=== PATIENT | male | born 1965 | race Caucasian/White ===

== ENCOUNTER 2016-08-08 13:47 | Emergency (ER) | payer OTHER ==
[~2016-08-08 13:47] MED LIST: /ADVA50050; /HALO1T OR; /OL10DISTA; /OLAN5ZYD OR; /QUET10TA OR; ADV250INH INH; ATIV1TAB2 OR; ATOR1TAB19 PO; AUGM875T27 PO; BACITAB3 PO; BENADRYL; BENZ1TA PO; BENZ1TAB; COGE1INJ; COGE1INJ PO; COGENTIN; DEPA1TAB3 PO; DEPA500T OR; DEPA500T2; DEPAKOTE ER; FLUPHENAZINE DECANOATE; GAS-80CH OR; GEOD40CA; HALDOL DECANOATE; HALO10AM IM; HALO10TA4; HALOPERIDOL DECANOATE; LIPI10TA; NICO21DI4 TD; PROLIXIN DECANOATE; PROLIXIN DECONATE; PROV90AE; QUET30XR; RISP-4; RISP2TAB12 OR; RISP3TAB16; RISPERDAL CONSTA; SERO1TAB PO; SERO400T; TRAZ100T4 PO; TRAZ150T; TRAZ50TA; TRAZ50TA OR; ZOLO50TA OR; ZYPR15TA OR; cogentin
[2016-08-08] MEDS ORDERED: IBUPROFEN 600 MG TAB As Ordered ONE (14:38)
--- NOTE | 2016-08-08 15:26 | EDDOCDS ---
Physician Documentation [facility] Name: Terrence Jett Age: 50 yrs Sex: Male : 1965 Arrival Date: 08/08/2016 Time: 13:47 Bed PR Private MD: Unknown, Family Disposition: 08/08/16 15:15 Discharged to Home/Self Care. Impression: Fall due to ice and snow, Contusion of left shoulder. - Condition is Stable. - Discharge Instructions: Contusion. - Medication Reconciliation, Local Pharmacy Hours form. - Follow up: Emergency Department; When: As needed; Reason: Worsening of conditions. Follow up: [facility]; When: Call to arrange an appointment; Reason: Recheck today's complaints, Continuance of care, To establish care. - Problem is new. - Symptoms are unchanged. - Notes: THERE WAS NO FRACTURES ON YOUR XRAYS TODAY. PLEASE FOLLOW UP WITH YOUR PRIMARY CARE PROVIDER IN THE NEXT FEW DAYS TO RECHECK YOUR SYMPTOMS. Historical: - Allergies: None; - Home Meds: 1. Advair Diskus 250-50 mcg/dose Inhl dsdv 1 puff 2 times per day (Last dose: 08/07/2016 20:00) 2. atorvastatin 10 mg oral tab 1 tab once daily (Last dose: 08/01/2016) 3. Depakote 500 mg Oral TbEC 1 tab 2 times per day (Last dose: 08/07/2016 20:00) 4. haloperidol injection 200 mg monthly injection (Last dose: 07/12/2016) 5. trazodone 100 mg Oral tab 1 tab nightly (Last dose: 08/07/2016 20:00) 6. Seroquel 100 mg Oral tab 1 tab nightly (Last dose: 08/07/2016 20:00) - PMHx: Asthma; Bipolar disorder; COPD; Hypercholesterolemia; Schizophrenia; - PSHx: none; - Social history: Smoking status: Patient uses tobacco products, current every day smoker. No barriers to communication noted, The patient speaks fluent Nicaraguan. - Family history: Not pertinent. - : The pt / caregiver states he / she is not on anticoagulants. Home medication list is obtained from the patient. - Exposure Risk Screening:: None identified. Vital Signs: 08/08 13:49 BP 136 / 89; Pulse 87; Resp 18 S; Temp 96.3(O); Pulse Ox 97% on R/A; Weight 77.11 kg / dd6 170 lbs (R); Height 5 ft. 10 in. (177.80 cm) (R); 15:20 BP 127 / 70; Pulse 78; Resp 18; Temp 97.2(O); Pulse Ox 98% on R/A; Pain 10/10; ct3 13:49 Body Mass Index 24.39 (77.11 kg, 177.80 cm) dd6 MDM: 14:27 Ibuprofen 600 mg PO once ordered. dt4 14:28 Clavicle Ordered. EDMS 14:40 Financial registration complete. lg 14:41 [facility] Payment Agreement was scanned into [employer] and attached to record. lg Administered Medications: 14:44 Drug: Ibuprofen 600 mg [ibuprofen 600 mg tablet (1 tabs)] Route: PO; jjr Signatures: Dispatcher [employer] EDMS Quoc Patel, Brittany Khalil RN, Reg Reg lg Mich ArguelloRN RN Sonia Clements PA-C PAClarence dt4 Rahel Mcneill RN jjr The chart was reviewed and I authenticate all verbal orders and agree with the evaluation and treatment provided.Attachments: 14:41 [facility] Payment Agreement lg MTDD
--- NOTE | 2016-08-08 15:26 | EDDOCDS ---
Nurse's Notes [facility] Name: Terrence Jett Age: 50 yrs Sex: Male : 1965 Arrival Date: 08/08/2016 Time: 13:47 Bed PR Private MD: Unknown, Family Dr Diagnosis: Fall due to ice and snow;Contusion of left shoulder Presentation: 08/08 13:52 Presenting complaint: Patient states: Left shoulder pain since slipping on ice at 10am dwg today, pain extends up to left side of neck. Adult Sepsis Screening: The patient does not have new or worsening altered mentation. Patient's respiratory rate is less than 22. Systolic blood pressure is greater than 100. Patient has a qSOFA score of 0- Negative Sepsis Screen. Suicide/Homicide risk assessment- the patient denies having any suicidal and/or homicidal ideations and does not present with any other emotional, behavioral or mental health complaints. Status: Patient is not a community service patrol officer or dependent. Transition of care: patient was not received from another setting of care. 13:52 Acuity: BRAVO Level 4 dwg 13:52 Method Of Arrival: Walkin/Carried/Asstd dwg Triage Assessment: 13:56 General: Appears in no apparent distress. Pain: Pain currently is 7 out of 10 on a pain dwg scale. HIV screening NA for this visit Offered previously. Historical: - Allergies: None; - Home Meds: 1. Advair Diskus 250-50 mcg/dose Inhl dsdv 1 puff 2 times per day (Last dose: 08/07/2016 20:00) 2. atorvastatin 10 mg oral tab 1 tab once daily (Last dose: 08/01/2016) 3. Depakote 500 mg Oral TbEC 1 tab 2 times per day (Last dose: 08/07/2016 20:00) 4. haloperidol injection 200 mg monthly injection (Last dose: 07/12/2016) 5. trazodone 100 mg Oral tab 1 tab nightly (Last dose: 08/07/2016 20:00) 6. Seroquel 100 mg Oral tab 1 tab nightly (Last dose: 08/07/2016 20:00) - PMHx: Asthma; Bipolar disorder; COPD; Hypercholesterolemia; Schizophrenia; - PSHx: none; - Social history: Smoking status: Patient uses tobacco products, current every day smoker. No barriers to communication noted, The patient speaks fluent Maltese. - Family history: Not pertinent. - : The pt / caregiver states he / she is not on anticoagulants. Home medication list is obtained from the patient. - Exposure Risk Screening:: None identified. Screenin:45 Screening information is obtained from the patient. Fall risk: At risk due to prior jjr history of falls, The following interventions are performed due to a positive Fall Risk Screen: added to special handling. Assistance ADL's: requires no assistance with activities of daily living. Abuse/DV Screen: The patient / caregiver reports he/she is: not in a situation that causes fear, pain or injury. Nutritional screening: No deficits noted. Advance Directives: There is no active DNR order. home support is adequate. 14:45 Fall Risk. jjr Assessment: 14:44 General: Appears in no apparent distress, Behavior is appropriate for age. jjr Musculoskeletal: No deformity noted Swelling absent Reports pain in left supraclavicular area. 15:24 General: Patient instructed on discharge instructions. Patient asked if there were any b questions regarding discharge, patient stated no. Patient signed discharge instructions. Patient discharged in stable condition. . Vital Signs: 13:49 BP 136 / 89; Pulse 87; Resp 18 S; Temp 96.3(O); Pulse Ox 97% on R/A; Weight 77.11 kg dd6 (R); Height 5 ft. 10 in. (177.80 cm) (R); 15:20 BP 127 / 70; Pulse 78; Resp 18; Temp 97.2(O); Pulse Ox 98% on R/A; Pain 10/10; ct3 13:49 Body Mass Index 24.39 (77.11 kg, 177.80 cm) dd6 Vitals: 13:49 Log In Time: August 08, 2016 at 13:47. dd6 ED Course: 13:48 Patient visited by Ras Katz PCA. dd6 13:48 Unknown, Family is Private Physician. dd6 13:48 Patient moved to Waiting dd6 13:51 Patient moved to Pre RCE dd6 13:53 Triage Initiated dwg 14:09 Patient moved to Triage 2 jjr 14:18 Sonia Flannery PA-C is PHCP. dt4 14:18 Ginette Rivers MD is Attending Physician. dt4 14:18 Patient visited by Sonia Flannery PA-C. dt4 14:38 Patient name changed from Terrence\S\\S\Johnie\S\ to Terrence\S\Jonathan\S\Johnie. EDMS 14:40 Patient moved to TR1 ct3 14:41 [facility] Payment Agreement was scanned into [employer] and attached to record. lg 14:45 The patient / caregiver is instructed regarding the plan of care and ED course. jjr 14:46 Patient visited by Rahel Mcneill, LIZETTE. jjr 15:13 [facility] is Referral Physician. dt4 15:17 Patient moved to ct3 15:21 Patient visited by Karis Red PCA. ct3 15:24 No IV's were initiated during this patient's visit. No procedures done that require jmb assistance. Administered Medications: 14:44 Drug: Ibuprofen 600 mg [ibuprofen 600 mg tablet (1 tabs)] Route: PO; jjr Order Results: There are currently no results for this order. Outcome: 15:15 Discharge ordered by Provider. dt4 15:24 Discharge Assessment: Patient awake, alert and oriented x 3. No cognitive and/or jmb functional deficits noted. Patient verbalized understanding of disposition instructions. Patient awake and alert. obeys commands, Oriented to person, place and time. Patient verbalized understanding of disposition instructions. Patient has no functional deficits. patient administered narcotics - no. The following High Risk Discharge criteria are identified: None. Discharged to home ambulatory. Condition: stable Condition: improved. Discharge instructions given to patient, Instructed on discharge instructions, follow up and referral plans. Demonstrated understanding of instructions, Pt was receptive of discharge instructions/ teaching. No special radiology studies were completed. Property sent home with patient. 15:25 Patient left the ED. jmb Signatures: Dispatcher [employer] EDMS Quoc Patel, RN Brittany Khalil, Reg Reg lg Rahel Mcneill, RN RN Ras Portillo, BULK TANK DRIVER BULK TANK DRIVER dd6 Karis Red, BULK TANK DRIVER BULK TANK DRIVER ct3 Mich Arguello RN RN jmb Tschudi, Diane, PA-C PA-C dt4 MTDD
--- NOTE | 2016-08-10 11:04 | REP ---
Left clavicle two views : There is no fracture or dislocation. Mineralization and joint spaces are normal. There are no calcifications or foreign bodies. Impression: Negative left clavicle . Signed by Quoc Parnell MD 08/08/2016 04:28 P
--- NOTE | 2016-08-10 16:26 | EDDOCDS ---
Physician Documentation [facility] Name: Terrence Jett Age: 50 yrs Sex: Male : 1965 Arrival Date: 08/08/2016 Time: 13:47 Bed PR Private MD: Unknown, Family Disposition: 08/08/16 15:15 Discharged to Home/Self Care. Impression: Fall due to ice and snow, Contusion of left shoulder. - Condition is Stable. - Discharge Instructions: Contusion. - Medication Reconciliation, Local Pharmacy Hours form. - Follow up: Emergency Department; When: As needed; Reason: Worsening of conditions. Follow up: [facility]; When: Call to arrange an appointment; Reason: Recheck today's complaints, Continuance of care, To establish care. - Problem is new. - Symptoms are unchanged. - Notes: THERE WAS NO FRACTURES ON YOUR XRAYS TODAY. PLEASE FOLLOW UP WITH YOUR PRIMARY CARE PROVIDER IN THE NEXT FEW DAYS TO RECHECK YOUR SYMPTOMS. Historical: - Allergies: None; - Home Meds: 1. Advair Diskus 250-50 mcg/dose Inhl dsdv 1 puff 2 times per day (Last dose: 08/07/2016 20:00) 2. atorvastatin 10 mg oral tab 1 tab once daily (Last dose: 08/01/2016) 3. Depakote 500 mg Oral TbEC 1 tab 2 times per day (Last dose: 08/07/2016 20:00) 4. haloperidol injection 200 mg monthly injection (Last dose: 07/12/2016) 5. trazodone 100 mg Oral tab 1 tab nightly (Last dose: 08/07/2016 20:00) 6. Seroquel 100 mg Oral tab 1 tab nightly (Last dose: 08/07/2016 20:00) - PMHx: Asthma; Bipolar disorder; COPD; Hypercholesterolemia; Schizophrenia; - PSHx: none; - Social history: Smoking status: Patient uses tobacco products, current every day smoker. No barriers to communication noted, The patient speaks fluent Micronesian. - Family history: Not pertinent. - : The pt / caregiver states he / she is not on anticoagulants. Home medication list is obtained from the patient. - Exposure Risk Screening:: None identified. Vital Signs: 08/08 13:49 BP 136 / 89; Pulse 87; Resp 18 S; Temp 96.3(O); Pulse Ox 97% on R/A; Weight 77.11 kg / dd6 170 lbs (R); Height 5 ft. 10 in. (177.80 cm) (R); 15:20 BP 127 / 70; Pulse 78; Resp 18; Temp 97.2(O); Pulse Ox 98% on R/A; Pain 10/10; ct3 13:49 Body Mass Index 24.39 (77.11 kg, 177.80 cm) dd6 MDM: 14:27 Ibuprofen 600 mg PO once ordered. dt4 14:28 Clavicle Ordered. EDMS 14:40 Financial registration complete. lg 14:41 [facility] Payment Agreement was scanned into [employer] and attached to record. lg 17:37 T-Sheet-- Draft Copy was scanned into [employer] and attached to record. klr Administered Medications: 14:44 Drug: Ibuprofen 600 mg [ibuprofen 600 mg tablet (1 tabs)] Route: PO; jjr Signatures: Dispatcher [employer] EDSC Qouc Patel, RN RN Brittany Ackerman, Reg Reg lg Mich ArguelloRN RN Sonia Clements, PAClarnece PAClarence dt4 Sandi Perry Jessica RN jjr The chart was reviewed and I authenticate all verbal orders and agree with the evaluation and treatment provided.Attachments: 14:41 [facility] Payment Agreement lg 17:37 T-Sheet-- Draft Copy klr Chart Complete MTDD
--- NOTE | 2016-08-10 16:26 | EDDOCDS ---
Physician Documentation [facility] Name: Terrence Jett Age: 50 yrs Sex: Male : 1965 Arrival Date: 08/08/2016 Time: 13:47 Bed PR Private MD: Unknown, Family Disposition: 08/08/16 15:15 Discharged to Home/Self Care. Impression: Fall due to ice and snow, Contusion of left shoulder. - Condition is Stable. - Discharge Instructions: Contusion. - Medication Reconciliation, Local Pharmacy Hours form. - Follow up: Emergency Department; When: As needed; Reason: Worsening of conditions. Follow up: [facility]; When: Call to arrange an appointment; Reason: Recheck today's complaints, Continuance of care, To establish care. - Problem is new. - Symptoms are unchanged. - Notes: THERE WAS NO FRACTURES ON YOUR XRAYS TODAY. PLEASE FOLLOW UP WITH YOUR PRIMARY CARE PROVIDER IN THE NEXT FEW DAYS TO RECHECK YOUR SYMPTOMS. Historical: - Allergies: None; - Home Meds: 1. Advair Diskus 250-50 mcg/dose Inhl dsdv 1 puff 2 times per day (Last dose: 08/07/2016 20:00) 2. atorvastatin 10 mg oral tab 1 tab once daily (Last dose: 08/01/2016) 3. Depakote 500 mg Oral TbEC 1 tab 2 times per day (Last dose: 08/07/2016 20:00) 4. haloperidol injection 200 mg monthly injection (Last dose: 07/12/2016) 5. trazodone 100 mg Oral tab 1 tab nightly (Last dose: 08/07/2016 20:00) 6. Seroquel 100 mg Oral tab 1 tab nightly (Last dose: 08/07/2016 20:00) - PMHx: Asthma; Bipolar disorder; COPD; Hypercholesterolemia; Schizophrenia; - PSHx: none; - Social history: Smoking status: Patient uses tobacco products, current every day smoker. No barriers to communication noted, The patient speaks fluent Macanese. - Family history: Not pertinent. - : The pt / caregiver states he / she is not on anticoagulants. Home medication list is obtained from the patient. - Exposure Risk Screening:: None identified. Vital Signs: 08/08 13:49 BP 136 / 89; Pulse 87; Resp 18 S; Temp 96.3(O); Pulse Ox 97% on R/A; Weight 77.11 kg / dd6 170 lbs (R); Height 5 ft. 10 in. (177.80 cm) (R); 15:20 BP 127 / 70; Pulse 78; Resp 18; Temp 97.2(O); Pulse Ox 98% on R/A; Pain 10/10; ct3 13:49 Body Mass Index 24.39 (77.11 kg, 177.80 cm) dd6 MDM: 14:27 Ibuprofen 600 mg PO once ordered. dt4 14:28 Clavicle Ordered. EDMS 14:40 Financial registration complete. lg 14:41 [facility] Payment Agreement was scanned into [employer] and attached to record. lg 17:37 T-Sheet-- Draft Copy was scanned into [employer] and attached to record. klr Administered Medications: 14:44 Drug: Ibuprofen 600 mg [ibuprofen 600 mg tablet (1 tabs)] Route: PO; jjr Signatures: Dispatcher [employer] EDPA Quoc Patel, RN RN Brittany Ackerman, Reg Reg lg Mich ArguelloRN RN Sonia Clements, PAClarence PAClarence dt4 Sandi Perry Jessica RN jjr The chart was reviewed and I authenticate all verbal orders and agree with the evaluation and treatment provided.Attachments: 14:41 [facility] Payment Agreement lg 17:37 T-Sheet-- Draft Copy klr Chart Complete MTDD
--- NOTE | 2016-08-10 16:26 | EDDOCDS ---
Nurse's Notes [facility] Name: Terrence Jett Age: 50 yrs Sex: Male : 1965 Arrival Date: 08/08/2016 Time: 13:47 Bed PR Private MD: Unknown, Family Dr Diagnosis: Fall due to ice and snow;Contusion of left shoulder Presentation: 08/08 13:52 Presenting complaint: Patient states: Left shoulder pain since slipping on ice at 10am dwg today, pain extends up to left side of neck. Adult Sepsis Screening: The patient does not have new or worsening altered mentation. Patient's respiratory rate is less than 22. Systolic blood pressure is greater than 100. Patient has a qSOFA score of 0- Negative Sepsis Screen. Suicide/Homicide risk assessment- the patient denies having any suicidal and/or homicidal ideations and does not present with any other emotional, behavioral or mental health complaints. Status: Patient is not a community service organization director or dependent. Transition of care: patient was not received from another setting of care. 13:52 Acuity: BRAVO Level 4 dwg 13:52 Method Of Arrival: Walkin/Carried/Asstd dwg Triage Assessment: 13:56 General: Appears in no apparent distress. Pain: Pain currently is 7 out of 10 on a pain dwg scale. HIV screening NA for this visit Offered previously. Historical: - Allergies: None; - Home Meds: 1. Advair Diskus 250-50 mcg/dose Inhl dsdv 1 puff 2 times per day (Last dose: 08/07/2016 20:00) 2. atorvastatin 10 mg oral tab 1 tab once daily (Last dose: 08/01/2016) 3. Depakote 500 mg Oral TbEC 1 tab 2 times per day (Last dose: 08/07/2016 20:00) 4. haloperidol injection 200 mg monthly injection (Last dose: 07/12/2016) 5. trazodone 100 mg Oral tab 1 tab nightly (Last dose: 08/07/2016 20:00) 6. Seroquel 100 mg Oral tab 1 tab nightly (Last dose: 08/07/2016 20:00) - PMHx: Asthma; Bipolar disorder; COPD; Hypercholesterolemia; Schizophrenia; - PSHx: none; - Social history: Smoking status: Patient uses tobacco products, current every day smoker. No barriers to communication noted, The patient speaks fluent Latvian. - Family history: Not pertinent. - : The pt / caregiver states he / she is not on anticoagulants. Home medication list is obtained from the patient. - Exposure Risk Screening:: None identified. Screenin:45 Screening information is obtained from the patient. Fall risk: At risk due to prior jjr history of falls, The following interventions are performed due to a positive Fall Risk Screen: added to special handling. Assistance ADL's: requires no assistance with activities of daily living. Abuse/DV Screen: The patient / caregiver reports he/she is: not in a situation that causes fear, pain or injury. Nutritional screening: No deficits noted. Advance Directives: There is no active DNR order. home support is adequate. 14:45 Fall Risk. jjr Assessment: 14:44 General: Appears in no apparent distress, Behavior is appropriate for age. jjr Musculoskeletal: No deformity noted Swelling absent Reports pain in left supraclavicular area. 15:24 General: Patient instructed on discharge instructions. Patient asked if there were any b questions regarding discharge, patient stated no. Patient signed discharge instructions. Patient discharged in stable condition. . Vital Signs: 13:49 BP 136 / 89; Pulse 87; Resp 18 S; Temp 96.3(O); Pulse Ox 97% on R/A; Weight 77.11 kg dd6 (R); Height 5 ft. 10 in. (177.80 cm) (R); 15:20 BP 127 / 70; Pulse 78; Resp 18; Temp 97.2(O); Pulse Ox 98% on R/A; Pain 10/10; ct3 13:49 Body Mass Index 24.39 (77.11 kg, 177.80 cm) dd6 Vitals: 13:49 Log In Time: August 08, 2016 at 13:47. dd6 ED Course: 13:48 Patient visited by Ras Katz PCA. dd6 13:48 Unknown, Family is Private Physician. dd6 13:48 Patient moved to Waiting dd6 13:51 Patient moved to Pre RCE dd6 13:53 Triage Initiated dwg 14:09 Patient moved to Triage 2 jjr 14:18 Sonia Flannery PA-C is PHCP. dt4 14:18 Ginette Rivers MD is Attending Physician. dt4 14:18 Patient visited by Sonia Flannery PA-C. dt4 14:38 Patient name changed from Terrence\S\\S\Johnie\S\ to Terrence\S\Jonathan\S\Johnie. EDMS 14:40 Patient moved to TR1 ct3 14:41 [facility] Payment Agreement was scanned into [employer] and attached to record. lg 14:45 The patient / caregiver is instructed regarding the plan of care and ED course. jjr 14:46 Patient visited by Rahel Mcneill RN. jjr 15:13 [facility] is Referral Physician. dt4 15:17 Patient moved to PR ct3 15:21 Patient visited by Karis Red PCA. ct3 15:24 No IV's were initiated during this patient's visit. No procedures done that require jmb assistance. 17:37 T-Sheet-- Draft Copy was scanned into [employer] and attached to record. klr 08/10 11:19 Clavicle Returned. EDMS Administered Medications: 08/08 14:44 Drug: Ibuprofen 600 mg [ibuprofen 600 mg tablet (1 tabs)] Route: PO; jjr Order Results: Radiology Order: Clavicle Test: Clavicle REASON FOR EXAMINATION: left clavicle injury; Left clavicle two views :; ; There is no fracture or dislocation.; ; Mineralization and joint spaces are normal.; ; There are no calcifications or foreign bodies.; ; Impression:; ; Negative left clavicle .; ; ; Signed by; Quoc Parnell MD 08/08/2016 04:28 P; Outcome: 15:15 Discharge ordered by Provider. dt4 15:24 Discharge Assessment: Patient awake, alert and oriented x 3. No cognitive and/or jmb functional deficits noted. Patient verbalized understanding of disposition instructions. Patient awake and alert. obeys commands, Oriented to person, place and time. Patient verbalized understanding of disposition instructions. Patient has no functional deficits. patient administered narcotics - no. The following High Risk Discharge criteria are identified: None. Discharged to home ambulatory. Condition: stable Condition: improved. Discharge instructions given to patient, Instructed on discharge instructions, follow up and referral plans. Demonstrated understanding of instructions, Pt was receptive of discharge instructions/ teaching. No special radiology studies were completed. Property sent home with patient. 15:25 Patient left the ED. alysa Signatures: Dispatcher [employer] EDMS Quoc Patel, RN RN Brittany Ackerman, Rahel Barroso lg, RN RN jimmy Katz, Ras, DRILLING CONTRACTOR DRILLING CONTRACTOR dd6 Red, Karis, DRILLING CONTRACTOR DRILLING CONTRACTOR ct3 Mich Arguello RN RN jmb Tschudi, Diane, CORINA-C PA-C dt4 Sandi Perry Chart Complete MTDD
== END 2016-08-08 15:25 | disposition home or self-care (01) ==
LOC: M ED 13:47
DX: S40.012A Contusion of left shoulder, initial encounter (principal); W00.9XXA Unspecified fall due to ice and snow, initial encounter; Y92.410 Unspecified street and highway as the place of occurrence of the external cause; Y93.01 Activity, walking, marching and hiking; Y99.8 Other external cause status; J45.909 Unspecified asthma, uncomplicated; F31.9 Bipolar disorder, unspecified; J44.9 Chronic obstructive pulmonary disease, unspecified; E78.00 Pure hypercholesterolemia, unspecified; F20.9 Schizophrenia, unspecified; F17.200 Nicotine dependence, unspecified, uncomplicated; Z79.51 Long term (current) use of inhaled steroids; Z79.899 Other long term (current) drug therapy

== ENCOUNTER → 2016-08-11 | Outpatient (RCR) | payer OTHER | END | disposition home or self-care (01) | LOC: M OUTALCOH 07-20 11:29 | PROVIDERS: ATTEND Psychiatry & Neurology Psychiatry | DX: F10.20 Alcohol dependence, uncomplicated (principal) ==

== ENCOUNTER 2016-09-07 11:00 | Outpatient (RCR) | payer OTHER | END 2016-09-08 | LOC: M OUTALCOH 11:00 | PROVIDERS: ATTEND Psychiatry & Neurology Psychiatry | DX: F10.20 Alcohol dependence, uncomplicated (principal) ==

== ENCOUNTER 2016-09-30 11:00 | Outpatient (RCR) | payer OTHER | END 2016-10-09 | LOC: M OUTALCOH 11:00 | PROVIDERS: ATTEND Psychiatry & Neurology Psychiatry | DX: Z13.9 Encounter for screening, unspecified (principal); F10.20 Alcohol dependence, uncomplicated ==

== ENCOUNTER 2016-12-02 11:00 | Outpatient (RCR) | payer MEDICAID ==
[2016-12-06] MEDS ORDERED: DIVA500T3 PO (17:45)
[2016-12-10] MEDS ORDERED: NICO21PAT TD (09:49)
== END 2016-12-09 ==
LOC: M OUTALCOH 11:00
PROVIDERS: ATTEND Psychiatry & Neurology Psychiatry
DX: F10.20 Alcohol dependence, uncomplicated (principal)

== ENCOUNTER 2016-12-05 20:31 | Inpatient (IN) | payer MEDICAID ==
[~2016-12-05] VITALS: Ht 177.8 cm; Wt 67.4 kg
[2016-12-05 21:17] LABS: MEAN CORPUSCULAR HEMOGLOBIN 32.1 pg (27.0-33.0); MEAN CORPUSCULAR HGB CONC 35.1 g/dl (32.0-36.5); MEAN CORPUSCULAR VOLUME 91.6 fl (80.0-96.0); RED CELL DISTRIBUTION WIDTH 12.1 % (11.5-14.5); WHITE BLOOD COUNT 8.9 K/mm3 (4.0-10.0)
[2016-12-05 21:38] LABS: ALBUMIN/GLOBULIN RATIO 1.14 (1.00-1.93); ALKALINE PHOSPHATASE 47 U/L (45-117); ALT/SGPT 22 U/L (12-78); ANION GAP 7 MEQ/L (8-16); AST/SGOT 20 U/L (15-37); BILIRUBIN,DIRECT 0.1 MG/DL (0.0-0.2); BILIRUBIN,TOTAL 0.4 MG/DL (0.2-1.0); BLOOD UREA NITROGEN 8 MG/DL (7-18); CALCIUM LEVEL 8.9 MG/DL (8.5-10.1); CARBON DIOXIDE LEVEL 28 MEQ/L (21-32); CHLORIDE LEVEL 107 MEQ/L (98-107); CREATININE FOR GFR 0.82 MG/DL (0.70-1.30); GLOMERULAR FILTRATION RATE > 60.0 (>56); GLUCOSE, FASTING 90 MG/DL (70-105); POTASSIUM SERUM 3.7 MEQ/L (3.5-5.1); SODIUM LEVEL 142 MEQ/L (136-145); TOTAL PROTEIN 7.5 GM/DL (6.4-8.2)
[2016-12-05 22:06] LABS: METHADONE URINE NEGATIVE (NEGATIVE)
[2016-12-06] MEDS ORDERED: ACETAMINOPHEN TAB 650MG DOSE (2X325MG) PO ONE (09:00)
[2016-12-06] MEDS ORDERED: OXAZEPAM 15 MG CAP PO ONE (15:00)
[2016-12-06] MEDS ORDERED: chlordiazePOXIDE 25 MG CAP PO PRN (17:15)
[2016-12-06] MEDS ORDERED: MOM 30ML SUSPENSION UDC PO PRN (17:15)
[2016-12-06] MEDS ORDERED: MAALOX 30 ML SUSP *UDC PO PRN (17:15)
[2016-12-06] MEDS ORDERED: DIVA500T3 PO (17:45)
[2016-12-06] MEDS: MULTIVITAMINS/MINERALS THERAP 1 TAB PO SCH (18:48)
[2016-12-06] MEDS: THIAMINE 100 MG TAB PO SCH (18:48)
[2016-12-06] MEDS: FOLIC ACID 1 MG TAB PO SCH (18:48)
[2016-12-06 18:52] VITALS: BP 138/67
[2016-12-06] MEDS ORDERED: QUEtiapine FUMARATE 100 MG TAB PO SCH (21:00)
[2016-12-06] MEDS: ADVAIR DISKUS 250/50 INH PWD INH SCH (21:19)
[2016-12-06] MEDS: BENZTROPINE 2 MG TAB PO SCH (21:19)
[2016-12-06] MEDS: DIVALPROEX 250 MG TAB PO SCH (21:19)
[2016-12-06] MEDS: ACETAMINOPHEN TAB 650MG DOSE (2X325MG) PO PRN (21:20)
[2016-12-06] MEDS: BACITRACIN OINT 30GM TOP SCH (22:55)
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
[2016-12-07 06:00] VITALS: BP 117/71
[2016-12-07] MEDS: THIAMINE 100 MG TAB PO SCH (08:47)
[2016-12-07] MEDS: DIVALPROEX 250 MG TAB PO SCH ×2 (08:47→20:38)
[2016-12-07] MEDS: MULTIVITAMINS/MINERALS THERAP 1 TAB PO SCH (08:47)
[2016-12-07] MEDS: FOLIC ACID 1 MG TAB PO SCH (08:47)
[2016-12-07] MEDS: ATORVASTATIN 10 MG TAB PO SCH (08:48)
[2016-12-07] MEDS: BACITRACIN OINT 30GM TOP SCH ×2 (08:48→20:39)
[2016-12-07] MEDS: BENZTROPINE 2 MG TAB PO SCH ×2 (08:48→20:38)
[2016-12-07] MEDS: ADVAIR DISKUS 250/50 INH PWD INH SCH ×2 (08:48→20:38)
[2016-12-07] MEDS ORDERED: LORazepam 2 MG TAB PO PRN (10:15)
[2016-12-07 11:17] LABS: BASO % 0.4 % (0.0-1.0); EOS # 0.3 K/mm3 (0.0-0.50); EOS % 4.5 % (0.0-3.0); LARGE UNSTAINED CELL # 0.1 K/mm3 (0.0-0.4); LARGE UNSTAINED CELL % 1.3 % (0.0-4.0); LYMPH # 0.9 K/mm3 (1.5-4.5); MEAN CORPUSCULAR HEMOGLOBIN 33.1 pg (27.0-33.0); MEAN CORPUSCULAR HGB CONC 35.2 g/dl (32.0-36.5); MONO # 0.3 K/mm3 (0.0-0.8); MONO % 4.1 % (0.0-5.0); NEUTROPHILS # 5.6 K/mm3 (1.8-7.7); NEUTROPHILS % 77.8 % (36.0-66.0); PLATELET COUNT, AUTOMATED 200 k/mm3 (150-450); WHITE BLOOD COUNT 7.2 K/mm3 (4.0-10.0)
[2016-12-07] MEDS: NICOTINE 21MG/24HR 1 EA TRANSDERMAL TD SCH (11:18)
--- NOTE | 2016-12-07 11:40 | REP ---
Clinical: Trauma . Comparison: 06/26/2016 . Findings: The ventricles, sulci, and cisterns are normal in position and appearance. Goodman-white differentiation is maintained. No acute intracranial hemorrhage, mass/mass effect, pathology or trauma/injury. No evidence for acute infarction. No extra-axial fluid collection. Calvarium is intact. Paranasal sinuses and mastoid air cells are clear. Impression: No evidence for acute intracranial pathology or trauma/injury. Signed by Bradley Feliciano MD 12/07/2016 11:31 A
[2016-12-07] MEDS: ACETAMINOPHEN TAB 650MG DOSE (2X325MG) PO PRN (12:03)
--- NOTE | 2016-12-07 15:44 | MHHPEPDOC ---
[facility] History & Physical History and Physical DATE OF ADMISSION: December 06, 2016 at 17:02 LEGAL STATUS AT ADMISSION: 9.39 CHIEF COMPLAINT: "I didn't take my medicine" HISTORY OF THE PRESENT ILLNESS: The patient a 51-year-old man presented to [facility] after having a pickup order called on him by his outpatient provider as he had not shown up for his risperidone depot injection. He was brought in the hospital and found to be intoxicated on alcohol and reported that he been drinking whiskey that day. Patient has a long history of noncompliance with medications chronic paranoid schizophrenia. He is currently under a assisted outpatient treatment order for his long-acting injectable antipsychotic. When the patient was met with he described that he'd been drinking excessively and had not shown up for his appointment. He did attempt claimed that he was unable to call his provider as he could not find a cell phone. During the interview he appeared to be very simplistic and described that he'd had a long history of chronic paranoia that had gone him into legal trouble over his life. He was interested in discharge, however as we do not have his dosage for his long-acting injectable he was informed that he would need to stay. However, after the motivational interviewing the patient was interested in perhaps trying clozapine or another medication to better control his symptoms. PSYCHIATRIC ROS: Affective: The patient denies any episodes of unprovoked depressed mood associated with neurovegetative symptoms lasting longer than 2 weeks with symptoms present nearly everyday. Unclear if the patient has had episodes of anam but he denies symptoms consistent with that. Anxiety: permit limits to situational anxiety, but denies excessive worry or panic attacks. Trauma: The patient denies any traumatic events associated with nightmares or intrusive thoughts. Psychosis: the patient has a history of paranoia, delusions and auditory hallucinations and episodic nature. Personality: unable discreet for personality disorders at this time PAST PSYCHIATRIC HISTORY: Prior Psychiatric Diagnosis: chronic paranoid schizophrenia Previous admissions: at least 3 admission to [facility], records prior to this report several missions to [facility]. Current Medications: when quetiapine 100 mg nightly, risperidone long-acting injectable and Depakote 250 mg BID. Suicide attempts: unclear Psychotropic Medication History: has been tried on a number of psychotropic medications including quetiapine, Cogentin, Haldol, risperidone. However, it appears is been tried a number of other medications but is unable to remember them at this time. ALLERGIES: Please see below. FAMILY PSYCHIATRIC HISTORY: reports that his sister is "crazy" but other than this is unable to elaborate any family psychiatric history. 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 Martial: single Economic: currently supported by disability Supports: as a supportive sister Abuse/trauma: denies any abuse in the nature of sexual, physical or emotional abuse. SUBSTANCE ABUSE HISTORY: has severe addiction to alcohol, frequently binges not alcohol when it is available. It's difficult to ascertain of the patient the exact amount as he states he does not remember how much he drinks. MEDICAL HISTORY: Reports no chronic medical history MENTAL STATUS EXAMINATION: General: disheveled Speech: monthly pressured Thought processes: somewhat disorganized Thought content: perseveration discharge Abstract reasoning, and computation: impaired Description of associations: loosened Description of abnormal or psychotic thoughts:Denies any suicidal or homicidal ideation. Denies any auditory or visual hallucinations. Does not appear to be responding to internal stimuli. Judgment: limited Insight: limited Orientation: alert and oriented times 3 Recent and remote memory: somewhat impaired, unable to remember finer details of his history Attention span and concentration: intact Fund of knowledge: limited Mood: "fine" Affect: elated, constricted DIAGNOSES: 1. Chronic paranoid schizophrenia 2. Alcohol use disorder, severe, in withdrawal ASSESSMENT: 51-year-old man with a long history of schizophrenia and alcoholism presents after being picked up on a assisted outpatient treatment order after he failed to show up for his injection of long-acting antipsychotic. Has failed the number of antipsychotics and would be a candidate for clozapine at this time. Will attempt to connect with the patient outpatient provider determine if this would be feasible. PROBLEM LIST: 1. Altered thoughts 2. Substance use 3. Anxiety INITIAL TREATMENT PLAN: 1. Patient was admitted on a 9.39 legal status. 2. Complete history was obtained. 3. With patients permission, family will be contacted and database will be expanded. 4. Patients medication regimen will be reviewed and changed accordingly. -Discontinue Seroquel at this time as the evidence states that more than one antipsychotic is not beneficial this patient's population. Will attempt to call Dr. Castellanos on Wednesday in order to ascertain if he would be amenable to starting the patient on clozapine. 5. Patient will be provided with protected environment. 6. Patient will be treated with individual, group, and milieu therapies. 7. Patient will receive supportive psych-education. 8. Discharge planning will commence immediately. 9. Outpatient follow-up treatment will be strongly recommended. 10. The initial treatment plan will focus initially on: connection with outpatient providers and determination of his outpatient long-acting antipsychotic dosage in order to continue treatment. ESTIMATED LENGTH OF STAY: 3-5 DAYS. TIME SPENT COUNSELING AND COORDINATING INITIAL CARE: 50 minutes. Laboratory Data [facility] Laboratory Tests 2 12/07/16 11:07: White Blood Count 7.2, Red Blood Count 4.40, Hemoglobin 14.5#, Hematocrit 41.3L , Mean Corpuscular Volume 94.0, Mean Corpuscular Hemoglobin 33.1H, Mean Corpuscular Hemoglobin Concent 35.2, Red Cell Distribution Width 12.0, Platelet Count 200, Neutrophils (%) (Auto) 77.8H, Lymphocytes (%) (Auto) 12.0L, Monocytes (%) (Auto) 4.1, Eosinophils (%) (Auto) 4.5H, Basophils (%) (Auto) 0.4 , Neutrophils # (Auto) 5.6, Lymphocytes # (Auto) 0.9L, Monocytes # (Auto) 0.3, Eosinophils # (Auto) 0.3, Basophils # (Auto) 0.0, Large Unclassified Cells % 1.3 , Large Unclassified Cells # 0.1, Estimated Mean Plasma Glucose 88, Hemoglobin A1c 4.7, Triglycerides Level 118, LDL Cholesterol 59.4, Total Cholesterol 151, Non-HDL Cholesterol (LDL + VLDL) 83, Total HDL Cholesterol 68, Cholesterol/HDL Ratio 2.220 CBC/BMP Laboratory Tests 12/07/16 11:07 Red Blood Count 4.40, Mean Corpuscular Volume 94.0, Mean Corpuscular Hemoglobin 33.1 H, Mean Corpuscular Hemoglobin Concent 35.2, Red Cell Distribution Width 12.0, Neutrophils (%) (Auto) 77.8 H, Lymphocytes (%) (Auto) 12.0 L, Monocytes (% ) (Auto) 4.1, Eosinophils (%) (Auto) 4.5 H, Basophils (%) (Auto) 0.4, Neutrophils # (Auto) 5.6, Lymphocytes # (Auto) 0.9 L, Monocytes # (Auto) 0.3, Eosinophils # (Auto) 0.3, Basophils # (Auto) 0.0 Medications Scheduled Atorvastatin Calcium (Atorvastatin Calcium) 10 Mg Tab, 10 MG PO QHS, (Reported) Benztropine Mesylate (Benztropine Mesylate) 1 Mg Tab, 2 MG PO BID, (Reported) Divalproex Sodium (Divalproex Sodium Dr) 500 Mg Tab, 500 MG PO BID, (Reported) Haloperidol Decanoate (Haloperidol Decanoate) 100 Mg/Ml Soln, 200 MG IM QMONTH, (Reported) Quetiapine Fumerate (Seroquel) 100 Mg Tab, 100 MG PO QHS, (Reported) Salmeterol/Fluticasone (Advair Diskus 250-50 Mcg/Dose) 14 Puff/Inhaler Aerp, 1 PUFF INH BID, (Reported) Trazodone HCl (Trazodone HCl) 100 Mg Tab, 100 MG PO QHS, (Reported) Allergies Coded Allergies: No Known Allergies (Verified Allergy, Unknown, 10/17/08) E ATTESTATION My preceptor for this patient encounter was physically present in the building during the encounter and was fully available. As needed, all aspects of the patient interview, examination, medical decision making process, and medical care plan development were reviewed and approved by the preceptor. Preceptor is aware and concurs with the plan as stated in the body of this note and will attest to such by his/her cosignature. BISHNU CASTREJON DO December 07, 2016 15:44
[2016-12-07 18:00] VITALS: BP 115/57
[2016-12-08] MEDS: QUEtiapine FUMARATE 100 MG TAB PO SCH ×2 (00:26→20:21)
[2016-12-08] MEDS: ACETAMINOPHEN TAB 650MG DOSE (2X325MG) PO PRN ×2 (00:26→20:22)
[2016-12-08 06:07] VITALS: BP 126/82
[2016-12-08] MEDS: THIAMINE 100 MG TAB PO SCH (09:12)
[2016-12-08] MEDS: NICOTINE 21MG/24HR 1 EA TRANSDERMAL TD SCH (09:12)
[2016-12-08] MEDS: MULTIVITAMINS/MINERALS THERAP 1 TAB PO SCH (09:12)
[2016-12-08] MEDS: ADVAIR DISKUS 250/50 INH PWD INH SCH ×2 (09:12→20:21)
[2016-12-08] MEDS: BENZTROPINE 2 MG TAB PO SCH ×2 (09:13→20:21)
[2016-12-08] MEDS: DIVALPROEX 250 MG TAB PO SCH ×2 (09:13→20:21)
[2016-12-08] MEDS: ATORVASTATIN 10 MG TAB PO SCH (09:13)
[2016-12-08] MEDS: FOLIC ACID 1 MG TAB PO SCH (09:13)
[2016-12-08] MEDS: BACITRACIN OINT 30GM TOP SCH ×2 (09:14→20:21)
[2016-12-08 18:01] VITALS: BP_SYST 121; BP_SYST 126; BP_DIAS 57; BP_DIAS 82
--- NOTE | 2016-12-08 21:25 | MHIPNPDOC ---
[facility] Progress Note Progress Note DATE OF SERVICE: 12/08/16 INTERVAL HISTORY: Medication Side effects: reports no side effects on his medications Behavior/events: has been more engaged in performing his activities of daily living, notably social Group Attendance: attend group relatively regularly Psychiatric Symptoms:patient describes that he is feeling much better since he has detoxed off the alcohol, he describes that is interesting going home our team is not yet our team has not determined what his outpatient risperidone depot dose is to give him in order to comply with the assisted outpatient treatment order. Vital signs: see below. NEW TEST RESULTS: See below CURRENT MEDICATIONS: See below. MENTAL STATUS EXAMINATION: General: well-groomed Speech: somewhat pressured Thought processes:mildly circumstantial Thought content: perseverate on discharge Abstract reasoning, and computation: improving Description of associations: intact Description of abnormal or psychotic thoughts:Denies any suicidal or homicidal ideation. Denies any auditory or visual hallucinations. Does not appear to be responding to internal stimuli. Does not appear to be endorsing any bizarre or paranoid ideation. Judgment: limited Insight: limited Orientation: alert oriented times 3 Recent and remote memory: intact Attention span and concentration: intact Fund of knowledge: limited Mood: "okay" Affect: reactive DIAGNOSES: 1. Chronic paranoid schizophrenia. 2. Alcohol use disorder, severe, in withdrawal. ASSESSMENT: improving since separation from alcohol. Will attempt to get patient depot dose once accurate doses noted prior to discharge. MANAGEMENT PLAN: Medications: will ascertain accurate dosage in order to get patient risperidone depot as soon as possible Psychotherapy: encourage group therapy Social: possible discharge this week Misc: connection with outpatient provider Dr. Castellanos Disposition: The patient will need of further inpatient stay to address medication and disposition needs. TIME SPENT: 15 minutes. Vital Signs Vital Signs Date Time Temp Pulse Resp B/P (MAP) Pulse Ox O2 Delivery O2 Flow Rate FiO2 12/08/16 18:01 98.1 72 16 121/57 (78) 12/08/16 06:07 Room Air 12/06/16 18:52 96 Current Medications Current Medications Acetaminophen (Tylenol Tab) 650 mg Q6HP PRN PO HEADACHE or DISCOMFORT Last administered on 12/08/16t 20:22; Start 12/06/16 at 17:15; Stop 01/05/17 at 17:14 Al Hydrox/Mg Hydrox/Simethicone (Mylanta) 30 ml Q4HP PRN PO HEARTBURN/ INDIGESTION; Start 12/06/16 at 17:15; Stop 01/05/17 at 17:14 Atorvastatin Calcium (Lipitor) 10 mg DAILY PO Last administered on 12/08/16 09 :13; Start 12/07/16 at 09:00; Stop 01/06/17 at 08:59 Bacitracin (Bacitracin Oint) to laceration ... BID TOP Last administered on 20:21; Start 12/06/16 at 21:00; Stop 01/05/17 at 20:59 Benztropine Mesylate (Cogentin) 2 mg BID PO Last administered on 12/08/16 20: 21; Start 12/06/16 at 21:00; Stop 01/05/17 at 20:59 Chlordiazepoxide (Librium) 20 mg TIDP PRN PO WITHDRAWAL SYMPTOMS; Start at 17:15; Stop 12/06/16 at 17:15; Status DC Chlordiazepoxide (Librium) 25 mg TIDP PRN PO WITHDRAWAL SYMPTOMS; Start at 17:15; Stop 12/07/16 at 10:25; Status DC Divalproex Sodium (Depakote) 250 mg BID PO Last administered on 12/08/16 20:21 ; Start 12/06/16 at 21:00; Stop 01/05/17 at 20:59 Folic Acid (Folic Acid) 1 mg DAILY PO Last administered on 12/08/16 09:13; Start 12/06/16 at 09:00; Stop 01/05/17 at 08:59 Home Med (Med Rec Complete!) ASDIRECTED XX ; Start 12/06/16 at 18:00; Stop at 18:00; Status DC Lorazepam (Ativan) 2 mg ASDIRECTED PRN PO SEE PROTOCOL; Start 12/07/16 at 10:15 ; Stop 12/14/16 at 10:14 Magnesium Hydroxide (Milk Of Magnesia) 30 ml DAILYPRN PRN PO CONSTIPATION; Start 12/06/16 at 17:15; Stop 01/05/17 at 17:14 Multivitamins (Theragram-M) 1 tab DAILY PO Last administered on 12/08/16 09:12 ; Start 12/06/16 at 09:00; Stop 01/05/17 at 08:59 Nicotine (Nicoderm Cq 21mg) 1 patch DAILY TD Last administered on 12/08/16 09: 12; Start 12/07/16 at 09:00; Stop 01/06/17 at 08:59 Quetiapine Fumarate (SEROquel) 100 mg QHS PO Last administered on 12/06/16 21: 19; Start 12/06/16 at 21:00; Stop 12/07/16 at 10:52; Status DC Quetiapine Fumarate (SEROquel) 100 mg QHS PO Last administered on 12/08/16 20: 21; Start 12/07/16 at 21:00; Stop 01/06/17 at 20:59 Salmeterol Xinafoate/ Fluticasone (Advair Diskus 250/50) 1 puff BID INH Last administered on 12/08/16 20:21; Start 12/06/16 at 21:00; Stop 01/05/17 at 20:59 Thiamine HCl (Thiamine HCl) 100 mg DAILY PO Last administered on 12/08/16 09: 12; Start 12/06/16 at 09:00; Stop 01/05/17 at 08:59 Allergies Coded Allergies: No Known Allergies (Verified Allergy, Unknown, 10/17/08) GME ATTESTATION My preceptor for this patient encounter was physically present in the building during the encounter and was fully available. As needed, all aspects of the patient interview, examination, medical decision making process, and medical care plan development were reviewed and approved by the preceptor. Preceptor is aware and concurs with the plan as stated in the body of this note and will attest to such by his/her cosignature. BISHNU CASTREJON DO December 08, 2016 21:25
[2016-12-09 06:25] VITALS: BP 112/82
[2016-12-09] MEDS: BACITRACIN OINT 30GM TOP SCH ×2 (08:49→20:36)
[2016-12-09] MEDS: ADVAIR DISKUS 250/50 INH PWD INH SCH ×2 (08:49→20:36)
[2016-12-09] MEDS: NICOTINE 21MG/24HR 1 EA TRANSDERMAL TD SCH (08:50)
[2016-12-09] MEDS: FOLIC ACID 1 MG TAB PO SCH (08:50)
[2016-12-09] MEDS: DIVALPROEX 250 MG TAB PO SCH ×2 (08:50→20:36)
[2016-12-09] MEDS: MULTIVITAMINS/MINERALS THERAP 1 TAB PO SCH (08:50)
[2016-12-09] MEDS: ATORVASTATIN 10 MG TAB PO SCH (08:50)
[2016-12-09] MEDS: THIAMINE 100 MG TAB PO SCH (08:50)
[2016-12-09] MEDS: BENZTROPINE 2 MG TAB PO SCH ×2 (08:50→20:36)
[2016-12-09] MEDS ORDERED: HALOPERIDOL DECANOATE 100 MG/ML VIAL (J1631) IM ONE (11:15)
[2016-12-09 18:13] VITALS: BP 122/64
[2016-12-09] MEDS: QUEtiapine FUMARATE 100 MG TAB PO SCH (20:36)
[2016-12-09 20:39] VITALS: BP 119/62
--- NOTE | 2016-12-09 21:41 | MHIPNPDOC ---
[facility] Progress Note Progress Note DATE OF SERVICE: 12/09/16 INTERVAL HISTORY: Medication Side effects: the patient reports no effects from his Haldol depot shot Behavior/events: has been social and engaged in the milieu speaking with other patients, demonstrated concerning symptoms. Group Attendance: has attended groups at times Psychiatric Symptoms: reports no psychiatric symptoms dates that he feels that he is at his baseline and wishes to go home. VITAL SIGNS: See below. NEW TEST RESULTS: See below CURRENT MEDICATIONS: See below. MENTAL STATUS EXAMINATION: General: well-groomed Speech: mildly pressured Thought processes: coherent Thought content: no paranoid ideation Abstract reasoning, and computation: intact Description of associations: intact Description of abnormal or psychotic thoughts:Denies any suicidal or homicidal ideation. Denies any auditory or visual hallucinations. Does not appear to be responding to internal stimuli. Does not appear to be endorsing any bizarre or paranoid ideation. Judgment: improving Insight: improving Orientation: alert and oriented times 3 Recent and remote memory: intact Attention span and concentration: intact Fund of knowledge: adequate Mood: "great" Affect: euthymic DIAGNOSES: 1. Chronic paranoid schizophrenia. 2. Alcohol use disorder, severe, in early remission. ASSESSMENT: improving, paired for discharge tomorrow MANAGEMENT PLAN: Medications: patient given 200 mg depot of Haldol as confirmed by pharmacy, as he was currently not on risperidone depot. Psychotherapy: encourage group therapy Social: discharge tomorrow, disease case manager rn will come for discharge meeting Misc: none Disposition: The patient will need of further inpatient stay to address disposition needs. TIME SPENT: 15 minutes. Vital Signs Vital Signs Date Time Temp Pulse Resp B/P (MAP) Pulse Ox O2 Delivery O2 Flow Rate FiO2 12/09/16 20:39 98.4 66 18 119/62 (81) 12/08/16 06:07 Room Air 12/06/16 18:52 96 Current Medications Current Medications Acetaminophen (Tylenol Tab) 650 mg Q6HP PRN PO HEADACHE or DISCOMFORT Last administered on 12/08/16t 20:22; Start 12/06/16 at 17:15; Stop 01/05/17 at 17:14 Al Hydrox/Mg Hydrox/Simethicone (Mylanta) 30 ml Q4HP PRN PO HEARTBURN/ INDIGESTION; Start 12/06/16 at 17:15; Stop 01/05/17 at 17:14 Atorvastatin Calcium (Lipitor) 10 mg DAILY PO Last administered on 12/09/16 08 :50; Start 12/07/16 at 09:00; Stop 01/06/17 at 08:59 Bacitracin (Bacitracin Oint) to laceration ... BID TOP Last administered on 20:36; Start 12/06/16 at 21:00; Stop 01/05/17 at 20:59 Benztropine Mesylate (Cogentin) 2 mg BID PO Last administered on 12/09/16 20: 36; Start 12/06/16 at 21:00; Stop 01/05/17 at 20:59 Chlordiazepoxide (Librium) 20 mg TIDP PRN PO WITHDRAWAL SYMPTOMS; Start at 17:15; Stop 12/06/16 at 17:15; Status DC Chlordiazepoxide (Librium) 25 mg TIDP PRN PO WITHDRAWAL SYMPTOMS; Start at 17:15; Stop 12/07/16 at 10:25; Status DC Divalproex Sodium (Depakote) 250 mg BID PO Last administered on 12/09/16 20:36 ; Start 12/06/16 at 21:00; Stop 01/05/17 at 20:59 Folic Acid (Folic Acid) 1 mg DAILY PO Last administered on 12/09/16 08:50; Start 12/06/16 at 09:00; Stop 01/05/17 at 08:59 Home Med (Med Rec Complete!) ASDIRECTED XX ; Start 12/06/16 at 18:00; Stop at 18:00; Status DC Lorazepam (Ativan) 2 mg ASDIRECTED PRN PO SEE PROTOCOL; Start 12/07/16 at 10:15 ; Stop 12/14/16 at 10:14 Magnesium Hydroxide (Milk Of Magnesia) 30 ml DAILYPRN PRN PO CONSTIPATION; Start 12/06/16 at 17:15; Stop 01/05/17 at 17:14 Multivitamins (Theragram-M) 1 tab DAILY PO Last administered on 12/09/16 08:50 ; Start 12/06/16 at 09:00; Stop 01/05/17 at 08:59 Nicotine (Nicoderm Cq 21mg) 1 patch DAILY TD Last administered on 12/09/16 08: 50; Start 12/07/16 at 09:00; Stop 01/06/17 at 08:59 Quetiapine Fumarate (SEROquel) 100 mg QHS PO Last administered on 12/06/16 21: 19; Start 12/06/16 at 21:00; Stop 12/07/16 at 10:52; Status DC Quetiapine Fumarate (SEROquel) 100 mg QHS PO Last administered on 12/09/16 20: 36; Start 12/07/16 at 21:00; Stop 01/06/17 at 20:59 Salmeterol Xinafoate/ Fluticasone (Advair Diskus 250/50) 1 puff BID INH Last administered on 12/09/16 20:36; Start 12/06/16 at 21:00; Stop 01/05/17 at 20:59 Thiamine HCl (Thiamine HCl) 100 mg DAILY PO Last administered on 12/09/16 08: 50; Start 12/06/16 at 09:00; Stop 01/05/17 at 08:59 Allergies Coded Allergies: No Known Allergies (Verified Allergy, Unknown, 10/17/08) GME ATTESTATION My preceptor for this patient encounter was physically present in the building during the encounter and was fully available. As needed, all aspects of the patient interview, examination, medical decision making process, and medical care plan development were reviewed and approved by the preceptor. Preceptor is aware and concurs with the plan as stated in the body of this note and will attest to such by his/her cosignature. BISHNU CASTREJON DO December 09, 2016 21:41
[2016-12-10 06:09] VITALS: BP 119/57
[2016-12-10] MEDS: BACITRACIN OINT 30GM TOP SCH (08:18)
[2016-12-10] MEDS: ADVAIR DISKUS 250/50 INH PWD INH SCH (08:18)
[2016-12-10] MEDS: FOLIC ACID 1 MG TAB PO SCH (08:19)
[2016-12-10] MEDS: BENZTROPINE 2 MG TAB PO SCH (08:19)
[2016-12-10] MEDS: DIVALPROEX 250 MG TAB PO SCH (08:19)
[2016-12-10] MEDS: MULTIVITAMINS/MINERALS THERAP 1 TAB PO SCH (08:19)
[2016-12-10] MEDS: ATORVASTATIN 10 MG TAB PO SCH (08:19)
[2016-12-10] MEDS: THIAMINE 100 MG TAB PO SCH (08:22)
[2016-12-10] MEDS: NICOTINE 21MG/24HR 1 EA TRANSDERMAL TD SCH (09:00)
[2016-12-10] MEDS ORDERED: NICO21PAT TD (09:49)
--- NOTE | 2016-12-10 22:05 | MHDSPDOC ---
[facility] Discharge Summary Discharge Summary DATE OF ADMISSION: December 06, 2016 at 17:02 DATE OF DISCHARGE: Dec 10, 2016 at 10:20 DISCHARGE DIAGNOSES: 1. Paranoid schizophrenia, chronic REASON FOR ADMISSION: The patient became delusional and psychotic because he had missed his injection and because he had been drinking too much, became paranoid, disorganized and his psychosis became exacerbated. He thought that he had missed a dose of Risperdal Consta but then, the clinic informed it was not Risperdal Consta, it was Haldol Decanoate. He received his dose of 200 mgs. IM of Haldol Decanoate two days ago. He got an appointment to continue treatment as an outpatient and receive his next injection by the end of December 2016, CONSULTANTS INVOLVED: None TREATMENT AND PROGRESS ON THE UNIT : The patient had a good evolution when he received His Haldol Decanoate 200 mgs. IM. Didnt report medications side effects, he didnt presented with behavioral problems and his paranoia/ delusional state resolved. HOSPITAL COURSE: As above DISCHARGE ASSESSMENT: The patient was alert, happy, with good eye contact MENTAL STATUS EXAMINATION ON DISCHARGE: Patient is a 51-year old male, who is alert, pleasant, with good eye contact, cooperative. Speech is a little tangential. Language skills are Fair. Thought processes including: Improved. His irrational thoughts/disorganized thoughts are not present anymore Thought content: Goal directed, looking forward to go home Abstract reasoning, and computation: Poor. Description of associations: Not loose at this moment. Description of abnormal or psychotic thoughts: Denies suicidal ideation, denies homicidal ideation, denies psychois. Judgment: Improved. Insight: Improved. Orientation to Oriented x 3. Recent and remote memory: Fair. Attention span and concentration: Fair. Language: Normal. Fund of knowledge: Poor. Mood: "Happy". Affect: Euthymic. MEDICATIONS ON DISCHARGE: - Haldol Decanoate 200 mgs. IM for schizophrenia every 30 days - Divalproex Sodium 500 mgs.PO BID for mood stabilization - Trazodone 100 mgs PO QHS for insomnia - Seroquel 100 mgs. Po QHS for mood, insomnia and psychosis Current Medications Acetaminophen (Tylenol Tab) 650 mg Q6HP PRN PO HEADACHE or DISCOMFORT Last administered on 12/08/16t 20:22; Start 12/06/16 at 17:15; Stop 12/10/16 at 11:17 ; Status DC Al Hydrox/Mg Hydrox/Simethicone (Mylanta) 30 ml Q4HP PRN PO HEARTBURN/ INDIGESTION; Start 12/06/16 at 17:15; Stop 12/10/16 at 11:17; Status DC Atorvastatin Calcium (Lipitor) 10 mg DAILY PO Last administered on 12/10/16 08: 19; Start 12/07/16 at 09:00; Stop 12/10/16 at 11:17; Status DC Bacitracin (Bacitracin Oint) to laceration ... BID TOP Last administered on 12/10 08:18; Start 12/06/16 at 21:00; Stop 12/10/16 at 11:17; Status DC Benztropine Mesylate (Cogentin) 2 mg BID PO Last administered on 12/10/16 08:19 ; Start 12/06/16 at 21:00; Stop 12/10/16 at 11:17; Status DC Chlordiazepoxide (Librium) 20 mg TIDP PRN PO WITHDRAWAL SYMPTOMS; Start at 17:15; Stop 12/06/16 at 17:15; Status DC Chlordiazepoxide (Librium) 25 mg TIDP PRN PO WITHDRAWAL SYMPTOMS; Start at 17:15; Stop 12/07/16 at 10:25; Status DC Divalproex Sodium (Depakote) 250 mg BID PO Last administered on 12/10/16 08:19 ; Start 12/06/16 at 21:00; Stop 12/10/16 at 11:17; Status DC Folic Acid (Folic Acid) 1 mg DAILY PO Last administered on 12/10/16 08:19; Start 12/06/16 at 09:00; Stop 12/10/16 at 11:17; Status DC Home Med (Med Rec Complete!) ASDIRECTED XX ; Start 12/06/16 at 18:00; Stop at 18:00; Status DC Lorazepam (Ativan) 2 mg ASDIRECTED PRN PO SEE PROTOCOL; Start 12/07/16 at 10:15 ; Stop 12/10/16 at 11:17; Status DC Magnesium Hydroxide (Milk Of Magnesia) 30 ml DAILYPRN PRN PO CONSTIPATION; Start 12/06/16 at 17:15; Stop 12/10/16 at 11:17; Status DC Multivitamins (Theragram-M) 1 tab DAILY PO Last administered on 12/10/16 08:19 ; Start 12/06/16 at 09:00; Stop 12/10/16 at 11:17; Status DC Nicotine (Nicoderm Cq 21mg) 1 patch DAILY TD Last administered on 12/09/16 08: 50; Start 12/07/16 at 09:00; Stop 12/10/16 at 11:17; Status DC Quetiapine Fumarate (SEROquel) 100 mg QHS PO Last administered on 12/06/16 21: 19; Start 12/06/16 at 21:00; Stop 12/07/16 at 10:52; Status DC Quetiapine Fumarate (SEROquel) 100 mg QHS PO Last administered on 12/09/16 20: 36; Start 12/07/16 at 21:00; Stop 12/10/16 at 11:17; Status DC Salmeterol Xinafoate/ Fluticasone (Advair Diskus 250/50) 1 puff BID INH Last administered on 12/10/16 08:18; Start 12/06/16 at 21:00; Stop 12/10/16 at 11:17; Status DC Thiamine HCl (Thiamine HCl) 100 mg DAILY PO Last administered on 12/10/16 08:22 ; Start 12/06/16 at 09:00; Stop 12/10/16 at 11:17; Status DC for . PLAN/FOLLOWUP ARRANGEMENTS: . The amount of time spent in the coordination of care for this patient was approximately minutes. Vital Signs/I&Os Vital Signs Date Time Temp Pulse Resp B/P (MAP) Pulse Ox O2 Delivery O2 Flow Rate FiO2 12/10/16 06:09 97.1 86 16 119/57 (77) Room Air 12/06/16 18:52 96 Medications Scheduled Atorvastatin Calcium (Atorvastatin Calcium) 10 Mg Tab, 10 MG PO QHS, (Reported) Benztropine Mesylate (Benztropine Mesylate) 1 Mg Tab, 2 MG PO BID, (Reported) Divalproex Sodium (Divalproex Sodium Dr) 500 Mg Tab, 500 MG PO BID, (Reported) Haloperidol Decanoate (Haloperidol Decanoate) 100 Mg/Ml Soln, 200 MG IM QMONTH, (Reported) Nicotine (Nicotine Transdermal Syst) 21 Mg/24 Hr Dis, 1 PATCH TD DAILY for smoking cessation, #10 Quetiapine Fumerate (Seroquel) 100 Mg Tab, 100 MG PO QHS, (Reported) Salmeterol/Fluticasone (Advair Diskus 250-50 Mcg/Dose) 14 Puff/Inhaler Aerp, 1 PUFF INH BID, (Reported) Trazodone HCl (Trazodone HCl) 100 Mg Tab, 100 MG PO QHS, (Reported) Allergies Coded Allergies: No Known Allergies (Verified Allergy, Unknown, 10/17/08) SAVANNA GARCIA MD Dec 10, 2016 22:05
== END 2016-12-10 10:20 | disposition home or self-care (01) | DRG 885 ==
LOC: M ED 12-06 07:41 → M ED INP 12-06 17:02 → M PSY 12-06 18:00
PROVIDERS: ADMIT Psychiatry & Neurology Psychiatry; ATTEND Psychiatry & Neurology Psychiatry
DX: F20.0 Paranoid schizophrenia (principal); Z79.899 Other long term (current) drug therapy; E78.00 Pure hypercholesterolemia, unspecified; I10 Essential (primary) hypertension; F17.210 Nicotine dependence, cigarettes, uncomplicated; Z68.21 Body mass index [BMI] 21.0-21.9, adult

== ENCOUNTER → 2017-01-08 | Outpatient (RCR) | payer MEDICAID ==
[~2017-01-08] MED LIST changes: -AUGM875T27 PO; +AUGM875T28 PO; +BACITAB PO; -BACITAB3 PO; +BENZ-52 PO; -BENZ1TA PO; +DIVA500T3 PO; +NICO21PAT TD; +TRAZ-136 PO; -TRAZ100T4 PO
== END ==
LOC: M OUTALCOH 12-11 11:17
PROVIDERS: ATTEND Psychiatry & Neurology Psychiatry
DX: Z13.9 Encounter for screening, unspecified (principal); F10.20 Alcohol dependence, uncomplicated

== ENCOUNTER 2017-01-22 11:00 | Outpatient (RCR) | payer MEDICAID | END 2017-02-08 | LOC: M OUTALCOH 11:00 | PROVIDERS: ATTEND Psychiatry & Neurology Psychiatry | DX: F10.20 Alcohol dependence, uncomplicated (principal) ==

== ENCOUNTER 2017-03-08 11:20 | Outpatient (RCR) | payer MEDICAID | END 2017-03-11 | LOC: M OUTALCOH 11:20 | PROVIDERS: ATTEND Psychiatry & Neurology Psychiatry | DX: F10.20 Alcohol dependence, uncomplicated (principal) ==

== ENCOUNTER 2017-04-08 15:00 | Outpatient (RCR) | payer MEDICAID | END 2017-04-10 | LOC: M OUTALCOH 15:00 | PROVIDERS: ATTEND Psychiatry & Neurology Psychiatry | DX: F10.20 Alcohol dependence, uncomplicated (principal) ==

== ENCOUNTER 2017-04-16 19:25 | Emergency (ER) | payer MEDICAID, OTHER ==
[2017-04-16 19:32] VITALS: BP 143/90
== END 2017-04-16 20:08 | disposition home or self-care (01) ==
LOC: M ED 19:25
DX: F20.5 Residual schizophrenia (principal); F20.0 Paranoid schizophrenia; F17.200 Nicotine dependence, unspecified, uncomplicated; Z79.899 Other long term (current) drug therapy

== ENCOUNTER 2017-08-29 19:19 | Inpatient (IN) | payer MEDICAID, SELFPAY ==
[2017-08-29 21:39] LABS: HEMATOCRIT 34.8 % (42.0-52.0); HEMOGLOBIN 12.6 g/dl (14.0-18.0); MEAN CORPUSCULAR HEMOGLOBIN 30.5 pg (27.0-33.0); MEAN CORPUSCULAR HGB CONC 36.2 g/dl (32.0-36.5); MEAN CORPUSCULAR VOLUME 84.3 fl (80.0-96.0); PLATELET COUNT, AUTOMATED 209 10^3/uL (150-450); RED BLOOD COUNT 4.13 10^6/uL (4.30-6.10); RED CELL DISTRIBUTION WIDTH 11.9 % (11.5-14.5)
[2017-08-29 21:55] LABS: AMPHETAMINES LEVEL URINE NEGATIVE (NEGATIVE); BARBITURATES URINE NEGATIVE (NEGATIVE); BENZODIAZEPINES URINE NEGATIVE (NEGATIVE); CANNABINOIDS URINE NEGATIVE (NEGATIVE); COCAINE METABOLITE URINE NEGATIVE (NEGATIVE); METHADONE URINE NEGATIVE (NEGATIVE); OPIATES URINE NEGATIVE (NEGATIVE); PHENCYCLIDINE URINE NEGATIVE (NEGATIVE)
[2017-08-29 22:06] LABS: ACETAMINOPHEN LEVEL < 2.0 UG/ML (10.0-30.0); ALBUMIN 3.9 GM/DL (3.2-5.2); ALBUMIN/GLOBULIN RATIO 1.44 (1.00-1.93); ALKALINE PHOSPHATASE 38 U/L (45-117); ALT/SGPT 27 U/L (12-78); ANION GAP 8 MEQ/L (8-16); AST/SGOT 44 U/L (7-37); BILIRUBIN,DIRECT 0.1 MG/DL (0.0-0.2); BILIRUBIN,TOTAL 0.3 MG/DL (0.2-1.0); BLOOD UREA NITROGEN 5 MG/DL (7-18); CALCIUM LEVEL 8.6 MG/DL (8.5-10.1); CARBON DIOXIDE LEVEL 26 MEQ/L (21-32); CHLORIDE LEVEL 104 MEQ/L (98-107); CREATININE FOR GFR 0.55 MG/DL (0.70-1.30); GLOMERULAR FILTRATION RATE > 60.0 (>56); GLUCOSE, FASTING 93 MG/DL (70-100); POTASSIUM SERUM 3.9 MEQ/L (3.5-5.1); SALICYLATE LEVEL 1.7 MG/DL (5.0-30.0); SODIUM LEVEL 138 MEQ/L (136-145); TOTAL PROTEIN 6.6 GM/DL (6.4-8.2); VALPROIC ACID (DEPAKOTE) 4.6 UG/ML (50.0-100.0)
[2017-08-29 22:13] LABS: ETHYL ALCOHOL (ETHANOL) < 0.003 % (0.000-0.010)
[2017-08-29] MEDS ORDERED: traZODone 50 MG TAB PO (23:15)
[2017-08-29] MEDS ORDERED: MOM 30ML SUSPENSION UDC PO (23:15)
[2017-08-30] MEDS: ACETAMINOPHEN TAB 650MG DOSE (2X325MG) PO (08:23)
[2017-08-30] MEDS: DIVALPROEX 500 MG TAB PO ×2 (11:32→20:33)
[2017-08-30] MEDS: BENZTROPINE 2 MG TAB PO ×4 (11:32→20:33)
[2017-08-30] MEDS: risperiDONE 2 MG TAB PO ×2 (11:32→20:33)
[2017-08-30] MEDS: MAALOX 30 ML SUSP *UDC PO (13:49)
[2017-08-30] MEDS: QUEtiapine FUMARATE 100 MG TAB PO (20:33)
[2017-08-31] MEDS: BENZTROPINE 2 MG TAB PO ×4 (08:56→20:33)
[2017-08-31] MEDS: DIVALPROEX 500 MG TAB PO ×2 (08:56→20:33)
[2017-08-31] MEDS: risperiDONE 2 MG TAB PO ×2 (08:56→20:33)
[2017-08-31] MEDS: NICOTINE 21MG/24HR 1 EA TRANSDERMAL TD (09:20)
[2017-08-31] MEDS: QUEtiapine FUMARATE 100 MG TAB PO (20:32)
[2017-08-31] MEDS: traZODone 50 MG TAB PO (20:33)
[2017-09-01 07:51] LABS: CHOLESTEROL LEVEL 154 MG/DL (<200); CHOLESTEROL RISK RATIO 3.666 (<5); HDL CHOLESTEROL 42 MG/DL (>40); LDL CHOLESTEROL 87.8 MG/DL (<100); NON-HDL-C 112 MG/DL; TRIGLYCERIDES LEVEL 121 MG/DL (<150)
[2017-09-01] MEDS: BENZTROPINE 2 MG TAB PO ×4 (08:43→20:36)
[2017-09-01] MEDS: NICOTINE 21MG/24HR 1 EA TRANSDERMAL TD (08:43)
[2017-09-01] MEDS: DIVALPROEX 500 MG TAB PO ×2 (08:43→20:36)
[2017-09-01] MEDS: risperiDONE 2 MG TAB PO ×2 (08:43→20:36)
[2017-09-01] MEDS: QUEtiapine FUMARATE 100 MG TAB PO (20:36)
[2017-09-01] MEDS: traZODone 50 MG TAB PO (20:36)
[2017-09-02] MEDS: NICOTINE 21MG/24HR 1 EA TRANSDERMAL TD (08:48)
[2017-09-02] MEDS: DIVALPROEX 500 MG TAB PO ×2 (08:49→21:33)
[2017-09-02] MEDS: BENZTROPINE 2 MG TAB PO ×4 (08:49→21:33)
[2017-09-02] MEDS: risperiDONE 2 MG TAB PO ×2 (08:49→21:33)
[2017-09-02] MEDS: QUEtiapine FUMARATE 100 MG TAB PO (21:32)
[2017-09-03] MEDS: NICOTINE 21MG/24HR 1 EA TRANSDERMAL TD (08:06)
[2017-09-03] MEDS: DIVALPROEX 500 MG TAB PO (08:06)
[2017-09-03] MEDS: risperiDONE 2 MG TAB PO (08:06)
[2017-09-03] MEDS: BENZTROPINE 2 MG TAB PO (08:06)
[2017-09-10] MEDS ORDERED: HALOPERIDOL DECANOATE 100 MG/ML VIAL (J1631) IM (09:00)
== END 2017-09-03 11:28 | disposition home or self-care (01) | DRG 750 ==
LOC: M ED 19:19 → M ED INP 23:02 → M PSY 23:50
DX: F20.0 Paranoid schizophrenia (principal); F03.90 Unspecified dementia, unspecified severity, without behavioral disturbance, psychotic disturbance, mood disturbance, and anxiety; F19.10 Other psychoactive substance abuse, uncomplicated; F10.10 Alcohol abuse, uncomplicated; F17.210 Nicotine dependence, cigarettes, uncomplicated; I10 Essential (primary) hypertension; E78.00 Pure hypercholesterolemia, unspecified; Z79.899 Other long term (current) drug therapy

== ENCOUNTER → 2017-09-24 | Outpatient (CLI) | payer MEDICAID | LOC: M OUTALCOH 10:10 | DX: F10.20 Alcohol dependence, uncomplicated (principal) ==

== ENCOUNTER 2017-10-01 10:00 | Outpatient (RCR) | payer MEDICAID | END 2017-10-09 | LOC: M OUTALCOH 10:00 | DX: F10.20 Alcohol dependence, uncomplicated (principal); F12.20 Cannabis dependence, uncomplicated; F15.20 Other stimulant dependence, uncomplicated | CPT/HCPCS: 90834 ==

== ENCOUNTER 2017-10-15 11:51 | Outpatient (RCR) | payer MEDICAID | END 2017-11-08 | LOC: M OUTALCOH 11-03 14:30 | DX: F10.20 Alcohol dependence, uncomplicated (principal); F12.20 Cannabis dependence, uncomplicated; F15.20 Other stimulant dependence, uncomplicated | CPT/HCPCS: 90834 ==

== ENCOUNTER 2017-11-12 10:28 | Outpatient (RCR) | payer MEDICAID | END 2017-12-09 | LOC: M OUTALCOH 10:28 | DX: F10.20 Alcohol dependence, uncomplicated (principal); F12.20 Cannabis dependence, uncomplicated; F15.20 Other stimulant dependence, uncomplicated ==

== ENCOUNTER 2017-12-10 13:54 | Outpatient (RCR) | payer MEDICAID | END 2018-01-08 | LOC: M OUTALCOH 12-17 10:00 | DX: F10.20 Alcohol dependence, uncomplicated (principal); F12.20 Cannabis dependence, uncomplicated; F15.20 Other stimulant dependence, uncomplicated ==

== ENCOUNTER 2018-02-02 11:36 | Outpatient (RCR) | payer MEDICAID | END 2018-02-08 | LOC: M OUTALCOH 11:36 | DX: F10.20 Alcohol dependence, uncomplicated (principal); F12.20 Cannabis dependence, uncomplicated; F15.20 Other stimulant dependence, uncomplicated ==

== ENCOUNTER 2018-03-17 15:30 | Outpatient (RCR) | payer MEDICAID | END 2018-04-10 | LOC: M OUTALCOH 15:30 | DX: F10.20 Alcohol dependence, uncomplicated (principal); F12.20 Cannabis dependence, uncomplicated; F15.20 Other stimulant dependence, uncomplicated ==

== ENCOUNTER 2018-04-19 15:02 | Outpatient (RCR) | payer MEDICAID | END 2018-05-11 | LOC: M OUTALCOH 04-25 11:00 | DX: F10.20 Alcohol dependence, uncomplicated (principal); F12.20 Cannabis dependence, uncomplicated; F15.20 Other stimulant dependence, uncomplicated ==

== ENCOUNTER 2018-05-18 10:00 | Outpatient (RCR) | payer MEDICAID | END 2018-06-10 | LOC: M OUTALCOH 05-25 10:00 | DX: F10.20 Alcohol dependence, uncomplicated (principal); F12.20 Cannabis dependence, uncomplicated; F15.20 Other stimulant dependence, uncomplicated ==

== ENCOUNTER → 2018-06-29 | Outpatient (CLI) | payer MEDICAID ==
[~2018-06-29] MED LIST changes: +BENZ2TAB5 PO; -DIVA500T3 PO; +DIVA500T94 PO; +PATIENT COMMENTS; +QUET1TAB8 PO; +RISP2TAB32 PO; -TRAZ-136 PO; +TRAZ-163 PO; +TRAZO50TA PO
[2018-06-29 10:50] LABS: HEMATOCRIT 43.9 % (42.0-52.0); HEMOGLOBIN 15.5 g/dl (13.5-17.5); MEAN CORPUSCULAR HEMOGLOBIN 30.5 pg (27.0-33.0); MEAN CORPUSCULAR HGB CONC 35.3 g/dl (32.0-36.5); MEAN CORPUSCULAR VOLUME 86.4 fl (80.0-96.0); PLATELET COUNT, AUTOMATED 175 10^3/uL (150-450); RED BLOOD COUNT 5.08 10^6/uL (4.30-6.10); WHITE BLOOD COUNT 4.9 10^3/uL (4.0-10.0)
[2018-06-29 11:11] LABS: BILIRUBIN,DIRECT 0.1 MG/DL (0.0-0.2); BILIRUBIN,TOTAL 0.4 MG/DL (0.2-1.0); TOTAL PROTEIN 7.1 GM/DL (6.4-8.2); VALPROIC ACID (DEPAKOTE) 85.5 UG/ML (50.0-100.0)
[2018-07-02 00:26] LABS: RISPERIDONE1 7 ng/mL (Not Estab.); RISPERIDONE2 24 ng/mL (Not Estab.); RISPERIDONE3 31 ng/mL (20-60)
== END ==
LOC: M LAB 10:16
PROVIDERS: ATTEND Psychiatry & Neurology Psychiatry
DX: F25.0 Schizoaffective disorder, bipolar type (principal)

== ENCOUNTER 2018-07-07 09:00 | Outpatient (RCR) | payer MEDICAID | END 2018-07-11 | LOC: M OUTALCOH 09:00 | PROVIDERS: ATTEND Psychiatry & Neurology Psychiatry | DX: F10.20 Alcohol dependence, uncomplicated (principal); F12.20 Cannabis dependence, uncomplicated; F15.20 Other stimulant dependence, uncomplicated ==

== ENCOUNTER → 2018-11-24 | Outpatient (CLI) | payer MEDICAID ==
[~2018-11-24] MED LIST changes: -/ADVA50050; -/HALO1T OR; -/OL10DISTA; -/OLAN5ZYD OR; -/QUET10TA OR; +ADVA1AER2; +HALO1TAB20 OR; -QUET30XR; +SERO1TAB OR; +SERO300T20; +ZYPR1TAB3 OR; +ZYPR1TAB4
== END ==
LOC: M OUTALCOH 07:55
PROVIDERS: ATTEND Psychiatry & Neurology Psychiatry
DX: Z13.9 Encounter for screening, unspecified (principal); F10.20 Alcohol dependence, uncomplicated; F12.20 Cannabis dependence, uncomplicated

== ENCOUNTER → 2018-11-28 | Outpatient (REF) | payer MEDICAID ==
[2018-11-28 14:51] LABS: BASO % 0.8 % (0.0-1.0); EOS # 0.3 10^3/uL (0.0-0.50); EOS % 7.7 % (0.0-3.0); HEMATOCRIT 44.7 % (42.0-52.0); HEMOGLOBIN 15.3 g/dl (13.5-17.5); LYMPH # 1.3 10^3/uL (1.5-4.5); LYMPH % 35.2 % (24.0-44.0); MEAN CORPUSCULAR HEMOGLOBIN 30.4 pg (27.0-33.0); MEAN CORPUSCULAR HGB CONC 34.2 g/dl (32.0-36.5); MEAN CORPUSCULAR VOLUME 88.7 fl (80.0-96.0); MONO # 0.3 10^3/uL (0.0-0.8); MONO % 9.3 % (0.0-5.0); NEUTROPHILS # 1.7 10^3/uL (1.8-7.7); NEUTROPHILS % 46.5 % (36.0-66.0); PLATELET COUNT, AUTOMATED 205 10^3/uL (150-450); RED BLOOD COUNT 5.04 10^6/uL (4.30-6.10); WHITE BLOOD COUNT 3.6 10^3/uL (4.0-10.0)
[2018-11-28 18:40] LABS: ALBUMIN 3.6 GM/DL (3.2-5.2); ALT/SGPT 33 U/L (12-78); BILIRUBIN,TOTAL 0.4 MG/DL (0.2-1.0); BLOOD UREA NITROGEN 12 MG/DL (7-18); CALCIUM LEVEL 8.5 MG/DL (8.5-10.1); CARBON DIOXIDE LEVEL 25 MEQ/L (21-32); CHLORIDE LEVEL 109 MEQ/L (98-107); CHOLESTEROL LEVEL 171 MG/DL (<200); FREE T4 0.79 NG/DL (0.76-1.46); GLOMERULAR FILTRATION RATE > 60.0 (>56); GLUCOSE, FASTING 109 MG/DL (70-100); HDL CHOLESTEROL 36 MG/DL (>40); LDL CHOLESTEROL 97 MG/DL (<100); NON-HDL-C 135 MG/DL; POTASSIUM SERUM 4.3 MEQ/L (3.5-5.1); SODIUM LEVEL 141 MEQ/L (136-145); THYROID STIMULATING HORMONE 0.879 uIU/ML (0.358-3.740); TOTAL PROTEIN 6.9 GM/DL (6.4-8.2); TRIGLYCERIDES LEVEL 190 MG/DL (<150)
[2018-11-28 19:39] LABS: TOTAL 25(OH) VITAMIN D 32.2 NG/ML (30.0-100.0)
[2018-11-28 21:39] LABS: HEMOGLOBIN A1c 4.8 %
[2018-11-30 14:11] LABS: Lyme Disease IgG Ab 18 kDa Ban Absent (.); Lyme Disease IgG Ab 23 kDa Ban Absent (.); Lyme Disease IgG Ab 28 kDa Ban Present (.); Lyme Disease IgG Ab 30 kDa Ban Absent (.); Lyme Disease IgG Ab 39 kDa Ban Absent (.); Lyme Disease IgG Ab 41 kDa Ban Absent (.); Lyme Disease IgG Ab 45 kDa Ban Absent (.); Lyme Disease IgG Ab 58 kDa Ban Absent (.); Lyme Disease IgG Ab 66 kDa Ban Absent (.); Lyme Disease IgG Ab 93 kDa Ban Absent (.); Lyme Disease IgG West Blot Int Negative (.); Lyme Disease IgG/IgM Antibodie <0.91 ISR (0.00-0.90); Lyme Disease IgM Ab 23 kDa Ban Present (.); Lyme Disease IgM Ab 39 kDa Ban Absent (.); Lyme Disease IgM Ab 41 kDa Ban Absent (.); Lyme Disease IgM Ab Quantitati 0.93 index (0.00-0.79); Lyme Disease IgM West Blot Int Negative (.)
== END ==
LOC: M LAB REF 12:25
PROVIDERS: ATTEND Family Medicine
DX: Z12.5 Encounter for screening for malignant neoplasm of prostate (principal); Z13.228 Encounter for screening for other metabolic disorders

== ENCOUNTER → 2018-12-02 | Outpatient (CLI) | payer OTHER ==
[2018-12-02 10:28] LABS: HEMATOCRIT 43.5 % (42.0-52.0); HEMOGLOBIN 15.2 g/dl (13.5-17.5); MEAN CORPUSCULAR HEMOGLOBIN 31.1 pg (27.0-33.0); MEAN CORPUSCULAR HGB CONC 34.9 g/dl (32.0-36.5); MEAN CORPUSCULAR VOLUME 89.1 fl (80.0-96.0); PLATELET COUNT, AUTOMATED 171 10^3/uL (150-450); RED BLOOD COUNT 4.88 10^6/uL (4.30-6.10); WHITE BLOOD COUNT 5.9 10^3/uL (4.0-10.0)
[2018-12-02 10:56] LABS: ALBUMIN 3.5 GM/DL (3.2-5.2); BILIRUBIN,DIRECT 0.1 MG/DL (0.0-0.2); BILIRUBIN,TOTAL 0.6 MG/DL (0.2-1.0); TOTAL PROTEIN 6.5 GM/DL (6.4-8.2); VALPROIC ACID (DEPAKOTE) 72.2 UG/ML (50.0-100.0)
== END ==
LOC: M LAB 09:28
PROVIDERS: ATTEND Psychiatry & Neurology Psychiatry
DX: F20.5 Residual schizophrenia (principal)
CPT/HCPCS: 36415; 80076; 80164; 85027; G0480

== ENCOUNTER 2018-12-08 13:35 | Outpatient (RCR) | payer MEDICAID | END 2018-12-09 | LOC: M OUTALCOH 13:35 | PROVIDERS: ATTEND Psychiatry & Neurology Psychiatry | DX: F10.20 Alcohol dependence, uncomplicated (principal); F12.20 Cannabis dependence, uncomplicated; F15.20 Other stimulant dependence, uncomplicated ==

== ENCOUNTER 2019-01-04 09:46 | Outpatient (RCR) | payer MEDICAID ==
[~2019-01-04 09:46] MED LIST changes: +TRAZ1TAB10 PO; -TRAZO50TA PO
== END 2019-01-08 ==
LOC: M OUTALCOH 09:46
PROVIDERS: ATTEND Psychiatry & Neurology Psychiatry
DX: F10.20 Alcohol dependence, uncomplicated (principal); F12.20 Cannabis dependence, uncomplicated; F17.200 Nicotine dependence, unspecified, uncomplicated

== ENCOUNTER 2019-02-06 08:51 | Outpatient (RCR) | payer MEDICAID | END 2019-02-08 | LOC: M OUTALCOH 08:51 | PROVIDERS: ATTEND Psychiatry & Neurology Psychiatry | DX: F10.20 Alcohol dependence, uncomplicated (principal); F12.20 Cannabis dependence, uncomplicated; F17.200 Nicotine dependence, unspecified, uncomplicated ==

== ENCOUNTER 2019-03-07 10:00 | Outpatient (RCR) | payer MEDICAID | END 2019-03-11 | LOC: M OUTALCOH 10:00 | PROVIDERS: ATTEND Psychiatry & Neurology Psychiatry | DX: F10.20 Alcohol dependence, uncomplicated (principal); F12.20 Cannabis dependence, uncomplicated; F17.200 Nicotine dependence, unspecified, uncomplicated ==

== ENCOUNTER 2019-04-07 10:00 | Outpatient (RCR) | payer MEDICAID | END 2019-04-10 | LOC: M OUTALCOH 10:00 | PROVIDERS: ATTEND Psychiatry & Neurology Psychiatry | DX: F10.20 Alcohol dependence, uncomplicated (principal); F12.20 Cannabis dependence, uncomplicated; F17.200 Nicotine dependence, unspecified, uncomplicated ==

== ENCOUNTER 2019-05-05 10:00 | Outpatient (RCR) | payer MEDICAID | END 2019-05-11 | LOC: M OUTALCOH 10:00 | PROVIDERS: ATTEND Psychiatry & Neurology Psychiatry | DX: F10.20 Alcohol dependence, uncomplicated (principal); F12.20 Cannabis dependence, uncomplicated; F17.200 Nicotine dependence, unspecified, uncomplicated ==

== ENCOUNTER 2019-06-07 10:00 | Outpatient (RCR) | payer MEDICAID | END 2019-06-10 | LOC: M OUTALCOH 10:00 | PROVIDERS: ATTEND Psychiatry & Neurology Psychiatry | DX: F10.20 Alcohol dependence, uncomplicated (principal); F12.20 Cannabis dependence, uncomplicated; F17.200 Nicotine dependence, unspecified, uncomplicated ==

== ENCOUNTER 2019-07-07 12:00 | Outpatient (RCR) | payer MEDICAID | END 2019-07-11 | LOC: M OUTALCOH 12:00 | PROVIDERS: ATTEND Psychiatry & Neurology Psychiatry | DX: F10.20 Alcohol dependence, uncomplicated (principal); F12.20 Cannabis dependence, uncomplicated; F17.200 Nicotine dependence, unspecified, uncomplicated ==

== ENCOUNTER 2019-08-07 09:00 | Outpatient (RCR) | payer MEDICAID ==
[~2019-08-07 09:00] MED LIST changes: -TRAZ-163 PO; +TRAZ-257 PO
== END 2019-08-11 ==
LOC: M OUTALCOH 09:00
PROVIDERS: ATTEND Psychiatry & Neurology Addiction Medicine
DX: F10.20 Alcohol dependence, uncomplicated (principal); F12.20 Cannabis dependence, uncomplicated; F17.200 Nicotine dependence, unspecified, uncomplicated

== ENCOUNTER → 2019-08-09 | Outpatient (CLI) | payer MEDICAID ==
[2019-08-09 11:00] LABS: HEMATOCRIT 38.6 % (42.0-52.0); HEMOGLOBIN 13.1 g/dl (13.5-17.5); MEAN CORPUSCULAR HGB CONC 33.9 g/dl (32.0-36.5); MEAN CORPUSCULAR VOLUME 91.5 fl (80.0-96.0); PLATELET COUNT, AUTOMATED 166 10^3/uL (150-450); RED BLOOD COUNT 4.22 10^6/uL (4.30-6.10); WHITE BLOOD COUNT 2.7 10^3/uL (4.0-10.0)
[2019-08-09 11:28] LABS: ALBUMIN 3.6 GM/DL (3.2-5.2); ALT/SGPT 17 U/L (12-78); BILIRUBIN,TOTAL 0.4 MG/DL (0.2-1.0); BLOOD UREA NITROGEN 15 MG/DL (7-18); CALCIUM LEVEL 8.9 MG/DL (8.5-10.1); CARBON DIOXIDE LEVEL 31 MEQ/L (21-32); CHLORIDE LEVEL 102 MEQ/L (98-107); CHOLESTEROL LEVEL 143 MG/DL (<200); CHOLESTEROL RISK RATIO 3.763 (<5); CREATININE FOR GFR 0.87 MG/DL (0.70-1.30); GLOMERULAR FILTRATION RATE > 60.0 (>56); GLUCOSE, FASTING 93 MG/DL (70-100); HDL CHOLESTEROL 38 MG/DL (>40); LDL CHOLESTEROL 91 MG/DL (<100); NON-HDL-C 105 MG/DL; POTASSIUM SERUM 4.3 MEQ/L (3.5-5.1); SODIUM LEVEL 136 MEQ/L (136-145); TOTAL PROTEIN 6.2 GM/DL (6.4-8.2); TRIGLYCERIDES LEVEL 72 MG/DL (<150); VALPROIC ACID (DEPAKOTE) 22.1 UG/ML (50.0-100.0)
[2019-08-09 11:35] LABS: PROLACTIN 30.7 NG/ML (2.1-17.7)
[2019-08-09 11:52] LABS: HEMOGLOBIN A1c 4.3 %
== END ==
LOC: M LAB 10:18
PROVIDERS: ATTEND Nurse Practitioner Psychiatric/Mental Health
DX: F20.9 Schizophrenia, unspecified (principal)

== ENCOUNTER 2019-09-01 09:00 | Outpatient (RCR) | payer MEDICAID ==
[~2019-09-01 09:00] MED LIST changes: +QUET100T2 PO; -QUET1TAB8 PO
== END 2019-09-09 ==
LOC: M OUTALCOH 09:00
PROVIDERS: ATTEND Psychiatry & Neurology Addiction Medicine
DX: F10.20 Alcohol dependence, uncomplicated (principal); F12.20 Cannabis dependence, uncomplicated; F17.200 Nicotine dependence, unspecified, uncomplicated; F15.20 Other stimulant dependence, uncomplicated

== ENCOUNTER 2019-10-04 09:31 | Outpatient (RCR) | payer MEDICAID | END 2019-10-10 | LOC: M OUTALCOH 09:31 | PROVIDERS: ATTEND Psychiatry & Neurology Addiction Medicine | DX: F10.20 Alcohol dependence, uncomplicated (principal); F12.20 Cannabis dependence, uncomplicated; F17.200 Nicotine dependence, unspecified, uncomplicated; F15.20 Other stimulant dependence, uncomplicated ==

== ENCOUNTER → 2019-10-25 | Outpatient (REF) | payer MEDICAID ==
[2019-10-25 14:11] LABS: BASO # 0.1 10^3/uL (0.0-0.2); BASO % 1.3 % (0.0-1.0); EOS # 0.2 10^3/uL (0.0-0.5); EOS % 3.9 % (0.0-3.0); HEMATOCRIT 41.2 % (42.0-52.0); HEMOGLOBIN 14.5 g/dl (13.5-17.5); LYMPH # 0.8 10^3/uL (1.5-5.0); LYMPH % 17.1 % (24.0-44.0); MEAN CORPUSCULAR HEMOGLOBIN 31.8 pg (27.0-33.0); MEAN CORPUSCULAR HGB CONC 35.2 g/dl (32.0-36.5); MEAN CORPUSCULAR VOLUME 90.4 fl (80.0-96.0); MONO # 0.5 10^3/uL (0.0-0.8); MONO % 10.8 % (0.0-5.0); NEUTROPHILS # 3.1 10^3/uL (1.5-8.5); NEUTROPHILS % 66.2 % (36.0-66.0); PLATELET COUNT, AUTOMATED 188 10^3/uL (150-450); RED BLOOD COUNT 4.56 10^6/uL (4.30-6.10); WHITE BLOOD COUNT 4.6 10^3/uL (4.0-10.0)
[2019-10-25 14:21] LABS: ALT/SGPT 17 U/L (12-78); BILIRUBIN,TOTAL 0.5 MG/DL (0.2-1.0); BLOOD UREA NITROGEN 14 MG/DL (7-18); CALCIUM LEVEL 9.8 MG/DL (8.5-10.1); CARBON DIOXIDE LEVEL 29 MEQ/L (21-32); CHLORIDE LEVEL 102 MEQ/L (98-107); CHOLESTEROL LEVEL 182 MG/DL (<200); CHOLESTEROL RISK RATIO 3.033 (<5); CREATININE FOR GFR 0.78 MG/DL (0.70-1.30); GLOMERULAR FILTRATION RATE > 60.0 (>56); GLUCOSE, FASTING 79 MG/DL (70-100); HDL CHOLESTEROL 60 MG/DL (>40); LDL CHOLESTEROL 102 MG/DL (<100); NON-HDL-C 122 MG/DL; POTASSIUM SERUM 4.4 MEQ/L (3.5-5.1); SODIUM LEVEL 134 MEQ/L (136-145); TOTAL PROTEIN 7.2 GM/DL (6.4-8.2); TRIGLYCERIDES LEVEL 101 MG/DL (<150); VALPROIC ACID (DEPAKOTE) 39.1 UG/ML (50.0-100.0)
[2019-10-25 14:33] LABS: HEMOGLOBIN A1c 5.1 %
== END ==
LOC: M LAB REF 12:43
PROVIDERS: ATTEND Family Medicine
DX: Z13.9 Encounter for screening, unspecified (principal); Z13.228 Encounter for screening for other metabolic disorders

== ENCOUNTER → 2019-11-09 | Outpatient (RCR) | payer MEDICAID | LOC: M OUTALCOH 10-17 14:19 | PROVIDERS: ATTEND Psychiatry & Neurology Addiction Medicine | DX: F10.20 Alcohol dependence, uncomplicated (principal); F12.20 Cannabis dependence, uncomplicated; F17.200 Nicotine dependence, unspecified, uncomplicated ==

== ENCOUNTER 2019-12-05 13:00 | Outpatient (RCR) | payer MEDICAID | END 2019-12-10 | LOC: M OUTALCOH 13:00 | PROVIDERS: ATTEND Psychiatry & Neurology Addiction Medicine | DX: F10.20 Alcohol dependence, uncomplicated (principal); F12.20 Cannabis dependence, uncomplicated; F17.200 Nicotine dependence, unspecified, uncomplicated ==

== ENCOUNTER 2019-12-29 13:10 | Outpatient (RCR) | payer MEDICAID | END 2020-01-09 | LOC: M OUTALCOH 13:10 | PROVIDERS: ATTEND Psychiatry & Neurology Addiction Medicine | DX: F10.20 Alcohol dependence, uncomplicated (principal); F12.20 Cannabis dependence, uncomplicated; F17.200 Nicotine dependence, unspecified, uncomplicated ==

== ENCOUNTER → 2020-01-18 | Outpatient (CLI) | payer MEDICAID ==
[~2020-01-18] MED LIST changes: +AMBI5TAB PO; +CHLO100T22 PO; +CHLO100T30 PO; +COLA100C5 PO; +DEPA250T32 PO; +DIVA250T67 PO; +DIVA500T9 PO; +FOLI1TAB11 PO; +GNP200CA2 PO; +HALO10TA20 PO; +HALO5TA PO; +IBUP1TAB6 PO; +INVE156I IM; +INVE234I IM; +METH1TAB40 PO; +NALT50TA4 PO; +RISP1TAB3 PO; +THIA100T7 PO; +THIA100TA PO; +TRAZ-186 PO; +TRAZ-252 PO; +other
[2020-01-18 13:58] LABS: BASO % 0.9 % (0.0-1.0); EOS # 0.1 10^3/uL (0.0-0.5); EOS % 2.8 % (0.0-3.0); LYMPH # 0.8 10^3/uL (1.5-5.0); LYMPH % 17.4 % (24.0-44.0); MEAN CORPUSCULAR HEMOGLOBIN 31.6 pg (27.0-33.0); MEAN CORPUSCULAR HGB CONC 35.1 g/dl (32.0-36.5); MEAN CORPUSCULAR VOLUME 89.8 fl (80.0-96.0); MONO # 0.4 10^3/uL (0.0-0.8); MONO % 8.2 % (0.0-5.0); NEUTROPHILS # 3.3 10^3/uL (1.5-8.5); NEUTROPHILS % 70.3 % (36.0-66.0); PLATELET COUNT, AUTOMATED 142 10^3/uL (150-450); RED BLOOD COUNT 4.12 10^6/uL (4.30-6.10); WHITE BLOOD COUNT 4.7 10^3/uL (4.0-10.0)
[2020-01-18 14:25] LABS: ALBUMIN 3.5 GM/DL (3.2-5.2); ALT/SGPT 32 U/L (12-78); BILIRUBIN,TOTAL 0.4 MG/DL (0.2-1.0); BLOOD UREA NITROGEN 24 MG/DL (7-18); CALCIUM LEVEL 8.9 MG/DL (8.5-10.1); CARBON DIOXIDE LEVEL 26 MEQ/L (21-32); CHLORIDE LEVEL 109 MEQ/L (98-107); CHOLESTEROL LEVEL 162 MG/DL (<200); CHOLESTEROL RISK RATIO 3.115 (<5); CREATININE FOR GFR 1.02 MG/DL (0.70-1.30); GLOMERULAR FILTRATION RATE > 60.0 (>56); GLUCOSE, FASTING 97 MG/DL (70-100); HDL CHOLESTEROL 52 MG/DL (>40); LDL CHOLESTEROL 99 MG/DL (<100); NON-HDL-C 110 MG/DL; POTASSIUM SERUM 4.7 MEQ/L (3.5-5.1); SODIUM LEVEL 140 MEQ/L (136-145); TOTAL PROTEIN 6.3 GM/DL (6.4-8.2); TRIGLYCERIDES LEVEL 55 MG/DL (<150); VALPROIC ACID (DEPAKOTE) 101.5 UG/ML (50.0-100.0)
== END ==
LOC: M LAB 13:20
PROVIDERS: ATTEND Nurse Practitioner Psychiatric/Mental Health
DX: F20.9 Schizophrenia, unspecified (principal)

== ENCOUNTER 2020-02-08 11:00 | Outpatient (RCR) | payer MEDICAID ==
[~2020-02-08 11:00] MED LIST changes: -AMBI5TAB PO; -CHLO100T22 PO; -CHLO100T30 PO; -COLA100C5 PO; -DEPA250T32 PO; -DIVA250T67 PO; -DIVA500T9 PO; -FOLI1TAB11 PO; -GNP200CA2 PO; -HALO10TA20 PO; -HALO5TA PO; -IBUP1TAB6 PO; -INVE156I IM; -INVE234I IM; -METH1TAB40 PO; -NALT50TA4 PO; -RISP1TAB3 PO; -THIA100T7 PO; -THIA100TA PO; -TRAZ-186 PO; -TRAZ-252 PO; -other
== END 2020-02-09 ==
LOC: M OUTALCOH 11:00
PROVIDERS: ATTEND Psychiatry & Neurology Addiction Medicine
DX: F10.20 Alcohol dependence, uncomplicated (principal); F12.20 Cannabis dependence, uncomplicated; F15.20 Other stimulant dependence, uncomplicated; F17.200 Nicotine dependence, unspecified, uncomplicated

== ENCOUNTER 2020-02-15 11:00 | Outpatient (RCR) | payer MEDICAID ==
[2020-02-27] MEDS ORDERED: AMBI5TAB PO (18:36)
[2020-02-27] MEDS ORDERED: THIA100TA PO (18:36)
[2020-02-27] MEDS ORDERED: NALT50TA4 PO (18:36)
[2020-02-27] MEDS ORDERED: FOLI1TAB11 PO (18:36)
[2020-02-27] MEDS ORDERED: DIVA500T9 PO ×2 (18:36)
[2020-02-27] MEDS ORDERED: METH1TAB40 PO (18:36)
[2020-02-27] MEDS ORDERED: BENZ2TAB5 PO (18:36)
[2020-02-27] MEDS ORDERED: INVE156I IM (18:36)
[2020-02-27] MEDS ORDERED: GNP200CA2 PO (18:36)
== END 2020-03-11 ==
LOC: M OUTALCOH 11:00
PROVIDERS: ATTEND Psychiatry & Neurology Addiction Medicine
DX: F10.20 Alcohol dependence, uncomplicated (principal); F12.20 Cannabis dependence, uncomplicated; F17.200 Nicotine dependence, unspecified, uncomplicated

== ENCOUNTER 2020-02-19 18:42 | Inpatient (IN) | payer MEDICAID ==
[2020-02-21] MEDS ORDERED: BENZTROPINE 2 MG TAB ONE ×2 (13:00→23:44)
[2020-02-21] MEDS ORDERED: DIVALPROEX 500 MG TAB ONE ×2 (13:00→23:44)
[2020-02-21] MEDS ORDERED: amLODIPine 5 MG TAB As Ordered ONE (23:44)
[2020-02-21] MEDS ORDERED: BENZTROPINE 2 MG TAB As Ordered ONE (23:44)
[2020-02-21] MEDS ORDERED: DIVALPROEX 500 MG TAB As Ordered ONE (23:44)
[2020-02-21] MEDS ORDERED: amLODIPine 5 MG TAB ONE (23:44)
[2020-02-21] MEDS ORDERED: zolPIDEM TARTRATE 5 MG TAB As Ordered ONE (23:45)
[2020-02-21] MEDS ORDERED: DOCUSATE SODIUM 100 MG CAP As Ordered ONE (23:45)
[2020-02-21] MEDS ORDERED: DOCUSATE SODIUM 100 MG CAP ONE (23:45)
[2020-02-21] MEDS ORDERED: COMBIVENT RESPIMAT 100-20MCG INHALER 4GM As Ordered ONE (23:45)
[2020-02-21] MEDS ORDERED: zolPIDEM TARTRATE 5 MG TAB ONE (23:45)
[2020-02-22] MEDS ORDERED: DOCUSATE SODIUM 100 MG CAP ONE ×2 (07:36→20:40)
[2020-02-22] MEDS ORDERED: DIVALPROEX 500 MG TAB As Ordered ONE ×2 (07:36→20:41)
[2020-02-22] MEDS ORDERED: DIVALPROEX 500 MG TAB ONE ×2 (07:36→20:40)
[2020-02-22] MEDS ORDERED: DOCUSATE SODIUM 100 MG CAP As Ordered ONE ×2 (07:37→20:42)
[2020-02-22] MEDS ORDERED: BENZTROPINE 2 MG TAB ONE ×2 (08:31→20:40)
[2020-02-22] MEDS ORDERED: BENZTROPINE 2 MG TAB As Ordered ONE ×2 (08:31→20:40)
[2020-02-22] MEDS ORDERED: PALIPERIDONE PALMITATE 234MG/1.5ML INJ (INVEGA)(FREE PSY INPT ONLY) ONE (09:00)
[2020-02-22] MEDS ORDERED: traZODone 50 MG TAB ONE (20:40)
[2020-02-22] MEDS ORDERED: amLODIPine 5 MG TAB ONE (20:40)
[2020-02-22] MEDS ORDERED: traZODone 50 MG TAB As Ordered ONE (20:42)
[2020-02-22] MEDS ORDERED: amLODIPine 5 MG TAB As Ordered ONE (20:42)
[2020-02-22] MEDS ORDERED: cloZAPine 25 MG TAB (S0136) As Ordered ONE (20:44)
[2020-02-22] MEDS ORDERED: cloZAPine 25 MG TAB (S0136) ONE (20:44)
[2020-02-22] MEDS ORDERED: zolPIDEM TARTRATE 5 MG TAB ONE (23:02)
[2020-02-22] MEDS ORDERED: zolPIDEM TARTRATE 5 MG TAB As Ordered ONE (23:02)
[2020-02-23] MEDS ORDERED: DOCUSATE SODIUM 100 MG CAP ONE ×2 (07:49→21:39)
[2020-02-23] MEDS ORDERED: DIVALPROEX 500 MG TAB As Ordered ONE ×3 (07:49→21:44)
[2020-02-23] MEDS ORDERED: DIVALPROEX 500 MG TAB ONE ×3 (07:49→21:44)
[2020-02-23] MEDS ORDERED: DOCUSATE SODIUM 100 MG CAP As Ordered ONE ×2 (07:50→21:39)
[2020-02-23] MEDS ORDERED: BENZTROPINE 2 MG TAB ONE ×2 (08:36→21:39)
[2020-02-23] MEDS ORDERED: BENZTROPINE 2 MG TAB As Ordered ONE ×2 (08:36→21:39)
[2020-02-23] MEDS ORDERED: cloZAPine 25 MG TAB (S0136) As Ordered ONE (21:39)
[2020-02-23] MEDS ORDERED: traZODone 50 MG TAB ONE (21:39)
[2020-02-23] MEDS ORDERED: amLODIPine 5 MG TAB ONE (21:39)
[2020-02-23] MEDS ORDERED: zolPIDEM TARTRATE 5 MG TAB ONE (21:39)
[2020-02-23] MEDS ORDERED: cloZAPine 25 MG TAB (S0136) ONE (21:39)
[2020-02-23] MEDS ORDERED: traZODone 50 MG TAB As Ordered ONE (21:39)
[2020-02-23] MEDS ORDERED: amLODIPine 5 MG TAB As Ordered ONE (21:39)
[2020-02-23] MEDS ORDERED: zolPIDEM TARTRATE 5 MG TAB As Ordered ONE (21:40)
[2020-02-24] MEDS ORDERED: BENZTROPINE 2 MG TAB ONE ×2 (08:28→20:50)
[2020-02-24] MEDS ORDERED: BENZTROPINE 2 MG TAB As Ordered ONE ×2 (08:28→20:50)
[2020-02-24] MEDS ORDERED: DIVALPROEX 500 MG TAB As Ordered ONE ×2 (08:28→20:50)
[2020-02-24] MEDS ORDERED: DOCUSATE SODIUM 100 MG CAP ONE ×2 (08:28→20:50)
[2020-02-24] MEDS ORDERED: DIVALPROEX 500 MG TAB ONE ×2 (08:28→20:50)
[2020-02-24] MEDS ORDERED: DOCUSATE SODIUM 100 MG CAP As Ordered ONE ×2 (08:29→20:51)
[2020-02-24] MEDS ORDERED: COMBIVENT RESPIMAT 100-20MCG INHALER 4GM As Ordered ONE ×2 (08:29→20:51)
[2020-02-24] MEDS ORDERED: ACETAMINOPHEN TAB 650MG DOSE (2X325MG) As Ordered ONE (12:13)
[2020-02-24] MEDS ORDERED: ACETAMINOPHEN TAB 650MG DOSE (2X325MG) ONE (12:13)
[2020-02-24] MEDS ORDERED: amLODIPine 5 MG TAB ONE (20:50)
[2020-02-24] MEDS ORDERED: cloZAPine 25 MG TAB (S0136) ONE (20:50)
[2020-02-24] MEDS ORDERED: cloZAPine 25 MG TAB (S0136) As Ordered ONE (20:50)
[2020-02-24] MEDS ORDERED: zolPIDEM TARTRATE 5 MG TAB ONE (20:50)
[2020-02-24] MEDS ORDERED: zolPIDEM TARTRATE 5 MG TAB As Ordered ONE (20:51)
[2020-02-24] MEDS ORDERED: amLODIPine 5 MG TAB As Ordered ONE (20:51)
[2020-02-25] MEDS ORDERED: BENZTROPINE 2 MG TAB As Ordered ONE ×2 (08:27→20:49)
[2020-02-25] MEDS ORDERED: DIVALPROEX 500 MG TAB ONE ×2 (08:27→20:48)
[2020-02-25] MEDS ORDERED: DOCUSATE SODIUM 100 MG CAP ONE ×2 (08:27→20:48)
[2020-02-25] MEDS ORDERED: ACETAMINOPHEN TAB 650MG DOSE (2X325MG) ONE ×2 (08:27→19:34)
[2020-02-25] MEDS ORDERED: BENZTROPINE 2 MG TAB ONE ×2 (08:27→20:48)
[2020-02-25] MEDS ORDERED: ACETAMINOPHEN TAB 650MG DOSE (2X325MG) As Ordered ONE ×2 (08:28→19:34)
[2020-02-25] MEDS ORDERED: DOCUSATE SODIUM 100 MG CAP As Ordered ONE ×2 (08:28→20:48)
[2020-02-25] MEDS ORDERED: DIVALPROEX 500 MG TAB As Ordered ONE ×2 (08:28→20:48)
[2020-02-25] MEDS ORDERED: COMBIVENT RESPIMAT 100-20MCG INHALER 4GM As Ordered ONE ×3 (08:28→20:48)
[2020-02-25] MEDS ORDERED: cloZAPine 25 MG TAB (S0136) ONE (20:48)
[2020-02-25] MEDS ORDERED: cloZAPine 25 MG TAB (S0136) As Ordered ONE (20:48)
[2020-02-25] MEDS ORDERED: zolPIDEM TARTRATE 5 MG TAB ONE (20:48)
[2020-02-25] MEDS ORDERED: zolPIDEM TARTRATE 5 MG TAB As Ordered ONE (20:49)
[2020-02-26] MEDS ORDERED: ACETAMINOPHEN TAB 650MG DOSE (2X325MG) ONE (05:51)
[2020-02-26] MEDS ORDERED: ACETAMINOPHEN TAB 650MG DOSE (2X325MG) As Ordered ONE (05:51)
[2020-02-26] MEDS ORDERED: DOCUSATE SODIUM 100 MG CAP ONE ×2 (09:35→20:57)
[2020-02-26] MEDS ORDERED: COMBIVENT RESPIMAT 100-20MCG INHALER 4GM As Ordered ONE ×3 (09:35→16:10)
[2020-02-26] MEDS ORDERED: BENZTROPINE 2 MG TAB ONE ×2 (09:35→20:57)
[2020-02-26] MEDS ORDERED: DOCUSATE SODIUM 100 MG CAP As Ordered ONE ×2 (09:35→20:57)
[2020-02-26] MEDS ORDERED: DIVALPROEX 500 MG TAB ONE ×2 (09:35→20:57)
[2020-02-26] MEDS ORDERED: DIVALPROEX 500 MG TAB As Ordered ONE ×2 (09:37→20:57)
[2020-02-26] MEDS ORDERED: BENZTROPINE 2 MG TAB As Ordered ONE ×2 (09:37→20:57)
[2020-02-26] MEDS ORDERED: OLANZapine ORAL DISINTEGRATING TAB 5MG As Ordered ONE (12:14)
[2020-02-26] MEDS ORDERED: OLANZapine ORAL DISINTEGRATING TAB 5MG ONE (12:14)
[2020-02-26] MEDS ORDERED: cloZAPine 25 MG TAB (S0136) ONE (20:57)
[2020-02-26] MEDS ORDERED: zolPIDEM TARTRATE 5 MG TAB ONE (20:57)
[2020-02-26] MEDS ORDERED: cloZAPine 25 MG TAB (S0136) As Ordered ONE (20:57)
[2020-02-26] MEDS ORDERED: zolPIDEM TARTRATE 5 MG TAB As Ordered ONE (20:58)
[2020-02-27] MEDS ORDERED: ACETAMINOPHEN TAB 650MG DOSE (2X325MG) As Ordered ONE (06:23)
[2020-02-27] MEDS ORDERED: ACETAMINOPHEN TAB 650MG DOSE (2X325MG) ONE (06:23)
[2020-02-27] MEDS ORDERED: COMBIVENT RESPIMAT 100-20MCG INHALER 4GM As Ordered ONE ×2 (07:35→15:29)
[2020-02-27] MEDS ORDERED: DOCUSATE SODIUM 100 MG CAP As Ordered ONE (09:28)
[2020-02-27] MEDS ORDERED: BENZTROPINE 2 MG TAB As Ordered ONE (09:28)
[2020-02-27] MEDS ORDERED: DOCUSATE SODIUM 100 MG CAP ONE (09:28)
[2020-02-27] MEDS ORDERED: BENZTROPINE 2 MG TAB ONE (09:28)
[2020-02-27] MEDS ORDERED: DIVALPROEX 500 MG TAB As Ordered ONE (09:28)
[2020-02-27] MEDS ORDERED: DIVALPROEX 500 MG TAB ONE (09:28)
[2020-02-27] MEDS ORDERED: OLANZapine ORAL DISINTEGRATING TAB 5MG As Ordered ONE ×2 (15:42→16:43)
[2020-02-27] MEDS ORDERED: OLANZapine ORAL DISINTEGRATING TAB 5MG ONE ×2 (15:42→16:43)
[2020-02-27] MEDS ORDERED: MOM 30ML SUSPENSION UDC PO PRN (18:00)
[2020-02-27] MEDS ORDERED: GNP200CA2 PO (18:36)
[2020-02-27] MEDS ORDERED: METH1TAB40 PO (18:36)
[2020-02-27] MEDS ORDERED: THIA100TA PO (18:36)
[2020-02-27] MEDS ORDERED: BENZ2TAB5 PO (18:36)
[2020-02-27] MEDS ORDERED: INVE156I IM (18:36)
[2020-02-27] MEDS ORDERED: NALT50TA4 PO (18:36)
[2020-02-27] MEDS ORDERED: AMBI5TAB PO (18:36)
[2020-02-27] MEDS ORDERED: FOLI1TAB11 PO (18:36)
[2020-02-27] MEDS ORDERED: DIVA500T9 PO ×2 (18:36)
[2020-02-27] MEDS: COMBIVENT RESPIMAT 100-20MCG INHALER 4GM INH SCH (20:00)
[2020-02-27] MEDS: traZODone 50 MG TAB PO PRN (20:45)
[2020-02-27] MEDS: zolPIDEM TARTRATE 5 MG TAB PO SCH (20:45)
[2020-02-27] MEDS: DIVALPROEX 500 MG TAB PO SCH (20:45)
[2020-02-27] MEDS: DOCUSATE SODIUM 100 MG CAP PO SCH (20:45)
[2020-02-27] MEDS: ACETAMINOPHEN TAB 650MG DOSE (2X325MG) PO PRN (20:46)
[2020-02-27] MEDS: BENZTROPINE 2 MG TAB PO SCH (20:47)
[2020-02-27] MEDS ORDERED: cloZAPine 25 MG TAB (S0136) PO SCH (21:00)
[2020-02-27 21:19] LABS: BASO # 0.1 10^3/uL (0.0-0.2); EOS # 0.2 10^3/uL (0.0-0.5); EOS % 2.4 % (0.0-3.0); HEMATOCRIT 37.2 % (42.0-52.0); HEMOGLOBIN 13.2 g/dl (13.5-17.5); LYMPH # 0.9 10^3/uL (1.5-5.0); LYMPH % 15.1 % (24.0-44.0); MEAN CORPUSCULAR HEMOGLOBIN 32.1 pg (27.0-33.0); MEAN CORPUSCULAR HGB CONC 35.5 g/dl (32.0-36.5); MEAN CORPUSCULAR VOLUME 90.5 fl (80.0-96.0); MONO # 0.8 10^3/uL (0.0-0.8); NEUTROPHILS # 4.2 10^3/uL (1.5-8.5); NEUTROPHILS % 67.7 % (36.0-66.0); PLATELET COUNT, AUTOMATED 207 10^3/uL (150-450); RED BLOOD COUNT 4.11 10^6/uL (4.30-6.10); WHITE BLOOD COUNT 6.1 10^3/uL (4.0-10.0)
[2020-02-28 06:22] VITALS: BP 131/76
[2020-02-28] MEDS: COMBIVENT RESPIMAT 100-20MCG INHALER 4GM INH SCH ×4 (07:52→20:34)
--- NOTE | 2020-02-28 08:38 | MHIPNPDOC ---
[facility] Progress Note Progress Note DATE OF SERVICE: 02/27/20 Subjective HPI: Terrence presents today for his follow up.He has been generally isolative to room, with psychotic symptoms observed MEDICATIONS: He sarwat good in the clozaril intake and denies having any side effect from it. Patient also denies having any suicidal thought. Objective Affect: Anxious. Thought Form: tangential, psychotic Perception: No perceptual abnormalities noted. Judgement: Poor judgement. Insight: Poor insight. 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 Will order CBC for today to determine if theres any neutropenia. Denies any side effects at this time. Invega Sustenna had been given as per the previous outpatient augmentation is a common combination for this medication, thus will determine if patient will improve. Anticipated discharge early next week. Vital Signs Vital Signs Date Time Temp Pulse Resp B/P (MAP) Pulse Ox O2 Delivery O2 Flow Rate FiO2 02/28/20 06:22 97.6 84 14 131/76 (94) Room Air Laboratory Data 24H Labs Laboratory Tests 2 02/27/20 12:50: Immature Granulocyte % (Auto) 0.8, Neutrophils (%) (Auto) 67.7H, Lymphocytes (%) (Auto) 15.1L, Monocytes (%) (Auto) 13.0H, Eosinophils (%) (Auto) 2.4, Basophils (%) (Auto) 1.0, Neutrophils # (Auto) 4.2, Lymphocytes # (Auto) 0.9L, Monocytes # (Auto) 0.8, Eosinophils # (Auto) 0.2, Basophils # (Auto) 0.1, Nucleated Red Blood Cells % (auto) 0.0 CBC/BMP Laboratory Tests 02/27/20 12:50 Current Medications Current Medications Medications (Trade) Dose Ordered Sig/Daniel Route PRN Reason Start Time Stop Time Status Last Admin Dose Admin Acetaminophen (Tylenol Tab) 650 mg Q6HP PRN PO HEADACHE/DISCOMFORT 02/27/20 18:00 02/27/20 20:46 Al Hydrox/Mg Hydrox/Simethicone (Mylanta) 30 ml Q4HP PRN PO HEARTBURN/INDIGESTION 02/27/20 18:00 Albuterol/ Ipratropium (Combivent Respimat 100-20mcg) 1 puff RQID INH 02/27/20 20:00 02/28/20 07:52 Amlodipine Besylate (Norvasc) 2.5 mg QHS PO 02/27/20 21:00 02/27/20 20:47 Benztropine Mesylate (Cogentin) 2 mg BID PO 02/27/20 21:00 02/27/20 20:47 Clozapine (Clozaril) 12.5 mg QHS PO 02/27/20 21:00 02/27/20 20:47 Divalproex Sodium (Depakote) 1,000 mg QAM PO 02/28/20 09:00 Divalproex Sodium (Depakote) 1,500 mg QPM PO 02/27/20 21:00 02/27/20 20:45 Docusate Sodium (Colace) 100 mg BID PO 02/27/20 21:00 02/27/20 20:45 Home Med (Med Rec Complete!) ASDIRECTED XX 02/27/20 18:45 02/27/20 18:40 DC Magnesium Hydroxide (Milk Of Magnesia) 30 ml DAILYPRN PRN PO CONSTIPATION 02/27/20 18:00 Olanzapine (ZyPREXA ZYDIS) 5 mg Q8HP PRN PO ANXIETY/AGITATION 02/27/20 18:00 Trazodone HCl (Desyrel) 50 mg QHS PRN PO INSOMNIA 02/27/20 18:00 02/27/20 20:45 Zolpidem Tartrate (Ambien) 2.5 mg QHS PO 02/27/20 21:00 02/27/20 20:45 Allergies Coded Allergies: No Known Allergies (Verified , 10/17/08) BISHNU CASTREJON DO Feb 28, 2020 08:38
--- NOTE | 2020-02-28 08:41 | MHIPNPDOC ---
[facility] Progress Note Progress Note DATE OF SERVICE: 02/28/20 Subjective HPI: Terrence presents today for a follow up. He reports his feet cracked and sore, and his face broke out. He continuously notes he wants to go home. Objective Affect: Anxious. Thought Form: psychotic repeating statements over and over Perception: No perceptual abnormalities noted. Judgement: Poor judgement. Insight: Poor insight. 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 Vital Signs Vital Signs Date Time Temp Pulse Resp B/P (MAP) Pulse Ox O2 Delivery O2 Flow Rate FiO2 02/28/20 06:22 97.6 84 14 131/76 (94) Room Air Laboratory Data 24H Labs Laboratory Tests 2 02/27/20 12:50: Immature Granulocyte % (Auto) 0.8, Neutrophils (%) (Auto) 67.7H, Lymphocytes (%) (Auto) 15.1L, Monocytes (%) (Auto) 13.0H, Eosinophils (%) (Auto) 2.4, Basophils (%) (Auto) 1.0, Neutrophils # (Auto) 4.2, Lymphocytes # (Auto) 0.9L, Monocytes # (Auto) 0.8, Eosinophils # (Auto) 0.2, Basophils # (Auto) 0.1, Nucleated Red Blood Cells % (auto) 0.0 CBC/BMP Laboratory Tests 02/27/20 12:50 Current Medications Current Medications Medications (Trade) Dose Ordered Sig/Daniel Route PRN Reason Start Time Stop Time Status Last Admin Dose Admin Acetaminophen (Tylenol Tab) 650 mg Q6HP PRN PO HEADACHE/DISCOMFORT 02/27/20 18:00 02/27/20 20:46 Al Hydrox/Mg Hydrox/Simethicone (Mylanta) 30 ml Q4HP PRN PO HEARTBURN/INDIGESTION 02/27/20 18:00 Albuterol/ Ipratropium (Combivent Respimat 100-20mcg) 1 puff RQID INH 02/27/20 20:00 02/28/20 07:52 Amlodipine Besylate (Norvasc) 2.5 mg QHS PO 02/27/20 21:00 02/27/20 20:47 Benztropine Mesylate (Cogentin) 2 mg BID PO 02/27/20 21:00 02/27/20 20:47 Clozapine (Clozaril) 12.5 mg QHS PO 02/27/20 21:00 02/27/20 20:47 Divalproex Sodium (Depakote) 1,000 mg QAM PO 02/28/20 09:00 Divalproex Sodium (Depakote) 1,500 mg QPM PO 02/27/20 21:00 02/27/20 20:45 Docusate Sodium (Colace) 100 mg BID PO 02/27/20 21:00 02/27/20 20:45 Home Med (Med Rec Complete!) ASDIRECTED XX 02/27/20 18:45 02/27/20 18:40 DC Magnesium Hydroxide (Milk Of Magnesia) 30 ml DAILYPRN PRN PO CONSTIPATION 02/27/20 18:00 Olanzapine (ZyPREXA ZYDIS) 5 mg Q8HP PRN PO ANXIETY/AGITATION 02/27/20 18:00 Trazodone HCl (Desyrel) 50 mg QHS PRN PO INSOMNIA 02/27/20 18:00 02/27/20 20:45 Zolpidem Tartrate (Ambien) 2.5 mg QHS PO 02/27/20 21:00 02/27/20 20:45 Allergies Coded Allergies: No Known Allergies (Verified , 10/17/08) BISHNU CASTREJON DO Feb 28, 2020 08:41
[2020-02-28] MEDS ORDERED: DIVALPROEX 500 MG TAB PO SCH (09:00)
[2020-02-28] MEDS: DOCUSATE SODIUM 100 MG CAP PO SCH ×2 (09:09→20:33)
[2020-02-28] MEDS: BENZTROPINE 2 MG TAB PO SCH ×2 (09:09→20:34)
[2020-02-28] MEDS: ACETAMINOPHEN TAB 650MG DOSE (2X325MG) PO PRN ×2 (09:15→21:26)
[2020-02-28] MEDS: OLANZapine ORAL DISINTEGRATING TAB 5MG PO PRN (14:57)
[2020-02-28] MEDS ORDERED: diphenhydrAMINE 50MG CAP PO ONE (16:00)
[2020-02-28 16:28] LABS: ALBUMIN 3.7 GM/DL (3.2-5.2); ALT/SGPT 35 U/L (12-78); BILIRUBIN,DIRECT 0.2 MG/DL (0.0-0.2); BILIRUBIN,TOTAL 0.7 MG/DL (0.2-1.0); BLOOD UREA NITROGEN 13 MG/DL (7-18); CALCIUM LEVEL 9.3 MG/DL (8.5-10.1); CARBON DIOXIDE LEVEL 29 MEQ/L (21-32); CHLORIDE LEVEL 97 MEQ/L (98-107); CREATININE FOR GFR 0.82 MG/DL (0.70-1.30); GLOMERULAR FILTRATION RATE > 60.0 (>56); GLUCOSE, FASTING 85 MG/DL (70-100); POTASSIUM SERUM 4.3 MEQ/L (3.5-5.1); SODIUM LEVEL 129 MEQ/L (136-145); TOTAL PROTEIN 6.7 GM/DL (6.4-8.2); VALPROIC ACID (DEPAKOTE) 108.4 UG/ML (50.0-100.0)
[2020-02-28 16:47] VITALS: BP 108/76
[2020-02-28] MEDS: zolPIDEM TARTRATE 5 MG TAB PO SCH (20:32)
[2020-02-28] MEDS: DIVALPROEX 500 MG TAB PO SCH (20:33)
[2020-02-28 20:34] VITALS: BP 146/81
[2020-02-28] MEDS ORDERED: LORazepam 0.5 MG TAB PO ONE (22:15)
[2020-02-29 06:54] VITALS: BP 125/82
[2020-02-29] MEDS: COMBIVENT RESPIMAT 100-20MCG INHALER 4GM INH SCH ×4 (08:00→20:00)
[2020-02-29] MEDS: BENZTROPINE 2 MG TAB PO SCH ×2 (08:36→21:40)
[2020-02-29] MEDS: ACETAMINOPHEN TAB 650MG DOSE (2X325MG) PO PRN ×2 (08:38→21:47)
[2020-02-29] MEDS: DOCUSATE SODIUM 100 MG CAP PO SCH ×2 (08:38→21:40)
[2020-02-29] MEDS: DIVALPROEX 250 MG TAB PO SCH (10:03)
--- NOTE | 2020-02-29 11:47 | MHIPNPDOC ---
[facility] Progress Note Progress Note DATE OF SERVICE: 02/29/20 Subjective HPI: Terrence presents today for a follow-up. Patient notes his face is healing, but it is sore. He also notes his feet are sore. Patient was standing in his room alone with the door closed. Patient notes he feels better. Objective Speech: Repeating the same things over and over again. Thought Form: Nonlinear. Disorganized. Judgement: Poor. Insight: Poor. Assessment F25.9 Schizoaffective disorder, unspecified F30.9 Manic episode, unspecified Plan Patient was taken off Clozaril and Depakote, but is continuing Invega. Diagnosis is Schizophrenia Plan is to augment Invega with Vraylar as hes failed with Clozapine. Rash appears to be improving, start 1.5 mg daily. Will continue to observe. However, he will likely stay for nearly another week as hes made little progress. Appears to have vegetation in the evening as observed by nursing staff. Vital Signs Vital Signs Date Time Temp Pulse Resp B/P (MAP) Pulse Ox O2 Delivery O2 Flow Rate FiO2 02/29/20 09:34 Room Air 02/29/20 06:54 98.4 70 18 125/82 (96) Laboratory Data 24H Labs Laboratory Tests 2 02/28/20 14:39: Anion Gap 3L, Glomerular Filtration Rate > 60.0, Calcium Level 9.3, Total Bilirubin 0.7, Direct Bilirubin 0.2, Aspartate Amino Transf (AST/SGOT) 27, Alanine Aminotransferase (ALT/SGPT) 35, Alkaline Phosphatase 41L, Total Protein 6.7, Albumin 3.7, Albumin/Globulin Ratio 1.2, Valproic Acid (Depakene) Level 108.4H CBC/BMP Laboratory Tests 02/28/20 14:39 Current Medications Current Medications Medications (Trade) Dose Ordered Sig/Daniel Route PRN Reason Start Time Stop Time Status Last Admin Dose Admin Acetaminophen (Tylenol Tab) 650 mg Q6HP PRN PO HEADACHE/DISCOMFORT 02/27/20 18:00 02/29/20 08:38 Al Hydrox/Mg Hydrox/Simethicone (Mylanta) 30 ml Q4HP PRN PO HEARTBURN/INDIGESTION 02/27/20 18:00 Albuterol/ Ipratropium (Combivent Respimat 100-20mcg) 1 puff RQID INH 02/27/20 20:00 02/28/20 20:34 Amlodipine Besylate (Norvasc) 2.5 mg QHS PO 02/27/20 21:00 02/28/20 20:34 Benztropine Mesylate (Cogentin) 2 mg BID PO 02/27/20 21:00 02/29/20 08:36 Clozapine (Clozaril) 12.5 mg QHS PO 02/27/20 21:00 02/28/20 11:08 DC 02/27/20 20:47 Divalproex Sodium (Depakote) 750 mg QAM PO 02/29/20 09:00 02/29/20 10:03 Divalproex Sodium (Depakote) 1,000 mg QAM PO 02/28/20 09:00 02/29/20 08:48 DC 02/28/20 09:09 Divalproex Sodium (Depakote) 1,500 mg QPM PO 02/27/20 21:00 02/28/20 20:33 Docusate Sodium (Colace) 100 mg BID PO 02/27/20 21:00 02/29/20 08:38 Home Med (Med Rec Complete!) ASDIRECTED XX 02/27/20 18:45 02/27/20 18:40 DC Magnesium Hydroxide (Milk Of Magnesia) 30 ml DAILYPRN PRN PO CONSTIPATION 02/27/20 18:00 Olanzapine (ZyPREXA ZYDIS) 5 mg Q8HP PRN PO ANXIETY/AGITATION 02/27/20 18:00 02/28/20 14:57 Trazodone HCl (Desyrel) 50 mg QHS PRN PO INSOMNIA 02/27/20 18:00 02/27/20 20:45 Zolpidem Tartrate (Ambien) 2.5 mg QHS PO 02/27/20 21:00 02/28/20 20:32 Allergies Coded Allergies: No Known Allergies (Verified , 10/17/08) BISHNU CASTREJON DO Feb 29, 2020 11:47
[2020-02-29] MEDS ORDERED: CARIPRAZINE 1.5MG CAPSULE (VRAYLAR) PO ONE (13:15)
--- NOTE | 2020-02-29 17:38 | CR.PDOC ---
General Date of Consultation: Feb 29, 2020 Consultation Patient is a 54-year-old male presenting for behavioral health services at our facility. Medicine was consulted for concerns of facial erythema. Patient reported noticing facial redness approximately two days ago. He attributes recently being started on a new psychiatrist medication. Do you review also notes recent initiation of amlodipine. Patient denies any such previous recurrence. He does note some tenderness to touch. Hes been applying Vaseline and other notions without relief. Express some distress. No other skin findings related. Of note, patient dry feet are also reviewed-patient [place] this is chronic and happened before the skin facial changes. Reports wearing shoes regularly. No fevers chills. Denied applying any appointments to the feet. Past medical history colon seizures, hypertension, asthma Past surgical history: no recent surgeries Social history: previous alcohol dependence Family history: noncontributory Review of systems: 10 pound review of systems negative except As Stated about in HPI. Physical exam: General appearance-no acute distress HENT- Normocephalic, erythema present on forehead and right cheek Respiratory: normal and auscultation Cardiovascular: normal rate and rhythm Abdomen: soft Neurological: no focal deficits Extremities: grossly normal Psych: alert Laboratory data: reviewed Assessment/plan: 1) facial flushing: Suspecting vasodilatory response from medication. Will recommend discontinuing amlodipine 2.5 mg as it was recently started medication during the hospital stay. Calcium channel blockers are associated with vasodilatory response causing flushing. -Recommend psychiatrist services to review any new medication , As it is likely increase serotonin levels could also have a similar vasodilatory affect causing flashing. 2) Tinea pedis Topical Clomitazole Vital Signs/I&O Vital Signs Date Time Temp Pulse Resp B/P (MAP) Pulse Ox O2 Delivery O2 Flow Rate FiO2 02/29/20 09:34 Room Air 02/29/20 06:54 98.4 70 18 125/82 (96) Allergies Coded Allergies: No Known Allergies (Verified , 10/17/08) Home Medications Scheduled Benztropine Mesylate (Benztropine Mesylate) 2 Mg Tablet, 2 MG PO BID for . , (Reported) Divalproex Sodium (Divalproex Sodium ER) 500 Mg Tab.er.24h, 1,000 MG PO QAM for . , (Reported) Divalproex Sodium (Divalproex Sodium ER) 500 Mg Tab.er.24h, 1,500 MG PO QHS for . , (Reported) Folic Acid (Folic Acid) 1 Mg Tablet, 1 MG PO DAILY for . , (Reported) Naltrexone HCl (Naltrexone HCl) 50 Mg Tablet, 50 MG PO DAILY for ., (Reported) Paliperidone Palmitate (Invega Sustenna) 156 Mg/1 Ml Syringe, 156 MG IM QMONTH for . , (Reported) Thiamine Hcl (Vitamin B-1) 100 Mg Tablet, 100 MG PO DAILY for . , (Reported) Zolpidem Tartrate (Ambien) 5 Mg Tablet, 2.5 MG PO QHS for ., (Reported) Scheduled PRN Ibuprofen (Ibuprofen) 200 Mg Capsule, 600 MG PO TID PRN for PAIN, (Reported) Methocarbamol (Methocarbamol) 500 Mg Tablet, 500 MG PO TID PRN for MUSCLE SPASMS, (Reported) PHILLIP RUSSELL DO Feb 29, 2020 17:38
[2020-02-29] MEDS ORDERED: diphenhydrAMINE 50MG CAP PO ONE (18:00)
[2020-02-29] MEDS: CLOTRIMAZOLE 1% TOPICAL CREAM 30GM TOP SCH (21:00)
[2020-02-29] MEDS: DIVALPROEX 500 MG TAB PO SCH (21:36)
[2020-02-29] MEDS: traZODone 50 MG TAB PO PRN (21:40)
[2020-02-29] MEDS: zolPIDEM TARTRATE 5 MG TAB PO SCH (21:42)
[2020-03-01 06:51] VITALS: BP 135/77
[2020-03-01] MEDS: COMBIVENT RESPIMAT 100-20MCG INHALER 4GM INH SCH ×4 (08:00→19:51)
--- NOTE | 2020-03-01 08:02 | MHIPNPDOC ---
[facility] Progress Note Progress Note DATE OF SERVICE: 03/01/20 Subjective HPI: Patient has remained quite unusual and distorted throughout the day. Coming up asking about various face creams. Appears to understand very little. Objective Cognition: Distorted. Thought Form: Nonlinear. Perception: Psychotic. Judgement: Poor judgment. Insight: Poor insight. Assessment F20.89 Other schizophrenia Plan Augment with Zyprexa 5mg BID instead, discontinue Cariprazine as some concern for allergic reaction. Hospitalist is treating facial problems as patient could be rubbing his face. Will convert to 2 PC today. Vital Signs Vital Signs Date Time Temp Pulse Resp B/P (MAP) Pulse Ox O2 Delivery O2 Flow Rate FiO2 03/01/20 06:51 97.4 88 14 135/77 (96) 95 Room Air Current Medications Current Medications Medications (Trade) Dose Ordered Sig/Daniel Route PRN Reason Start Time Stop Time Status Last Admin Dose Admin Acetaminophen (Tylenol Tab) 650 mg Q6HP PRN PO HEADACHE/DISCOMFORT 02/27/20 18:00 02/29/20 21:47 Al Hydrox/Mg Hydrox/Simethicone (Mylanta) 30 ml Q4HP PRN PO HEARTBURN/INDIGESTION 02/27/20 18:00 Albuterol/ Ipratropium (Combivent Respimat 100-20mcg) 1 puff RQID INH 02/27/20 20:00 02/28/20 20:34 Amlodipine Besylate (Norvasc) 2.5 mg QHS PO 02/27/20 21:00 02/29/20 16:48 DC 02/28/20 20:34 Benztropine Mesylate (Cogentin) 2 mg BID PO 02/27/20 21:00 02/29/20 21:40 Cariprazine (Vraylar) 1.5 mg DAILY PO 03/01/20 09:00 Clotrimazole (Lotrimin) apply thin layer to bilate... BID TOP 02/29/20 21:00 Clozapine (Clozaril) 12.5 mg QHS PO 02/27/20 21:00 02/28/20 11:08 DC 02/27/20 20:47 Divalproex Sodium (Depakote) 750 mg QAM PO 02/29/20 09:00 02/29/20 10:03 Divalproex Sodium (Depakote) 1,000 mg QAM PO 02/28/20 09:00 02/29/20 08:48 DC 02/28/20 09:09 Divalproex Sodium (Depakote) 1,500 mg QPM PO 02/27/20 21:00 02/29/20 21:36 Docusate Sodium (Colace) 100 mg BID PO 02/27/20 21:00 02/29/20 21:40 Home Med (Med Rec Complete!) ASDIRECTED XX 02/27/20 18:45 02/27/20 18:40 DC Magnesium Hydroxide (Milk Of Magnesia) 30 ml DAILYPRN PRN PO CONSTIPATION 02/27/20 18:00 Olanzapine (ZyPREXA ZYDIS) 5 mg Q8HP PRN PO ANXIETY/AGITATION 02/27/20 18:00 02/28/20 14:57 Trazodone HCl (Desyrel) 50 mg QHS PRN PO INSOMNIA 02/27/20 18:00 02/29/20 21:40 Zolpidem Tartrate (Ambien) 2.5 mg QHS PO 02/27/20 21:00 02/29/20 21:42 Allergies Coded Allergies: No Known Allergies (Verified , 10/17/08) BISHNU CASTREJON DO Mar 01, 2020 08:02
[2020-03-01] MEDS: DIVALPROEX 250 MG TAB PO SCH (08:38)
[2020-03-01] MEDS: BENZTROPINE 2 MG TAB PO SCH ×2 (08:38→20:00)
[2020-03-01] MEDS: DOCUSATE SODIUM 100 MG CAP PO SCH ×2 (08:38→20:00)
[2020-03-01] MEDS: ACETAMINOPHEN TAB 650MG DOSE (2X325MG) PO PRN ×2 (08:39→14:32)
[2020-03-01] MEDS: CLOTRIMAZOLE 1% TOPICAL CREAM 30GM TOP SCH ×2 (08:39→20:01)
[2020-03-01] MEDS ORDERED: CARIPRAZINE 1.5MG CAPSULE (VRAYLAR) PO SCH (09:00)
[2020-03-01] MEDS: TRIAMCINOLONE ACET 0.1% CREAM 80 GM TOP SCH ×2 (09:05→20:02)
[2020-03-01] MEDS: OLANZapine 5 MG TAB PO SCH ×2 (12:25→20:00)
[2020-03-01 16:00] VITALS: BP 121/90
[2020-03-01] MEDS: diphenhydrAMINE 50MG CAP PO PRN (19:56)
[2020-03-01] MEDS: DIVALPROEX 500 MG TAB PO SCH (20:00)
[2020-03-01] MEDS: zolPIDEM TARTRATE 5 MG TAB PO SCH (20:01)
[2020-03-01] MEDS: PILL CUTTER 1 EACH XX PRN (20:01)
[2020-03-02 06:21] VITALS: BP 142/74
[2020-03-02] MEDS: DOCUSATE SODIUM 100 MG CAP PO SCH ×2 (08:13→21:12)
[2020-03-02] MEDS: BENZTROPINE 2 MG TAB PO SCH ×2 (08:13→21:10)
[2020-03-02] MEDS: COMBIVENT RESPIMAT 100-20MCG INHALER 4GM INH SCH ×4 (08:13→20:00)
[2020-03-02] MEDS: OLANZapine 5 MG TAB PO SCH ×2 (08:13→21:11)
[2020-03-02] MEDS: TRIAMCINOLONE ACET 0.1% CREAM 80 GM TOP SCH (08:14)
[2020-03-02] MEDS: CLOTRIMAZOLE 1% TOPICAL CREAM 30GM TOP SCH ×2 (08:14→21:00)
[2020-03-02] MEDS: DIVALPROEX 250 MG TAB PO SCH (08:14)
[2020-03-02] MEDS: ACETAMINOPHEN TAB 650MG DOSE (2X325MG) PO PRN ×2 (09:38→17:08)
[2020-03-02] MEDS: LORazepam 1 MG TAB PO PRN (15:34)
[2020-03-02] MEDS: predniSONE 20 MG TAB PO SCH (18:14)
[2020-03-02] MEDS: CETIRIZINE (ZyrTEC) 10 MG TAB PO SCH (18:14)
[2020-03-02] MEDS: LIDOCAINE 5% OINT 30 GM TOP PRN (19:07)
[2020-03-02] MEDS: PILL CUTTER 1 EACH XX PRN (21:10)
[2020-03-02] MEDS: DIVALPROEX 500 MG TAB PO SCH (21:12)
[2020-03-02] MEDS: zolPIDEM TARTRATE 5 MG TAB PO SCH (21:12)
[2020-03-03 06:43] VITALS: BP 138/84
[2020-03-03] MEDS: COMBIVENT RESPIMAT 100-20MCG INHALER 4GM INH SCH ×4 (07:03→20:00)
[2020-03-03] MEDS: CETIRIZINE (ZyrTEC) 10 MG TAB PO SCH (08:06)
[2020-03-03] MEDS: predniSONE 20 MG TAB PO SCH (08:06)
[2020-03-03] MEDS: BENZTROPINE 2 MG TAB PO SCH ×2 (08:06→20:25)
[2020-03-03] MEDS: DOCUSATE SODIUM 100 MG CAP PO SCH ×2 (08:08→20:25)
[2020-03-03] MEDS: OLANZapine 5 MG TAB PO SCH ×2 (08:08→20:25)
[2020-03-03] MEDS: CLOTRIMAZOLE 1% TOPICAL CREAM 30GM TOP SCH ×2 (08:08→20:26)
[2020-03-03] MEDS: LIDOCAINE 5% OINT 30 GM TOP PRN ×3 (08:09→20:21)
[2020-03-03] MEDS: DIVALPROEX 250 MG TAB PO SCH (08:12)
[2020-03-03] MEDS: LORazepam 1 MG TAB PO PRN (10:59)
[2020-03-03] MEDS: ACETAMINOPHEN TAB 650MG DOSE (2X325MG) PO PRN ×2 (10:59→17:46)
[2020-03-03 16:20] VITALS: BP 135/84
[2020-03-03 16:26] VITALS: BP 135/68
[2020-03-03] MEDS: PILL CUTTER 1 EACH XX PRN (20:22)
[2020-03-03] MEDS: DIVALPROEX 500 MG TAB PO SCH (20:24)
[2020-03-03] MEDS: zolPIDEM TARTRATE 5 MG TAB PO SCH (20:25)
[2020-03-03] MEDS: traZODone 50 MG TAB PO PRN (20:25)
[2020-03-04] MEDS: COMBIVENT RESPIMAT 100-20MCG INHALER 4GM INH SCH ×4 (08:00→20:16)
[2020-03-04] MEDS: predniSONE 10 MG TAB PO SCH (08:24)
[2020-03-04] MEDS: DOCUSATE SODIUM 100 MG CAP PO SCH ×2 (08:24→20:17)
[2020-03-04] MEDS: DIVALPROEX 250 MG TAB PO SCH (08:24)
[2020-03-04] MEDS: CETIRIZINE (ZyrTEC) 10 MG TAB PO SCH (08:24)
[2020-03-04] MEDS: BENZTROPINE 2 MG TAB PO SCH ×2 (08:24→20:17)
[2020-03-04] MEDS: OLANZapine 5 MG TAB PO SCH (08:24)
[2020-03-04] MEDS: LIDOCAINE 5% OINT 30 GM TOP PRN ×2 (08:24→11:49)
[2020-03-04] MEDS: CLOTRIMAZOLE 1% TOPICAL CREAM 30GM TOP SCH ×2 (08:25→20:17)
--- NOTE | 2020-03-04 11:40 | MHIPNPDOC ---
[facility] Progress Note Progress Note DATE OF SERVICE: 03/04/20 Subjective HPI: Patient highly agitated today and unable to make progress or meet with patient as he is spending the day highly agitated, thrashing and putting things onto his face. Patient appears to be highly internally preoccupied, yelling and screaming at unseen individuals. Objective Appearance: Face red from multiple washings. Thought Form: Nonlinear. Psychotic. Tangential. Nearly incoherent at times. Judgement: Poor. Insight: Poor. Assessment F20.9 Schizophrenia, unspecified Plan Increase Zyprexa to 10 mg BID PRN. Agitation medications to be ordered. Vital Signs Vital Signs Date Time Temp Pulse Resp B/P (MAP) Pulse Ox O2 Delivery O2 Flow Rate FiO2 03/03/20 16:26 97.7 66 18 135/68 (90) 03/02/20 06:21 Room Air 03/01/20 06:51 95 Current Medications Current Medications Medications (Trade) Dose Ordered Sig/Daniel Route PRN Reason Start Time Stop Time Status Last Admin Dose Admin Acetaminophen (Tylenol Tab) 650 mg Q6HP PRN PO HEADACHE/DISCOMFORT 02/27/20 18:00 03/03/20 17:46 Al Hydrox/Mg Hydrox/Simethicone (Mylanta) 30 ml Q4HP PRN PO HEARTBURN/INDIGESTION 02/27/20 18:00 Albuterol/ Ipratropium (Combivent Respimat 100-20mcg) 1 puff RQID INH 02/27/20 20:00 03/02/20 08:13 Amlodipine Besylate (Norvasc) 2.5 mg QHS PO 02/27/20 21:00 02/29/20 16:48 DC 02/28/20 20:34 Benztropine Mesylate (Cogentin) 2 mg BID PO 02/27/20 21:00 03/04/20 08:24 Cariprazine (Vraylar) 1.5 mg DAILY PO 03/01/20 09:00 03/01/20 08:25 DC Cetirizine HCl (ZyrTEC) 10 mg DAILY PO 03/02/20 09:00 03/07/20 23:00 03/04/20 08:24 Clotrimazole (Lotrimin) apply thin layer to bilate... BID TOP 02/29/20 21:00 03/03/20 08:08 Clozapine (Clozaril) 12.5 mg QHS PO 02/27/20 21:00 02/28/20 11:08 DC 02/27/20 20:47 Diphenhydramine HCl (Benadryl) 50 mg QHSP PRN PO ITCHING/SWELLING 03/01/20 08:15 03/01/20 19:56 Divalproex Sodium (Depakote) 750 mg QAM PO 02/29/20 09:00 03/04/20 08:24 Divalproex Sodium (Depakote) 1,000 mg QAM PO 02/28/20 09:00 02/29/20 08:48 DC 02/28/20 09:09 Divalproex Sodium (Depakote) 1,500 mg QPM PO 02/27/20 21:00 03/03/20 20:24 Docusate Sodium (Colace) 100 mg BID PO 02/27/20 21:00 03/04/20 08:24 Home Med (Med Rec Complete!) ASDIRECTED XX 02/27/20 18:45 02/27/20 18:40 DC Lidocaine HCl (Lidocaine 5% Oint) 1 dose TIDP PRN TOP skin irritation 03/02/20 18:15 03/04/20 08:24 Lorazepam (Ativan) 1 mg BIDP PRN PO ANXIETY/AGITATION 03/02/20 15:00 03/04/20 14:59 03/03/20 10:59 Magnesium Hydroxide (Milk Of Magnesia) 30 ml DAILYPRN PRN PO CONSTIPATION 02/27/20 18:00 Olanzapine (ZyPREXA ZYDIS) 5 mg Q8HP PRN PO ANXIETY/AGITATION 02/27/20 18:00 02/28/20 14:57 Olanzapine (ZyPREXA) 5 mg BID PO 03/01/20 09:00 03/04/20 08:24 Prednisone (Deltasone) 5 mg DAILY PO 03/06/20 09:00 03/07/20 09:01 Prednisone (Deltasone) 10 mg DAILY PO 03/04/20 09:00 03/05/20 09:01 03/04/20 08:24 Prednisone (Deltasone) 20 mg DAILY PO 03/02/20 09:00 03/04/20 07:36 DC 03/03/20 08:06 Trazodone HCl (Desyrel) 50 mg QHS PRN PO INSOMNIA 02/27/20 18:00 03/03/20 20:25 Triamcinolone Acetonide (Kenalog 0.1% Cream) APPLY THIN LAYER TO FACE BID TOP 03/01/20 09:00 03/02/20 17:50 DC 03/02/20 08:14 Zolpidem Tartrate (Ambien) 2.5 mg QHS PO 02/27/20 21:00 03/03/20 20:25 Allergies Coded Allergies: No Known Allergies (Verified , 10/17/08) BISHNU CASTREJON DO Mar 04, 2020 11:40
[2020-03-04] MEDS: OLANZapine ORAL DISINTEGRATING TAB 5MG PO PRN (16:25)
[2020-03-04] MEDS: diphenhydrAMINE 50MG CAP PO PRN (16:33)
[2020-03-04] MEDS ORDERED: chlorproMAZINE INJ 50MG/2ML AMP (J3230) IM STA (17:50)
[2020-03-04] MEDS: DIVALPROEX 500 MG TAB PO SCH (20:16)
[2020-03-04] MEDS ORDERED: OLANZapine 10 MG TAB PO SCH (21:00)
[2020-03-05 06:15] VITALS: BP 129/80
[2020-03-05] MEDS: LIDOCAINE 5% OINT 30 GM TOP PRN (07:08)
[2020-03-05] MEDS: COMBIVENT RESPIMAT 100-20MCG INHALER 4GM INH SCH ×4 (08:00→20:00)
--- NOTE | 2020-03-05 08:01 | MHIPNPDOC ---
[facility] Progress Note Progress Note DATE OF SERVICE: 03/05/20 Subjective HPI: The patient met with today, however, he is highly distorted and unable to engage in any reasonable conversation. He had Thorazine yesterday that was quite helpful. He has reportedly been responding to internal stimuli, walking back and forth and scraping his face. Objective Appearance: Patients face is reddened. Speech: Repeats multiple things with stereotypical behavior. Cognition: Grossly psychotic and incoherent at times. Judgement: Poor. Insight: Poor. Assessment F20.9 Schizophrenia, unspecified Plan Discontinue Zyprexa. Add Thorazine 150 mg BID as it might help with itching behavior as well as it appears to be good for reducing agitation. Quentin likely need a referral to long-term if he doesnt improve shortly. Vital Signs Vital Signs Date Time Temp Pulse Resp B/P (MAP) Pulse Ox O2 Delivery O2 Flow Rate FiO2 03/05/20 06:15 98.6 91 18 129/80 (96) 94 Room Air Laboratory Data 24H Labs Laboratory Tests 2 03/05/20 06:35: Current Medications Current Medications Medications (Trade) Dose Ordered Sig/Daniel Route PRN Reason Start Time Stop Time Status Last Admin Dose Admin Acetaminophen (Tylenol Tab) 650 mg Q6HP PRN PO HEADACHE/DISCOMFORT 02/27/20 18:00 03/03/20 17:46 Al Hydrox/Mg Hydrox/Simethicone (Mylanta) 30 ml Q4HP PRN PO HEARTBURN/INDIGESTION 02/27/20 18:00 Albuterol/ Ipratropium (Combivent Respimat 100-20mcg) 1 puff RQID INH 02/27/20 20:00 03/04/20 20:16 Amlodipine Besylate (Norvasc) 2.5 mg QHS PO 02/27/20 21:00 02/29/20 16:48 DC 02/28/20 20:34 Benztropine Mesylate (Cogentin) 2 mg BID PO 02/27/20 21:00 03/04/20 20:17 Cariprazine (Vraylar) 1.5 mg DAILY PO 03/01/20 09:00 03/01/20 08:25 DC Cetirizine HCl (ZyrTEC) 10 mg DAILY PO 03/02/20 09:00 03/07/20 23:00 03/04/20 08:24 Chlorpromazine HCl (Thorazine) 150 mg STAT STAT IM 03/04/20 17:50 03/04/20 17:53 DC 03/04/20 18:09 Clotrimazole (Lotrimin) apply thin layer to bilate... BID TOP 02/29/20 21:00 03/04/20 20:17 Clozapine (Clozaril) 12.5 mg QHS PO 02/27/20 21:00 02/28/20 11:08 DC 02/27/20 20:47 Diphenhydramine HCl (Benadryl) 50 mg QHSP PRN PO ITCHING/SWELLING 03/01/20 08:15 03/04/20 16:33 Divalproex Sodium (Depakote) 750 mg QAM PO 02/29/20 09:00 03/04/20 08:24 Divalproex Sodium (Depakote) 1,000 mg QAM PO 02/28/20 09:00 02/29/20 08:48 DC 02/28/20 09:09 Divalproex Sodium (Depakote) 1,500 mg QPM PO 02/27/20 21:00 03/04/20 20:16 Docusate Sodium (Colace) 100 mg BID PO 02/27/20 21:00 03/04/20 20:17 Haloperidol (Haldol) 10 mg STAT STAT PO 03/04/20 17:24 03/04/20 17:26 DC 03/04/20 17:28 Home Med (Med Rec Complete!) ASDIRECTED XX 02/27/20 18:45 02/27/20 18:40 DC Lidocaine HCl (Lidocaine 5% Oint) 1 dose TIDP PRN TOP skin irritation 03/02/20 18:15 03/05/20 07:08 Lorazepam (Ativan) 1 mg BIDP PRN PO ANXIETY/AGITATION 03/02/20 15:00 03/04/20 14:59 DC 03/03/20 10:59 Magnesium Hydroxide (Milk Of Magnesia) 30 ml DAILYPRN PRN PO CONSTIPATION 02/27/20 18:00 Olanzapine (ZyPREXA ZYDIS) 5 mg Q8HP PRN PO ANXIETY/AGITATION 02/27/20 18:00 03/04/20 16:25 Olanzapine (ZyPREXA) 5 mg BID PO 03/01/20 09:00 03/04/20 16:47 DC 03/04/20 08:24 Olanzapine (ZyPREXA) 10 mg BID PO 03/04/20 21:00 03/04/20 20:17 Prednisone (Deltasone) 5 mg DAILY PO 03/06/20 09:00 03/07/20 09:01 Prednisone (Deltasone) 10 mg DAILY PO 03/04/20 09:00 03/05/20 09:01 03/04/20 08:24 Prednisone (Deltasone) 20 mg DAILY PO 03/02/20 09:00 03/04/20 07:36 DC 03/03/20 08:06 Trazodone HCl (Desyrel) 50 mg QHS PRN PO INSOMNIA 02/27/20 18:00 03/03/20 20:25 Triamcinolone Acetonide (Kenalog 0.1% Cream) APPLY THIN LAYER TO FACE BID TOP 03/01/20 09:00 03/02/20 17:50 DC 03/02/20 08:14 Zolpidem Tartrate (Ambien) 2.5 mg QHS PO 02/27/20 21:00 03/04/20 17:53 DC 03/03/20 20:25 Allergies Coded Allergies: No Known Allergies (Verified , 10/17/08) BISHNU CASTREJON DO Mar 05, 2020 08:01
[2020-03-05] MEDS: CETIRIZINE (ZyrTEC) 10 MG TAB PO SCH (08:57)
[2020-03-05] MEDS: BENZTROPINE 2 MG TAB PO SCH ×2 (08:57→20:10)
[2020-03-05] MEDS: predniSONE 10 MG TAB PO SCH (08:57)
[2020-03-05] MEDS: DOCUSATE SODIUM 100 MG CAP PO SCH ×2 (08:58→20:09)
[2020-03-05] MEDS: DIVALPROEX 250 MG TAB PO SCH (08:58)
[2020-03-05] MEDS: CLOTRIMAZOLE 1% TOPICAL CREAM 30GM TOP SCH ×2 (09:00→20:09)
[2020-03-05] MEDS: ACETAMINOPHEN TAB 650MG DOSE (2X325MG) PO PRN (11:12)
[2020-03-05] MEDS: chlorproMAZINE 25 MG TABLET PO SCH ×2 (11:19→20:10)
[2020-03-05] MEDS: valACYclovir HCL 500 MG TAB PO SCH ×2 (14:44→20:11)
--- NOTE | 2020-03-05 15:11 | CR.PDOC ---
General Date of Consultation: Mar 05, 2020 Consultation REASON FOR CONSULTATION/CHIEF COMPLAINT: burning, red face HISTORY OF PRESENT ILLNESS: Patient with the assistance of his nurse describes an approximately 1 week history of erythema and burning dysesthesia of the forehead, cheeks, and chin. Reports he has been treated with topical lidocaine, oral prednisone, and diphenhydramine 25mg Q8H. His nurse relays that he is repeatedly washing his face and scrubbing with a paper towel to the point of experiencing erosions on the face. His nursing team provided him with vaseline a s a means of keeping his face hydrated. Patient attributes erythema to amlodipine (Ca channel gary) initiation. ALLERGIES: NKDA HOME MEDICATIONS: See previous notes PAST MEDICAL HISTORY: 1. See previous notes PAST SURGICAL HISTORY: 1. See previous notes FAMILY HISTORY: No family history of skin cancer or rashes. REVIEW OF SYSTEMS: CONSTITUTIONAL: Denies fevers, chills or night sweats. HEENT: Denies sores or swollen lymph notes in the head and neck. RESPIRATORY: No trouble breathing. GENITOURINARY: Denies sores on the penis or anus. PHYSICAL EXAMINATION: VITAL SIGNS: Please see today's notes. GENERAL APPEARANCE: Very anxious with repetitive and perseveration on facial rash HEENT: No LAD appreciated RESPIRATORY: Breathing without difficulty. CARDIOVASCULAR: SKIN: FACIAL ERYTHEMA WITH VISUAL TELANGIECTASIAS AND EXTENSIVE LINEAR EROSIONS ON THE FACE C/W MANIPULATION LABORATORY DATA: Please see below. ASSESSMENT/PLAN: 1. FACIAL ERYTHEMA/DYSESTHESIA - AGREE WITH PLAN TO D/C AMLODIPINE, SUSPECT THIS INITIATED HIS FACIAL FLUSHING AND "BURNING" SENSATION - TAC 0.1% OINTMENT TID TO FACE TO SOOTH BURNING - REPLACE CURRENT COMPULSIVE BEHAVIOR (WIPING OF FACE) WITH APPLICATION OF VASELINE - EXTENSIVE EROSIONS PLACE PATIENT AT INCREASED RISK OF KAPOSI'S VARICELLIFORM ERUPTION, START VALTREX 500MG BID 2. COMPULSIVE/NEUROTIC EXCORIATIONS - RECOMMEND OPTIMIZATION OF PSYCHIATRIC MEDICATIONS FOR COMPULSIVE BEHAVIORS - WE OFTEN UTILIZE GABAPENTIN 300MG TID OR DOXEPIN 25MG FOR THESE CASES. DEFER TO EXPERTISE OF PRIMARY TEAM IN SETTING OF PSYCH POLYPHARMACY. DR BABB Vital Signs/I&O Vital Signs Date Time Temp Pulse Resp B/P (MAP) Pulse Ox O2 Delivery O2 Flow Rate FiO2 03/05/20 06:15 98.6 91 18 129/80 (96) 94 Room Air Laboratory Data Labs 24H Laboratory Tests 2 03/05/20 06:35: Valproic Acid (Depakene) Level 115.2H Allergies Coded Allergies: No Known Allergies (Verified , 10/17/08) Home Medications Scheduled Benztropine Mesylate (Benztropine Mesylate) 2 Mg Tablet, 2 MG PO BID for . , (Reported) Divalproex Sodium (Divalproex Sodium ER) 500 Mg Tab.er.24h, 1,000 MG PO QAM for . , (Reported) Divalproex Sodium (Divalproex Sodium ER) 500 Mg Tab.er.24h, 1,500 MG PO QHS for . , (Reported) Folic Acid (Folic Acid) 1 Mg Tablet, 1 MG PO DAILY for . , (Reported) Naltrexone HCl (Naltrexone HCl) 50 Mg Tablet, 50 MG PO DAILY for ., (Reported) Paliperidone Palmitate (Invega Sustenna) 156 Mg/1 Ml Syringe, 156 MG IM QMONTH for . , (Reported) Thiamine Hcl (Vitamin B-1) 100 Mg Tablet, 100 MG PO DAILY for . , (Reported) Zolpidem Tartrate (Ambien) 5 Mg Tablet, 2.5 MG PO QHS for ., (Reported) Scheduled PRN Ibuprofen (Ibuprofen) 200 Mg Capsule, 600 MG PO TID PRN for PAIN, (Reported) Methocarbamol (Methocarbamol) 500 Mg Tablet, 500 MG PO TID PRN for MUSCLE SPASMS, (Reported) SHARON BABB MD Mar 05, 2020 15:01
[2020-03-05] MEDS: TRIAMCINOLONE ACET 0.1% OINTMENT 15 GM TOP SCH ×2 (16:11→20:09)
--- NOTE | 2020-03-05 17:11 | IPNPDOC ---
Date Seen The patient was seen on 03/05/20. Progress Note SUBJECTIVE: Patient was seen for follow up for worsening facial redness, rash. Excoriations seen, "burning" sensation suspected. has been using prednisone and lidocaine cream per last hospitalist that saw him. Recommended dermatology evaluation and called in consult. patient denies vision changes, n/v/d, fever, chills, other rash on body outside of face, or prior rash that was similar to this. OBJECTIVE PHYSICAL EXAMINATION: VITAL SIGNS: Please see below. GENERAL: pressured speech, in NAD, sitting in chair HEENT: Erythema, excoriation perez vs. ulceration in linear form. Rash on cheeks forehead and chin appears raised, not warm to touch. Not involving the eyes. CARDIOVASCULAR: S1S2 +, no m/r/g RESPIRATORY: CTAB, no w/r/r ABDOMINAL: soft, nt/nd, BS + in 4 quadrants EXTREMITIES: no edema, pulses + in all extremities NEUROLOGICAL: no focal deficits PSYCHOLOGICAL: pressured speech, but communicative, slightly agitated No new LABORATORY DATA, IMAGING STUDIES, MICROBIOLOGY ASSESSMENT: 54 y/o M with new onset of facial redness, rash over past 1 week possibly infectious vs. medication related. PLAN: 1) Facial rash, r/o infectious vs. medication induced. Prior hospitalist was suspecting vasodilatory response from medication (amlodipine); however, this is likely not the case. D/ayan lidocaine topical. Would suggest with a rash this extensive with ulcerations, to have dermatology consulted to further evaluate and make recommendations for treatment as risk for secondary infection is high. Would suggest nursing and psych MD to follow up recommendations to institute, as there also appears to be a compulsatory component of behavior that is not well controlled with constant picking at face. DISPOSITION: At this time, will sign off on patient's case. If we are needed again to further assess, please do not hesitate to call at any time. VS, I&O, 24H, Fishbone Vital Signs/I&O Vital Signs Date Time Temp Pulse Resp B/P (MAP) Pulse Ox O2 Delivery O2 Flow Rate FiO2 03/05/20 06:15 98.6 91 18 129/80 (96) 94 Room Air Laboratory Data 24H LABS Laboratory Tests 2 03/05/20 06:35: Valproic Acid (Depakene) Level 115.2H Robyn Caldwell MD Mar 05, 2020 17:11
[2020-03-05 17:14] VITALS: BP 144/88
[2020-03-05] MEDS: OLANZapine ORAL DISINTEGRATING TAB 5MG PO PRN (17:32)
[2020-03-05] MEDS: diphenhydrAMINE 25MG CAP PO PRN (17:32)
[2020-03-05] MEDS: traZODone 50 MG TAB PO PRN (20:10)
[2020-03-06] MEDS: ACETAMINOPHEN TAB 650MG DOSE (2X325MG) PO PRN ×2 (05:38→13:06)
[2020-03-06 06:35] VITALS: BP 133/79
[2020-03-06] MEDS: TRIAMCINOLONE ACET 0.1% OINTMENT 15 GM TOP SCH ×3 (08:50→20:23)
[2020-03-06] MEDS: COMBIVENT RESPIMAT 100-20MCG INHALER 4GM INH SCH ×4 (08:50→19:36)
[2020-03-06] MEDS: BENZTROPINE 2 MG TAB PO SCH ×2 (08:51→20:17)
[2020-03-06] MEDS: valACYclovir HCL 500 MG TAB PO SCH ×2 (08:51→20:18)
[2020-03-06] MEDS: chlorproMAZINE 25 MG TABLET PO SCH ×3 (08:51→21:17)
[2020-03-06] MEDS: CETIRIZINE (ZyrTEC) 10 MG TAB PO SCH (08:51)
[2020-03-06] MEDS: DOCUSATE SODIUM 100 MG CAP PO SCH ×2 (08:51→20:19)
[2020-03-06] MEDS: CLOTRIMAZOLE 1% TOPICAL CREAM 30GM TOP SCH ×2 (08:52→20:20)
[2020-03-06] MEDS: predniSONE 5 MG TAB PO SCH (08:52)
[2020-03-06] MEDS: DIVALPROEX 250 MG TAB PO SCH (08:52)
--- NOTE | 2020-03-06 11:47 | MHIPNPDOC ---
[facility] Progress Note Progress Note DATE OF SERVICE: 03/06/20 Subjective HPI: Terrence is met with today multiple times, however, he is highly distorted, pacing back and forth yelling that he is not a child molester. He is highly distorted, psychotic, and nearly unreasonable. Objective Appearance: Less scratched. Behavior: Cooperative with good eye contact. Pacing. Bizzare. Tangential. Incoherent. Paranoid. Judgement: Poor. Insight: Poor. Assessment F20.89 Other schizophrenia Plan Possibly will need long-term treatment. Converted to 9.27 legal status today. We will increase Thorazine to 300 mg twice daily as he does appear to be getting benefit. Recommend holding over Olanzapine as he had poor responses to this in the past. We will continue Invega. Vital Signs Vital Signs Date Time Temp Pulse Resp B/P (MAP) Pulse Ox O2 Delivery O2 Flow Rate FiO2 03/06/20 06:35 97.6 77 14 133/79 (97) 97 Room Air Current Medications Current Medications Medications (Trade) Dose Ordered Sig/Daniel Route PRN Reason Start Time Stop Time Status Last Admin Dose Admin Acetaminophen (Tylenol Tab) 650 mg Q6HP PRN PO HEADACHE/DISCOMFORT 02/27/20 18:00 03/06/20 05:38 Al Hydrox/Mg Hydrox/Simethicone (Mylanta) 30 ml Q4HP PRN PO HEARTBURN/INDIGESTION 02/27/20 18:00 Albuterol/ Ipratropium (Combivent Respimat 100-20mcg) 1 puff RQID INH 02/27/20 20:00 03/06/20 08:50 Amlodipine Besylate (Norvasc) 2.5 mg QHS PO 02/27/20 21:00 02/29/20 16:48 DC 02/28/20 20:34 Benztropine Mesylate (Cogentin) 2 mg BID PO 02/27/20 21:00 03/06/20 08:51 Cariprazine (Vraylar) 1.5 mg DAILY PO 03/01/20 09:00 03/01/20 08:25 DC Cetirizine HCl (ZyrTEC) 10 mg DAILY PO 03/02/20 09:00 03/07/20 23:00 03/06/20 08:51 Chlorpromazine HCl (Thorazine) 150 mg BID PO 03/05/20 09:00 03/06/20 08:51 Chlorpromazine HCl (Thorazine) 150 mg STAT STAT IM 03/04/20 17:50 03/04/20 17:53 DC 03/04/20 18:09 Clotrimazole (Lotrimin) apply thin layer to bilate... BID TOP 02/29/20 21:00 03/06/20 08:52 Clozapine (Clozaril) 12.5 mg QHS PO 02/27/20 21:00 02/28/20 11:08 DC 02/27/20 20:47 Diphenhydramine HCl (Benadryl) 25 mg Q8HP PRN PO ITCHING 03/05/20 12:30 03/05/20 17:32 Diphenhydramine HCl (Benadryl) 50 mg QHSP PRN PO ITCHING/SWELLING 03/01/20 08:15 03/05/20 12:37 DC 03/04/20 16:33 Divalproex Sodium (Depakote) 750 mg QAM PO 02/29/20 09:00 03/06/20 08:52 Divalproex Sodium (Depakote) 1,000 mg QAM PO 02/28/20 09:00 02/29/20 08:48 DC 02/28/20 09:09 Divalproex Sodium (Depakote) 1,000 mg QHS PO 03/06/20 21:00 Divalproex Sodium (Depakote) 1,500 mg QPM PO 02/27/20 21:00 03/05/20 21:06 DC 03/04/20 20:16 Docusate Sodium (Colace) 100 mg BID PO 02/27/20 21:00 03/06/20 08:51 Haloperidol (Haldol) 10 mg STAT STAT PO 03/04/20 17:24 03/04/20 17:26 DC 03/04/20 17:28 Home Med (Med Rec Complete!) ASDIRECTED XX 02/27/20 18:45 02/27/20 18:40 DC Lidocaine HCl (Lidocaine 5% Oint) 1 dose TIDP PRN TOP skin irritation 03/02/20 18:15 03/05/20 12:37 DC 03/05/20 07:08 Lorazepam (Ativan) 1 mg BIDP PRN PO ANXIETY/AGITATION 03/02/20 15:00 03/04/20 14:59 DC 03/03/20 10:59 Magnesium Hydroxide (Milk Of Magnesia) 30 ml DAILYPRN PRN PO CONSTIPATION 02/27/20 18:00 Olanzapine (ZyPREXA ZYDIS) 5 mg Q8HP PRN PO ANXIETY/AGITATION 02/27/20 18:00 03/05/20 17:32 Olanzapine (ZyPREXA) 5 mg BID PO 03/01/20 09:00 03/04/20 16:47 DC 03/04/20 08:24 Olanzapine (ZyPREXA) 10 mg BID PO 03/04/20 21:00 03/05/20 08:52 DC 03/04/20 20:17 Prednisone (Deltasone) 5 mg DAILY PO 03/06/20 09:00 03/07/20 09:01 03/06/20 08:52 Prednisone (Deltasone) 10 mg DAILY PO 03/04/20 09:00 03/05/20 09:01 DC 03/05/20 08:57 Prednisone (Deltasone) 20 mg DAILY PO 03/02/20 09:00 03/04/20 07:36 DC 03/03/20 08:06 Trazodone HCl (Desyrel) 50 mg QHS PRN PO INSOMNIA 02/27/20 18:00 03/05/20 20:10 Triamcinolone Acetonide (Kenalog 0.1% Cream) APPLY THIN LAYER TO FACE BID TOP 03/01/20 09:00 03/02/20 17:50 DC 03/02/20 08:14 Triamcinolone Acetonide (Kenalog 0.1% Ointment) 1 dose TID TOP 03/05/20 16:00 03/06/20 08:50 Valacyclovir HCl (Valtrex) 500 mg BID PO 03/05/20 09:00 03/06/20 08:51 Zolpidem Tartrate (Ambien) 2.5 mg QHS PO 02/27/20 21:00 03/04/20 17:53 DC 03/03/20 20:25 Allergies Coded Allergies: No Known Allergies (Verified , 10/17/08) BISHNU CASTREJON DO Mar 06, 2020 11:47
[2020-03-06] MEDS: OLANZapine ORAL DISINTEGRATING TAB 5MG PO PRN (13:05)
[2020-03-06] MEDS ORDERED: OLANZapine ORAL DISINTEGRATING TAB 5MG PO PRN (18:30)
[2020-03-06] MEDS: DIVALPROEX 500 MG TAB PO SCH (20:19)
[2020-03-06] MEDS: traZODone 50 MG TAB PO PRN (20:20)
[2020-03-06] MEDS: diphenhydrAMINE 25MG CAP PO PRN (20:20)
[2020-03-07] MEDS: COMBIVENT RESPIMAT 100-20MCG INHALER 4GM INH SCH ×4 (07:21→20:31)
--- NOTE | 2020-03-07 07:37 | MHIPNPDOC ---
[facility] Progress Note Progress Note DATE OF SERVICE: 03/07/20 Subjective HPI: Terrence presents today for concerns regarding his psychiatric evaluation. The patient was met with today, however he is still quite distorted and bizarre. The patient still feels paranoid that people are out to get him. His face is noticeably less red, and he has been less preoccupied with washing his face. MEDICATIONS: The patient is on max dose Thorazine and denies any side effects at this time. Objective Appearance: Fair. Behavior: Paces back and forth and constantly repeats that he wants to go home. Thought Form: Tangential. Psychotic. Judgement: Poor. Insight: Poor. Assessment F20.89 Other schizophrenia Plan We will continue Thorazine 300 mg TID maximum dose. Well likely get an EKG tomorrow to assure that there is no significant cardiac side effects due to anticholinergic side effects of the medication. He does appear to be making some improvements. Hopefully, this might divert him from needing long-term treatment. Vital Signs Vital Signs Date Time Temp Pulse Resp B/P (MAP) Pulse Ox O2 Delivery O2 Flow Rate FiO2 03/06/20 06:35 97.6 77 14 133/79 (97) 97 Room Air Current Medications Current Medications Medications (Trade) Dose Ordered Sig/Daniel Route PRN Reason Start Time Stop Time Status Last Admin Dose Admin Acetaminophen (Tylenol Tab) 650 mg Q6HP PRN PO HEADACHE/DISCOMFORT 02/27/20 18:00 03/06/20 13:06 Al Hydrox/Mg Hydrox/Simethicone (Mylanta) 30 ml Q4HP PRN PO HEARTBURN/INDIGESTION 02/27/20 18:00 Albuterol/ Ipratropium (Combivent Respimat 100-20mcg) 1 puff RQID INH 02/27/20 20:00 03/06/20 15:10 Amlodipine Besylate (Norvasc) 2.5 mg QHS PO 02/27/20 21:00 02/29/20 16:48 DC 02/28/20 20:34 Benztropine Mesylate (Cogentin) 2 mg BID PO 02/27/20 21:00 03/06/20 20:17 Cariprazine (Vraylar) 1.5 mg DAILY PO 03/01/20 09:00 8/21/20 08:25 DC Cetirizine HCl (ZyrTEC) 10 mg DAILY PO 03/02/20 09:00 03/07/20 23:00 03/06/20 08:51 Chlorpromazine HCl (Thorazine) 150 mg BID PO 03/05/20 09:00 03/06/20 18:32 DC 03/06/20 08:51 Chlorpromazine HCl (Thorazine) 150 mg STAT STAT IM 03/04/20 17:50 03/04/20 17:53 DC 03/04/20 18:09 Chlorpromazine HCl (Thorazine) 300 mg TID PO 03/06/20 16:00 03/06/20 21:17 Clotrimazole (Lotrimin) apply thin layer to bilate... BID TOP 02/29/20 21:00 03/06/20 08:52 Clozapine (Clozaril) 12.5 mg QHS PO 02/27/20 21:00 02/28/20 11:08 DC 02/27/20 20:47 Diphenhydramine HCl (Benadryl) 25 mg Q8HP PRN PO ITCHING 03/05/20 12:30 03/06/20 20:20 Diphenhydramine HCl (Benadryl) 50 mg QHSP PRN PO ITCHING/SWELLING 03/01/20 08:15 03/05/20 12:37 DC 03/04/20 16:33 Divalproex Sodium (Depakote) 750 mg QAM PO 02/29/20 09:00 03/06/20 08:52 Divalproex Sodium (Depakote) 1,000 mg QAM PO 02/28/20 09:00 02/29/20 08:48 DC 02/28/20 09:09 Divalproex Sodium (Depakote) 1,000 mg QHS PO 03/06/20 21:00 03/06/20 20:19 Divalproex Sodium (Depakote) 1,500 mg QPM PO 02/27/20 21:00 03/05/20 21:06 DC 03/04/20 20:16 Docusate Sodium (Colace) 100 mg BID PO 02/27/20 21:00 03/06/20 20:19 Haloperidol (Haldol) 10 mg STAT STAT PO 03/04/20 17:24 03/04/20 17:26 DC 03/04/20 17:28 Home Med (Med Rec Complete!) ASDIRECTED XX 02/27/20 18:45 02/27/20 18:40 DC Lidocaine HCl (Lidocaine 5% Oint) 1 dose TIDP PRN TOP skin irritation 03/02/20 18:15 03/05/20 12:37 DC 03/05/20 07:08 Lorazepam (Ativan) 1 mg BIDP PRN PO ANXIETY/AGITATION 03/02/20 15:00 03/04/20 14:59 DC 03/03/20 10:59 Magnesium Hydroxide (Milk Of Magnesia) 30 ml DAILYPRN PRN PO CONSTIPATION 02/27/20 18:00 Olanzapine (ZyPREXA ZYDIS) 5 mg Q8HP PRN PO ANXIETY/AGITATION 02/27/20 18:00 03/06/20 18:20 DC 03/06/20 13:05 Olanzapine (ZyPREXA ZYDIS) 10 mg Q4HP PRN PO ANXIETY/AGITATION 03/06/20 18:30 03/06/20 18:33 DC Olanzapine (ZyPREXA) 5 mg BID PO 03/01/20 09:00 03/04/20 16:47 DC 03/04/20 08:24 Olanzapine (ZyPREXA) 10 mg BID PO 03/04/20 21:00 03/05/20 08:52 DC 03/04/20 20:17 Prednisone (Deltasone) 5 mg DAILY PO 03/06/20 09:00 03/07/20 09:01 03/06/20 08:52 Prednisone (Deltasone) 10 mg DAILY PO 03/04/20 09:00 03/05/20 09:01 DC 03/05/20 08:57 Prednisone (Deltasone) 20 mg DAILY PO 03/02/20 09:00 03/04/20 07:36 DC 03/03/20 08:06 Trazodone HCl (Desyrel) 50 mg QHS PRN PO INSOMNIA 02/27/20 18:00 03/06/20 20:20 Triamcinolone Acetonide (Kenalog 0.1% Cream) APPLY THIN LAYER TO FACE BID TOP 03/01/20 09:00 03/02/20 17:50 DC 03/02/20 08:14 Triamcinolone Acetonide (Kenalog 0.1% Ointment) 1 dose TID TOP 03/05/20 16:00 03/06/20 20:23 Valacyclovir HCl (Valtrex) 500 mg BID PO 03/05/20 09:00 03/06/20 20:18 Zolpidem Tartrate (Ambien) 2.5 mg QHS PO 02/27/20 21:00 03/04/20 17:53 DC 03/03/20 20:25 Allergies Coded Allergies: No Known Allergies (Verified , 10/17/08) BISHNU CASTREJON DO Mar 07, 2020 07:37
[2020-03-07] MEDS: valACYclovir HCL 500 MG TAB PO SCH ×2 (08:56→20:21)
[2020-03-07] MEDS: BENZTROPINE 2 MG TAB PO SCH ×2 (08:56→20:20)
[2020-03-07] MEDS: TRIAMCINOLONE ACET 0.1% OINTMENT 15 GM TOP SCH ×3 (08:57→20:26)
[2020-03-07] MEDS: CLOTRIMAZOLE 1% TOPICAL CREAM 30GM TOP SCH ×2 (08:58→20:22)
[2020-03-07] MEDS: chlorproMAZINE 25 MG TABLET PO SCH ×3 (08:59→20:21)
[2020-03-07] MEDS: DOCUSATE SODIUM 100 MG CAP PO SCH ×2 (08:59→20:21)
[2020-03-07] MEDS: CETIRIZINE (ZyrTEC) 10 MG TAB PO SCH (09:02)
[2020-03-07] MEDS: DIVALPROEX 250 MG TAB PO SCH (09:04)
[2020-03-07] MEDS: predniSONE 5 MG TAB PO SCH (09:47)
[2020-03-07] MEDS: diphenhydrAMINE 25MG CAP PO PRN (14:52)
[2020-03-07] MEDS: ACETAMINOPHEN TAB 650MG DOSE (2X325MG) PO PRN ×2 (14:53→20:20)
[2020-03-07 17:19] VITALS: BP 109/56
[2020-03-07] MEDS: traZODone 50 MG TAB PO PRN (20:21)
[2020-03-07] MEDS: DIVALPROEX 500 MG TAB PO SCH (20:22)
[2020-03-08] MEDS: diphenhydrAMINE 25MG CAP PO PRN ×2 (02:37→14:32)
[2020-03-08] MEDS: ACETAMINOPHEN TAB 650MG DOSE (2X325MG) PO PRN ×2 (02:38→14:33)
[2020-03-08 06:35] VITALS: BP 132/90
[2020-03-08] MEDS: COMBIVENT RESPIMAT 100-20MCG INHALER 4GM INH SCH ×4 (08:00→20:00)
--- NOTE | 2020-03-08 08:18 | MHIPNPDOC ---
[facility] Progress Note Progress Note DATE OF SERVICE: 03/08/20 Subjective HPI: Terrence presents today for a follow up and is doing much better. He is notably less pre-occupied with scratching his face and less paranoid. He reports to be doing fine and continually asks about going home, however he appears to be in much better behavior control today. MEDICATIONS: He has recently received his 2nd injection of Invega Sustenna. Objective Behavior: He was less paranoid today. Mood: Patient is more linear, more logical, more amenable, and more euthymic. Judgement: His judgement is improving. Insight: His insight is also improving. Assessment F20.9 Schizophrenia, unspecified Plan Continue Thorazine 300 mg TID. Also continue on Depakote, last level was high so redraw again for potential discharge. Closely observe possible discharge Wednesday. Vital Signs Vital Signs Date Time Temp Pulse Resp B/P (MAP) Pulse Ox O2 Delivery O2 Flow Rate FiO2 03/08/20 06:35 98.1 72 18 132/90 (104) 100 Room Air Current Medications Current Medications Medications (Trade) Dose Ordered Sig/Daniel Route PRN Reason Start Time Stop Time Status Last Admin Dose Admin Acetaminophen (Tylenol Tab) 650 mg Q6HP PRN PO HEADACHE/DISCOMFORT 02/27/20 18:00 03/08/20 02:38 Al Hydrox/Mg Hydrox/Simethicone (Mylanta) 30 ml Q4HP PRN PO HEARTBURN/INDIGESTION 02/27/20 18:00 Albuterol/ Ipratropium (Combivent Respimat 100-20mcg) 1 puff RQID INH 02/27/20 20:00 03/07/20 20:31 Amlodipine Besylate (Norvasc) 2.5 mg QHS PO 02/27/20 21:00 02/29/20 16:48 DC 02/28/20 20:34 Benztropine Mesylate (Cogentin) 2 mg BID PO 02/27/20 21:00 03/07/20 20:20 Cariprazine (Vraylar) 1.5 mg DAILY PO 03/01/20 09:00 03/01/20 08:25 DC Cetirizine HCl (ZyrTEC) 10 mg DAILY PO 03/02/20 09:00 03/07/20 23:00 DC 03/07/20 09:02 Chlorpromazine HCl (Thorazine) 150 mg BID PO 03/05/20 09:00 03/06/20 18:32 DC 03/06/20 08:51 Chlorpromazine HCl (Thorazine) 150 mg STAT STAT IM 03/04/20 17:50 03/04/20 17:53 DC 03/04/20 18:09 Chlorpromazine HCl (Thorazine) 300 mg TID PO 03/06/20 16:00 03/07/20 20:21 Clotrimazole (Lotrimin) apply thin layer to bilate... BID TOP 02/29/20 21:00 03/07/20 08:58 Clozapine (Clozaril) 12.5 mg QHS PO 02/27/20 21:00 02/28/20 11:08 DC 02/27/20 20:47 Diphenhydramine HCl (Benadryl) 25 mg Q8HP PRN PO ITCHING 03/05/20 12:30 03/08/20 02:37 Diphenhydramine HCl (Benadryl) 50 mg QHSP PRN PO ITCHING/SWELLING 03/01/20 08:15 03/05/20 12:37 DC 03/04/20 16:33 Divalproex Sodium (Depakote) 750 mg QAM PO 02/29/20 09:00 03/07/20 09:04 Divalproex Sodium (Depakote) 1,000 mg QAM PO 02/28/20 09:00 02/29/20 08:48 DC 02/28/20 09:09 Divalproex Sodium (Depakote) 1,000 mg QHS PO 03/06/20 21:00 03/07/20 20:22 Divalproex Sodium (Depakote) 1,500 mg QPM PO 02/27/20 21:00 03/05/20 21:06 DC 03/04/20 20:16 Docusate Sodium (Colace) 100 mg BID PO 02/27/20 21:00 03/07/20 20:21 Haloperidol (Haldol) 10 mg STAT STAT PO 03/04/20 17:24 03/04/20 17:26 DC 03/04/20 17:28 Home Med (Med Rec Complete!) ASDIRECTED XX 02/27/20 18:45 02/27/20 18:40 DC Lidocaine HCl (Lidocaine 5% Oint) 1 dose TIDP PRN TOP skin irritation 03/02/20 18:15 03/05/20 12:37 DC 03/05/20 07:08 Lorazepam (Ativan) 1 mg BIDP PRN PO ANXIETY/AGITATION 03/02/20 15:00 03/04/20 14:59 DC 03/03/20 10:59 Magnesium Hydroxide (Milk Of Magnesia) 30 ml DAILYPRN PRN PO CONSTIPATION 02/27/20 18:00 Olanzapine (ZyPREXA ZYDIS) 5 mg Q8HP PRN PO ANXIETY/AGITATION 02/27/20 18:00 03/06/20 18:20 DC 03/06/20 13:05 Olanzapine (ZyPREXA ZYDIS) 10 mg Q4HP PRN PO ANXIETY/AGITATION 03/06/20 18:30 03/06/20 18:33 DC Olanzapine (ZyPREXA) 5 mg BID PO 03/01/20 09:00 03/04/20 16:47 DC 03/04/20 08:24 Olanzapine (ZyPREXA) 10 mg BID PO 03/04/20 21:00 03/05/20 08:52 DC 03/04/20 20:17 Prednisone (Deltasone) 5 mg DAILY PO 03/06/20 09:00 03/07/20 09:01 DC 03/07/20 09:47 Prednisone (Deltasone) 10 mg DAILY PO 03/04/20 09:00 03/05/20 09:01 DC 03/05/20 08:57 Prednisone (Deltasone) 20 mg DAILY PO 03/02/20 09:00 03/04/20 07:36 DC 03/03/20 08:06 Trazodone HCl (Desyrel) 50 mg QHS PRN PO INSOMNIA 02/27/20 18:00 03/07/20 20:21 Triamcinolone Acetonide (Kenalog 0.1% Cream) APPLY THIN LAYER TO FACE BID TOP 03/01/20 09:00 03/02/20 17:50 DC 03/02/20 08:14 Triamcinolone Acetonide (Kenalog 0.1% Ointment) 1 dose TID TOP 03/05/20 16:00 03/07/20 15:20 Valacyclovir HCl (Valtrex) 500 mg BID PO 03/05/20 09:00 03/07/20 20:21 Zolpidem Tartrate (Ambien) 2.5 mg QHS PO 02/27/20 21:00 03/04/20 17:53 DC 03/03/20 20:25 Allergies Coded Allergies: No Known Allergies (Verified , 10/17/08) BISHNU CASTREJON DO Mar 08, 2020 08:18
[2020-03-08] MEDS: DOCUSATE SODIUM 100 MG CAP PO SCH ×2 (08:39→21:35)
[2020-03-08] MEDS: BENZTROPINE 2 MG TAB PO SCH ×2 (08:39→21:36)
[2020-03-08] MEDS: chlorproMAZINE 25 MG TABLET PO SCH ×3 (08:39→21:34)
[2020-03-08] MEDS: DIVALPROEX 250 MG TAB PO SCH (08:39)
[2020-03-08] MEDS: valACYclovir HCL 500 MG TAB PO SCH ×2 (08:39→21:36)
[2020-03-08] MEDS: CLOTRIMAZOLE 1% TOPICAL CREAM 30GM TOP SCH ×2 (08:48→21:41)
[2020-03-08] MEDS: TRIAMCINOLONE ACET 0.1% OINTMENT 15 GM TOP SCH ×3 (08:48→21:41)
[2020-03-08 16:58] VITALS: BP 138/73
[2020-03-08] MEDS: DIVALPROEX 500 MG TAB PO SCH (21:34)
[2020-03-09 06:37] VITALS: BP 133/70
[2020-03-09] MEDS: COMBIVENT RESPIMAT 100-20MCG INHALER 4GM INH SCH ×4 (08:00→19:50)
[2020-03-09] MEDS: DOCUSATE SODIUM 100 MG CAP PO SCH ×2 (08:49→19:50)
[2020-03-09] MEDS: BENZTROPINE 2 MG TAB PO SCH ×2 (08:50→19:50)
[2020-03-09] MEDS: chlorproMAZINE 25 MG TABLET PO SCH ×3 (08:50→19:48)
[2020-03-09] MEDS: DIVALPROEX 250 MG TAB PO SCH (08:50)
[2020-03-09] MEDS: valACYclovir HCL 500 MG TAB PO SCH ×2 (08:50→19:50)
[2020-03-09] MEDS: TRIAMCINOLONE ACET 0.1% OINTMENT 15 GM TOP SCH ×3 (08:51→22:48)
[2020-03-09] MEDS: CLOTRIMAZOLE 1% TOPICAL CREAM 30GM TOP SCH ×2 (08:51→22:49)
[2020-03-09] MEDS: ACETAMINOPHEN TAB 650MG DOSE (2X325MG) PO PRN (09:41)
[2020-03-09 14:00] VITALS: BP 113/56
[2020-03-09] MEDS: diphenhydrAMINE 25MG CAP PO PRN (16:51)
[2020-03-09] MEDS: DIVALPROEX 500 MG TAB PO SCH (20:07)
[2020-03-10 06:37] VITALS: BP 136/66
[2020-03-10] MEDS: TRIAMCINOLONE ACET 0.1% OINTMENT 15 GM TOP SCH ×3 (08:37→21:00)
[2020-03-10] MEDS: DIVALPROEX 250 MG TAB PO SCH (08:38)
[2020-03-10] MEDS: valACYclovir HCL 500 MG TAB PO SCH ×2 (08:38→22:02)
[2020-03-10] MEDS: CLOTRIMAZOLE 1% TOPICAL CREAM 30GM TOP SCH ×2 (08:38→21:00)
[2020-03-10] MEDS: DOCUSATE SODIUM 100 MG CAP PO SCH ×2 (08:39→22:02)
[2020-03-10] MEDS: BENZTROPINE 2 MG TAB PO SCH ×2 (08:39→22:02)
[2020-03-10] MEDS: chlorproMAZINE 25 MG TABLET PO SCH ×3 (08:39→22:02)
[2020-03-10] MEDS: COMBIVENT RESPIMAT 100-20MCG INHALER 4GM INH SCH ×4 (08:39→20:00)
[2020-03-10] MEDS: ACETAMINOPHEN TAB 650MG DOSE (2X325MG) PO PRN (13:06)
[2020-03-10] MEDS: diphenhydrAMINE 25MG CAP PO PRN (13:06)
[2020-03-10] MEDS: DIVALPROEX 500 MG TAB PO SCH (22:02)
[2020-03-11 06:28] VITALS: BP 123/61
--- NOTE | 2020-03-11 07:46 | MHIPNPDOC ---
[facility] Progress Note Progress Note DATE OF SERVICE: 03/11/20 Subjective HPI: Terrence presents today for follow up. Patient has had a difficult weekend with yelling internal preoccupation and difficult. He is obsessed with shaving and unable to engage in reasonable interview. Objective Appearance: Face appears to be healing. Behavior: Psychotic. Distractable. Speech: Normal rate. Spontaneous and Fluid. Normal volume. Thought Form: Nonlinear. Judgement: Poor. Insight: Poor. Assessment F20.9 Schizophrenia, unspecified Plan Continue Thorazine 300 mg TID. Depakote levels wnl, will likely need group home with further augmentation as is decompensating with increased agitation and yelling, responding to internal stimuli. Vital Signs Vital Signs Date Time Temp Pulse Resp B/P (MAP) Pulse Ox O2 Delivery O2 Flow Rate FiO2 03/11/20 06:28 97.3 71 16 123/61 (81) 03/10/20 06:37 97 Room Air Current Medications Current Medications Medications (Trade) Dose Ordered Sig/Daniel Route PRN Reason Start Time Stop Time Status Last Admin Dose Admin Acetaminophen (Tylenol Tab) 650 mg Q6HP PRN PO HEADACHE/DISCOMFORT 02/27/20 18:00 03/10/20 13:06 Al Hydrox/Mg Hydrox/Simethicone (Mylanta) 30 ml Q4HP PRN PO HEARTBURN/INDIGESTION 02/27/20 18:00 Albuterol/ Ipratropium (Combivent Respimat 100-20mcg) 1 puff RQID INH 02/27/20 20:00 03/10/20 15:24 Amlodipine Besylate (Norvasc) 2.5 mg QHS PO 02/27/20 21:00 02/29/20 16:48 DC 02/28/20 20:34 Benztropine Mesylate (Cogentin) 2 mg BID PO 02/27/20 21:00 03/10/20 22:02 Cariprazine (Vraylar) 1.5 mg DAILY PO 03/01/20 09:00 03/01/20 08:25 DC Cetirizine HCl (ZyrTEC) 10 mg DAILY PO 03/02/20 09:00 03/07/20 23:00 DC 03/07/20 09:02 Chlorpromazine HCl (Thorazine) 150 mg BID PO 03/05/20 09:00 03/06/20 18:32 DC 03/06/20 08:51 Chlorpromazine HCl (Thorazine) 150 mg STAT STAT IM 03/04/20 17:50 03/04/20 17:53 DC 03/04/20 18:09 Chlorpromazine HCl (Thorazine) 300 mg TID PO 03/06/20 16:00 03/10/20 22:02 Clotrimazole (Lotrimin) apply thin layer to bilate... BID TOP 02/29/20 21:00 03/10/20 08:38 Clozapine (Clozaril) 12.5 mg QHS PO 02/27/20 21:00 02/28/20 11:08 DC 02/27/20 20:47 Diphenhydramine HCl (Benadryl) 25 mg Q8HP PRN PO ITCHING 03/05/20 12:30 03/10/20 13:06 Diphenhydramine HCl (Benadryl) 50 mg QHSP PRN PO ITCHING/SWELLING 03/01/20 08:15 03/05/20 12:37 DC 03/04/20 16:33 Divalproex Sodium (Depakote) 750 mg QAM PO 02/29/20 09:00 03/10/20 08:38 Divalproex Sodium (Depakote) 1,000 mg QAM PO 02/28/20 09:00 02/29/20 08:48 DC 02/28/20 09:09 Divalproex Sodium (Depakote) 1,000 mg QHS PO 03/06/20 21:00 03/10/20 22:02 Divalproex Sodium (Depakote) 1,500 mg QPM PO 02/27/20 21:00 03/05/20 21:06 DC 03/04/20 20:16 Docusate Sodium (Colace) 100 mg BID PO 02/27/20 21:00 03/10/20 22:02 Haloperidol (Haldol) 10 mg STAT STAT PO 03/04/20 17:24 03/04/20 17:26 DC 03/04/20 17:28 Home Med (Med Rec Complete!) ASDIRECTED XX 02/27/20 18:45 02/27/20 18:40 DC Lidocaine HCl (Lidocaine 5% Oint) 1 dose TIDP PRN TOP skin irritation 03/02/20 18:15 03/05/20 12:37 DC 03/05/20 07:08 Lorazepam (Ativan) 1 mg BIDP PRN PO ANXIETY/AGITATION 03/02/20 15:00 03/04/20 14:59 DC 03/03/20 10:59 Magnesium Hydroxide (Milk Of Magnesia) 30 ml DAILYPRN PRN PO CONSTIPATION 02/27/20 18:00 Miscellaneous (Unresolved Clarification Entry) SEE LABEL COMMENTS DAILY XX 03/09/20 09:00 03/09/20 18:57 DC Olanzapine (ZyPREXA ZYDIS) 5 mg Q8HP PRN PO ANXIETY/AGITATION 02/27/20 18:00 03/06/20 18:20 DC 03/06/20 13:05 Olanzapine (ZyPREXA ZYDIS) 10 mg Q4HP PRN PO ANXIETY/AGITATION 03/06/20 18:30 03/06/20 18:33 DC Olanzapine (ZyPREXA) 5 mg BID PO 03/01/20 09:00 03/04/20 16:47 DC 03/04/20 08:24 Olanzapine (ZyPREXA) 10 mg BID PO 03/04/20 21:00 03/05/20 08:52 DC 03/04/20 20:17 Prednisone (Deltasone) 5 mg DAILY PO 03/06/20 09:00 03/07/20 09:01 DC 03/07/20 09:47 Prednisone (Deltasone) 10 mg DAILY PO 03/04/20 09:00 03/05/20 09:01 DC 03/05/20 08:57 Prednisone (Deltasone) 20 mg DAILY PO 03/02/20 09:00 03/04/20 07:36 DC 03/03/20 08:06 Trazodone HCl (Desyrel) 50 mg QHS PRN PO INSOMNIA 02/27/20 18:00 03/07/20 20:21 Triamcinolone Acetonide (Kenalog 0.1% Cream) APPLY THIN LAYER TO FACE BID TOP 03/01/20 09:00 03/02/20 17:50 DC 03/02/20 08:14 Triamcinolone Acetonide (Kenalog 0.1% Ointment) 1 dose TID TOP 03/05/20 16:00 03/10/20 15:22 Valacyclovir HCl (Valtrex) 500 mg BID PO 03/05/20 09:00 03/10/20 22:02 Zolpidem Tartrate (Ambien) 2.5 mg QHS PO 02/27/20 21:00 03/04/20 17:53 DC 03/03/20 20:25 Allergies Coded Allergies: No Known Allergies (Verified , 10/17/08) BISHNU CASTREJON DO Mar 11, 2020 07:46
[2020-03-11] MEDS: DOCUSATE SODIUM 100 MG CAP PO SCH ×2 (07:59→21:07)
[2020-03-11] MEDS: DIVALPROEX 250 MG TAB PO SCH (08:00)
[2020-03-11] MEDS: valACYclovir HCL 500 MG TAB PO SCH ×2 (08:00→21:06)
[2020-03-11] MEDS: chlorproMAZINE 25 MG TABLET PO SCH (08:00)
[2020-03-11] MEDS: COMBIVENT RESPIMAT 100-20MCG INHALER 4GM INH SCH ×4 (08:00→20:00)
[2020-03-11] MEDS: BENZTROPINE 2 MG TAB PO SCH ×2 (08:00→21:06)
[2020-03-11] MEDS: TRIAMCINOLONE ACET 0.1% OINTMENT 15 GM TOP SCH ×3 (08:03→21:05)
[2020-03-11] MEDS: CLOTRIMAZOLE 1% TOPICAL CREAM 30GM TOP SCH ×2 (08:03→21:00)
[2020-03-11] MEDS: ACETAMINOPHEN TAB 650MG DOSE (2X325MG) PO PRN (14:33)
[2020-03-11] MEDS: ChlorproMAZINE 100 MG TABLET PO SCH ×2 (16:27→21:08)
[2020-03-11 17:57] VITALS: BP 138/85
[2020-03-11] MEDS: traZODone 50 MG TAB PO PRN (21:08)
[2020-03-11] MEDS: DIVALPROEX 500 MG TAB PO SCH (21:08)
[2020-03-11] MEDS: MAALOX 30 ML SUSP *UDC PO PRN (21:22)
[2020-03-12] MEDS: ACETAMINOPHEN TAB 650MG DOSE (2X325MG) PO PRN ×2 (01:44→08:17)
[2020-03-12] MEDS: COMBIVENT RESPIMAT 100-20MCG INHALER 4GM INH SCH ×4 (08:00→20:00)
[2020-03-12] MEDS: BENZTROPINE 2 MG TAB PO SCH ×2 (08:17→20:15)
[2020-03-12] MEDS: DOCUSATE SODIUM 100 MG CAP PO SCH ×2 (08:17→20:16)
[2020-03-12] MEDS: valACYclovir HCL 500 MG TAB PO SCH ×2 (08:17→20:15)
[2020-03-12] MEDS: ChlorproMAZINE 100 MG TABLET PO SCH ×3 (08:17→20:17)
[2020-03-12] MEDS: TRIAMCINOLONE ACET 0.1% OINTMENT 15 GM TOP SCH ×2 (08:18→14:49)
[2020-03-12] MEDS: DIVALPROEX 250 MG TAB PO SCH (08:18)
[2020-03-12] MEDS: CLOTRIMAZOLE 1% TOPICAL CREAM 30GM TOP SCH ×2 (08:21→20:17)
--- NOTE | 2020-03-12 11:01 | MHIPNPDOC ---
[facility] Progress Note Progress Note DATE OF SERVICE: 03/12/20 Subjective HPI: Terrence presents today for a follow-up on mood. Patient is still somewhat distorted and has been yelling at himself and acting bizarrely. Objective Affect: Flat. Judgement: Poor. Insight: Poor. Assessment F20.9 Schizophrenia, unspecified Plan Continue Thorazine at current dose, will likely need to augment with a tertiary agent. Hopefully, can produce a stronger response or will need long-term treatment. Vital Signs Vital Signs Date Time Temp Pulse Resp B/P (MAP) Pulse Ox O2 Delivery O2 Flow Rate FiO2 03/11/20 17:57 96.8 88 18 138/85 (102) 03/10/20 06:37 97 Room Air Laboratory Data 24H Labs Laboratory Tests 2 03/12/20 06:57: Valproic Acid (Depakene) Level 92.7 Current Medications Current Medications Medications (Trade) Dose Ordered Sig/Daniel Route PRN Reason Start Time Stop Time Status Last Admin Dose Admin Acetaminophen (Tylenol Tab) 650 mg Q6HP PRN PO HEADACHE/DISCOMFORT 02/27/20 18:00 03/12/20 08:17 Al Hydrox/Mg Hydrox/Simethicone (Mylanta) 30 ml Q4HP PRN PO HEARTBURN/INDIGESTION 02/27/20 18:00 03/11/20 21:22 Albuterol/ Ipratropium (Combivent Respimat 100-20mcg) 1 puff RQID INH 02/27/20 20:00 03/10/20 15:24 Amlodipine Besylate (Norvasc) 2.5 mg QHS PO 02/27/20 21:00 02/29/20 16:48 DC 02/28/20 20:34 Benztropine Mesylate (Cogentin) 2 mg BID PO 02/27/20 21:00 03/12/20 08:17 Cariprazine (Vraylar) 1.5 mg DAILY PO 03/01/20 09:00 03/01/20 08:25 DC Cetirizine HCl (ZyrTEC) 10 mg DAILY PO 03/02/20 09:00 03/07/20 23:00 DC 03/07/20 09:02 Chlorpromazine HCl (Thorazine) 150 mg BID PO 03/05/20 09:00 03/06/20 18:32 DC 03/06/20 08:51 Chlorpromazine HCl (Thorazine) 150 mg STAT STAT IM 03/04/20 17:50 03/04/20 17:53 DC 03/04/20 18:09 Chlorpromazine HCl (Thorazine) 300 mg TID PO 03/06/20 16:00 03/11/20 16:12 DC 03/11/20 08:00 Chlorpromazine HCl (Thorazine) 300 mg TID PO 03/11/20 16:00 03/12/20 08:17 Clotrimazole (Lotrimin) apply thin layer to bilate... BID TOP 02/29/20 21:00 03/11/20 08:03 Clozapine (Clozaril) 12.5 mg QHS PO 02/27/20 21:00 02/28/20 11:08 DC 02/27/20 20:47 Diphenhydramine HCl (Benadryl) 25 mg Q8HP PRN PO ITCHING 03/05/20 12:30 03/10/20 13:06 Diphenhydramine HCl (Benadryl) 50 mg QHSP PRN PO ITCHING/SWELLING 03/01/20 08:15 03/05/20 12:37 DC 03/04/20 16:33 Divalproex Sodium (Depakote) 750 mg QAM PO 02/29/20 09:00 03/12/20 08:18 Divalproex Sodium (Depakote) 1,000 mg QAM PO 02/28/20 09:00 02/29/20 08:48 DC 02/28/20 09:09 Divalproex Sodium (Depakote) 1,000 mg QHS PO 03/06/20 21:00 03/11/20 21:08 Divalproex Sodium (Depakote) 1,500 mg QPM PO 02/27/20 21:00 03/05/20 21:06 DC 03/04/20 20:16 Docusate Sodium (Colace) 100 mg BID PO 02/27/20 21:00 03/12/20 08:17 Haloperidol (Haldol) 10 mg STAT STAT PO 03/04/20 17:24 03/04/20 17:26 DC 03/04/20 17:28 Home Med (Med Rec Complete!) ASDIRECTED XX 02/27/20 18:45 02/27/20 18:40 DC Lidocaine HCl (Lidocaine 5% Oint) 1 dose TIDP PRN TOP skin irritation 03/02/20 18:15 03/05/20 12:37 DC 03/05/20 07:08 Lorazepam (Ativan) 1 mg BIDP PRN PO ANXIETY/AGITATION 03/02/20 15:00 03/04/20 14:59 DC 03/03/20 10:59 Magnesium Hydroxide (Milk Of Magnesia) 30 ml DAILYPRN PRN PO CONSTIPATION 02/27/20 18:00 Miscellaneous (Unresolved Clarification Entry) SEE LABEL COMMENTS DAILY XX 03/09/20 09:00 03/09/20 18:57 DC Olanzapine (ZyPREXA ZYDIS) 5 mg Q8HP PRN PO ANXIETY/AGITATION 02/27/20 18:00 03/06/20 18:20 DC 03/06/20 13:05 Olanzapine (ZyPREXA ZYDIS) 10 mg Q4HP PRN PO ANXIETY/AGITATION 03/06/20 18:30 03/06/20 18:33 DC Olanzapine (ZyPREXA) 5 mg BID PO 03/01/20 09:00 03/04/20 16:47 DC 03/04/20 08:24 Olanzapine (ZyPREXA) 10 mg BID PO 03/04/20 21:00 03/05/20 08:52 DC 03/04/20 20:17 Prednisone (Deltasone) 5 mg DAILY PO 03/06/20 09:00 03/07/20 09:01 DC 03/07/20 09:47 Prednisone (Deltasone) 10 mg DAILY PO 03/04/20 09:00 03/05/20 09:01 DC 03/05/20 08:57 Prednisone (Deltasone) 20 mg DAILY PO 03/02/20 09:00 03/04/20 07:36 DC 03/03/20 08:06 Trazodone HCl (Desyrel) 50 mg QHS PRN PO INSOMNIA 02/27/20 18:00 03/11/20 21:08 Triamcinolone Acetonide (Kenalog 0.1% Cream) APPLY THIN LAYER TO FACE BID TOP 03/01/20 09:00 03/02/20 17:50 DC 03/02/20 08:14 Triamcinolone Acetonide (Kenalog 0.1% Ointment) 1 dose TID TOP 03/05/20 16:00 03/12/20 08:18 Valacyclovir HCl (Valtrex) 500 mg BID PO 03/05/20 09:00 03/12/20 08:17 Zolpidem Tartrate (Ambien) 2.5 mg QHS PO 02/27/20 21:00 03/04/20 17:53 DC 03/03/20 20:25 Allergies Coded Allergies: No Known Allergies (Verified , 10/17/08) BISHNU CASTREJON DO Mar 12, 2020 11:01
[2020-03-12] MEDS: TRIAMCINOLONE ACET 0.1% OINTMENT 80 GM TOP SCH ×2 (15:24→20:17)
[2020-03-12 17:55] VITALS: BP 143/87
[2020-03-12] MEDS: DIVALPROEX 500 MG TAB PO SCH (20:17)
[2020-03-12] MEDS: traZODone 50 MG TAB PO PRN (20:18)
[2020-03-12] MEDS: diphenhydrAMINE 25MG CAP PO PRN (20:18)
[2020-03-12] MEDS: MAALOX 30 ML SUSP *UDC PO PRN (20:34)
[2020-03-13 06:45] VITALS: BP 139/75
[2020-03-13] MEDS: COMBIVENT RESPIMAT 100-20MCG INHALER 4GM INH SCH ×4 (08:00→21:44)
--- NOTE | 2020-03-13 08:53 | MHIPNPDOC ---
[facility] Progress Note Progress Note DATE OF SERVICE: 03/13/20 Subjective HPI: Terrence presents today for a follow up after hospitalization. During dinner time, he has increased trouble with yelling. He notes that he hears something. He notes that his face has been healing well. He denies suicidal thoughts or hallucinations. He also denies problems with his heart, and reports that he drank too much coffee which affects his digestion. MEDICATIONS: He was given more medication. Objective Appearance: Patient is still somewhat focused and preoccupied with discharge. . Hygiene fair. Face is healing well but does appear to have by report significant problems with agitation in the evening. . Judgement: Poor. Insight: Poor. Assessment F20.9 Schizophrenia, unspecified Plan Continue Thorazine 300 mg TID. Will augment with Haldol 5 mg BID. EKG to monitor QTC prolongation. Hopefully, we will be able to stabilize better for potential discharge back to [facility]. Vital Signs Vital Signs Date Time Temp Pulse Resp B/P (MAP) Pulse Ox O2 Delivery O2 Flow Rate FiO2 03/13/20 06:45 99.4 85 18 139/75 (96) Room Air 03/10/20 06:37 97 Current Medications Current Medications Medications (Trade) Dose Ordered Sig/Daniel Route PRN Reason Start Time Stop Time Status Last Admin Dose Admin Acetaminophen (Tylenol Tab) 650 mg Q6HP PRN PO HEADACHE/DISCOMFORT 02/27/20 18:00 03/12/20 08:17 Al Hydrox/Mg Hydrox/Simethicone (Mylanta) 30 ml Q4HP PRN PO HEARTBURN/INDIGESTION 02/27/20 18:00 03/12/20 20:34 Albuterol/ Ipratropium (Combivent Respimat 100-20mcg) 1 puff RQID INH 02/27/20 20:00 03/10/20 15:24 Amlodipine Besylate (Norvasc) 2.5 mg QHS PO 02/27/20 21:00 02/29/20 16:48 DC 02/28/20 20:34 Benztropine Mesylate (Cogentin) 2 mg BID PO 02/27/20 21:00 03/12/20 20:15 Cariprazine (Vraylar) 1.5 mg DAILY PO 03/01/20 09:00 03/01/20 08:25 DC Cetirizine HCl (ZyrTEC) 10 mg DAILY PO 03/02/20 09:00 03/07/20 23:00 DC 03/07/20 09:02 Chlorpromazine HCl (Thorazine) 150 mg BID PO 03/05/20 09:00 03/06/20 18:32 DC 03/06/20 08:51 Chlorpromazine HCl (Thorazine) 150 mg STAT STAT IM 03/04/20 17:50 03/04/20 17:53 DC 03/04/20 18:09 Chlorpromazine HCl (Thorazine) 300 mg TID PO 03/06/20 16:00 03/11/20 16:12 DC 03/11/20 08:00 Chlorpromazine HCl (Thorazine) 300 mg TID PO 03/11/20 16:00 03/12/20 20:17 Clotrimazole (Lotrimin) apply thin layer to bilate... BID TOP 02/29/20 21:00 03/11/20 08:03 Clozapine (Clozaril) 12.5 mg QHS PO 02/27/20 21:00 02/28/20 11:08 DC 02/27/20 20:47 Diphenhydramine HCl (Benadryl) 25 mg Q8HP PRN PO ITCHING 03/05/20 12:30 03/12/20 20:18 Diphenhydramine HCl (Benadryl) 50 mg QHSP PRN PO ITCHING/SWELLING 03/01/20 08:15 03/05/20 12:37 DC 03/04/20 16:33 Divalproex Sodium (Depakote) 750 mg QAM PO 02/29/20 09:00 03/12/20 08:18 Divalproex Sodium (Depakote) 1,000 mg QAM PO 02/28/20 09:00 02/29/20 08:48 DC 02/28/20 09:09 Divalproex Sodium (Depakote) 1,000 mg QHS PO 03/06/20 21:00 03/12/20 20:17 Divalproex Sodium (Depakote) 1,500 mg QPM PO 02/27/20 21:00 03/05/20 21:06 DC 03/04/20 20:16 Docusate Sodium (Colace) 100 mg BID PO 02/27/20 21:00 03/12/20 20:16 Haloperidol (Haldol) 10 mg STAT STAT PO 03/04/20 17:24 03/04/20 17:26 DC 03/04/20 17:28 Haloperidol (Haldol) 10 mg STAT STAT PO 03/12/20 11:12 03/12/20 11:13 DC 03/12/20 11:14 Home Med (Med Rec Complete!) ASDIRECTED XX 02/27/20 18:45 02/27/20 18:40 DC Lidocaine HCl (Lidocaine 5% Oint) 1 dose TIDP PRN TOP skin irritation 03/02/20 18:15 03/05/20 12:37 DC 03/05/20 07:08 Lorazepam (Ativan) 1 mg BIDP PRN PO ANXIETY/AGITATION 03/02/20 15:00 03/04/20 14:59 DC 03/03/20 10:59 Magnesium Hydroxide (Milk Of Magnesia) 30 ml DAILYPRN PRN PO CONSTIPATION 02/27/20 18:00 Miscellaneous (Unresolved Clarification Entry) SEE LABEL COMMENTS DAILY XX 03/09/20 09:00 03/09/20 18:57 DC Olanzapine (ZyPREXA ZYDIS) 5 mg Q8HP PRN PO ANXIETY/AGITATION 02/27/20 18:00 03/06/20 18:20 DC 03/06/20 13:05 Olanzapine (ZyPREXA ZYDIS) 10 mg Q4HP PRN PO ANXIETY/AGITATION 03/06/20 18:30 03/06/20 18:33 DC Olanzapine (ZyPREXA) 5 mg BID PO 03/01/20 09:00 03/04/20 16:47 DC 03/04/20 08:24 Olanzapine (ZyPREXA) 10 mg BID PO 03/04/20 21:00 03/05/20 08:52 DC 03/04/20 20:17 Prednisone (Deltasone) 5 mg DAILY PO 03/06/20 09:00 03/07/20 09:01 DC 03/07/20 09:47 Prednisone (Deltasone) 10 mg DAILY PO 03/04/20 09:00 03/05/20 09:01 DC 03/05/20 08:57 Prednisone (Deltasone) 20 mg DAILY PO 03/02/20 09:00 03/04/20 07:36 DC 03/03/20 08:06 Trazodone HCl (Desyrel) 50 mg QHS PRN PO INSOMNIA 02/27/20 18:00 03/12/20 20:18 Triamcinolone Acetonide (Kenalog 0.1% Cream) APPLY THIN LAYER TO FACE BID TOP 03/01/20 09:00 03/02/20 17:50 DC 03/02/20 08:14 Triamcinolone Acetonide (Kenalog 0.1% Ointment) 1 dose TID TOP 03/05/20 16:00 03/12/20 14:54 DC 03/12/20 14:49 Triamcinolone Acetonide (Kenalog 0.1% Ointment) 1 dose TID TOP 03/12/20 16:00 03/12/20 20:17 Valacyclovir HCl (Valtrex) 500 mg BID PO 03/05/20 09:00 03/12/20 20:15 Zolpidem Tartrate (Ambien) 2.5 mg QHS PO 02/27/20 21:00 03/04/20 17:53 DC 03/03/20 20:25 Allergies Coded Allergies: No Known Allergies (Verified , 10/17/08) BISHNU CASTREJON DO Mar 13, 2020 08:53
[2020-03-13] MEDS: CLOTRIMAZOLE 1% TOPICAL CREAM 30GM TOP SCH ×2 (09:00→21:46)
[2020-03-13] MEDS: TRIAMCINOLONE ACET 0.1% OINTMENT 80 GM TOP SCH ×3 (09:52→21:46)
[2020-03-13] MEDS: ChlorproMAZINE 100 MG TABLET PO SCH ×3 (09:52→21:45)
[2020-03-13] MEDS: BENZTROPINE 2 MG TAB PO SCH ×2 (09:52→21:45)
[2020-03-13] MEDS: DOCUSATE SODIUM 100 MG CAP PO SCH ×2 (09:52→21:45)
[2020-03-13] MEDS: valACYclovir HCL 500 MG TAB PO SCH ×2 (09:52→21:44)
[2020-03-13] MEDS: DIVALPROEX 250 MG TAB PO SCH (09:52)
[2020-03-13] MEDS: ACETAMINOPHEN TAB 650MG DOSE (2X325MG) PO PRN (09:53)
[2020-03-13 17:56] VITALS: BP 94/57
[2020-03-13] MEDS: DIVALPROEX 500 MG TAB PO SCH (21:44)
[2020-03-14] MEDS: COMBIVENT RESPIMAT 100-20MCG INHALER 4GM INH SCH ×4 (08:00→20:00)
[2020-03-14] MEDS: MAALOX 30 ML SUSP *UDC PO PRN ×2 (08:01→19:33)
--- NOTE | 2020-03-14 08:12 | MHIPNPDOC ---
[facility] Progress Note Progress Note DATE OF SERVICE: 03/14/20 Subjective HPI: Terrence presents today for concerns regarding his medications and an update on discharge. He says he is feeling well. He says he wants to go home. He says he is cold. MEDICATIONS: He has Thorazine, inaudible, and Haldol. He says he gets heart burn once in a while, but does not note shakiness. Objective Appearance: Hygiene is fair. Face appears to be healing well. Judgement: Mildly improved. Insight: Mildly improved. Fairly sparse insight. Assessment F20.89 Other schizophrenia Plan Check in with TLS to see if patient at baseline will continue to be held on observe. Augmentation regimen of 300 Thorazine tid and Haldol 5 mg a day will be continued and will recommend continuing the previous and big injection given on the beginning of his admission Observation is shine as the patient does decompensate. He may even need penitentiary as it appears the TLS has had difficulty handling his agitation episodes. Fur ther observation will likely determine more of what is going on. We will attempt to connect with outpatient provider before he leaves and AOT coordinator. Vital Signs Vital Signs Date Time Temp Pulse Resp B/P (MAP) Pulse Ox O2 Delivery O2 Flow Rate FiO2 03/13/20 17:56 97.2 99 18 94/57 (69) 03/13/20 10:07 Room Air 03/10/20 06:37 97 Current Medications Current Medications Medications (Trade) Dose Ordered Sig/Daniel Route PRN Reason Start Time Stop Time Status Last Admin Dose Admin Acetaminophen (Tylenol Tab) 650 mg Q6HP PRN PO HEADACHE/DISCOMFORT 02/27/20 18:00 03/13/20 09:53 Al Hydrox/Mg Hydrox/Simethicone (Mylanta) 30 ml Q4HP PRN PO HEARTBURN/INDIGESTION 02/27/20 18:00 03/14/20 08:01 Albuterol/ Ipratropium (Combivent Respimat 100-20mcg) 1 puff RQID INH 02/27/20 20:00 03/13/20 21:44 Amlodipine Besylate (Norvasc) 2.5 mg QHS PO 02/27/20 21:00 02/29/20 16:48 DC 02/28/20 20:34 Benztropine Mesylate (Cogentin) 2 mg BID PO 02/27/20 21:00 03/13/20 21:45 Cariprazine (Vraylar) 1.5 mg DAILY PO 03/01/20 09:00 03/01/20 08:25 DC Cetirizine HCl (ZyrTEC) 10 mg DAILY PO 03/02/20 09:00 03/07/20 23:00 DC 03/07/20 09:02 Chlorpromazine HCl (Thorazine) 150 mg BID PO 03/05/20 09:00 03/06/20 18:32 DC 03/06/20 08:51 Chlorpromazine HCl (Thorazine) 150 mg STAT STAT IM 03/04/20 17:50 03/04/20 17:53 DC 03/04/20 18:09 Chlorpromazine HCl (Thorazine) 300 mg TID PO 03/06/20 16:00 03/11/20 16:12 DC 03/11/20 08:00 Chlorpromazine HCl (Thorazine) 300 mg TID PO 03/11/20 16:00 03/13/20 21:45 Clotrimazole (Lotrimin) apply thin layer to bilate... BID TOP 02/29/20 21:00 03/13/20 21:46 Clozapine (Clozaril) 12.5 mg QHS PO 02/27/20 21:00 02/28/20 11:08 DC 02/27/20 20:47 Diphenhydramine HCl (Benadryl) 25 mg Q8HP PRN PO ITCHING 03/05/20 12:30 03/12/20 20:18 Diphenhydramine HCl (Benadryl) 50 mg QHSP PRN PO ITCHING/SWELLING 03/01/20 08:15 03/05/20 12:37 DC 03/04/20 16:33 Divalproex Sodium (Depakote) 750 mg QAM PO 02/29/20 09:00 03/13/20 09:52 Divalproex Sodium (Depakote) 1,000 mg QAM PO 02/28/20 09:00 02/29/20 08:48 DC 02/28/20 09:09 Divalproex Sodium (Depakote) 1,000 mg QHS PO 03/06/20 21:00 03/13/20 21:44 Divalproex Sodium (Depakote) 1,500 mg QPM PO 02/27/20 21:00 03/05/20 21:06 DC 03/04/20 20:16 Docusate Sodium (Colace) 100 mg BID PO 02/27/20 21:00 03/13/20 21:45 Haloperidol (Haldol) 10 mg BID PO 03/13/20 09:00 03/13/20 21:44 Haloperidol (Haldol) 10 mg STAT STAT PO 03/04/20 17:24 03/04/20 17:26 DC 03/04/20 17:28 Haloperidol (Haldol) 10 mg STAT STAT PO 03/12/20 11:12 03/12/20 11:13 DC 03/12/20 11:14 Home Med (Med Rec Complete!) ASDIRECTED XX 02/27/20 18:45 02/27/20 18:40 DC Lidocaine HCl (Lidocaine 5% Oint) 1 dose TIDP PRN TOP skin irritation 03/02/20 18:15 03/05/20 12:37 DC 03/05/20 07:08 Lorazepam (Ativan) 1 mg BIDP PRN PO ANXIETY/AGITATION 03/02/20 15:00 03/04/20 14:59 DC 03/03/20 10:59 Magnesium Hydroxide (Milk Of Magnesia) 30 ml DAILYPRN PRN PO CONSTIPATION 02/27/20 18:00 Miscellaneous (Unresolved Clarification Entry) SEE LABEL COMMENTS DAILY XX 03/09/20 09:00 03/09/20 18:57 DC Miscellaneous (Unresolved Clarification Entry) SEE LABEL COMMENTS DAILY XX 03/13/20 09:00 Olanzapine (ZyPREXA ZYDIS) 5 mg Q8HP PRN PO ANXIETY/AGITATION 02/27/20 18:00 03/06/20 18:20 DC 03/06/20 13:05 Olanzapine (ZyPREXA ZYDIS) 10 mg Q4HP PRN PO ANXIETY/AGITATION 03/06/20 18:30 03/06/20 18:33 DC Olanzapine (ZyPREXA) 5 mg BID PO 03/01/20 09:00 03/04/20 16:47 DC 03/04/20 08:24 Olanzapine (ZyPREXA) 10 mg BID PO 03/04/20 21:00 03/05/20 08:52 DC 03/04/20 20:17 Prednisone (Deltasone) 5 mg DAILY PO 03/06/20 09:00 03/07/20 09:01 DC 03/07/20 09:47 Prednisone (Deltasone) 10 mg DAILY PO 03/04/20 09:00 03/05/20 09:01 DC 03/05/20 08:57 Prednisone (Deltasone) 20 mg DAILY PO 03/02/20 09:00 03/04/20 07:36 DC 03/03/20 08:06 Trazodone HCl (Desyrel) 50 mg QHS PRN PO INSOMNIA 02/27/20 18:00 03/12/20 20:18 Triamcinolone Acetonide (Kenalog 0.1% Cream) APPLY THIN LAYER TO FACE BID TOP 03/01/20 09:00 03/02/20 17:50 DC 03/02/20 08:14 Triamcinolone Acetonide (Kenalog 0.1% Ointment) 1 dose TID TOP 03/05/20 16:00 03/12/20 14:54 DC 03/12/20 14:49 Triamcinolone Acetonide (Kenalog 0.1% Ointment) 1 dose TID TOP 03/12/20 16:00 03/13/20 21:46 Valacyclovir HCl (Valtrex) 500 mg BID PO 03/05/20 09:00 03/13/20 21:44 Zolpidem Tartrate (Ambien) 2.5 mg QHS PO 02/27/20 21:00 03/04/20 17:53 DC 03/03/20 20:25 Allergies Coded Allergies: No Known Allergies (Verified , 10/17/08) BISHNU CASTREJON DO Mar 14, 2020 08:12
[2020-03-14] MEDS: ChlorproMAZINE 100 MG TABLET PO SCH ×3 (08:51→20:55)
[2020-03-14] MEDS: DOCUSATE SODIUM 100 MG CAP PO SCH ×2 (08:51→20:54)
[2020-03-14] MEDS: BENZTROPINE 2 MG TAB PO SCH ×2 (08:52→20:54)
[2020-03-14] MEDS: valACYclovir HCL 500 MG TAB PO SCH ×2 (08:52→20:55)
[2020-03-14] MEDS: DIVALPROEX 250 MG TAB PO SCH (08:53)
[2020-03-14] MEDS: TRIAMCINOLONE ACET 0.1% OINTMENT 80 GM TOP SCH ×3 (09:41→21:00)
[2020-03-14] MEDS: CLOTRIMAZOLE 1% TOPICAL CREAM 30GM TOP SCH ×2 (09:42→21:00)
[2020-03-14] MEDS: ACETAMINOPHEN TAB 650MG DOSE (2X325MG) PO PRN (13:16)
[2020-03-14 16:49] VITALS: BP 101/59
[2020-03-14] MEDS: diphenhydrAMINE 25MG CAP PO PRN (17:32)
[2020-03-14] MEDS: traZODone 50 MG TAB PO PRN (20:55)
[2020-03-14] MEDS: DIVALPROEX 500 MG TAB PO SCH (20:56)
[2020-03-15] MEDS: CLOTRIMAZOLE 1% TOPICAL CREAM 30GM TOP SCH ×4 (05:04→21:00)
[2020-03-15] MEDS: TRIAMCINOLONE ACET 0.1% OINTMENT 80 GM TOP SCH ×5 (05:04→21:22)
[2020-03-15 06:33] VITALS: BP 98/57
[2020-03-15] MEDS: COMBIVENT RESPIMAT 100-20MCG INHALER 4GM INH SCH ×4 (08:00→20:00)
[2020-03-15] MEDS: BENZTROPINE 2 MG TAB PO SCH ×2 (08:55→21:22)
[2020-03-15] MEDS: valACYclovir HCL 500 MG TAB PO SCH ×2 (08:56→21:23)
[2020-03-15] MEDS: DIVALPROEX 250 MG TAB PO SCH (08:57)
[2020-03-15] MEDS: DOCUSATE SODIUM 100 MG CAP PO SCH ×2 (08:57→21:23)
[2020-03-15] MEDS: ChlorproMAZINE 100 MG TABLET PO SCH ×3 (08:58→21:23)
[2020-03-15] MEDS: MAALOX 30 ML SUSP *UDC PO PRN ×2 (10:12→21:27)
--- NOTE | 2020-03-15 10:26 | MHIPNPDOC ---
[facility] Progress Note Progress Note DATE OF SERVICE: 03/15/20 Subjective HPI: Terrence presents today regarding his schizophrenia. He reports that he wants to go home, however, the patient has had episodes last night where he thought people were shooting at him with some paranoia and some unusual thinking. The patient did present notably preoccupied. However, he was generally preoccupied throughout the day with discharge. The patient continues to ask to shave, however, when told that he would need some inaudible time he was much more amenable to this and flexible. He does appear to be making progress and was more goal orientated, focusing on what things needed to happen for him to go home. He appeared more cogent in terms of being able to recognize Wednesday was a holiday. Objective Appearance: Good hygeine. Face is healing very well with nearly complete healing. Patient is more linear less preoccupied. Affect: More euthymic, less flat. Appropriate to context. Full range. Speech: Spontaneous and Fluid. Normal volume. Not pressured. Normal rate. Cognition: Pairing to be improved more focused and alert. Judgement: Improved. Intact as evidenced by decision making in the recent past. Insight: Improved. Good insight into symptoms and treatment options. Assessment F20.89 Other schizophrenia Plan Increase Haldol to 15 mg nightly as this is one he has most of his difficulties. Continue 10 mg daily with the Thorazine 300 mg TID. Will check EKG once performed in order to make sure QTC prolongation is not present. If so well need either cardiology consult or to discontinue medications. Potential discharge on Wednesday as he is a [facility] resident, and well need coordination with them. Wednesday is a holiday. Vital Signs Vital Signs Date Time Temp Pulse Resp B/P (MAP) Pulse Ox O2 Delivery O2 Flow Rate FiO2 03/15/20 06:33 97.8 70 20 98/57 (71) 98 Room Air Current Medications Current Medications Medications (Trade) Dose Ordered Sig/Daniel Route PRN Reason Start Time Stop Time Status Last Admin Dose Admin Acetaminophen (Tylenol Tab) 650 mg Q6HP PRN PO HEADACHE/DISCOMFORT 02/27/20 18:00 03/14/20 13:16 Al Hydrox/Mg Hydrox/Simethicone (Mylanta) 30 ml Q4HP PRN PO HEARTBURN/INDIGESTION 02/27/20 18:00 03/15/20 10:12 Albuterol/ Ipratropium (Combivent Respimat 100-20mcg) 1 puff RQID INH 02/27/20 20:00 03/14/20 15:44 Amlodipine Besylate (Norvasc) 2.5 mg QHS PO 02/27/20 21:00 02/29/20 16:48 DC 02/28/20 20:34 Benztropine Mesylate (Cogentin) 2 mg BID PO 02/27/20 21:00 03/15/20 08:55 Cariprazine (Vraylar) 1.5 mg DAILY PO 03/01/20 09:00 03/01/20 08:25 DC Cetirizine HCl (ZyrTEC) 10 mg DAILY PO 03/02/20 09:00 03/07/20 23:00 DC 03/07/20 09:02 Chlorpromazine HCl (Thorazine) 150 mg BID PO 03/05/20 09:00 03/06/20 18:32 DC 03/06/20 08:51 Chlorpromazine HCl (Thorazine) 150 mg STAT STAT IM 03/04/20 17:50 03/04/20 17:53 DC 03/04/20 18:09 Chlorpromazine HCl (Thorazine) 300 mg TID PO 03/06/20 16:00 03/11/20 16:12 DC 03/11/20 08:00 Chlorpromazine HCl (Thorazine) 300 mg TID PO 03/11/20 16:00 03/15/20 08:58 Clotrimazole (Lotrimin) apply thin layer to bilate... BID TOP 02/29/20 21:00 03/15/20 06:27 Clozapine (Clozaril) 12.5 mg QHS PO 02/27/20 21:00 02/28/20 11:08 DC 02/27/20 20:47 Diphenhydramine HCl (Benadryl) 25 mg Q8HP PRN PO ITCHING 03/05/20 12:30 03/14/20 17:32 Diphenhydramine HCl (Benadryl) 50 mg QHSP PRN PO ITCHING/SWELLING 03/01/20 08:15 03/05/20 12:37 DC 03/04/20 16:33 Divalproex Sodium (Depakote) 750 mg QAM PO 02/29/20 09:00 03/15/20 08:57 Divalproex Sodium (Depakote) 1,000 mg QAM PO 02/28/20 09:00 02/29/20 08:48 DC 02/28/20 09:09 Divalproex Sodium (Depakote) 1,000 mg QHS PO 03/06/20 21:00 03/14/20 20:56 Divalproex Sodium (Depakote) 1,500 mg QPM PO 02/27/20 21:00 03/05/20 21:06 DC 03/04/20 20:16 Docusate Sodium (Colace) 100 mg BID PO 02/27/20 21:00 03/15/20 08:57 Haloperidol (Haldol) 10 mg BID PO 03/13/20 09:00 03/15/20 08:55 Haloperidol (Haldol) 10 mg STAT STAT PO 03/04/20 17:24 03/04/20 17:26 DC 03/04/20 17:28 Haloperidol (Haldol) 10 mg STAT STAT PO 03/12/20 11:12 03/12/20 11:13 DC 03/12/20 11:14 Home Med (Med Rec Complete!) ASDIRECTED XX 02/27/20 18:45 02/27/20 18:40 DC Lidocaine HCl (Lidocaine 5% Oint) 1 dose TIDP PRN TOP skin irritation 03/02/20 18:15 03/05/20 12:37 DC 03/05/20 07:08 Lorazepam (Ativan) 1 mg BIDP PRN PO ANXIETY/AGITATION 03/02/20 15:00 03/04/20 14:59 DC 03/03/20 10:59 Magnesium Hydroxide (Milk Of Magnesia) 30 ml DAILYPRN PRN PO CONSTIPATION 02/27/20 18:00 Miscellaneous (Unresolved Clarification Entry) SEE LABEL COMMENTS DAILY XX 03/09/20 09:00 03/09/20 18:57 DC Miscellaneous (Unresolved Clarification Entry) SEE LABEL COMMENTS DAILY XX 03/13/20 09:00 03/14/20 13:15 DC Olanzapine (ZyPREXA ZYDIS) 5 mg Q8HP PRN PO ANXIETY/AGITATION 02/27/20 18:00 03/06/20 18:20 DC 03/06/20 13:05 Olanzapine (ZyPREXA ZYDIS) 10 mg Q4HP PRN PO ANXIETY/AGITATION 03/06/20 18:30 03/06/20 18:33 DC Olanzapine (ZyPREXA) 5 mg BID PO 03/01/20 09:00 03/04/20 16:47 DC 03/04/20 08:24 Olanzapine (ZyPREXA) 10 mg BID PO 03/04/20 21:00 03/05/20 08:52 DC 03/04/20 20:17 Prednisone (Deltasone) 5 mg DAILY PO 03/06/20 09:00 03/07/20 09:01 DC 03/07/20 09:47 Prednisone (Deltasone) 10 mg DAILY PO 03/04/20 09:00 03/05/20 09:01 DC 03/05/20 08:57 Prednisone (Deltasone) 20 mg DAILY PO 03/02/20 09:00 03/04/20 07:36 DC 03/03/20 08:06 Trazodone HCl (Desyrel) 50 mg QHS PRN PO INSOMNIA 02/27/20 18:00 03/14/20 20:55 Triamcinolone Acetonide (Kenalog 0.1% Cream) APPLY THIN LAYER TO FACE BID TOP 03/01/20 09:00 03/02/20 17:50 DC 03/02/20 08:14 Triamcinolone Acetonide (Kenalog 0.1% Ointment) 1 dose TID TOP 03/05/20 16:00 03/12/20 14:54 DC 03/12/20 14:49 Triamcinolone Acetonide (Kenalog 0.1% Ointment) 1 dose TID TOP 03/12/20 16:00 03/15/20 08:55 Valacyclovir HCl (Valtrex) 500 mg BID PO 03/05/20 09:00 03/15/20 08:56 Zolpidem Tartrate (Ambien) 2.5 mg QHS PO 02/27/20 21:00 03/04/20 17:53 DC 03/03/20 20:25 Allergies Coded Allergies: No Known Allergies (Verified , 10/17/08) BISHNU CASTREJON DO Mar 15, 2020 10:26
[2020-03-15] MEDS: diphenhydrAMINE 25MG CAP PO PRN (13:33)
[2020-03-15 19:17] VITALS: BP 120/70
[2020-03-15] MEDS: DIVALPROEX 500 MG TAB PO SCH (21:23)
[2020-03-15] MEDS: haloperidoL 5 MG TAB PO SCH (21:23)
[2020-03-15] MEDS: traZODone 50 MG TAB PO PRN (21:25)
[2020-03-16 06:24] VITALS: BP 119/71
[2020-03-16] MEDS: COMBIVENT RESPIMAT 100-20MCG INHALER 4GM INH SCH ×4 (08:00→20:00)
[2020-03-16] MEDS: TRIAMCINOLONE ACET 0.1% OINTMENT 80 GM TOP SCH ×3 (08:20→21:24)
[2020-03-16] MEDS: valACYclovir HCL 500 MG TAB PO SCH ×2 (08:21→21:24)
[2020-03-16] MEDS: BENZTROPINE 2 MG TAB PO SCH ×2 (08:21→21:24)
[2020-03-16] MEDS: DOCUSATE SODIUM 100 MG CAP PO SCH ×2 (08:22→21:24)
[2020-03-16] MEDS: ChlorproMAZINE 100 MG TABLET PO SCH ×3 (08:22→21:25)
[2020-03-16] MEDS: DIVALPROEX 250 MG TAB PO SCH (08:22)
[2020-03-16] MEDS: CLOTRIMAZOLE 1% TOPICAL CREAM 30GM TOP SCH ×2 (08:23→21:00)
[2020-03-16] MEDS: MAALOX 30 ML SUSP *UDC PO PRN ×2 (12:36→22:39)
[2020-03-16] MEDS: ACETAMINOPHEN TAB 650MG DOSE (2X325MG) PO PRN (18:03)
[2020-03-16] MEDS: traZODone 50 MG TAB PO PRN (21:24)
[2020-03-16] MEDS: haloperidoL 5 MG TAB PO SCH (21:24)
[2020-03-16] MEDS: DIVALPROEX 500 MG TAB PO SCH (21:25)
[2020-03-17 06:37] VITALS: BP 116/59
[2020-03-17] MEDS: COMBIVENT RESPIMAT 100-20MCG INHALER 4GM INH SCH ×4 (08:00→19:06)
[2020-03-17] MEDS: TRIAMCINOLONE ACET 0.1% OINTMENT 80 GM TOP SCH ×3 (08:22→23:04)
[2020-03-17] MEDS: BENZTROPINE 2 MG TAB PO SCH ×2 (08:23→22:13)
[2020-03-17] MEDS: valACYclovir HCL 500 MG TAB PO SCH ×2 (08:23→22:16)
[2020-03-17] MEDS: DOCUSATE SODIUM 100 MG CAP PO SCH ×2 (08:24→22:15)
[2020-03-17] MEDS: ChlorproMAZINE 100 MG TABLET PO SCH ×3 (08:24→22:15)
[2020-03-17] MEDS: DIVALPROEX 250 MG TAB PO SCH (08:25)
[2020-03-17] MEDS: CLOTRIMAZOLE 1% TOPICAL CREAM 30GM TOP SCH ×2 (08:25→21:00)
[2020-03-17] MEDS: ACETAMINOPHEN TAB 650MG DOSE (2X325MG) PO PRN (13:38)
[2020-03-17] MEDS: MAALOX 30 ML SUSP *UDC PO PRN (13:38)
[2020-03-17 18:42] VITALS: BP 149/86
[2020-03-17] MEDS: DIVALPROEX 500 MG TAB PO SCH (22:14)
[2020-03-17] MEDS: haloperidoL 5 MG TAB PO SCH (22:15)
[2020-03-18] MEDS: COMBIVENT RESPIMAT 100-20MCG INHALER 4GM INH SCH ×4 (08:00→20:00)
[2020-03-18] MEDS: BENZTROPINE 2 MG TAB PO SCH ×2 (08:01→20:21)
[2020-03-18] MEDS: MAALOX 30 ML SUSP *UDC PO PRN (08:01)
[2020-03-18] MEDS: ChlorproMAZINE 100 MG TABLET PO SCH ×3 (08:01→20:20)
[2020-03-18] MEDS: DOCUSATE SODIUM 100 MG CAP PO SCH ×2 (08:01→20:22)
[2020-03-18] MEDS: valACYclovir HCL 500 MG TAB PO SCH ×2 (08:01→20:20)
[2020-03-18] MEDS: TRIAMCINOLONE ACET 0.1% OINTMENT 80 GM TOP SCH ×3 (08:01→20:20)
[2020-03-18] MEDS: DIVALPROEX 250 MG TAB PO SCH (08:01)
[2020-03-18] MEDS: CLOTRIMAZOLE 1% TOPICAL CREAM 30GM TOP SCH ×2 (08:02→20:24)
[2020-03-18] MEDS: ACETAMINOPHEN TAB 650MG DOSE (2X325MG) PO PRN ×2 (13:08→22:04)
[2020-03-18] MEDS ORDERED: OLANZapine ORAL DISINTEGRATING TAB 5MG PO PRN (17:00)
[2020-03-18 17:53] VITALS: BP 154/95
[2020-03-18] MEDS: haloperidoL 5 MG TAB PO SCH (20:21)
[2020-03-18] MEDS: traZODone 50 MG TAB PO PRN (20:21)
[2020-03-18] MEDS: DIVALPROEX 500 MG TAB PO SCH (20:22)
[2020-03-19 06:20] VITALS: BP 113/69
[2020-03-19] MEDS: COMBIVENT RESPIMAT 100-20MCG INHALER 4GM INH SCH ×4 (08:00→20:00)
[2020-03-19] MEDS: CLOTRIMAZOLE 1% TOPICAL CREAM 30GM TOP SCH ×2 (09:00→20:41)
[2020-03-19] MEDS: TRIAMCINOLONE ACET 0.1% OINTMENT 80 GM TOP SCH ×3 (09:50→20:41)
--- NOTE | 2020-03-19 09:50 | MHIPNPDOC ---
[facility] Progress Note Progress Note DATE OF SERVICE: 03/19/20 Subjective HPI: Terrence presents today for a regular recheck. He denies suicidal or homicidal thoughts and hallucinations. SOCIAL HISTORY - LIVING SITUATION: When hes at home, he normally watches TV and smokes. Objective Appearance: Appears to be stated age. Hygiene fair. Face is healing well. Well nourished. Speech: Normal rate. Does not engage to much great extent. Spontaneous and Fluid. Normal volume. Cognition: Alert, Attentive, and Oriented to person, place, time. Thought Form: Linear and goal directed. Judgement: Poor at baseline. Insight: Poor at baseline. Assessment F20.9 Schizophrenia, unspecified Plan Terrence was met with today. He reports that he has been feeling good to go. However, he has been notably thinking people are firing shots and has some episodes of agitation at night. Continue Thorazine 300 mg TID, Haldol 15 mg nightly, and Haldol 10 mg daily with Invega shot. Will move Haldol to earlier dosing as this may help with the agitation at night, an issue that has been raised by transitional living services, prompting his readmission. Vital Signs Vital Signs Date Time Temp Pulse Resp B/P (MAP) Pulse Ox O2 Delivery O2 Flow Rate FiO2 03/19/20 08:24 Room Air 03/19/20 06:20 97.6 67 16 113/69 (84) 99 Current Medications Current Medications Medications (Trade) Dose Ordered Sig/Daniel Route PRN Reason Start Time Stop Time Status Last Admin Dose Admin Acetaminophen (Tylenol Tab) 650 mg Q6HP PRN PO HEADACHE/DISCOMFORT 02/27/20 18:00 03/18/20 22:04 Al Hydrox/Mg Hydrox/Simethicone (Mylanta) 30 ml Q4HP PRN PO HEARTBURN/INDIGESTION 02/27/20 18:00 03/18/20 08:01 Albuterol/ Ipratropium (Combivent Respimat 100-20mcg) 1 puff RQID INH 02/27/20 20:00 03/14/20 15:44 Amlodipine Besylate (Norvasc) 2.5 mg QHS PO 02/27/20 21:00 02/29/20 16:48 DC 02/28/20 20:34 Benztropine Mesylate (Cogentin) 2 mg BID PO 02/27/20 21:00 03/18/20 20:21 Cariprazine (Vraylar) 1.5 mg DAILY PO 03/01/20 09:00 03/01/20 08:25 DC Cetirizine HCl (ZyrTEC) 10 mg DAILY PO 03/02/20 09:00 03/07/20 23:00 DC 03/07/20 09:02 Chlorpromazine HCl (Thorazine) 150 mg BID PO 03/05/20 09:00 03/06/20 18:32 DC 03/06/20 08:51 Chlorpromazine HCl (Thorazine) 150 mg STAT STAT IM 03/04/20 17:50 03/04/20 17:53 DC 03/04/20 18:09 Chlorpromazine HCl (Thorazine) 300 mg TID PO 03/06/20 16:00 03/11/20 16:12 DC 03/11/20 08:00 Chlorpromazine HCl (Thorazine) 300 mg TID PO 03/11/20 16:00 03/18/20 20:20 Clotrimazole (Lotrimin) apply thin layer to bilate... BID TOP 02/29/20 21:00 03/15/20 06:27 Clozapine (Clozaril) 12.5 mg QHS PO 02/27/20 21:00 02/28/20 11:08 DC 02/27/20 20:47 Diphenhydramine HCl (Benadryl) 25 mg Q8HP PRN PO ITCHING 03/05/20 12:30 03/15/20 13:33 Diphenhydramine HCl (Benadryl) 50 mg QHSP PRN PO ITCHING/SWELLING 03/01/20 08:15 03/05/20 12:37 DC 03/04/20 16:33 Divalproex Sodium (Depakote) 750 mg QAM PO 02/29/20 09:00 03/18/20 08:01 Divalproex Sodium (Depakote) 1,000 mg QAM PO 02/28/20 09:00 02/29/20 08:48 DC 02/28/20 09:09 Divalproex Sodium (Depakote) 1,000 mg QHS PO 03/06/20 21:00 03/18/20 20:22 Divalproex Sodium (Depakote) 1,500 mg QPM PO 02/27/20 21:00 03/05/20 21:06 DC 03/04/20 20:16 Docusate Sodium (Colace) 100 mg BID PO 02/27/20 21:00 03/18/20 20:22 Haloperidol (Haldol) 10 mg BID PO 03/13/20 09:00 03/15/20 16:05 DC 03/15/20 08:55 Haloperidol (Haldol) 10 mg QAM PO 03/16/20 09:00 03/18/20 08:01 Haloperidol (Haldol) 10 mg STAT STAT PO 03/04/20 17:24 03/04/20 17:26 DC 03/04/20 17:28 Haloperidol (Haldol) 10 mg STAT STAT PO 03/12/20 11:12 03/12/20 11:13 DC 03/12/20 11:14 Haloperidol (Haldol) 15 mg QHS PO 03/15/20 21:00 03/18/20 20:21 Home Med (Med Rec Complete!) ASDIRECTED XX 02/27/20 18:45 02/27/20 18:40 DC Lidocaine HCl (Lidocaine 5% Oint) 1 dose TIDP PRN TOP skin irritation 03/02/20 18:15 03/05/20 12:37 DC 03/05/20 07:08 Lorazepam (Ativan) 1 mg BIDP PRN PO ANXIETY/AGITATION 03/02/20 15:00 03/04/20 14:59 DC 03/03/20 10:59 Magnesium Hydroxide (Milk Of Magnesia) 30 ml DAILYPRN PRN PO CONSTIPATION 02/27/20 18:00 Miscellaneous (Unresolved Clarification Entry) SEE LABEL COMMENTS DAILY XX 03/09/20 09:00 03/09/20 18:57 DC Miscellaneous (Unresolved Clarification Entry) SEE LABEL COMMENTS DAILY XX 03/13/20 09:00 03/14/20 13:15 DC Miscellaneous (Unresolved Clarification Entry) SEE LABEL COMMENTS DAILY XX 03/18/20 09:00 03/19/20 08:39 DC Olanzapine (ZyPREXA ZYDIS) 5 mg BIDP PRN PO ANXIETY/AGITATION 03/18/20 17:00 03/20/20 17:00 03/18/20 17:09 Olanzapine (ZyPREXA ZYDIS) 5 mg Q8HP PRN PO ANXIETY/AGITATION 02/27/20 18:00 03/06/20 18:20 DC 03/06/20 13:05 Olanzapine (ZyPREXA ZYDIS) 10 mg Q4HP PRN PO ANXIETY/AGITATION 03/06/20 18:30 03/06/20 18:33 DC Olanzapine (ZyPREXA) 5 mg BID PO 03/01/20 09:00 03/04/20 16:47 DC 03/04/20 08:24 Olanzapine (ZyPREXA) 10 mg BID PO 03/04/20 21:00 03/05/20 08:52 DC 03/04/20 20:17 Prednisone (Deltasone) 5 mg DAILY PO 03/06/20 09:00 03/07/20 09:01 DC 03/07/20 09:47 Prednisone (Deltasone) 10 mg DAILY PO 03/04/20 09:00 03/05/20 09:01 DC 03/05/20 08:57 Prednisone (Deltasone) 20 mg DAILY PO 03/02/20 09:00 03/04/20 07:36 DC 03/03/20 08:06 Trazodone HCl (Desyrel) 50 mg QHS PRN PO INSOMNIA 02/27/20 18:00 03/18/20 20:21 Triamcinolone Acetonide (Kenalog 0.1% Cream) APPLY THIN LAYER TO FACE BID TOP 03/01/20 09:00 03/02/20 17:50 DC 03/02/20 08:14 Triamcinolone Acetonide (Kenalog 0.1% Ointment) 1 dose TID TOP 03/05/20 16:00 03/12/20 14:54 DC 03/12/20 14:49 Triamcinolone Acetonide (Kenalog 0.1% Ointment) 1 dose TID TOP 03/12/20 16:00 03/18/20 20:20 Valacyclovir HCl (Valtrex) 500 mg BID PO 03/05/20 09:00 04/18/20 08:59 03/18/20 20:20 Zolpidem Tartrate (Ambien) 2.5 mg QHS PO 02/27/20 21:00 03/04/20 17:53 DC 03/03/20 20:25 Allergies Coded Allergies: No Known Allergies (Verified , 10/17/08) BISHNU CASTREJON DO Mar 19, 2020 09:50
[2020-03-19] MEDS: DOCUSATE SODIUM 100 MG CAP PO SCH ×2 (09:54→20:43)
[2020-03-19] MEDS: ChlorproMAZINE 100 MG TABLET PO SCH ×3 (09:54→20:43)
[2020-03-19] MEDS: valACYclovir HCL 500 MG TAB PO SCH ×2 (09:55→20:43)
[2020-03-19] MEDS: DIVALPROEX 250 MG TAB PO SCH (09:55)
[2020-03-19] MEDS: BENZTROPINE 2 MG TAB PO SCH ×2 (09:55→20:43)
[2020-03-19] MEDS: haloperidoL 5 MG TAB PO SCH (16:20)
[2020-03-19] MEDS: ACETAMINOPHEN TAB 650MG DOSE (2X325MG) PO PRN (16:21)
[2020-03-19 18:00] VITALS: BP 116/69
[2020-03-19] MEDS: DIVALPROEX 500 MG TAB PO SCH (20:43)
[2020-03-19] MEDS: traZODone 50 MG TAB PO PRN (20:43)
[2020-03-20 05:23] VITALS: BP 124/66
[2020-03-20] MEDS: COMBIVENT RESPIMAT 100-20MCG INHALER 4GM INH SCH ×4 (08:00→20:00)
[2020-03-20] MEDS: ChlorproMAZINE 100 MG TABLET PO SCH ×3 (08:40→21:35)
[2020-03-20] MEDS: DOCUSATE SODIUM 100 MG CAP PO SCH ×2 (08:40→21:35)
[2020-03-20] MEDS: BENZTROPINE 2 MG TAB PO SCH ×2 (08:41→21:35)
[2020-03-20] MEDS: DIVALPROEX 250 MG TAB PO SCH (08:41)
[2020-03-20] MEDS: TRIAMCINOLONE ACET 0.1% OINTMENT 80 GM TOP SCH ×3 (08:41→21:36)
[2020-03-20] MEDS: valACYclovir HCL 500 MG TAB PO SCH ×2 (08:41→21:35)
[2020-03-20] MEDS: CLOTRIMAZOLE 1% TOPICAL CREAM 30GM TOP SCH ×2 (08:42→21:00)
--- NOTE | 2020-03-20 08:53 | MHIPNPDOC ---
[facility] Progress Note Progress Note DATE OF SERVICE: 03/20/20 Subjective HPI: The patient was met with briefly. He has spent the majority of the day coming up to ask when he can go home. He reportedly has not been engaging in more unusual activities. The patient reports that he still wants to go home. Notably, has still been responding to internal stimuli from time to time but has faced healing and appears to be under better behavioral control. Objective Appearance: Fair. Face is healing very well with no scars. Behavior: Linear. Affect: More euthymic, however, highly anxiuos at times. Speech: Fluid but minimal in production. Thought Content: No evidence of suicidal ideation. No thoughts of self harm. No evidence of delusions. No evidence of aggressive or homicidal ideation. Judgement: Poor. Perhaps at baseline. Insight: Perhaps at baseline. Poor. Assessment F20.9 Schizophrenia, unspecified Plan Continue complex regimen of Thorazine Haldol and Invega. May likely need to increase it. However, TLS will be contacted tomorrow. Potential discharge tomorrow, if they are comfortable. Vital Signs Vital Signs Date Time Temp Pulse Resp B/P (MAP) Pulse Ox O2 Delivery O2 Flow Rate FiO2 03/20/20 08:46 Room Air 03/20/20 05:23 96.9 94 16 124/66 (85) 03/19/20 06:20 99 Current Medications Current Medications Medications (Trade) Dose Ordered Sig/Daniel Route PRN Reason Start Time Stop Time Status Last Admin Dose Admin Acetaminophen (Tylenol Tab) 650 mg Q6HP PRN PO HEADACHE/DISCOMFORT 02/27/20 18:00 03/19/20 16:21 Al Hydrox/Mg Hydrox/Simethicone (Mylanta) 30 ml Q4HP PRN PO HEARTBURN/INDIGESTION 02/27/20 18:00 03/18/20 08:01 Albuterol/ Ipratropium (Combivent Respimat 100-20mcg) 1 puff RQID INH 02/27/20 20:00 03/14/20 15:44 Amlodipine Besylate (Norvasc) 2.5 mg QHS PO 02/27/20 21:00 02/29/20 16:48 DC 02/28/20 20:34 Benztropine Mesylate (Cogentin) 2 mg BID PO 02/27/20 21:00 03/20/20 08:41 Cariprazine (Vraylar) 1.5 mg DAILY PO 03/01/20 09:00 03/01/20 08:25 DC Cetirizine HCl (ZyrTEC) 10 mg DAILY PO 03/02/20 09:00 03/07/20 23:00 DC 03/07/20 09:02 Chlorpromazine HCl (Thorazine) 150 mg BID PO 03/05/20 09:00 03/06/20 18:32 DC 03/06/20 08:51 Chlorpromazine HCl (Thorazine) 150 mg STAT STAT IM 03/04/20 17:50 03/04/20 17:53 DC 03/04/20 18:09 Chlorpromazine HCl (Thorazine) 300 mg TID PO 03/06/20 16:00 03/11/20 16:12 DC 03/11/20 08:00 Chlorpromazine HCl (Thorazine) 300 mg TID PO 03/11/20 16:00 03/20/20 08:40 Clotrimazole (Lotrimin) apply thin layer to bilate... BID TOP 02/29/20 21:00 03/19/20 20:41 Clozapine (Clozaril) 12.5 mg QHS PO 02/27/20 21:00 02/28/20 11:08 DC 02/27/20 20:47 Diphenhydramine HCl (Benadryl) 25 mg Q8HP PRN PO ITCHING 03/05/20 12:30 03/15/20 13:33 Diphenhydramine HCl (Benadryl) 50 mg QHSP PRN PO ITCHING/SWELLING 03/01/20 08:15 03/05/20 12:37 DC 03/04/20 16:33 Divalproex Sodium (Depakote) 750 mg QAM PO 02/29/20 09:00 03/20/20 08:41 Divalproex Sodium (Depakote) 1,000 mg QAM PO 02/28/20 09:00 02/29/20 08:48 DC 02/28/20 09:09 Divalproex Sodium (Depakote) 1,000 mg QHS PO 03/06/20 21:00 03/19/20 20:43 Divalproex Sodium (Depakote) 1,500 mg QPM PO 02/27/20 21:00 03/05/20 21:06 DC 03/04/20 20:16 Docusate Sodium (Colace) 100 mg BID PO 02/27/20 21:00 03/20/20 08:40 Haloperidol (Haldol) 10 mg BID PO 03/13/20 09:00 03/15/20 16:05 DC 03/15/20 08:55 Haloperidol (Haldol) 10 mg QAM PO 03/16/20 09:00 03/20/20 08:41 Haloperidol (Haldol) 10 mg STAT STAT PO 03/04/20 17:24 03/04/20 17:26 DC 03/04/20 17:28 Haloperidol (Haldol) 10 mg STAT STAT PO 03/12/20 11:12 03/12/20 11:13 DC 03/12/20 11:14 Haloperidol (Haldol) 15 mg DAILY@1500 PO 03/19/20 15:00 03/19/20 16:20 Haloperidol (Haldol) 15 mg QHS PO 03/15/20 21:00 03/19/20 10:36 DC 03/18/20 20:21 Home Med (Med Rec Complete!) ASDIRECTED XX 02/27/20 18:45 02/27/20 18:40 DC Lidocaine HCl (Lidocaine 5% Oint) 1 dose TIDP PRN TOP skin irritation 03/02/20 18:15 03/05/20 12:37 DC 03/05/20 07:08 Lorazepam (Ativan) 1 mg BIDP PRN PO ANXIETY/AGITATION 03/02/20 15:00 03/04/20 14:59 DC 03/03/20 10:59 Magnesium Hydroxide (Milk Of Magnesia) 30 ml DAILYPRN PRN PO CONSTIPATION 02/27/20 18:00 Miscellaneous (Unresolved Clarification Entry) SEE LABEL COMMENTS DAILY XX 03/09/20 09:00 03/09/20 18:57 DC Miscellaneous (Unresolved Clarification Entry) SEE LABEL COMMENTS DAILY XX 03/13/20 09:00 03/14/20 13:15 DC Miscellaneous (Unresolved Clarification Entry) SEE LABEL COMMENTS DAILY XX 03/18/20 09:00 03/19/20 08:39 DC Olanzapine (ZyPREXA ZYDIS) 5 mg BIDP PRN PO ANXIETY/AGITATION 03/18/20 17:00 03/20/20 17:00 03/18/20 17:09 Olanzapine (ZyPREXA ZYDIS) 5 mg Q8HP PRN PO ANXIETY/AGITATION 02/27/20 18:00 03/06/20 18:20 DC 03/06/20 13:05 Olanzapine (ZyPREXA ZYDIS) 10 mg Q4HP PRN PO ANXIETY/AGITATION 03/06/20 18:30 03/06/20 18:33 DC Olanzapine (ZyPREXA) 5 mg BID PO 03/01/20 09:00 03/04/20 16:47 DC 03/04/20 08:24 Olanzapine (ZyPREXA) 10 mg BID PO 03/04/20 21:00 03/05/20 08:52 DC 03/04/20 20:17 Prednisone (Deltasone) 5 mg DAILY PO 03/06/20 09:00 03/07/20 09:01 DC 03/07/20 09:47 Prednisone (Deltasone) 10 mg DAILY PO 03/04/20 09:00 03/05/20 09:01 DC 03/05/20 08:57 Prednisone (Deltasone) 20 mg DAILY PO 03/02/20 09:00 03/04/20 07:36 DC 03/03/20 08:06 Trazodone HCl (Desyrel) 50 mg QHS PRN PO INSOMNIA 02/27/20 18:00 03/19/20 20:43 Triamcinolone Acetonide (Kenalog 0.1% Cream) APPLY THIN LAYER TO FACE BID TOP 03/01/20 09:00 03/02/20 17:50 DC 03/02/20 08:14 Triamcinolone Acetonide (Kenalog 0.1% Ointment) 1 dose TID TOP 03/05/20 16:00 03/12/20 14:54 DC 03/12/20 14:49 Triamcinolone Acetonide (Kenalog 0.1% Ointment) 1 dose TID TOP 03/12/20 16:00 03/20/20 08:41 Valacyclovir HCl (Valtrex) 500 mg BID PO 03/05/20 09:00 04/18/20 08:59 9/9/20 08:41 Zolpidem Tartrate (Ambien) 2.5 mg QHS PO 02/27/20 21:00 03/04/20 17:53 DC 03/03/20 20:25 Allergies Coded Allergies: No Known Allergies (Verified , 10/17/08) BISHNU CASTREJON DO Mar 20, 2020 08:53
[2020-03-20] MEDS: ACETAMINOPHEN TAB 650MG DOSE (2X325MG) PO PRN (11:08)
[2020-03-20] MEDS: haloperidoL 5 MG TAB PO SCH (15:31)
[2020-03-20 18:01] VITALS: BP 135/65
[2020-03-20] MEDS: DIVALPROEX 500 MG TAB PO SCH (21:35)
[2020-03-20] MEDS: traZODone 50 MG TAB PO PRN (21:35)
[2020-03-21 06:40] VITALS: BP 111/64
--- NOTE | 2020-03-21 07:48 | MHCRPDOC ---
[facility] Consultation Consultation DATE OF CONSULTATION: 03/21/20 CONSULTATION REQUESTED BY: REASON FOR CONSULTATION: . RELEVANT HISTORY: . PAST PSYCHIATRIC HISTORY: PAST MEDICAL HISTORY: FAMILY HISTORY: Mother: Father: Siblings: Children: PERSONAL AND SOCIAL HISTORY: The patient was born and raised in [place]. Resides in: [place] Marital Status: S Single Children: Employment: SUBSTANCE ABUSE HISTORY: Smoking: ETOH: Illicit Drugs: LEGAL HISTORY: . MENTAL STATUS EXAMINATION: Patient is a [AGE]-year old male, who is . Speech is . Language skills are . Thought processes including: . Thought content: . Abstract reasoning, and computation: . Description of associations: . Description of abnormal or psychotic thoughts: . Judgment: . Insight: . Orientation to . Recent and remote memory: . Attention span and concentration: . Language: . Fund of knowledge: . Mood: . Affect: . DIAGNOSIS: 1. . PLAN: 1. . 2. . Vital Signs Vital Signs Date Time Temp Pulse Resp B/P (MAP) Pulse Ox O2 Delivery O2 Flow Rate FiO2 03/21/20 06:40 96.6 71 16 111/64 (80) 96 Room Air Home Medications Current Medications Current Medications Medications (Trade) Dose Ordered Sig/Daniel Route PRN Reason Start Time Stop Time Status Last Admin Dose Admin Acetaminophen (Tylenol Tab) 650 mg Q6HP PRN PO HEADACHE/DISCOMFORT 02/27/20 18:00 03/20/20 11:08 Al Hydrox/Mg Hydrox/Simethicone (Mylanta) 30 ml Q4HP PRN PO HEARTBURN/INDIGESTION 02/27/20 18:00 03/18/20 08:01 Albuterol/ Ipratropium (Combivent Respimat 100-20mcg) 1 puff RQID INH 02/27/20 20:00 03/14/20 15:44 Amlodipine Besylate (Norvasc) 2.5 mg QHS PO 02/27/20 21:00 02/29/20 16:48 DC 02/28/20 20:34 Benztropine Mesylate (Cogentin) 2 mg BID PO 02/27/20 21:00 03/20/20 21:35 Cariprazine (Vraylar) 1.5 mg DAILY PO 03/01/20 09:00 03/01/20 08:25 DC Cetirizine HCl (ZyrTEC) 10 mg DAILY PO 03/02/20 09:00 03/07/20 23:00 DC 03/07/20 09:02 Chlorpromazine HCl (Thorazine) 150 mg BID PO 03/05/20 09:00 03/06/20 18:32 DC 03/06/20 08:51 Chlorpromazine HCl (Thorazine) 150 mg STAT STAT IM 03/04/20 17:50 03/04/20 17:53 DC 03/04/20 18:09 Chlorpromazine HCl (Thorazine) 300 mg TID PO 03/06/20 16:00 03/11/20 16:12 DC 03/11/20 08:00 Chlorpromazine HCl (Thorazine) 300 mg TID PO 03/11/20 16:00 03/20/20 21:35 Clotrimazole (Lotrimin) apply thin layer to bilate... BID TOP 02/29/20 21:00 03/19/20 20:41 Clozapine (Clozaril) 12.5 mg QHS PO 02/27/20 21:00 02/28/20 11:08 DC 02/27/20 20:47 Diphenhydramine HCl (Benadryl) 25 mg Q8HP PRN PO ITCHING 03/05/20 12:30 03/15/20 13:33 Diphenhydramine HCl (Benadryl) 50 mg QHSP PRN PO ITCHING/SWELLING 03/01/20 08:15 03/05/20 12:37 DC 03/04/20 16:33 Divalproex Sodium (Depakote) 750 mg QAM PO 02/29/20 09:00 03/20/20 08:41 Divalproex Sodium (Depakote) 1,000 mg QAM PO 02/28/20 09:00 02/29/20 08:48 DC 02/28/20 09:09 Divalproex Sodium (Depakote) 1,000 mg QHS PO 03/06/20 21:00 03/20/20 21:35 Divalproex Sodium (Depakote) 1,500 mg QPM PO 02/27/20 21:00 03/05/20 21:06 DC 03/04/20 20:16 Docusate Sodium (Colace) 100 mg BID PO 02/27/20 21:00 03/20/20 21:35 Haloperidol (Haldol) 10 mg BID PO 03/13/20 09:00 03/15/20 16:05 DC 03/15/20 08:55 Haloperidol (Haldol) 10 mg QAM PO 03/16/20 09:00 03/20/20 08:41 Haloperidol (Haldol) 10 mg STAT STAT PO 03/04/20 17:24 03/04/20 17:26 DC 03/04/20 17:28 Haloperidol (Haldol) 10 mg STAT STAT PO 03/12/20 11:12 03/12/20 11:13 DC 03/12/20 11:14 Haloperidol (Haldol) 15 mg DAILY@1500 PO 03/19/20 15:00 03/20/20 15:31 Haloperidol (Haldol) 15 mg QHS PO 03/15/20 21:00 03/19/20 10:36 DC 03/18/20 20:21 Home Med (Med Rec Complete!) ASDIRECTED XX 02/27/20 18:45 02/27/20 18:40 DC Lidocaine HCl (Lidocaine 5% Oint) 1 dose TIDP PRN TOP skin irritation 03/02/20 18:15 03/05/20 12:37 DC 03/05/20 07:08 Lorazepam (Ativan) 1 mg BIDP PRN PO ANXIETY/AGITATION 03/02/20 15:00 03/04/20 14:59 DC 03/03/20 10:59 Magnesium Hydroxide (Milk Of Magnesia) 30 ml DAILYPRN PRN PO CONSTIPATION 02/27/20 18:00 Miscellaneous (Unresolved Clarification Entry) SEE LABEL COMMENTS DAILY XX 03/09/20 09:00 03/09/20 18:57 DC Miscellaneous (Unresolved Clarification Entry) SEE LABEL COMMENTS DAILY XX 03/13/20 09:00 03/14/20 13:15 DC Miscellaneous (Unresolved Clarification Entry) SEE LABEL COMMENTS DAILY XX 03/18/20 09:00 03/19/20 08:39 DC Olanzapine (ZyPREXA ZYDIS) 5 mg BIDP PRN PO ANXIETY/AGITATION 03/18/20 17:00 03/20/20 17:00 DC 03/18/20 17:09 Olanzapine (ZyPREXA ZYDIS) 5 mg Q8HP PRN PO ANXIETY/AGITATION 02/27/20 18:00 03/06/20 18:20 DC 03/06/20 13:05 Olanzapine (ZyPREXA ZYDIS) 10 mg Q4HP PRN PO ANXIETY/AGITATION 03/06/20 18:30 03/06/20 18:33 DC Olanzapine (ZyPREXA) 5 mg BID PO 03/01/20 09:00 03/04/20 16:47 DC 03/04/20 08:24 Olanzapine (ZyPREXA) 10 mg BID PO 03/04/20 21:00 03/05/20 08:52 DC 03/04/20 20:17 Prednisone (Deltasone) 5 mg DAILY PO 03/06/20 09:00 03/07/20 09:01 DC 03/07/20 09:47 Prednisone (Deltasone) 10 mg DAILY PO 03/04/20 09:00 03/05/20 09:01 DC 03/05/20 08:57 Prednisone (Deltasone) 20 mg DAILY PO 03/02/20 09:00 03/04/20 07:36 DC 03/03/20 08:06 Trazodone HCl (Desyrel) 50 mg QHS PRN PO INSOMNIA 02/27/20 18:00 03/20/20 21:35 Triamcinolone Acetonide (Kenalog 0.1% Cream) APPLY THIN LAYER TO FACE BID TOP 03/01/20 09:00 03/02/20 17:50 DC 03/02/20 08:14 Triamcinolone Acetonide (Kenalog 0.1% Ointment) 1 dose TID TOP 03/05/20 16:00 03/12/20 14:54 DC 03/12/20 14:49 Triamcinolone Acetonide (Kenalog 0.1% Ointment) 1 dose TID TOP 03/12/20 16:00 03/20/20 21:36 Valacyclovir HCl (Valtrex) 500 mg BID PO 03/05/20 09:00 04/18/20 08:59 03/20/20 21:35 Zolpidem Tartrate (Ambien) 2.5 mg QHS PO 02/27/20 21:00 03/04/20 17:53 DC 03/03/20 20:25 Scheduled Benztropine Mesylate (Benztropine Mesylate) 2 Mg Tablet, 2 MG PO BID for . , (Reported) Chlorpromazine HCl (Chlorpromazine HCl) 100 Mg Tablet, 300 MG PO TID for thoughts Divalproex Sodium (Divalproex Sodium ER) 500 Mg Tab.er.24h, 1,000 MG PO QAM for . , (Reported) Divalproex Sodium (Depakote) 250 Mg Tablet.dr, 750 MG PO QAM for mood Haloperidol (Haloperidol) 10 Mg Tablet, 10 MG PO QAM for thoughts Haloperidol (Haloperidol) 5 Mg Tablet, 15 MG PO DAILY@1500 for thoughts Paliperidone Palmitate (Invega Sustenna) 156 Mg/1 Ml Syringe, 156 MG IM QMONTH for . , (Reported) Allergies Coded Allergies: No Known Allergies (Verified , 10/17/08) BISHNU CASTREJON DO Mar 21, 2020 07:48
[2020-03-21] MEDS: COMBIVENT RESPIMAT 100-20MCG INHALER 4GM INH SCH ×4 (08:00→20:00)
[2020-03-21] MEDS: CLOTRIMAZOLE 1% TOPICAL CREAM 30GM TOP SCH ×2 (09:00→21:00)
[2020-03-21] MEDS: TRIAMCINOLONE ACET 0.1% OINTMENT 80 GM TOP SCH ×3 (09:01→21:24)
[2020-03-21] MEDS: ChlorproMAZINE 100 MG TABLET PO SCH ×3 (09:02→21:23)
[2020-03-21] MEDS: valACYclovir HCL 500 MG TAB PO SCH ×2 (09:02→21:24)
[2020-03-21] MEDS: DOCUSATE SODIUM 100 MG CAP PO SCH ×2 (09:02→21:23)
[2020-03-21] MEDS: DIVALPROEX 250 MG TAB PO SCH (09:02)
[2020-03-21] MEDS: BENZTROPINE 2 MG TAB PO SCH ×2 (09:02→21:24)
[2020-03-21] MEDS ORDERED: CHLO100T22 PO (09:11)
[2020-03-21] MEDS ORDERED: HALO5TA PO (09:11)
[2020-03-21] MEDS ORDERED: DEPA250T32 PO (09:11)
[2020-03-21] MEDS ORDERED: HALO10TA20 PO (09:11)
[2020-03-21] MEDS: haloperidoL 5 MG TAB PO SCH (15:20)
[2020-03-21] MEDS: MAALOX 30 ML SUSP *UDC PO PRN (15:23)
[2020-03-21 16:20] VITALS: BP 133/63
[2020-03-21] MEDS: ACETAMINOPHEN TAB 650MG DOSE (2X325MG) PO PRN (17:12)
[2020-03-21] MEDS: traZODone 50 MG TAB PO PRN (21:23)
[2020-03-21] MEDS: DIVALPROEX 500 MG TAB PO SCH (21:24)
[2020-03-21] MEDS: diphenhydrAMINE 25MG CAP PO PRN (22:55)
[2020-03-22 06:55] VITALS: BP 125/65
[2020-03-22] MEDS: COMBIVENT RESPIMAT 100-20MCG INHALER 4GM INH SCH ×4 (08:00→20:00)
[2020-03-22] MEDS: CLOTRIMAZOLE 1% TOPICAL CREAM 30GM TOP SCH ×2 (09:00→20:12)
[2020-03-22] MEDS: BENZTROPINE 2 MG TAB PO SCH ×2 (09:13→20:15)
[2020-03-22] MEDS: TRIAMCINOLONE ACET 0.1% OINTMENT 80 GM TOP SCH ×3 (09:13→20:16)
[2020-03-22] MEDS: DOCUSATE SODIUM 100 MG CAP PO SCH ×2 (09:13→20:15)
[2020-03-22] MEDS: DIVALPROEX 250 MG TAB PO SCH (09:13)
[2020-03-22] MEDS: ChlorproMAZINE 100 MG TABLET PO SCH ×3 (09:13→20:15)
[2020-03-22] MEDS: valACYclovir HCL 500 MG TAB PO SCH ×2 (09:13→20:15)
--- NOTE | 2020-03-22 10:37 | MHIPNPDOC ---
[facility] Progress Note Progress Note DATE OF SERVICE: 03/22/20 Subjective HPI: Patient had been triaged for discharge. However, he reportedly had called his sister, making unusual bizarre statements to her. [facility] was quite concerned about him returning home to [facility]. Patient denies that he had said that but was understanding of needing to stay. Objective Appearance: Well groomed. Well nourished. Appears to be stated age. Face is healing well. Affect: Full range. Appropriate to context. More euthymic. Not nearly as irritable as before diagnosis of schizophrenia. Speech: Normal volume. Repeats various statements over and over. Normal rate. Spontaneous and Fluid. Thought Form: Generally linear, although tangential at times. Judgement: Intact as evidenced by decision making in the recent past. Insight: Good insight into symptoms and treatment options. Assessment F20.9 Schizophrenia, unspecified Plan Plans to continue Thorazine, Haldol, and Invega at this time. Patient making progress. Will attempt another discharge as observation continues. Vital Signs Vital Signs Date Time Temp Pulse Resp B/P (MAP) Pulse Ox O2 Delivery O2 Flow Rate FiO2 03/22/20 06:55 96.7 71 18 125/65 (85) 98 Room Air Current Medications Current Medications Medications (Trade) Dose Ordered Sig/Daniel Route PRN Reason Start Time Stop Time Status Last Admin Dose Admin Acetaminophen (Tylenol Tab) 650 mg Q6HP PRN PO HEADACHE/DISCOMFORT 02/27/20 18:00 03/21/20 17:12 Al Hydrox/Mg Hydrox/Simethicone (Mylanta) 30 ml Q4HP PRN PO HEARTBURN/INDIGESTION 02/27/20 18:00 03/21/20 15:23 Albuterol/ Ipratropium (Combivent Respimat 100-20mcg) 1 puff RQID INH 02/27/20 20:00 03/14/20 15:44 Amlodipine Besylate (Norvasc) 2.5 mg QHS PO 02/27/20 21:00 02/29/20 16:48 DC 02/28/20 20:34 Benztropine Mesylate (Cogentin) 2 mg BID PO 02/27/20 21:00 03/22/20 09:13 Cariprazine (Vraylar) 1.5 mg DAILY PO 03/01/20 09:00 03/01/20 08:25 DC Cetirizine HCl (ZyrTEC) 10 mg DAILY PO 03/02/20 09:00 03/07/20 23:00 DC 03/07/20 09:02 Chlorpromazine HCl (Thorazine) 150 mg BID PO 03/05/20 09:00 03/06/20 18:32 DC 03/06/20 08:51 Chlorpromazine HCl (Thorazine) 150 mg STAT STAT IM 03/04/20 17:50 03/04/20 17:53 DC 03/04/20 18:09 Chlorpromazine HCl (Thorazine) 300 mg TID PO 03/06/20 16:00 03/11/20 16:12 DC 03/11/20 08:00 Chlorpromazine HCl (Thorazine) 300 mg TID PO 03/11/20 16:00 03/22/20 09:13 Clotrimazole (Lotrimin) apply thin layer to bilate... BID TOP 02/29/20 21:00 03/19/20 20:41 Clozapine (Clozaril) 12.5 mg QHS PO 02/27/20 21:00 02/28/20 11:08 DC 02/27/20 20:47 Diphenhydramine HCl (Benadryl) 25 mg Q8HP PRN PO ITCHING 03/05/20 12:30 03/21/20 22:55 Diphenhydramine HCl (Benadryl) 50 mg QHSP PRN PO ITCHING/SWELLING 03/01/20 08:15 03/05/20 12:37 DC 03/04/20 16:33 Divalproex Sodium (Depakote) 750 mg QAM PO 02/29/20 09:00 03/22/20 09:13 Divalproex Sodium (Depakote) 1,000 mg QAM PO 02/28/20 09:00 02/29/20 08:48 DC 02/28/20 09:09 Divalproex Sodium (Depakote) 1,000 mg QHS PO 03/06/20 21:00 03/21/20 21:24 Divalproex Sodium (Depakote) 1,500 mg QPM PO 02/27/20 21:00 03/05/20 21:06 DC 03/04/20 20:16 Docusate Sodium (Colace) 100 mg BID PO 02/27/20 21:00 03/22/20 09:13 Haloperidol (Haldol) 10 mg BID PO 03/13/20 09:00 03/15/20 16:05 DC 03/15/20 08:55 Haloperidol (Haldol) 10 mg QAM PO 03/16/20 09:00 03/22/20 09:13 Haloperidol (Haldol) 10 mg STAT STAT PO 03/04/20 17:24 03/04/20 17:26 DC 03/04/20 17:28 Haloperidol (Haldol) 10 mg STAT STAT PO 03/12/20 11:12 03/12/20 11:13 DC 03/12/20 11:14 Haloperidol (Haldol) 15 mg DAILY@1500 PO 03/19/20 15:00 03/21/20 15:20 Haloperidol (Haldol) 15 mg QHS PO 03/15/20 21:00 03/19/20 10:36 DC 03/18/20 20:21 Home Med (Med Rec Complete!) ASDIRECTED XX 02/27/20 18:45 02/27/20 18:40 DC Lidocaine HCl (Lidocaine 5% Oint) 1 dose TIDP PRN TOP skin irritation 03/02/20 18:15 03/05/20 12:37 DC 03/05/20 07:08 Lorazepam (Ativan) 1 mg BIDP PRN PO ANXIETY/AGITATION 03/02/20 15:00 03/04/20 14:59 DC 03/03/20 10:59 Magnesium Hydroxide (Milk Of Magnesia) 30 ml DAILYPRN PRN PO CONSTIPATION 02/27/20 18:00 Miscellaneous (Unresolved Clarification Entry) SEE LABEL COMMENTS DAILY XX 03/09/20 09:00 03/09/20 18:57 DC Miscellaneous (Unresolved Clarification Entry) SEE LABEL COMMENTS DAILY XX 03/13/20 09:00 03/14/20 13:15 DC Miscellaneous (Unresolved Clarification Entry) SEE LABEL COMMENTS DAILY XX 03/18/20 09:00 03/19/20 08:39 DC Olanzapine (ZyPREXA ZYDIS) 5 mg BIDP PRN PO ANXIETY/AGITATION 03/18/20 17:00 03/20/20 17:00 DC 03/18/20 17:09 Olanzapine (ZyPREXA ZYDIS) 5 mg Q8HP PRN PO ANXIETY/AGITATION 02/27/20 18:00 03/06/20 18:20 DC 03/06/20 13:05 Olanzapine (ZyPREXA ZYDIS) 10 mg Q4HP PRN PO ANXIETY/AGITATION 03/06/20 18:30 03/06/20 18:33 DC Olanzapine (ZyPREXA) 5 mg BID PO 03/01/20 09:00 03/04/20 16:47 DC 03/04/20 08:24 Olanzapine (ZyPREXA) 10 mg BID PO 03/04/20 21:00 03/05/20 08:52 DC 03/04/20 20:17 Prednisone (Deltasone) 5 mg DAILY PO 03/06/20 09:00 03/07/20 09:01 DC 03/07/20 09:47 Prednisone (Deltasone) 10 mg DAILY PO 03/04/20 09:00 03/05/20 09:01 DC 03/05/20 08:57 Prednisone (Deltasone) 20 mg DAILY PO 03/02/20 09:00 03/04/20 07:36 DC 03/03/20 08:06 Trazodone HCl (Desyrel) 50 mg QHS PRN PO INSOMNIA 02/27/20 18:00 03/21/20 21:23 Triamcinolone Acetonide (Kenalog 0.1% Cream) APPLY THIN LAYER TO FACE BID TOP 03/01/20 09:00 03/02/20 17:50 DC 03/02/20 08:14 Triamcinolone Acetonide (Kenalog 0.1% Ointment) 1 dose TID TOP 03/05/20 16:00 03/12/20 14:54 DC 03/12/20 14:49 Triamcinolone Acetonide (Kenalog 0.1% Ointment) 1 dose TID TOP 03/12/20 16:00 03/22/20 09:13 Valacyclovir HCl (Valtrex) 500 mg BID PO 03/05/20 09:00 04/18/20 08:59 03/22/20 09:13 Zolpidem Tartrate (Ambien) 2.5 mg QHS PO 02/27/20 21:00 03/04/20 17:53 DC 03/03/20 20:25 Allergies Coded Allergies: No Known Allergies (Verified , 10/17/08) BISHNU CASTREJON DO Mar 22, 2020 10:36
--- NOTE | 2020-03-22 10:41 | MHIPNPDOC ---
[facility] Progress Note Progress Note DATE OF SERVICE: 03/22/20 Subjective HPI: Terrence presents today for concerns regarding psych issues. The patient was met with multiple times a day as he interrupts his provider asking about going home. The patient reportedly hasnt had any episodes of agitation overnight. The [facility] home has been concerned as he had reportedly been calling his sister saying that he could hear his brother through the TV. No notable incidences have been noted since then, and he does appear to be more amenable. Objective Appearance: Fair hygiene. Shaven face nearly completely healed. Appears to be stated age. Affect: Anxious. Thought Form: Linear and logical. No disturbing ideation noted. Judgement: Improving. Insight: Improving. Assessment F20.9 Schizophrenia, unspecified Plan Continue current regimen of Haldol, Thorazine and Invega. Will try again for just latter day on Wednesday as these issues have not manifested out of an abundance of caution and out of due respect. Will hold patient over the weekend to monitor for any further issues. He does appear anxious at baseline and has difficulty when being told no when he seems to yell at unseen others. However, it appears to be from some of the collateral that this seems to be his baseline. Vital Signs Vital Signs Date Time Temp Pulse Resp B/P (MAP) Pulse Ox O2 Delivery O2 Flow Rate FiO2 03/22/20 06:55 96.7 71 18 125/65 (85) 98 Room Air Current Medications Current Medications Medications (Trade) Dose Ordered Sig/Daniel Route PRN Reason Start Time Stop Time Status Last Admin Dose Admin Acetaminophen (Tylenol Tab) 650 mg Q6HP PRN PO HEADACHE/DISCOMFORT 02/27/20 18:00 03/21/20 17:12 Al Hydrox/Mg Hydrox/Simethicone (Mylanta) 30 ml Q4HP PRN PO HEARTBURN/INDIGESTION 02/27/20 18:00 03/21/20 15:23 Albuterol/ Ipratropium (Combivent Respimat 100-20mcg) 1 puff RQID INH 02/27/20 20:00 03/14/20 15:44 Amlodipine Besylate (Norvasc) 2.5 mg QHS PO 02/27/20 21:00 02/29/20 16:48 DC 02/28/20 20:34 Benztropine Mesylate (Cogentin) 2 mg BID PO 02/27/20 21:00 03/22/20 09:13 Cariprazine (Vraylar) 1.5 mg DAILY PO 03/01/20 09:00 03/01/20 08:25 DC Cetirizine HCl (ZyrTEC) 10 mg DAILY PO 03/02/20 09:00 03/07/20 23:00 DC 03/07/20 09:02 Chlorpromazine HCl (Thorazine) 150 mg BID PO 03/05/20 09:00 03/06/20 18:32 DC 03/06/20 08:51 Chlorpromazine HCl (Thorazine) 150 mg STAT STAT IM 03/04/20 17:50 03/04/20 17:53 DC 03/04/20 18:09 Chlorpromazine HCl (Thorazine) 300 mg TID PO 03/06/20 16:00 03/11/20 16:12 DC 03/11/20 08:00 Chlorpromazine HCl (Thorazine) 300 mg TID PO 03/11/20 16:00 03/22/20 09:13 Clotrimazole (Lotrimin) apply thin layer to bilate... BID TOP 02/29/20 21:00 03/19/20 20:41 Clozapine (Clozaril) 12.5 mg QHS PO 02/27/20 21:00 02/28/20 11:08 DC 02/27/20 20:47 Diphenhydramine HCl (Benadryl) 25 mg Q8HP PRN PO ITCHING 03/05/20 12:30 03/21/20 22:55 Diphenhydramine HCl (Benadryl) 50 mg QHSP PRN PO ITCHING/SWELLING 03/01/20 08:15 03/05/20 12:37 DC 03/04/20 16:33 Divalproex Sodium (Depakote) 750 mg QAM PO 02/29/20 09:00 03/22/20 09:13 Divalproex Sodium (Depakote) 1,000 mg QAM PO 02/28/20 09:00 02/29/20 08:48 DC 02/28/20 09:09 Divalproex Sodium (Depakote) 1,000 mg QHS PO 03/06/20 21:00 03/21/20 21:24 Divalproex Sodium (Depakote) 1,500 mg QPM PO 02/27/20 21:00 03/05/20 21:06 DC 03/04/20 20:16 Docusate Sodium (Colace) 100 mg BID PO 02/27/20 21:00 03/22/20 09:13 Haloperidol (Haldol) 10 mg BID PO 03/13/20 09:00 03/15/20 16:05 DC 03/15/20 08:55 Haloperidol (Haldol) 10 mg QAM PO 03/16/20 09:00 03/22/20 09:13 Haloperidol (Haldol) 10 mg STAT STAT PO 03/04/20 17:24 03/04/20 17:26 DC 03/04/20 17:28 Haloperidol (Haldol) 10 mg STAT STAT PO 03/12/20 11:12 03/12/20 11:13 DC 03/12/20 11:14 Haloperidol (Haldol) 15 mg DAILY@1500 PO 03/19/20 15:00 03/21/20 15:20 Haloperidol (Haldol) 15 mg QHS PO 03/15/20 21:00 03/19/20 10:36 DC 03/18/20 20:21 Home Med (Med Rec Complete!) ASDIRECTED XX 02/27/20 18:45 02/27/20 18:40 DC Lidocaine HCl (Lidocaine 5% Oint) 1 dose TIDP PRN TOP skin irritation 03/02/20 18:15 03/05/20 12:37 DC 03/05/20 07:08 Lorazepam (Ativan) 1 mg BIDP PRN PO ANXIETY/AGITATION 03/02/20 15:00 03/04/20 14:59 DC 03/03/20 10:59 Magnesium Hydroxide (Milk Of Magnesia) 30 ml DAILYPRN PRN PO CONSTIPATION 02/27/20 18:00 Miscellaneous (Unresolved Clarification Entry) SEE LABEL COMMENTS DAILY XX 03/09/20 09:00 03/09/20 18:57 DC Miscellaneous (Unresolved Clarification Entry) SEE LABEL COMMENTS DAILY XX 03/13/20 09:00 03/14/20 13:15 DC Miscellaneous (Unresolved Clarification Entry) SEE LABEL COMMENTS DAILY XX 03/18/20 09:00 03/19/20 08:39 DC Olanzapine (ZyPREXA ZYDIS) 5 mg BIDP PRN PO ANXIETY/AGITATION 03/18/20 17:00 03/20/20 17:00 DC 03/18/20 17:09 Olanzapine (ZyPREXA ZYDIS) 5 mg Q8HP PRN PO ANXIETY/AGITATION 02/27/20 18:00 03/06/20 18:20 DC 03/06/20 13:05 Olanzapine (ZyPREXA ZYDIS) 10 mg Q4HP PRN PO ANXIETY/AGITATION 03/06/20 18:30 03/06/20 18:33 DC Olanzapine (ZyPREXA) 5 mg BID PO 03/01/20 09:00 03/04/20 16:47 DC 03/04/20 08:24 Olanzapine (ZyPREXA) 10 mg BID PO 03/04/20 21:00 03/05/20 08:52 DC 03/04/20 20:17 Prednisone (Deltasone) 5 mg DAILY PO 03/06/20 09:00 03/07/20 09:01 DC 03/07/20 09:47 Prednisone (Deltasone) 10 mg DAILY PO 03/04/20 09:00 03/05/20 09:01 DC 03/05/20 08:57 Prednisone (Deltasone) 20 mg DAILY PO 03/02/20 09:00 03/04/20 07:36 DC 03/03/20 08:06 Trazodone HCl (Desyrel) 50 mg QHS PRN PO INSOMNIA 02/27/20 18:00 03/21/20 21:23 Triamcinolone Acetonide (Kenalog 0.1% Cream) APPLY THIN LAYER TO FACE BID TOP 03/01/20 09:00 03/02/20 17:50 DC 03/02/20 08:14 Triamcinolone Acetonide (Kenalog 0.1% Ointment) 1 dose TID TOP 03/05/20 16:00 03/12/20 14:54 DC 03/12/20 14:49 Triamcinolone Acetonide (Kenalog 0.1% Ointment) 1 dose TID TOP 03/12/20 16:00 03/22/20 09:13 Valacyclovir HCl (Valtrex) 500 mg BID PO 03/05/20 09:00 04/18/20 08:59 03/22/20 09:13 Zolpidem Tartrate (Ambien) 2.5 mg QHS PO 02/27/20 21:00 03/04/20 17:53 DC 03/03/20 20:25 Allergies Coded Allergies: No Known Allergies (Verified , 10/17/08) BISHNU CASTREJON DO Mar 22, 2020 10:41
[2020-03-22] MEDS: haloperidoL 5 MG TAB PO SCH (15:16)
[2020-03-22 18:07] VITALS: BP 116/67
[2020-03-22] MEDS: DIVALPROEX 500 MG TAB PO SCH (20:16)
[2020-03-22] MEDS: traZODone 50 MG TAB PO PRN (20:16)
[2020-03-23] MEDS: ACETAMINOPHEN TAB 650MG DOSE (2X325MG) PO PRN ×2 (05:08→18:30)
[2020-03-23 06:50] VITALS: BP 113/56
[2020-03-23] MEDS: COMBIVENT RESPIMAT 100-20MCG INHALER 4GM INH SCH ×4 (07:48→20:00)
[2020-03-23] MEDS: CLOTRIMAZOLE 1% TOPICAL CREAM 30GM TOP SCH ×2 (07:49→21:00)
[2020-03-23] MEDS: TRIAMCINOLONE ACET 0.1% OINTMENT 80 GM TOP SCH ×3 (07:55→21:35)
[2020-03-23] MEDS: DOCUSATE SODIUM 100 MG CAP PO SCH ×2 (07:56→21:34)
[2020-03-23] MEDS: valACYclovir HCL 500 MG TAB PO SCH ×2 (07:56→21:35)
[2020-03-23] MEDS: BENZTROPINE 2 MG TAB PO SCH ×2 (07:56→21:35)
[2020-03-23] MEDS: DIVALPROEX 250 MG TAB PO SCH (07:57)
[2020-03-23] MEDS: ChlorproMAZINE 100 MG TABLET PO SCH ×3 (07:57→21:35)
[2020-03-23] MEDS: haloperidoL 5 MG TAB PO SCH (15:27)
[2020-03-23 18:00] VITALS: BP 154/92
[2020-03-23] MEDS: traZODone 50 MG TAB PO PRN (21:34)
[2020-03-23] MEDS: DIVALPROEX 500 MG TAB PO SCH (21:34)
[2020-03-24] MEDS: ACETAMINOPHEN TAB 650MG DOSE (2X325MG) PO PRN (06:26)
[2020-03-24 06:29] VITALS: BP 97/54
[2020-03-24] MEDS: COMBIVENT RESPIMAT 100-20MCG INHALER 4GM INH SCH ×4 (08:00→20:00)
[2020-03-24] MEDS: TRIAMCINOLONE ACET 0.1% OINTMENT 80 GM TOP SCH ×3 (08:40→21:00)
[2020-03-24] MEDS: CLOTRIMAZOLE 1% TOPICAL CREAM 30GM TOP SCH ×2 (08:41→21:00)
[2020-03-24] MEDS: ChlorproMAZINE 100 MG TABLET PO SCH ×3 (08:43→21:52)
[2020-03-24] MEDS: BENZTROPINE 2 MG TAB PO SCH ×2 (08:43→21:52)
[2020-03-24] MEDS: DIVALPROEX 250 MG TAB PO SCH (08:43)
[2020-03-24] MEDS: DOCUSATE SODIUM 100 MG CAP PO SCH ×2 (08:43→21:52)
[2020-03-24] MEDS: valACYclovir HCL 500 MG TAB PO SCH ×2 (08:44→21:52)
[2020-03-24] MEDS: MAALOX 30 ML SUSP *UDC PO PRN (13:29)
[2020-03-24] MEDS: haloperidoL 5 MG TAB PO SCH (15:21)
[2020-03-24 18:00] VITALS: BP 96/57
[2020-03-24] MEDS: DIVALPROEX 500 MG TAB PO SCH (21:52)
[2020-03-24] MEDS: traZODone 50 MG TAB PO PRN (21:53)
[2020-03-25] MEDS: ACETAMINOPHEN TAB 650MG DOSE (2X325MG) PO PRN ×3 (04:10→22:10)
[2020-03-25 06:03] VITALS: BP 122/56
[2020-03-25] MEDS: COMBIVENT RESPIMAT 100-20MCG INHALER 4GM INH SCH ×4 (08:00→20:00)
[2020-03-25] MEDS: CLOTRIMAZOLE 1% TOPICAL CREAM 30GM TOP SCH ×2 (08:28→21:00)
[2020-03-25] MEDS: DIVALPROEX 250 MG TAB PO SCH (08:28)
[2020-03-25] MEDS: TRIAMCINOLONE ACET 0.1% OINTMENT 80 GM TOP SCH ×3 (08:28→21:00)
[2020-03-25] MEDS: DOCUSATE SODIUM 100 MG CAP PO SCH ×2 (08:29→21:47)
[2020-03-25] MEDS: ChlorproMAZINE 100 MG TABLET PO SCH ×3 (08:29→21:46)
[2020-03-25] MEDS: valACYclovir HCL 500 MG TAB PO SCH ×2 (08:29→21:47)
[2020-03-25] MEDS: BENZTROPINE 2 MG TAB PO SCH ×2 (08:29→21:43)
--- NOTE | 2020-03-25 10:13 | MHIPNPDOC ---
[facility] Progress Note Progress Note DATE OF SERVICE: 03/25/20 Subjective HPI: Terrence presents today for concerns regarding his schizophrenia. He reports hes feeling much improved, and he still wants to return to [facility]. He has had a good weekend with no coding or other agitation episodes. Objective Appearance: Face nearly fully healed. Hygiene fair. Affect: Full range. Appropriate to context. Mood: Appropriately reactive. Euthymic. Generally good. Cognition: Alert, Attentive, and Oriented to person, place, time. Thought Form: Linear and goal directed. Judgement: Poor to fair. Insight: Poor to fair. Assessment F20.89 Other schizophrenia Plan Continue Haldol, Thorazine, & Invega. EKG to be done and discharged tomorrow. His observation has not revealed any further concerning behaviors from what is reportedly his baseline. Vital Signs Vital Signs Date Time Temp Pulse Resp B/P (MAP) Pulse Ox O2 Delivery O2 Flow Rate FiO2 03/25/20 06:03 98.3 71 20 122/56 (78) 98 Room Air Current Medications Current Medications Medications (Trade) Dose Ordered Sig/Daniel Route PRN Reason Start Time Stop Time Status Last Admin Dose Admin Acetaminophen (Tylenol Tab) 650 mg Q6HP PRN PO HEADACHE/DISCOMFORT 02/27/20 18:00 03/25/20 04:10 Al Hydrox/Mg Hydrox/Simethicone (Mylanta) 30 ml Q4HP PRN PO HEARTBURN/INDIGESTION 02/27/20 18:00 03/24/20 13:29 Albuterol/ Ipratropium (Combivent Respimat 100-20mcg) 1 puff RQID INH 02/27/20 20:00 03/14/20 15:44 Amlodipine Besylate (Norvasc) 2.5 mg QHS PO 02/27/20 21:00 02/29/20 16:48 DC 02/28/20 20:34 Benztropine Mesylate (Cogentin) 2 mg BID PO 02/27/20 21:00 03/25/20 08:29 Cariprazine (Vraylar) 1.5 mg DAILY PO 03/01/20 09:00 03/01/20 08:25 DC Cetirizine HCl (ZyrTEC) 10 mg DAILY PO 03/02/20 09:00 03/07/20 23:00 DC 03/07/20 09:02 Chlorpromazine HCl (Thorazine) 150 mg BID PO 03/05/20 09:00 03/06/20 18:32 DC 03/06/20 08:51 Chlorpromazine HCl (Thorazine) 150 mg STAT STAT IM 03/04/20 17:50 03/04/20 17:53 DC 03/04/20 18:09 Chlorpromazine HCl (Thorazine) 300 mg TID PO 03/06/20 16:00 03/11/20 16:12 DC 03/11/20 08:00 Chlorpromazine HCl (Thorazine) 300 mg TID PO 03/11/20 16:00 03/25/20 08:29 Clotrimazole (Lotrimin) apply thin layer to bilate... BID TOP 02/29/20 21:00 03/25/20 08:28 Clozapine (Clozaril) 12.5 mg QHS PO 02/27/20 21:00 02/28/20 11:08 DC 02/27/20 20:47 Diphenhydramine HCl (Benadryl) 25 mg Q8HP PRN PO ITCHING 03/05/20 12:30 03/21/20 22:55 Diphenhydramine HCl (Benadryl) 50 mg QHSP PRN PO ITCHING/SWELLING 03/01/20 08:15 03/05/20 12:37 DC 03/04/20 16:33 Divalproex Sodium (Depakote) 750 mg QAM PO 02/29/20 09:00 03/25/20 08:28 Divalproex Sodium (Depakote) 1,000 mg QAM PO 02/28/20 09:00 02/29/20 08:48 DC 02/28/20 09:09 Divalproex Sodium (Depakote) 1,000 mg QHS PO 03/06/20 21:00 03/24/20 21:52 Divalproex Sodium (Depakote) 1,500 mg QPM PO 02/27/20 21:00 03/05/20 21:06 DC 03/04/20 20:16 Docusate Sodium (Colace) 100 mg BID PO 02/27/20 21:00 03/25/20 08:29 Haloperidol (Haldol) 10 mg BID PO 03/13/20 09:00 03/15/20 16:05 DC 03/15/20 08:55 Haloperidol (Haldol) 10 mg QAM PO 03/16/20 09:00 03/25/20 08:29 Haloperidol (Haldol) 10 mg STAT STAT PO 03/04/20 17:24 03/04/20 17:26 DC 03/04/20 17:28 Haloperidol (Haldol) 10 mg STAT STAT PO 03/12/20 11:12 03/12/20 11:13 DC 03/12/20 11:14 Haloperidol (Haldol) 15 mg DAILY@1500 PO 03/19/20 15:00 03/24/20 15:21 Haloperidol (Haldol) 15 mg QHS PO 03/15/20 21:00 03/19/20 10:36 DC 03/18/20 20:21 Home Med (Med Rec Complete!) ASDIRECTED XX 02/27/20 18:45 02/27/20 18:40 DC Lidocaine HCl (Lidocaine 5% Oint) 1 dose TIDP PRN TOP skin irritation 03/02/20 18:15 03/05/20 12:37 DC 03/05/20 07:08 Lorazepam (Ativan) 1 mg BIDP PRN PO ANXIETY/AGITATION 03/02/20 15:00 03/04/20 14:59 DC 03/03/20 10:59 Magnesium Hydroxide (Milk Of Magnesia) 30 ml DAILYPRN PRN PO CONSTIPATION 02/27/20 18:00 Miscellaneous (Unresolved Clarification Entry) SEE LABEL COMMENTS DAILY XX 03/09/20 09:00 03/09/20 18:57 DC Miscellaneous (Unresolved Clarification Entry) SEE LABEL COMMENTS DAILY XX 03/13/20 09:00 03/14/20 13:15 DC Miscellaneous (Unresolved Clarification Entry) SEE LABEL COMMENTS DAILY XX 03/18/20 09:00 03/19/20 08:39 DC Olanzapine (ZyPREXA ZYDIS) 5 mg BIDP PRN PO ANXIETY/AGITATION 03/18/20 17:00 03/20/20 17:00 DC 03/18/20 17:09 Olanzapine (ZyPREXA ZYDIS) 5 mg Q8HP PRN PO ANXIETY/AGITATION 02/27/20 18:00 03/06/20 18:20 DC 03/06/20 13:05 Olanzapine (ZyPREXA ZYDIS) 10 mg Q4HP PRN PO ANXIETY/AGITATION 03/06/20 18:30 03/06/20 18:33 DC Olanzapine (ZyPREXA) 5 mg BID PO 03/01/20 09:00 03/04/20 16:47 DC 03/04/20 08:24 Olanzapine (ZyPREXA) 10 mg BID PO 03/04/20 21:00 03/05/20 08:52 DC 03/04/20 20:17 Prednisone (Deltasone) 5 mg DAILY PO 03/06/20 09:00 03/07/20 09:01 DC 03/07/20 09:47 Prednisone (Deltasone) 10 mg DAILY PO 03/04/20 09:00 03/05/20 09:01 DC 03/05/20 08:57 Prednisone (Deltasone) 20 mg DAILY PO 03/02/20 09:00 03/04/20 07:36 DC 03/03/20 08:06 Trazodone HCl (Desyrel) 50 mg QHS PRN PO INSOMNIA 02/27/20 18:00 03/24/20 21:53 Triamcinolone Acetonide (Kenalog 0.1% Cream) APPLY THIN LAYER TO FACE BID TOP 03/01/20 09:00 03/02/20 17:50 DC 03/02/20 08:14 Triamcinolone Acetonide (Kenalog 0.1% Ointment) 1 dose TID TOP 03/05/20 16:00 03/12/20 14:54 DC 03/12/20 14:49 Triamcinolone Acetonide (Kenalog 0.1% Ointment) 1 dose TID TOP 03/12/20 16:00 03/25/20 08:28 Valacyclovir HCl (Valtrex) 500 mg BID PO 03/05/20 09:00 04/18/20 08:59 03/25/20 08:29 Zolpidem Tartrate (Ambien) 2.5 mg QHS PO 02/27/20 21:00 03/04/20 17:53 DC 03/03/20 20:25 Allergies Coded Allergies: No Known Allergies (Verified , 10/17/08) BISHNU CASTREJON DO Mar 25, 2020 10:13
[2020-03-25] MEDS: haloperidoL 5 MG TAB PO SCH (14:38)
[2020-03-25 16:43] VITALS: BP 142/75
[2020-03-25] MEDS: traZODone 50 MG TAB PO PRN (21:46)
[2020-03-25] MEDS: DIVALPROEX 500 MG TAB PO SCH (21:47)
[2020-03-26] MEDS: ACETAMINOPHEN TAB 650MG DOSE (2X325MG) PO PRN ×2 (06:28→14:01)
[2020-03-26 06:30] VITALS: BP 98/60
[2020-03-26] MEDS: COMBIVENT RESPIMAT 100-20MCG INHALER 4GM INH SCH ×3 (08:00→15:27)
[2020-03-26] MEDS: CLOTRIMAZOLE 1% TOPICAL CREAM 30GM TOP SCH (09:00)
[2020-03-26] MEDS: TRIAMCINOLONE ACET 0.1% OINTMENT 80 GM TOP SCH ×2 (09:00→15:27)
[2020-03-26] MEDS: valACYclovir HCL 500 MG TAB PO SCH (09:07)
[2020-03-26] MEDS: ChlorproMAZINE 100 MG TABLET PO SCH ×2 (09:07→15:26)
[2020-03-26] MEDS: DOCUSATE SODIUM 100 MG CAP PO SCH (09:07)
[2020-03-26] MEDS: BENZTROPINE 2 MG TAB PO SCH (09:08)
[2020-03-26] MEDS: DIVALPROEX 250 MG TAB PO SCH (09:08)
--- NOTE | 2020-03-26 11:44 | MHIPN ---
DATE: 02/23/2020 SUBJECTIVE: The patient is seen in the presence of staff. He says he is feeling better, and when asked to explain on that further, suggests that the voices that he was hearing no longer bother him, in fact they are diminished, at times suggested they are not there anymore. He has just been started on Clozapine and in addition to that he takes Invega Sustenna. I understand that he received his injection late last week. I have been assigned to his care for today. He says he sleeps well. MENTAL STATUS EXAM: He is neat, he is cooperative. No agitation. No psychomotor retardation as such. Answers questions logically briefly coherently. Affect is a bit restricted but reactive in essence. Denies any thoughts of harming himself or anyone else. He does not at present appear to be internally preoccupied. No overt delusions elicited, they may well be just under the surface as he has been noted to be deluded while here. Judgment, insight, although improved, remain compromised. ASSESSMENT: Schizophrenia. RECOMMENDATIONS AND PLAN: Continue current care including Clozapine, Depakote. It should also be noted he also has been prescribed Zyprexa as needed for anxiety and agitation. Continue involvement in the rest of the care, and at this point is nearing discharge, we will look at arranging for follow-up. He attends the community clinic. Further recommendations will be made depending on the clinical picture. GABI
--- NOTE | 2020-03-26 11:50 | MHIPN ---
DATE: 02/24/2020 HISTORY OF PRESENT ILLNESS: Mr. Jett is a 54-year-old male who initially was admitted to the hospital floor because he presented with hyponatremia. His psychiatric medications were held until his sodium levels became normal. The patient was actively hallucinating while he was at the medical floor. The patient lives at [facility]) and he reports feeling okay with the other residents, he has not had any problems with them. SUBJECTIVE: The patient reports feeling better, he says he sleeps well, eats well, denies suicidal or homicidal thoughts, and denies auditory or visual hallucinations at this time. He says if he continues to feel this well he would not object to going back home. OBJECTIVE: The patient is a very pleasant gentleman, dressed in hospital clothes, with good eye contact, normal and spontaneous speech that is normal in rate, tone, and volume. His thought process is linear and coherent, his thought content is negative for suicidal or homicidal thoughts, negative for thought delusions, and he denies auditory, visual, or tactile hallucinations. He was not seen responding to internal stimuli. His mood and affect are euthymic. His insight and judgment are fair. ASSESSMENT: Schizophrenia, possibly chronic (I do not have previous records to obtain or compare medical history). PLAN: Will continue on the same medications. These medications are: Depakote 1000 mg by mouth in the morning and 1500 mg by mouth in the afternoon, Clozaril 12.5 mg by mouth nightly, Invega Sustenna 234 mg intramuscular (IM) monthly, and he takes medications for other medical problems like Colace 100 mg twice a day, amlodipine 2.5 mg by mouth nightly, Combivent inhaler as well. The patient is stable at this time. If he continues to be stable, will recommend possible discharge this upcoming Wednesday. [facility]
[2020-03-26] MEDS ORDERED: other (14:45)
[2020-03-26] MEDS: haloperidoL 5 MG TAB PO SCH (14:48)
--- NOTE | 2020-03-26 14:48 | MHDSPDOC ---
[facility] Discharge Summary Discharge Summary DATE OF ADMISSION: Feb 21, 2020 at 17:30 DATE OF DISCHARGE:Mar 26, 2020 at 15:00 DISCHARGE DIAGNOSES: F20.9 Schizophrenia, unspecified CONSULTANTS INVOLVED:[ hospitalist screening)] with treatment for face rash REASON FOR ADMISSION & TREATMENT AND PROGRESS ON THE UNIT : The patient was admitted to the inpatient mental health unit after being discharged recently from the unit prior. He was subsequently noted to be rubbing his face severely to the point where his face became raw and red. He generally improved and made good progress, however, he still had some agitation episodes where he felt he was hearing gunshots and was paranoid and agitated at night. Prior to discharge the AOT coordinator wanted to ask about having the patient replaced on the court mandate. The patient unfortunately left before he was given the 234 mg shot. However, he was dispensed the refill T at the injection. The patient has had failure on multiple different antipsychotics. He did well and improved fairly nicely during his admission and eventually became much more stabilized. His face healed as the Thorazine appeared to be the most helpful agent for reducing his want to scratch himself. His face healed completely before he left. MEDICATIONS: He was started on Thorazine 300 mg t-80 with positive effects. He was started on Haldol increased to 15 mg nightly and 10 mg daily. This did not have a significant effect on his behavior. Generally returned to his baseline. Medication (inaudible) 100 mg nightly, Risperidone 1 mg nightly, Trazodone scheduled 50 mg nightly and his Invega Sustenna shot 234 mg. DISCHARGE ASSESSMENT[improved] Legal status considerations: The patient at the time of discharge did not meet criteria for involuntary admission/extension due to having a improved mental status exam, baseline insight into the situation, They are engaged in the discharge process, as well as being friendly and amenable in behavioral control and havent been engaging in any observed concerning behavior or ideation recently. They decline voluntary extension/admission at this time and must be discharged in good soni, as Im unable to make a case for holding the patient against their will. They may have historical risk factors of admissions and other interactions with psychiatry however, those are not modifiable from a clinical perspective. The patient will need to be discharged in good soni. He was discontinued on the Haldol and replaced on the Seroquel Risperidone combination as this would be more ideal for his situation. Although having several neuroleptics is not ideal. The Haldol did not appear to be effective. However, the patient would need to be on the low dose Seroquel Risperidone Trazodone and now (inaudible) as per the AOT order in order to be in compliance. Resume this at the request of AOT. Outpatient provider can try to rectify a more streamlined medication regimen. MENTAL STATUS EXAMINATION ON DISCHARGE: Appearance: Well groomed. Good hygiene. Appears to be stated age. Well nourished. Affect: Mildly anxious, but appears to be at baseline. Cognition: Grossly intact. Alert, Attentive, and Oriented to person, place, time. Thought Form: Linear, logical and generally fairly engaged. Denying suicidal and homicidal ideation. Judgement: Baseline. Insight: Baseline. PLAN/FOLLOWUP ARRANGEMENTS: Follow up appointments made (PCP and MH in 5 days of D/C date) and safety plan completed. Safety Planning aspects completed prior to discharge [Medication supplies limited to 7 days with 4 refills to prevent accumulation to OD] TLS and AOT contact made to transition care [RN reviewed crisis hotline information and other aspects to empower patient to access care in interim before next appointment.] The amount of time spent in the coordination of care for this patient was approximately 30 minutes. Vital Signs/I&Os Vital Signs Date Time Temp Pulse Resp B/P (MAP) Pulse Ox O2 Delivery O2 Flow Rate FiO2 03/26/20 06:30 96.3 73 18 98/60 (73) 03/25/20 06:03 98 Room Air Medications Scheduled Benztropine Mesylate (Benztropine Mesylate) 2 Mg Tablet, 2 MG PO BID for . , (Reported) Chlorpromazine HCl (Chlorpromazine HCl) 100 Mg Tablet, 300 MG PO TID for thoughts for 30 Days, #90 Divalproex Sodium (Divalproex Sodium ER) 500 Mg Tab.er.24h, 1,000 MG PO QAM for . , (Reported) Divalproex Sodium (Depakote) 250 Mg Tablet.dr, 750 MG PO QAM for mood for 30 Days, #90 Haloperidol (Haloperidol) 5 Mg Tablet, 15 MG PO DAILY@1500 for thoughts for 30 Days, #90 Naltrexone HCl (Naltrexone HCl) 50 Mg Tablet, 1 TAB PO DAILY for cravings for 30 Days, #30 Paliperidone Palmitate (Invega Sustenna) 234 Mg/1.5 Ml Syringe, 234 MG IM ONCE for thoughts for 30 Days, #1 Quetiapine Fumarate (Seroquel) 100 Mg Tablet, 1 TAB PO QPM for mood for 7 Days, #7 Risperidone (Risperidone) 1 Mg Tablet, 1 TAB PO QPM for thoguhts for 7 Days, #7 Trazodone HCl (Trazodone HCl) 50 Mg Tablet, 50 MG PO QHS for sleep for 7 Days, #7 Allergies Coded Allergies: No Known Allergies (Verified , 10/17/08) BISHNU CASTREJON DO Mar 26, 2020 14:48
[2020-03-26] MEDS ORDERED: RISP1TAB3 PO (15:37)
[2020-03-26] MEDS ORDERED: SERO1TAB PO (15:37)
[2020-03-26] MEDS ORDERED: NALT50TA4 PO (15:37)
[2020-03-26] MEDS ORDERED: TRAZ-252 PO (15:37)
[2020-03-26] MEDS ORDERED: INVE234I IM (15:41)
[2020-03-26] MEDS ORDERED: PALIPERIDONE PALMITATE 234MG/1.5ML INJ (INVEGA)(FREE PSY INPT ONLY) IM ONE (16:00)
--- NOTE | 2020-04-02 12:24 | ECGEPIP ---
[facility] Test Date: 2020-03-13 Pat Name: HAJA JOHNSON Department: Room: [place] [address] Gender: Male Behavioral Health Care Manager: MONICA : 1965 Requested By: BISHNU CASTREJON Order Number: [id number] Reading MD: Colt Bunn Measurements Intervals [place] Rate: 67 P: 63 [place]: 139 QRS: 67 QRSD: 93 T: 61 QT: 430 QTc: 455 Interpretive Statements SINUS RHYTHM NORMAL ECG SEE SCANNED DOWNTIME REPORT
--- NOTE | 2020-04-20 07:26 | MHIPN ---
DATE: 02/25/2020 Mr. Jett is a male with history of schizophrenia who is a resident of [facility] ([facility]). SUBJECTIVE: Mr. Jett reports today that he feels a little bit anxious but otherwise he denies psychotic symptoms and denies depressive symptoms. He denies suicidal and homicidal ideation. OBJECTIVE (MENTAL STATUS EXAMINATION): Mr. Jett was pleasant and cooperative, dressed in hospital clothes. He smiles frequently and has good eye contact. He seems to be very happy all the time. His speech is normal in rate, rhythm, tone, and volume, it is spontaneous and fluent but it can be repetitive at times. His thought process is linear and coherent at this time and his thought content is negative for suicidal or homicidal thoughts, negative for thought delusions, and he denies auditory, visual, and tactile hallucinations at this moment. His mood and affect are mildly anxious. His insight and judgment are fair. ASSESSMENT AND PLAN: Mr. Jett will continue with the same treatment plan but today will initiate Zyprexa Zydis 5 mg by mouth every 8 hours as needed for anxiety or agitation because he said today that he had been feeling anxious and did not have as needed medications for anxiety. Will continue to offer support and monitor for any changes. Will encourage him to seek help with staff if he feels unstable. GABI
== END 2020-03-26 15:00 | disposition home or self-care (01) | DRG 750 ==
LOC: M ED 18:42 → M PSY 02-21 17:30
PROVIDERS: ADMIT Psychiatry & Neurology Psychiatry; ATTEND Psychiatry & Neurology Addiction Medicine
DX: F20.9 Schizophrenia, unspecified (principal); G40.909 Epilepsy, unspecified, not intractable, without status epilepticus; I10 Essential (primary) hypertension; Z79.899 Other long term (current) drug therapy; R21 Rash and other nonspecific skin eruption; J45.909 Unspecified asthma, uncomplicated

== ENCOUNTER 2020-02-19 23:20 | Inpatient (IN) | payer MEDICAID ==
[~2020-02-19 23:20] MED LIST changes: +LORazepam 2 MG TAB As Ordered ONE; +LORazepam 2 MG TAB ONE
[2020-02-20] MEDS ORDERED: COMBIVENT RESPIMAT 100-20MCG INHALER 4GM ONE (10:00)
[2020-02-20] MEDS ORDERED: DOCUSATE SODIUM 100 MG CAP ONE ×2 (10:18→20:00)
[2020-02-20] MEDS ORDERED: DOCUSATE SODIUM 100 MG CAP As Ordered ONE ×2 (10:18→20:00)
[2020-02-20] MEDS ORDERED: BENZTROPINE 2 MG TAB ONE (11:00)
[2020-02-20] MEDS ORDERED: zolPIDEM TARTRATE 5 MG TAB As Ordered ONE (20:00)
[2020-02-20] MEDS ORDERED: DIVALPROEX 500MG *ER* TAB ONE (20:00)
[2020-02-20] MEDS ORDERED: DIVALPROEX 500MG *ER* TAB As Ordered ONE (20:00)
[2020-02-20] MEDS ORDERED: zolPIDEM TARTRATE 5 MG TAB ONE (20:00)
[2020-02-20] MEDS ORDERED: ACETAMINOPHEN TAB 650MG DOSE (2X325MG) As Ordered ONE (20:50)
[2020-02-20] MEDS ORDERED: ACETAMINOPHEN TAB 650MG DOSE (2X325MG) ONE (20:50)
[2020-02-21] MEDS ORDERED: DOCUSATE SODIUM 100 MG CAP As Ordered ONE ×2 (09:01→20:38)
[2020-02-21] MEDS ORDERED: DOCUSATE SODIUM 100 MG CAP ONE ×2 (09:01→20:38)
[2020-02-21] MEDS ORDERED: DIVALPROEX 500MG *ER* TAB As Ordered ONE (09:01)
[2020-02-21] MEDS ORDERED: DIVALPROEX 500MG *ER* TAB ONE (09:01)
[2020-02-21] MEDS ORDERED: COMBIVENT RESPIMAT 100-20MCG INHALER 4GM ONE (10:00)
[2020-02-21] MEDS ORDERED: BENZTROPINE 2 MG TAB ONE (15:59)
[2020-02-21] MEDS ORDERED: DIVALPROEX 500 MG TAB ONE (15:59)
[2020-02-21] MEDS ORDERED: zolPIDEM TARTRATE 5 MG TAB ONE (20:45)
[2020-02-21] MEDS ORDERED: zolPIDEM TARTRATE 5 MG TAB As Ordered ONE (20:45)
[2020-04-05 22:12] LABS: BASO % 0.4 % (0.0-1.0); EOS % 0.4 % (0.0-3.0); HEMATOCRIT 39.9 % (42.0-52.0); HEMOGLOBIN 14.6 g/dl (13.5-17.5); LYMPH # 0.8 10^3/uL (1.5-5.0); LYMPH % 10.3 % (24.0-44.0); MEAN CORPUSCULAR HEMOGLOBIN 31.6 pg (27.0-33.0); MEAN CORPUSCULAR HGB CONC 36.6 g/dl (32.0-36.5); MEAN CORPUSCULAR VOLUME 86.4 fl (80.0-96.0); MONO # 0.9 10^3/uL (0.0-0.8); NEUTROPHILS # 6.1 10^3/uL (1.5-8.5); PLATELET COUNT, AUTOMATED 207 10^3/uL (150-450); RED BLOOD COUNT 4.62 10^6/uL (4.30-6.10)
[2020-04-11 10:35] LABS: BASO % 0.7 % (0.0-1.0); EOS # 0.1 10^3/uL (0.0-0.5); EOS % 1.9 % (0.0-3.0); HEMATOCRIT 36.5 % (42.0-52.0); HEMOGLOBIN 13.1 g/dl (13.5-17.5); LYMPH # 0.8 10^3/uL (1.5-5.0); MEAN CORPUSCULAR HEMOGLOBIN 31.1 pg (27.0-33.0); MEAN CORPUSCULAR HGB CONC 35.9 g/dl (32.0-36.5); MEAN CORPUSCULAR VOLUME 86.7 fl (80.0-96.0); MONO # 0.7 10^3/uL (0.0-0.8); MONO % 15.2 % (0.0-5.0); NEUTROPHILS # 2.7 10^3/uL (1.5-8.5); NEUTROPHILS % 63.3 % (36.0-66.0); PLATELET COUNT, AUTOMATED 158 10^3/uL (150-450); RED BLOOD COUNT 4.21 10^6/uL (4.30-6.10); WHITE BLOOD COUNT 4.3 10^3/uL (4.0-10.0)
[2020-04-14 01:01] LABS: HEMATOCRIT 37.6 % (42.0-52.0); HEMOGLOBIN 13.3 g/dl (13.5-17.5); MEAN CORPUSCULAR HEMOGLOBIN 31.4 pg (27.0-33.0); MEAN CORPUSCULAR HGB CONC 35.4 g/dl (32.0-36.5); MEAN CORPUSCULAR VOLUME 88.9 fl (80.0-96.0); PLATELET COUNT, AUTOMATED 165 10^3/uL (150-450); RED BLOOD COUNT 4.23 10^6/uL (4.30-6.10); WHITE BLOOD COUNT 4.8 10^3/uL (4.0-10.0)
[2020-05-01 14:03] LABS: BLOOD UREA NITROGEN 8 MG/DL (7-18); CARBON DIOXIDE LEVEL 28 MEQ/L (21-32); CHLORIDE LEVEL 105 MEQ/L (98-107); CREATININE FOR GFR 0.68 MG/DL (0.70-1.30); GLOMERULAR FILTRATION RATE > 60.0 (>56); GLUCOSE, FASTING 103 MG/DL (70-100); POTASSIUM SERUM 4.4 MEQ/L (3.5-5.1); SODIUM LEVEL 137 MEQ/L (136-145)
[2020-05-04 22:36] LABS: ACETAMINOPHEN LEVEL < 2.0 UG/ML (10.0-30.0); ALBUMIN 4.2 GM/DL (3.2-5.2); ALT/SGPT 46 U/L (12-78); BILIRUBIN,DIRECT 0.3 MG/DL (0.0-0.2); BILIRUBIN,TOTAL 0.9 MG/DL (0.2-1.0); BLOOD UREA NITROGEN 8 MG/DL (7-18); CALCIUM LEVEL 9.2 MG/DL (8.5-10.1); CARBON DIOXIDE LEVEL 29 MEQ/L (21-32); CHLORIDE LEVEL 89 MEQ/L (98-107); CREATININE FOR GFR 0.75 MG/DL (0.70-1.30); ETHYL ALCOHOL (ETHANOL) 0.003 % (0.000-0.010); GLOMERULAR FILTRATION RATE > 60.0 (>56); GLUCOSE, FASTING 98 MG/DL (70-100); POTASSIUM SERUM 4.2 MEQ/L (3.5-5.1); SALICYLATE LEVEL 2.6 MG/DL (5.0-30.0); SODIUM LEVEL 123 MEQ/L (136-145); TOTAL PROTEIN 7.5 GM/DL (6.4-8.2); VALPROIC ACID (DEPAKOTE) 75.8 UG/ML (50.0-100.0)
[2020-05-04 22:37] LABS: OSMOLALITY SERUM 254 MOSM/KG (275-295)
[2020-05-04 22:38] LABS: AMPHETAMINES LEVEL URINE NEGATIVE (NEGATIVE); BARBITURATES URINE NEGATIVE (NEGATIVE); BENZODIAZEPINES URINE NEGATIVE (NEGATIVE); CANNABINOIDS URINE NEGATIVE (NEGATIVE); COCAINE METABOLITE URINE NEGATIVE (NEGATIVE); METHADONE URINE NEGATIVE (NEGATIVE); OPIATES URINE NEGATIVE (NEGATIVE); PHENCYCLIDINE URINE NEGATIVE (NEGATIVE)
[2020-05-15 04:02] LABS: BLOOD UREA NITROGEN 9 MG/DL (7-18); CARBON DIOXIDE LEVEL 27 MEQ/L (21-32); CHLORIDE LEVEL 103 MEQ/L (98-107); CREATININE FOR GFR 0.68 MG/DL (0.70-1.30); GLOMERULAR FILTRATION RATE > 60.0 (>56); GLUCOSE, FASTING 95 MG/DL (70-100); POTASSIUM SERUM 4.8 MEQ/L (3.5-5.1); SODIUM LEVEL 135 MEQ/L (136-145)
[2020-05-15 04:02] LABS: BLOOD UREA NITROGEN 8 MG/DL (7-18); CALCIUM LEVEL 8.4 MG/DL (8.5-10.1); CARBON DIOXIDE LEVEL 28 MEQ/L (21-32); CHLORIDE LEVEL 102 MEQ/L (98-107); CORTISOL AM 13.8 UG/DL (4.3-22.4); CREATININE FOR GFR 0.58 MG/DL (0.70-1.30); GLOMERULAR FILTRATION RATE > 60.0 (>56); GLUCOSE, FASTING 103 MG/DL (70-100); MAGNESIUM LEVEL 2.1 MG/DL (1.8-2.4); POTASSIUM SERUM 3.5 MEQ/L (3.5-5.1); SODIUM LEVEL 134 MEQ/L (136-145)
[2020-05-15 15:35] LABS: BLOOD UREA NITROGEN 7 MG/DL (7-18); CREATININE FOR GFR 0.64 MG/DL (0.70-1.30); GLOMERULAR FILTRATION RATE > 60.0 (>56); GLUCOSE, FASTING 75 MG/DL (70-100); SODIUM LEVEL 133 MEQ/L (136-145)
[2020-05-15 15:36] LABS: CALCIUM LEVEL 8.5 MG/DL (8.5-10.1); CARBON DIOXIDE LEVEL 28 mmol/L (20-29); CHLORIDE LEVEL 102 MEQ/L (98-107); PHOSPHORUS LEVEL 3.9 MG/DL (2.5-4.9); POTASSIUM SERUM 4.3 MEQ/L (3.5-5.1)
== END 2020-02-21 16:00 | DRG 425 ==
LOC: M ED 23:20 → M MS5PR 02-20 05:10
PROVIDERS: ADMIT Internal Medicine; ATTEND Internal Medicine
DX: E87.1 Hypo-osmolality and hyponatremia (principal); F20.9 Schizophrenia, unspecified; F17.200 Nicotine dependence, unspecified, uncomplicated; Z79.899 Other long term (current) drug therapy

== ENCOUNTER 2020-03-28 10:59 | Inpatient (IN) | payer MEDICAID, OTHER ==
[~2020-03-28] VITALS: Ht 190.5 cm; Wt 79.0 kg
[~2020-03-28 10:59] MED LIST changes: +AMBI5TAB PO; +CHLO100T22 PO; +DEPA250T32 PO; +DIVA500T9 PO; +FOLI1TAB11 PO; +GNP200CA2 PO; +HALO10TA20 PO; +HALO5TA PO; +INVE156I IM; +INVE234I IM; -LORazepam 2 MG TAB As Ordered ONE; -LORazepam 2 MG TAB ONE; +METH1TAB40 PO; +NALT50TA4 PO; +RISP1TAB3 PO; +THIA100TA PO; +TRAZ-252 PO; +other
[2020-03-28 11:42] LABS: HEMATOCRIT 38.7 % (42.0-52.0); MEAN CORPUSCULAR HGB CONC 33.6 g/dl (32.0-36.5); MEAN CORPUSCULAR VOLUME 95.3 fl (80.0-96.0); PLATELET COUNT, AUTOMATED 194 10^3/uL (150-450); RED BLOOD COUNT 4.06 10^6/uL (4.30-6.10); WHITE BLOOD COUNT 6.8 10^3/uL (4.0-10.0)
[2020-03-28 12:19] LABS: ACETAMINOPHEN LEVEL < 2.0 UG/ML (10.0-30.0); ALBUMIN 3.5 GM/DL (3.2-5.2); ALT/SGPT 18 U/L (12-78); BILIRUBIN,DIRECT 0.1 MG/DL (0.0-0.2); BILIRUBIN,TOTAL 0.2 MG/DL (0.2-1.0); BLOOD UREA NITROGEN 17 MG/DL (7-18); CALCIUM LEVEL 8.7 MG/DL (8.5-10.1); CARBON DIOXIDE LEVEL 29 MEQ/L (21-32); CHLORIDE LEVEL 105 MEQ/L (98-107); CREATININE FOR GFR 0.71 MG/DL (0.70-1.30); ETHYL ALCOHOL (ETHANOL) < 0.003 % (0.000-0.010); GLOMERULAR FILTRATION RATE > 60.0 (>56); GLUCOSE, FASTING 84 MG/DL (70-100); POTASSIUM SERUM 4.6 MEQ/L (3.5-5.1); SALICYLATE LEVEL < 1.7 MG/DL (5.0-30.0); SODIUM LEVEL 136 MEQ/L (136-145); TOTAL PROTEIN 6.6 GM/DL (6.4-8.2)
[2020-03-28 15:30] LABS: AMPHETAMINES LEVEL URINE NEGATIVE (NEGATIVE); BARBITURATES URINE NEGATIVE (NEGATIVE); BENZODIAZEPINES URINE NEGATIVE (NEGATIVE); CANNABINOIDS URINE NEGATIVE (NEGATIVE); COCAINE METABOLITE URINE NEGATIVE (NEGATIVE); METHADONE URINE NEGATIVE (NEGATIVE); OPIATES URINE NEGATIVE (NEGATIVE); PHENCYCLIDINE URINE NEGATIVE (NEGATIVE)
[2020-03-28] MEDS ORDERED: FOLI1TAB11 PO (17:44)
[2020-03-28] MEDS ORDERED: RISP1TAB3 PO (17:44)
[2020-03-28] MEDS ORDERED: CHLO100T30 PO (17:44)
[2020-03-28] MEDS ORDERED: THIA100T7 PO (17:44)
[2020-03-28] MEDS ORDERED: QUET100T2 PO (17:44)
[2020-03-28] MEDS ORDERED: METH1TAB40 PO (17:44)
[2020-03-28] MEDS ORDERED: TRAZ-186 PO (17:44)
[2020-03-28] MEDS ORDERED: NALT50TA4 PO (17:44)
[2020-03-28] MEDS ORDERED: HALO5TA PO (17:44)
[2020-03-28] MEDS ORDERED: DIVA250T67 PO (17:44)
[2020-03-28] MEDS ORDERED: HALO10TA20 PO (17:44)
[2020-03-28] MEDS ORDERED: IBUP1TAB6 PO (17:44)
[2020-03-28] MEDS ORDERED: COLA100C5 PO (17:44)
[2020-03-28] MEDS ORDERED: INVE234I IM (17:51)
[2020-03-28] MEDS ORDERED: DIVA500T94 PO (17:52)
[2020-03-28] MEDS: QUEtiapine FUMARATE 100 MG TAB PO SCH (21:00)
[2020-03-28] MEDS: DIVALPROEX 500 MG TAB PO SCH (21:00)
[2020-03-28] MEDS: risperiDONE 1 MG TAB PO SCH (21:00)
[2020-03-28] MEDS: ChlorproMAZINE 100 MG TABLET PO SCH (21:00)
[2020-03-28] MEDS: DOCUSATE SODIUM 100 MG CAP PO SCH (21:00)
[2020-03-28] MEDS: BENZTROPINE 2 MG TAB PO SCH (21:00)
[2020-03-28 23:50] VITALS: BP 124/85
[2020-03-29] MEDS: traZODone 50 MG TAB PO PRN (00:34)
[2020-03-29 07:00] VITALS: BP 113/69
[2020-03-29] MEDS ORDERED: FLUBLOK(EGG FREE)(QUAD)INFLUENZA VACC 0.5ML SYRINGE 18YRS & OLDER IM ONE (09:00)
[2020-03-29] MEDS: NICOTINE 21MG/24HR 1 EA TRANSDERMAL TD SCH (09:52)
[2020-03-29] MEDS: NALTREXONE 50 MG TAB PO SCH (09:53)
[2020-03-29] MEDS: DOCUSATE SODIUM 100 MG CAP PO SCH ×2 (09:53→21:00)
[2020-03-29] MEDS: DIVALPROEX 250 MG TAB PO SCH (09:53)
[2020-03-29] MEDS: ChlorproMAZINE 100 MG TABLET PO SCH ×3 (09:53→21:00)
[2020-03-29] MEDS: BENZTROPINE 2 MG TAB PO SCH ×2 (09:53→21:00)
--- NOTE | 2020-03-29 10:11 | MHHPEPDOC ---
[facility] History & Physical History and Physical DATE OF ADMISSION: Mar 28, 2020 at 18:38 Subjective HPI: Terrence presents today for concerns regarding wanting to go back home. The patient stated had a pick remover order on him because a lady was worried about him. Ever galvind he had an appointment and rescheduled it because he wasnt feeling feel. Terrence stated he wants to go back home. Patient denies any substance use since his last leaving of our unit. The patient reports no psychotic symptoms other than baseline symptoms. Strains negative for other new disorders since his recent discharge. ALLERGIES: Allergies reviewed. MEDICATIONS: The patient stated he took all of his medicines which are 15 in the morning and 15 at night. MEDICAL HISTORY: Past medical history consists of previous inpatient admissions diagnosed with schizophrenia. FAMILY HISTORY: No changes from previous social history. SOCIAL HISTORY - OCCUPATION: Currently, not employed and on disability due to chronic schizophrenia. SOCIAL HISTORY - LIVING SITUATION: Lives at [facility] and recently seen his outpatient provider, Siomara, at [facility]. Lives at [facility] in [facility]. SURGICAL HISTORY: Surgical history reviewed. Objective Appearance: Hygiene fair. Behavior: Linear and generally logical. Anxious at baseline. Speech: Fluid. Motor: No psychomotor agitation. Cognition: Grossly intact. Judgement: Baseline. Insight: Baseline. Assessment F20.89 Other schizophrenia Plan Talk to AOT coordinator and outpatient provider on Wednesday. Will continue previous medications from discharge to observe to determine if there is a discrete change from our side. Priorities are altered thoughts. Estimated length of stay is 1-3 days, and will continue to observe. Still concerned as to what behaviors have been observed and what is significantly different. PSA report is reviewed. Vital Signs Vital Signs Date Time Temp Pulse Resp B/P (MAP) Pulse Ox O2 Delivery O2 Flow Rate FiO2 03/29/20 07:00 96.3 87 16 113/69 (84) 97 Room Air Laboratory Data 24H Labs Laboratory Tests 2 03/28/20 11:23: Nucleated Red Blood Cells % (auto) 0.0, Anion Gap 2L, Glomerular Filtration Rate > 60.0, Calcium Level 8.7, Total Bilirubin 0.2, Direct Bilirubin 0.1, Aspartate Amino Transf (AST/SGOT) 17, Alanine Aminotransferase (ALT/SGPT) 18, Alkaline Phosphatase 47, Total Protein 6.6, Albumin 3.5, Albumin/Globulin Ratio 1.1, Thyroid Stimulating Hormone (TSH) 6.100H, Salicylates Level < 1.7L, Acetaminophen Level < 2.0L, Ethyl Alcohol Level < 0.003 03/28/20 14:53: Urine Opiates Screen NEGATIVE, Urine Methadone Screen NEGATIVE, Urine Barbiturates Screen NEGATIVE, Urine Phencyclidine Screen NEGATIVE, Urine Amphetamines Screen NEGATIVE, Urine Benzodiazepines Screen NEGATIVE, Urine Cocaine Metabolite Screen NEGATIVE, Urine Cannabinoids Screen NEGATIVE CBC/BMP Laboratory Tests 03/28/20 11:23 Medications Scheduled Benztropine Mesylate (Benztropine Mesylate) 2 Mg Tablet, 2 MG PO BID for . , (Reported) Chlorpromazine HCl (Chlorpromazine HCl) 100 Mg Tablet, 300 MG PO TID, (Reported) Divalproex Sodium (Divalproex Sodium) 250 Mg Tablet.dr, 750 MG PO QAM, (Reported) Divalproex Sodium (Divalproex Sodium) 500 Mg Tablet.dr, 1,000 MG PO QHS, (Reported) Docusate Sodium (Colace) 100 Mg Capsule, 100 MG PO BID, (Reported) Folic Acid (Folic Acid) 1 Mg Tablet, 1 MG PO DAILY, (Reported) Haloperidol (Haloperidol) 10 Mg Tablet, 10 MG PO QAM, (Reported) Haloperidol (Haloperidol) 5 Mg Tablet, 15 MG PO DAILY, (Reported) TAKES AT 1500 Ibuprofen (Ibuprofen) 600 Mg Tablet, 600 MG PO TID, (Reported) Naltrexone HCl (Naltrexone HCl) 50 Mg Tablet, 50 MG PO DAILY, (Reported) Paliperidone Palmitate (Invega Sustenna) 234 Mg/1.5 Ml Syringe, 234 MG IM QMONTH, (Reported) Quetiapine Fumarate (Quetiapine Fumarate) 100 Mg Tablet, 100 MG PO QHS, (Reported) Risperidone (Risperidone) 1 Mg Tablet, 1 MG PO QHS, (Reported) Thiamine HCl (Thiamine HCl) 100 Mg Tablet, 100 MG PO DAILY, (Reported) Trazodone HCl (Trazodone HCl) 50 Mg Tablet, 50 MG PO QHS, (Reported) Scheduled PRN Methocarbamol (Methocarbamol) 500 Mg Tablet, 500 MG PO TID PRN for BACK PAIN, (Reported) Allergies Coded Allergies: No Known Allergies (Verified , 10/17/08) BISHNU CASTREJON DO Mar 29, 2020 10:11
--- NOTE | 2020-03-29 10:48 | HPEPDOC ---
[facility] Medical History & Physical Date of Admission Mar 29, 2020 Date of Service: Mar 29, 2020 History and Physical CHIEF COMPLAINT: Medical H&P for [facility] patient HISTORY OF PRESENT ILLNESS: 54 yo male brought in by [place] police, sent by dr ruiz for altered mental status/disorganized thinking, possible overdose? PAST MEDICAL HISTORY: #lyme disease 2019? #chronic back pain #Hx of EtOH abuse #Hx of polysubstance abuse? #intubation secondary to aspiration pneumonia #schizophrenia PAST SURGICAL HISTORY: #left knee surgery ALLERGIES: Please see below. REVIEW OF SYSTEMS: Negative except for H&P. HOME MEDICATIONS: Please see below. PHYSICAL EXAMINATION: VITAL SIGNS: See below General: NAD, sitting comfortably in chair HEENT: NC/AT, EOMI, PERRL Lungs: CTA B/L Heart: +S1S2, RRR Abd: soft, NT, +BS Ext: no edema LABORATORY DATA: See below. MICROBIOLOGY: Please see below. ASSESSMENT: 54 yo male admitted to [facility], brought in by [place] police, sent by dr ruiz for altered mental status/disorganized thinking, possible overdose? #AMS/psych disturbance/schizophrenia - follow as per primary team - psychiatry Dispo: Thank you for this consult. Please re-consult if needed Vital Signs Vital Signs Date Time Temp Pulse Resp B/P (MAP) Pulse Ox O2 Delivery O2 Flow Rate FiO2 03/29/20 07:00 96.3 87 16 113/69 (84) 97 Room Air Laboratory Data Labs 24H Laboratory Tests 2 03/28/20 11:23: Nucleated Red Blood Cells % (auto) 0.0, Anion Gap 2L, Glomerular Filtration Rate > 60.0, Calcium Level 8.7, Total Bilirubin 0.2, Direct Bilirubin 0.1, Aspartate Amino Transf (AST/SGOT) 17, Alanine Aminotransferase (ALT/SGPT) 18, Alkaline Phosphatase 47, Total Protein 6.6, Albumin 3.5, Albumin/Globulin Ratio 1.1, Thyroid Stimulating Hormone (TSH) 6.100H, Salicylates Level < 1.7L, Acetaminophen Level < 2.0L, Ethyl Alcohol Level < 0.003 03/28/20 14:53: Urine Opiates Screen NEGATIVE, Urine Methadone Screen NEGATIVE, Urine Barbiturates Screen NEGATIVE, Urine Phencyclidine Screen NEGATIVE, Urine Amphetamines Screen NEGATIVE, Urine Benzodiazepines Screen NEGATIVE, Urine Cocaine Metabolite Screen NEGATIVE, Urine Cannabinoids Screen NEGATIVE CBC/BMP Laboratory Tests 03/28/20 11:23 Home Medications Scheduled Benztropine Mesylate (Benztropine Mesylate) 2 Mg Tablet, 2 MG PO BID for . Chlorpromazine HCl (Chlorpromazine HCl) 100 Mg Tablet, 300 MG PO TID Divalproex Sodium (Divalproex Sodium) 250 Mg Tablet.dr, 750 MG PO QAM Divalproex Sodium (Divalproex Sodium) 500 Mg Tablet.dr, 1,000 MG PO QHS Docusate Sodium (Colace) 100 Mg Capsule, 100 MG PO BID Folic Acid (Folic Acid) 1 Mg Tablet, 1 MG PO DAILY Haloperidol (Haloperidol) 10 Mg Tablet, 10 MG PO QAM Haloperidol (Haloperidol) 5 Mg Tablet, 15 MG PO DAILY TAKES AT 1500 Ibuprofen (Ibuprofen) 600 Mg Tablet, 600 MG PO TID Naltrexone HCl (Naltrexone HCl) 50 Mg Tablet, 50 MG PO DAILY Paliperidone Palmitate (Invega Sustenna) 234 Mg/1.5 Ml Syringe, 234 MG IM QMONTH Quetiapine Fumarate (Quetiapine Fumarate) 100 Mg Tablet, 100 MG PO QHS Risperidone (Risperidone) 1 Mg Tablet, 1 MG PO QHS Thiamine HCl (Thiamine HCl) 100 Mg Tablet, 100 MG PO DAILY Trazodone HCl (Trazodone HCl) 50 Mg Tablet, 50 MG PO QHS Scheduled PRN Methocarbamol (Methocarbamol) 500 Mg Tablet, 500 MG PO TID PRN for BACK PAIN Allergies Coded Allergies: No Known Allergies (Verified , 10/17/08) A-FIB/CHADSVASC A-FIB History Current/History of A-Fib/PAF?: No DAKOTA MCGREGOR MD Mar 29, 2020 10:48
[2020-03-29] MEDS: FOLIC ACID 1 MG TAB PO SCH (11:16)
[2020-03-29] MEDS: THIAMINE 100 MG TAB PO SCH (11:16)
[2020-03-29] MEDS ORDERED: haloperidoL 5 MG TAB PO SCH (15:00)
[2020-03-29 16:33] VITALS: BP 123/66
[2020-03-29] MEDS: QUEtiapine FUMARATE 100 MG TAB PO SCH (21:00)
[2020-03-29] MEDS: DIVALPROEX 500 MG TAB PO SCH (21:00)
[2020-03-29] MEDS: risperiDONE 1 MG TAB PO SCH (21:00)
[2020-03-30] MEDS: traZODone 50 MG TAB PO PRN ×2 (00:06→20:44)
[2020-03-30] MEDS: BENZTROPINE 2 MG TAB PO SCH ×3 (00:06→20:44)
[2020-03-30] MEDS: risperiDONE 1 MG TAB PO SCH ×2 (00:07→20:44)
[2020-03-30] MEDS: QUEtiapine FUMARATE 100 MG TAB PO SCH ×2 (00:07→20:45)
[2020-03-30] MEDS: ChlorproMAZINE 100 MG TABLET PO SCH ×4 (00:07→20:43)
[2020-03-30] MEDS: DOCUSATE SODIUM 100 MG CAP PO SCH ×3 (00:07→20:45)
[2020-03-30] MEDS: DIVALPROEX 500 MG TAB PO SCH ×2 (00:09→20:44)
[2020-03-30 06:35] VITALS: BP 139/84
[2020-03-30] MEDS: THIAMINE 100 MG TAB PO SCH (08:02)
[2020-03-30] MEDS: DIVALPROEX 250 MG TAB PO SCH (08:02)
[2020-03-30] MEDS: NALTREXONE 50 MG TAB PO SCH (08:02)
[2020-03-30] MEDS: FOLIC ACID 1 MG TAB PO SCH (08:02)
[2020-03-30] MEDS: NICOTINE 21MG/24HR 1 EA TRANSDERMAL TD SCH (08:03)
--- NOTE | 2020-03-30 10:59 | MHIPNPDOC ---
[facility] Progress Note Progress Note DATE OF SERVICE: 03/30/20 Subjective HPI: The patient met with briefly today. He continues to report that he has no problems and is eager to go home. Staff report that he generally engages at times but doesnt appear to have any overt episodes of internal monologue or responding to unseen others today. Objective Appearance: Well groomed. hygiene fair. Well nourished. Appears to be stated age. Affect: anxious as baseline. Full range. Appropriate to context. Motor: no excessive psychomotor agitation. No gross motor abnormalities. Thought Form: Linear and goal directed. Thought Content: No evidence of suicidal ideation. No evidence of delusions. No thoughts of self harm. No evidence of aggressive or homicidal ideation. Judgement: Intact as evidenced by decision making in the recent past. Assessment F20.0 Paranoid schizophrenia Plan Continue patient with medications. Discontinued Haldol, this was discontinued last submission. Further observation, will attempt to contact outpatient provider on Wednesday to determine what exactly had brought him back as it appears quite confusing. Vital Signs Vital Signs Date Time Temp Pulse Resp B/P (MAP) Pulse Ox O2 Delivery O2 Flow Rate FiO2 03/30/20 06:35 98.4 86 14 139/84 (102) Room Air 03/29/20 07:00 97 Current Medications Current Medications Medications (Trade) Dose Ordered Sig/Daniel Route PRN Reason Start Time Stop Time Status Last Admin Dose Admin Acetaminophen (Tylenol Tab) 650 mg Q6HP PRN PO HEADACHE or DISCOMFORT 03/28/20 18:45 Al Hydrox/Mg Hydrox/Simethicone (Mylanta) 30 ml Q4HP PRN PO HEARTBURN/INDIGESTION 03/28/20 18:45 Benztropine Mesylate (Cogentin) 2 mg BID PO 03/28/20 21:00 03/30/20 08:02 Chlorpromazine HCl (Thorazine) 300 mg TID PO 03/28/20 21:00 03/30/20 08:02 Divalproex Sodium (Depakote) 750 mg QAM PO 03/29/20 09:00 03/30/20 08:02 Divalproex Sodium (Depakote) 1,000 mg QHS PO 03/28/20 21:00 03/30/20 00:09 Docusate Sodium (Colace) 100 mg BID PO 03/28/20 21:00 03/30/20 08:02 Folic Acid (Folic Acid) 1 mg DAILY PO 03/29/20 09:00 03/30/20 08:02 Haloperidol (Haldol) 10 mg QAM PO 03/29/20 09:00 03/30/20 08:02 Haloperidol (Haldol) 15 mg DAILY@1500 PO 03/29/20 15:00 03/29/20 15:19 Home Med (Med Rec Complete!) ASDIRECTED XX 03/28/20 18:00 03/28/20 17:54 DC Magnesium Hydroxide (Milk Of Magnesia) 30 ml DAILYPRN PRN PO CONSTIPATION 03/28/20 18:45 Methocarbamol (Robaxin) 500 mg TID PRN PO BACK PAIN 03/29/20 10:45 Naltrexone HCl (Revia) 50 mg DAILY PO 03/29/20 09:00 03/30/20 08:02 Nicotine (Nicoderm Cq 21mg) 1 patch DAILY TD 03/29/20 09:00 03/30/20 08:03 Quetiapine Fumarate (SEROquel) 100 mg QHS PO 03/28/20 21:00 03/30/20 00:07 Risperidone (RisperDAL) 1 mg QHS PO 03/28/20 21:00 03/30/20 00:07 Thiamine HCl (Thiamine HCl) 100 mg DAILY PO 03/29/20 09:00 03/30/20 08:02 Trazodone HCl (Desyrel) 50 mg QHSP PRN PO INSOMNIA 03/28/20 18:45 03/30/20 00:06 Allergies Coded Allergies: No Known Allergies (Verified , 10/17/08) BISHNU CASTREJON DO Mar 30, 2020 10:59
[2020-03-30 14:54] LABS: FREE THYROXINE INDEX 2.4 % (1.4-3.8); THYROID STIMULATING HORMONE 2.8 uIU/ML (0.358-3.740); THYROXINE (T4) 7.4 UG/DL (4.5-12.0)
[2020-03-30 16:18] VITALS: BP 116/63
[2020-03-31 06:30] VITALS: BP 127/66
[2020-03-31] MEDS: THIAMINE 100 MG TAB PO SCH (08:25)
[2020-03-31] MEDS: ChlorproMAZINE 100 MG TABLET PO SCH ×3 (08:25→21:32)
[2020-03-31] MEDS: NICOTINE 21MG/24HR 1 EA TRANSDERMAL TD SCH (08:25)
[2020-03-31] MEDS: FOLIC ACID 1 MG TAB PO SCH (08:25)
[2020-03-31] MEDS: DOCUSATE SODIUM 100 MG CAP PO SCH ×2 (08:25→21:33)
[2020-03-31] MEDS: NALTREXONE 50 MG TAB PO SCH (08:26)
[2020-03-31] MEDS: BENZTROPINE 2 MG TAB PO SCH ×2 (08:26→21:33)
[2020-03-31] MEDS: DIVALPROEX 250 MG TAB PO SCH (08:26)
--- NOTE | 2020-03-31 12:13 | MHIPNPDOC ---
[facility] Progress Note Progress Note DATE OF SERVICE: 03/31/20 Subjective HPI: Terrence presents today for a follow-up. He denies hearing any voices. Patient notes he feels well. He denies any suicidal or homicidal thoughts, or hallucinations. MEDICATIONS: He denies any side effects from current medication. Objective Appearance: Well groomed. Appears to be stated age. Well nourished. Affect: Mildly anxious at baseline. Thought Form: Generally linear. At current baseline. Thought Content: Denies any suicidal or homicidal ideation. Judgement: Bseline for patients current mental state. Insight: Baseline for patients current mental state. Assessment F20.9 Schizophrenia, unspecified Plan Continue medications Hopefully, discharged tomorrow back to [facility]. Vital Signs Vital Signs Date Time Temp Pulse Resp B/P (MAP) Pulse Ox O2 Delivery O2 Flow Rate FiO2 03/31/20 06:30 97.3 71 14 127/66 (86) Room Air 03/29/20 07:00 97 Laboratory Data 24H Labs Laboratory Tests 2 03/30/20 14:13: Thyroid Stimulating Hormone (TSH) 2.800, Free Thyroxine Index 2.4, Thyroxine (T4) 7.4, Triiodothyronine (T3) Uptake 32L Current Medications Current Medications Medications (Trade) Dose Ordered Sig/Daniel Route PRN Reason Start Time Stop Time Status Last Admin Dose Admin Acetaminophen (Tylenol Tab) 650 mg Q6HP PRN PO HEADACHE or DISCOMFORT 03/28/20 18:45 Al Hydrox/Mg Hydrox/Simethicone (Mylanta) 30 ml Q4HP PRN PO HEARTBURN/INDIGESTION 03/28/20 18:45 Benztropine Mesylate (Cogentin) 2 mg BID PO 03/28/20 21:00 03/31/20 08:26 Chlorpromazine HCl (Thorazine) 300 mg TID PO 03/28/20 21:00 03/31/20 08:25 Divalproex Sodium (Depakote) 750 mg QAM PO 03/29/20 09:00 03/31/20 08:26 Divalproex Sodium (Depakote) 1,000 mg QHS PO 03/28/20 21:00 03/30/20 20:44 Docusate Sodium (Colace) 100 mg BID PO 03/28/20 21:00 03/31/20 08:25 Folic Acid (Folic Acid) 1 mg DAILY PO 03/29/20 09:00 03/31/20 08:25 Haloperidol (Haldol) 10 mg QAM PO 03/29/20 09:00 03/30/20 12:24 DC 03/30/20 08:02 Haloperidol (Haldol) 15 mg DAILY@1500 PO 03/29/20 15:00 03/30/20 12:24 DC 03/29/20 15:19 Home Med (Med Rec Complete!) ASDIRECTED XX 03/28/20 18:00 03/28/20 17:54 DC Magnesium Hydroxide (Milk Of Magnesia) 30 ml DAILYPRN PRN PO CONSTIPATION 03/28/20 18:45 Methocarbamol (Robaxin) 500 mg TID PRN PO BACK PAIN 03/29/20 10:45 Naltrexone HCl (Revia) 50 mg DAILY PO 03/29/20 09:00 03/31/20 08:26 Nicotine (Nicoderm Cq 21mg) 1 patch DAILY TD 03/29/20 09:00 03/31/20 08:25 Quetiapine Fumarate (SEROquel) 100 mg QHS PO 03/28/20 21:00 03/30/20 20:45 Risperidone (RisperDAL) 1 mg QHS PO 03/28/20 21:00 03/30/20 20:44 Thiamine HCl (Thiamine HCl) 100 mg DAILY PO 03/29/20 09:00 03/31/20 08:25 Trazodone HCl (Desyrel) 50 mg QHSP PRN PO INSOMNIA 03/28/20 18:45 03/30/20 20:44 Allergies Coded Allergies: No Known Allergies (Verified , 10/17/08) BISHNU CASTREJON DO Mar 31, 2020 12:13
[2020-03-31 16:24] VITALS: BP 118/62
[2020-03-31] MEDS: DIVALPROEX 500 MG TAB PO SCH (21:33)
[2020-03-31] MEDS: traZODone 50 MG TAB PO PRN (21:34)
[2020-03-31] MEDS: risperiDONE 1 MG TAB PO SCH (21:34)
[2020-03-31] MEDS: QUEtiapine FUMARATE 100 MG TAB PO SCH (21:34)
[2020-04-01] MEDS: ACETAMINOPHEN TAB 650MG DOSE (2X325MG) PO PRN (04:41)
[2020-04-01 06:21] VITALS: BP 105/56
[2020-04-01] MEDS: NALTREXONE 50 MG TAB PO SCH (08:29)
[2020-04-01] MEDS: BENZTROPINE 2 MG TAB PO SCH ×2 (08:29→20:51)
[2020-04-01] MEDS: THIAMINE 100 MG TAB PO SCH (08:30)
[2020-04-01] MEDS: DIVALPROEX 250 MG TAB PO SCH (08:30)
[2020-04-01] MEDS: FOLIC ACID 1 MG TAB PO SCH (08:30)
[2020-04-01] MEDS: DOCUSATE SODIUM 100 MG CAP PO SCH ×2 (08:31→20:49)
[2020-04-01] MEDS: NICOTINE 21MG/24HR 1 EA TRANSDERMAL TD SCH (08:31)
[2020-04-01] MEDS: ChlorproMAZINE 100 MG TABLET PO SCH ×3 (08:31→20:49)
--- NOTE | 2020-04-01 13:32 | MHIPNPDOC ---
[facility] Progress Note Progress Note DATE OF SERVICE: 04/01/20 HISTORY: Terrence presents today for concerns regarding wanting to go back home. The patient stated had a cone picker order on him because a lady was worried about h im. Mentioned he had an appointment and rescheduled it because he wasnt feeling feel. Terrence stated he wants to go back home. Patient denies any substance use since his last leaving of our unit. The patient reports no psychotic symptoms other than baseline symptoms. Strains negative for other new disorders since his recent discharge. He denies hearing any voices. Patient notes he feels well. He denies any suicidal or homicidal thoughts, or hallucinations. VITAL SIGNS: See below. NEW TEST RESULTS: . CURRENT MEDICATIONS: See below. MENTAL STATUS EXAMINATION: Patient is a 54-year old Single, Disabled, Domiciled, male, who is reporting no depression, no anxiety, no suicidal/homicidal thoughts, no paranoia, no racing thoughts, no anam, denies auditory and visual hallucinations, no delusions. Speech: Is fluid, conversant, normal rate, tone and volume. Language skills are appriopriate, good. Thought processes including: linear and goal direced. Thought content: denies abnormal psychiatric symptoms. Abstract reasoning, and computation: fair/limited. Description of associations: denies and not observed with any Description of abnormal or psychotic thoughts: none Judgment: fair to good Insight: fair to good Orientation: alert and oriented Recent and remote memory: intact Attention span and concentration: fair Language: fair Fund of knowledge: below average Mood: euthymic. Affect: congruent to his mood DIAGNOSES: F20.89 Other schizophrenia ASSESSMENT: Patient seen today, alert and oriented. Reports no depression, anxiety, suicidal ideation. Reports no auditory or visual hallucinations. He is not observed with anam, paranoia, delusional thoughts, obsessions or ideas of reference. He appears to be stable and can be discharged home tomorrow. Calm and cooperative in the milieu. MANAGEMENT PLAN: Patient feels that he is stable and ready to return home. TIME SPENT: 10 minutes. Vital Signs Vital Signs Date Time Temp Pulse Resp B/P (MAP) Pulse Ox O2 Delivery O2 Flow Rate FiO2 04/01/20 06:21 97.5 63 16 105/56 (72) 98 Room Air Current Medications Current Medications Medications (Trade) Dose Ordered Sig/Daniel Route PRN Reason Start Time Stop Time Status Last Admin Dose Admin Acetaminophen (Tylenol Tab) 650 mg Q6HP PRN PO HEADACHE or DISCOMFORT 03/28/20 18:45 04/01/20 04:41 Al Hydrox/Mg Hydrox/Simethicone (Mylanta) 30 ml Q4HP PRN PO HEARTBURN/INDIGESTION 03/28/20 18:45 Benztropine Mesylate (Cogentin) 2 mg BID PO 03/28/20 21:00 04/01/20 08:29 Chlorpromazine HCl (Thorazine) 300 mg TID PO 03/28/20 21:00 04/01/20 08:31 Divalproex Sodium (Depakote) 750 mg QAM PO 03/29/20 09:00 04/01/20 08:30 Divalproex Sodium (Depakote) 1,000 mg QHS PO 03/28/20 21:00 03/31/20 21:33 Docusate Sodium (Colace) 100 mg BID PO 03/28/20 21:00 04/01/20 08:31 Folic Acid (Folic Acid) 1 mg DAILY PO 03/29/20 09:00 04/01/20 08:30 Haloperidol (Haldol) 10 mg QAM PO 03/29/20 09:00 03/30/20 12:24 DC 03/30/20 08:02 Haloperidol (Haldol) 15 mg DAILY@1500 PO 03/29/20 15:00 03/30/20 12:24 DC 03/29/20 15:19 Home Med (Med Rec Complete!) ASDIRECTED XX 03/28/20 18:00 03/28/20 17:54 DC Magnesium Hydroxide (Milk Of Magnesia) 30 ml DAILYPRN PRN PO CONSTIPATION 03/28/20 18:45 Methocarbamol (Robaxin) 500 mg TID PRN PO BACK PAIN 03/29/20 10:45 Naltrexone HCl (Revia) 50 mg DAILY PO 03/29/20 09:00 04/01/20 08:29 Nicotine (Nicoderm Cq 21mg) 1 patch DAILY TD 03/29/20 09:00 04/01/20 08:31 Quetiapine Fumarate (SEROquel) 100 mg QHS PO 03/28/20 21:00 03/31/20 21:34 Risperidone (RisperDAL) 1 mg QHS PO 03/28/20 21:00 03/31/20 21:34 Thiamine HCl (Thiamine HCl) 100 mg DAILY PO 03/29/20 09:00 04/01/20 08:30 Trazodone HCl (Desyrel) 50 mg QHSP PRN PO INSOMNIA 03/28/20 18:45 03/31/20 21:34 Allergies Coded Allergies: No Known Allergies (Verified , 10/17/08) CATARINA YOUSSEF NP Apr 01, 2020 13:32
[2020-04-01 18:00] VITALS: BP 142/69
[2020-04-01] MEDS: QUEtiapine FUMARATE 100 MG TAB PO SCH (20:50)
[2020-04-01] MEDS: risperiDONE 1 MG TAB PO SCH (20:51)
[2020-04-01] MEDS: DIVALPROEX 500 MG TAB PO SCH (20:51)
[2020-04-01] MEDS: traZODone 50 MG TAB PO PRN (20:51)
[2020-04-02 06:47] VITALS: BP 109/56
[2020-04-02] MEDS: NALTREXONE 50 MG TAB PO SCH (08:18)
[2020-04-02] MEDS: BENZTROPINE 2 MG TAB PO SCH ×2 (08:18→21:43)
[2020-04-02] MEDS: FOLIC ACID 1 MG TAB PO SCH (08:20)
[2020-04-02] MEDS: ChlorproMAZINE 100 MG TABLET PO SCH ×3 (08:20→21:42)
[2020-04-02] MEDS: DOCUSATE SODIUM 100 MG CAP PO SCH ×2 (08:20→21:42)
[2020-04-02] MEDS: THIAMINE 100 MG TAB PO SCH (08:20)
[2020-04-02] MEDS: DIVALPROEX 250 MG TAB PO SCH (08:20)
[2020-04-02] MEDS: NICOTINE 21MG/24HR 1 EA TRANSDERMAL TD SCH (09:00)
--- NOTE | 2020-04-02 09:27 | MHIPNPDOC ---
[facility] Progress Note Progress Note DATE OF SERVICE: 04/02/20 Subjective HPI: Terrence presents today for concerns regarding paranoia per staffing at facility. Last night he reported that he felt like he was stabbed and had a small cut on his finger. Patient does not have much insight into this and continued to say that he had not said such things. Spoke to AOT coordinator today and reportedly his outpatient provider as well as TLS have seen a much different picture multiple times. It appears the patient has been concealing his symptoms and generally as much different back in the group house. Objective Appearance: Appears to be stated age. Well nourished. Well groomed. Affect: Flat. Anxious intermittently. Thought Content: No evidence of aggressive or homicidal ideation. No thoughts of self harm. No evidence of suicidal ideation. No evidence of delusions. Judgement: Tangential. Insight: Poor. Assessment F20.0 Paranoid schizophrenia Plan Patient will likely need long-term treatment as it appears his symptoms have not improved much and that he generally attempts to conceal them from his provider. Continue Thorazine, Risperidone, inVega, Seroquel, Trazadone, and Naltrexone. Vital Signs Vital Signs Date Time Temp Pulse Resp B/P (MAP) Pulse Ox O2 Delivery O2 Flow Rate FiO2 04/02/20 06:47 97.8 88 17 109/56 (73) 96 Room Air Current Medications Current Medications Medications (Trade) Dose Ordered Sig/Daniel Route PRN Reason Start Time Stop Time Status Last Admin Dose Admin Acetaminophen (Tylenol Tab) 650 mg Q6HP PRN PO HEADACHE or DISCOMFORT 03/28/20 18:45 04/01/20 04:41 Al Hydrox/Mg Hydrox/Simethicone (Mylanta) 30 ml Q4HP PRN PO HEARTBURN/INDIGESTION 03/28/20 18:45 Benztropine Mesylate (Cogentin) 2 mg BID PO 03/28/20 21:00 04/02/20 08:18 Chlorpromazine HCl (Thorazine) 300 mg TID PO 03/28/20 21:00 04/02/20 08:20 Divalproex Sodium (Depakote) 750 mg QAM PO 03/29/20 09:00 04/02/20 08:20 Divalproex Sodium (Depakote) 1,000 mg QHS PO 03/28/20 21:00 04/01/20 20:51 Docusate Sodium (Colace) 100 mg BID PO 03/28/20 21:00 04/02/20 08:20 Folic Acid (Folic Acid) 1 mg DAILY PO 03/29/20 09:00 04/02/20 08:20 Haloperidol (Haldol) 10 mg QAM PO 03/29/20 09:00 03/30/20 12:24 DC 03/30/20 08:02 Haloperidol (Haldol) 15 mg DAILY@1500 PO 03/29/20 15:00 03/30/20 12:24 DC 03/29/20 15:19 Home Med (Med Rec Complete!) ASDIRECTED XX 03/28/20 18:00 03/28/20 17:54 DC Magnesium Hydroxide (Milk Of Magnesia) 30 ml DAILYPRN PRN PO CONSTIPATION 03/28/20 18:45 Methocarbamol (Robaxin) 500 mg TID PRN PO BACK PAIN 03/29/20 10:45 Naltrexone HCl (Revia) 50 mg DAILY PO 03/29/20 09:00 04/02/20 08:18 Nicotine (Nicoderm Cq 21mg) 1 patch DAILY TD 03/29/20 09:00 04/01/20 08:31 Quetiapine Fumarate (SEROquel) 100 mg QHS PO 03/28/20 21:00 04/01/20 20:50 Risperidone (RisperDAL) 1 mg QHS PO 03/28/20 21:00 04/01/20 20:51 Thiamine HCl (Thiamine HCl) 100 mg DAILY PO 03/29/20 09:00 04/02/20 08:20 Trazodone HCl (Desyrel) 50 mg QHSP PRN PO INSOMNIA 03/28/20 18:45 04/01/20 20:51 Allergies Coded Allergies: No Known Allergies (Verified , 10/17/08) BISHNU CASTREJON DO Apr 02, 2020 09:27
[2020-04-02 18:16] VITALS: BP 125/56
[2020-04-02] MEDS: QUEtiapine FUMARATE 100 MG TAB PO SCH (21:43)
[2020-04-02] MEDS: DIVALPROEX 500 MG TAB PO SCH (21:43)
[2020-04-02] MEDS: risperiDONE 1 MG TAB PO SCH (21:43)
[2020-04-03 07:09] VITALS: BP 113/59
[2020-04-03] MEDS: ChlorproMAZINE 100 MG TABLET PO SCH ×3 (08:08→20:28)
[2020-04-03] MEDS: THIAMINE 100 MG TAB PO SCH (08:08)
[2020-04-03] MEDS: BENZTROPINE 2 MG TAB PO SCH ×2 (08:08→20:28)
[2020-04-03] MEDS: DIVALPROEX 250 MG TAB PO SCH (08:08)
[2020-04-03] MEDS: DOCUSATE SODIUM 100 MG CAP PO SCH ×2 (08:08→20:28)
[2020-04-03] MEDS: FOLIC ACID 1 MG TAB PO SCH (08:08)
[2020-04-03] MEDS: NALTREXONE 50 MG TAB PO SCH (08:08)
[2020-04-03] MEDS: NICOTINE 21MG/24HR 1 EA TRANSDERMAL TD SCH (08:09)
--- NOTE | 2020-04-03 09:59 | MHIPNPDOC ---
[facility] Progress Note Progress Note DATE OF SERVICE: 04/03/20 Subjective HPI: Patient met with multiple times during the day as he continues to harass his provider about when he will go. Discussed with patient that he will likely be staying with us for some time as he has not been able to stay stable as an outpatient, and has had multiple re-admissions. This appears to have little effect on the patients continual asking, as he appears to have very poor insight into the issue. Objective Cognition: Anxious with psychomotor agitation. Pacing asking the same question over and over again. Thought Form: Tangential. Judgement: Poor. Insight: Poor. Assessment F20.9 Schizophrenia, unspecified Plan Continue medications. Will likely refer to [place] for long-term treatment. Vital Signs Vital Signs Date Time Temp Pulse Resp B/P (MAP) Pulse Ox O2 Delivery O2 Flow Rate FiO2 04/03/20 08:03 Room Air 04/03/20 07:09 96.9 72 20 113/59 (77) 96 Current Medications Current Medications Medications (Trade) Dose Ordered Sig/Daniel Route PRN Reason Start Time Stop Time Status Last Admin Dose Admin Acetaminophen (Tylenol Tab) 650 mg Q6HP PRN PO HEADACHE or DISCOMFORT 03/28/20 18:45 04/01/20 04:41 Al Hydrox/Mg Hydrox/Simethicone (Mylanta) 30 ml Q4HP PRN PO HEARTBURN/INDIGESTION 03/28/20 18:45 Benztropine Mesylate (Cogentin) 2 mg BID PO 03/28/20 21:00 04/03/20 08:08 Chlorpromazine HCl (Thorazine) 300 mg TID PO 03/28/20 21:00 04/03/20 08:08 Divalproex Sodium (Depakote) 750 mg QAM PO 03/29/20 09:00 04/03/20 08:08 Divalproex Sodium (Depakote) 1,000 mg QHS PO 03/28/20 21:00 04/02/20 21:43 Docusate Sodium (Colace) 100 mg BID PO 03/28/20 21:00 04/03/20 08:08 Folic Acid (Folic Acid) 1 mg DAILY PO 03/29/20 09:00 04/03/20 08:08 Haloperidol (Haldol) 10 mg QAM PO 03/29/20 09:00 03/30/20 12:24 DC 03/30/20 08:02 Haloperidol (Haldol) 15 mg DAILY@1500 PO 03/29/20 15:00 03/30/20 12:24 DC 03/29/20 15:19 Home Med (Med Rec Complete!) ASDIRECTED XX 03/28/20 18:00 03/28/20 17:54 DC Magnesium Hydroxide (Milk Of Magnesia) 30 ml DAILYPRN PRN PO CONSTIPATION 03/28/20 18:45 Methocarbamol (Robaxin) 500 mg TID PRN PO BACK PAIN 03/29/20 10:45 Naltrexone HCl (Revia) 50 mg DAILY PO 03/29/20 09:00 04/03/20 08:08 Nicotine (Nicoderm Cq 21mg) 1 patch DAILY TD 03/29/20 09:00 04/03/20 08:09 Quetiapine Fumarate (SEROquel) 100 mg QHS PO 03/28/20 21:00 04/02/20 21:43 Risperidone (RisperDAL) 1 mg QHS PO 03/28/20 21:00 04/02/20 21:43 Thiamine HCl (Thiamine HCl) 100 mg DAILY PO 03/29/20 09:00 04/03/20 08:08 Trazodone HCl (Desyrel) 50 mg QHSP PRN PO INSOMNIA 03/28/20 18:45 04/01/20 20:51 Allergies Coded Allergies: No Known Allergies (Verified , 10/17/08) BISHNU CASTREJON DO Apr 03, 2020 09:59
[2020-04-03 15:41] VITALS: BP 131/71
[2020-04-03] MEDS: QUEtiapine FUMARATE 100 MG TAB PO SCH (20:28)
[2020-04-03] MEDS: risperiDONE 1 MG TAB PO SCH (20:28)
[2020-04-03] MEDS: DIVALPROEX 500 MG TAB PO SCH (20:28)
[2020-04-03] MEDS: ACETAMINOPHEN TAB 650MG DOSE (2X325MG) PO PRN (20:37)
[2020-04-04 06:41] VITALS: BP 107/55
[2020-04-04] MEDS: BENZTROPINE 2 MG TAB PO SCH ×2 (08:42→21:00)
[2020-04-04] MEDS: FOLIC ACID 1 MG TAB PO SCH (08:44)
[2020-04-04] MEDS: THIAMINE 100 MG TAB PO SCH (08:44)
[2020-04-04] MEDS: NALTREXONE 50 MG TAB PO SCH (08:44)
[2020-04-04] MEDS: DOCUSATE SODIUM 100 MG CAP PO SCH ×2 (08:44→21:00)
[2020-04-04] MEDS: ChlorproMAZINE 100 MG TABLET PO SCH ×3 (08:45→21:00)
[2020-04-04] MEDS: DIVALPROEX 250 MG TAB PO SCH (08:45)
[2020-04-04] MEDS: NICOTINE 21MG/24HR 1 EA TRANSDERMAL TD SCH (08:45)
--- NOTE | 2020-04-04 10:32 | MHIPNPDOC ---
[facility] Progress Note Progress Note DATE OF SERVICE: 04/04/20 Subjective HPI: The patient is met with today, however he continues to ask this provider multiple times if he can be led to leave, appears unable to understand the nature of his admission and the multiple readmissions he's had. He continues to be unusual and psychotic. Objective General: poor Speech: rapid Thought processes: tangential Thought content: psychotic delusions Abstract reasoning, and computation: impaired Description of associations: imparied Description of abnormal or psychotic thoughts:Unclear, appears to have psychotic processes going on. Judgment: poor Insight: poor Orientation: Alert and orientated 3 Recent and remote memory: Intact Attention span and concentration: impaired secondary to thought process Fund of knowledge: unable to determine Mood: "I want to go home" Affect: flat, little reactivity Assessment schizoaffective disorder Plan , Will continue patient's complex medication regiment of Seroquel, risperidone, Thorazine, didn't get his most recent paliperidone injection. However, his medication regiment due to his AOT is extraordinarily complex and will likely need to be reevaluated. Referral to long-term care is in process Vital Signs Vital Signs Date Time Temp Pulse Resp B/P (MAP) Pulse Ox O2 Delivery O2 Flow Rate FiO2 04/04/20 06:41 97.3 89 14 107/55 (72) Room Air 04/03/20 07:09 96 Current Medications Current Medications Medications (Trade) Dose Ordered Sig/Daniel Route PRN Reason Start Time Stop Time Status Last Admin Dose Admin Acetaminophen (Tylenol Tab) 650 mg Q6HP PRN PO HEADACHE or DISCOMFORT 03/28/20 18:45 04/03/20 20:37 Al Hydrox/Mg Hydrox/Simethicone (Mylanta) 30 ml Q4HP PRN PO HEARTBURN/INDIGESTION 03/28/20 18:45 Benztropine Mesylate (Cogentin) 2 mg BID PO 03/28/20 21:00 04/04/20 08:42 Chlorpromazine HCl (Thorazine) 300 mg TID PO 03/28/20 21:00 04/04/20 08:45 Divalproex Sodium (Depakote) 750 mg QAM PO 03/29/20 09:00 04/04/20 08:45 Divalproex Sodium (Depakote) 1,000 mg QHS PO 03/28/20 21:00 04/03/20 20:28 Docusate Sodium (Colace) 100 mg BID PO 03/28/20 21:00 04/04/20 08:44 Folic Acid (Folic Acid) 1 mg DAILY PO 03/29/20 09:00 04/04/20 08:44 Haloperidol (Haldol) 10 mg QAM PO 03/29/20 09:00 03/30/20 12:24 DC 03/30/20 08:02 Haloperidol (Haldol) 15 mg DAILY@1500 PO 03/29/20 15:00 03/30/20 12:24 DC 03/29/20 15:19 Home Med (Med Rec Complete!) ASDIRECTED XX 03/28/20 18:00 03/28/20 17:54 DC Magnesium Hydroxide (Milk Of Magnesia) 30 ml DAILYPRN PRN PO CONSTIPATION 03/28/20 18:45 Methocarbamol (Robaxin) 500 mg TID PRN PO BACK PAIN 03/29/20 10:45 Naltrexone HCl (Revia) 50 mg DAILY PO 03/29/20 09:00 04/04/20 08:44 Nicotine (Nicoderm Cq 21mg) 1 patch DAILY TD 03/29/20 09:00 04/04/20 08:45 Quetiapine Fumarate (SEROquel) 100 mg QHS PO 03/28/20 21:00 04/03/20 20:28 Risperidone (RisperDAL) 1 mg QHS PO 03/28/20 21:00 04/03/20 20:28 Thiamine HCl (Thiamine HCl) 100 mg DAILY PO 03/29/20 09:00 04/04/20 08:44 Trazodone HCl (Desyrel) 50 mg QHSP PRN PO INSOMNIA 03/28/20 18:45 04/01/20 20:51 Allergies Coded Allergies: No Known Allergies (Verified , 10/17/08) BISHNU CASTREJON DO Apr 04, 2020 10:32
[2020-04-04 18:37] VITALS: BP 120/60
[2020-04-04] MEDS: risperiDONE 1 MG TAB PO SCH (21:00)
[2020-04-04] MEDS: QUEtiapine FUMARATE 100 MG TAB PO SCH (21:00)
[2020-04-04] MEDS: DIVALPROEX 500 MG TAB PO SCH (21:00)
[2020-04-05 06:48] VITALS: BP 148/85
[2020-04-05] MEDS: BENZTROPINE 2 MG TAB PO SCH ×2 (08:29→20:04)
[2020-04-05] MEDS: NALTREXONE 50 MG TAB PO SCH (08:29)
[2020-04-05] MEDS: DIVALPROEX 250 MG TAB PO SCH (08:30)
[2020-04-05] MEDS: FOLIC ACID 1 MG TAB PO SCH (08:31)
[2020-04-05] MEDS: THIAMINE 100 MG TAB PO SCH (08:31)
[2020-04-05] MEDS: NICOTINE 21MG/24HR 1 EA TRANSDERMAL TD SCH (08:31)
[2020-04-05] MEDS: DOCUSATE SODIUM 100 MG CAP PO SCH ×2 (08:31→20:04)
[2020-04-05] MEDS: ChlorproMAZINE 100 MG TABLET PO SCH ×3 (08:31→20:03)
--- NOTE | 2020-04-05 10:24 | MHIPNPDOC ---
[facility] Progress Note Progress Note DATE OF SERVICE: 04/05/20 Subjective HPI: The patient is met with today, he reports that he still wants to go home but has very little insight into the problems, he appears quite convinced that a "gunshot" had gone off in the floor above us and when to a tangent about how he hears gunshots, staff report that he is been yelling at himself and screaming at unseen others. Objective General: poor Speech: rapid Thought processes: tangential Thought content: psychotic delusions Abstract reasoning, and computation: impaired Description of associations: imparied Description of abnormal or psychotic thoughts:Unclear, appears to have psychotic processes going on. Judgment: poor Insight: poor Orientation: Alert and orientated 3 Recent and remote memory: Intact Attention span and concentration: impaired secondary to thought process Fund of knowledge: unable to determine Mood: "I want to go home" Affect: flat, little reactivity Assessment schizophrenia Plan Will continue medications with increase of Seroquel to 200 mg nightly, continue risperidone, Thorazine, naltrexone and trazodone at current as these are part of his AOT medications. Will continue with referral for long-term is appears that he decompensate quite quickly, and will need much more long-term treatment if not even electroconvulsive Vital Signs Vital Signs Date Time Temp Pulse Resp B/P (MAP) Pulse Ox O2 Delivery O2 Flow Rate FiO2 04/05/20 06:48 97.8 61 14 148/85 (106) Room Air 04/04/20 18:37 60 Current Medications Current Medications Medications (Trade) Dose Ordered Sig/Daniel Route PRN Reason Start Time Stop Time Status Last Admin Dose Admin Acetaminophen (Tylenol Tab) 650 mg Q6HP PRN PO HEADACHE or DISCOMFORT 03/28/20 18:45 04/03/20 20:37 Al Hydrox/Mg Hydrox/Simethicone (Mylanta) 30 ml Q4HP PRN PO HEARTBURN/INDIGESTION 03/28/20 18:45 Benztropine Mesylate (Cogentin) 2 mg BID PO 03/28/20 21:00 04/05/20 08:29 Chlorpromazine HCl (Thorazine) 300 mg TID PO 03/28/20 21:00 04/05/20 08:31 Divalproex Sodium (Depakote) 750 mg QAM PO 03/29/20 09:00 04/05/20 08:30 Divalproex Sodium (Depakote) 1,000 mg QHS PO 03/28/20 21:00 04/03/20 20:28 Docusate Sodium (Colace) 100 mg BID PO 03/28/20 21:00 04/05/20 08:31 Folic Acid (Folic Acid) 1 mg DAILY PO 03/29/20 09:00 04/05/20 08:31 Haloperidol (Haldol) 10 mg QAM PO 03/29/20 09:00 03/30/20 12:24 DC 03/30/20 08:02 Haloperidol (Haldol) 15 mg DAILY@1500 PO 03/29/20 15:00 03/30/20 12:24 DC 03/29/20 15:19 Home Med (Med Rec Complete!) ASDIRECTED XX 03/28/20 18:00 03/28/20 17:54 DC Magnesium Hydroxide (Milk Of Magnesia) 30 ml DAILYPRN PRN PO CONSTIPATION 03/28/20 18:45 Methocarbamol (Robaxin) 500 mg TID PRN PO BACK PAIN 03/29/20 10:45 Naltrexone HCl (Revia) 50 mg DAILY PO 03/29/20 09:00 04/05/20 08:29 Nicotine (Nicoderm Cq 21mg) 1 patch DAILY TD 03/29/20 09:00 04/05/20 08:31 Quetiapine Fumarate (SEROquel) 100 mg QHS PO 03/28/20 21:00 04/03/20 20:28 Risperidone (RisperDAL) 1 mg QHS PO 03/28/20 21:00 04/03/20 20:28 Thiamine HCl (Thiamine HCl) 100 mg DAILY PO 03/29/20 09:00 04/05/20 08:31 Trazodone HCl (Desyrel) 50 mg QHSP PRN PO INSOMNIA 03/28/20 18:45 04/01/20 20:51 Allergies Coded Allergies: No Known Allergies (Verified , 10/17/08) BISHNU CASTREJON DO Apr 05, 2020 10:24
[2020-04-05] MEDS ORDERED: LORazepam 0.5 MG TAB PO ONE (12:00)
[2020-04-05] MEDS: ACETAMINOPHEN TAB 650MG DOSE (2X325MG) PO PRN ×2 (15:33→22:12)
[2020-04-05 18:46] VITALS: BP 125/67
[2020-04-05] MEDS: traZODone 50 MG TAB PO PRN (20:04)
[2020-04-05] MEDS: risperiDONE 1 MG TAB PO SCH (20:04)
[2020-04-05] MEDS: DIVALPROEX 500 MG TAB PO SCH (20:04)
[2020-04-05] MEDS: QUEtiapine FUMARATE 100 MG TAB PO SCH (20:04)
[2020-04-05] MEDS: LORazepam 1 MG TAB PO PRN (22:10)
[2020-04-06 06:30] VITALS: BP 123/64
[2020-04-06] MEDS: ChlorproMAZINE 100 MG TABLET PO SCH ×3 (08:32→21:33)
[2020-04-06] MEDS: DIVALPROEX 250 MG TAB PO SCH (08:32)
[2020-04-06] MEDS: ACETAMINOPHEN TAB 650MG DOSE (2X325MG) PO PRN (08:33)
[2020-04-06] MEDS: NICOTINE 21MG/24HR 1 EA TRANSDERMAL TD SCH (08:33)
[2020-04-06] MEDS: FOLIC ACID 1 MG TAB PO SCH (08:33)
[2020-04-06] MEDS: NALTREXONE 50 MG TAB PO SCH (08:33)
[2020-04-06] MEDS: BENZTROPINE 2 MG TAB PO SCH ×2 (08:33→21:34)
[2020-04-06] MEDS: THIAMINE 100 MG TAB PO SCH (08:33)
[2020-04-06] MEDS: DOCUSATE SODIUM 100 MG CAP PO SCH ×2 (08:33→21:34)
[2020-04-06] MEDS: MOM 30ML SUSPENSION UDC PO PRN (12:39)
[2020-04-06 18:00] VITALS: BP 106/65
[2020-04-06] MEDS: DIVALPROEX 500 MG TAB PO SCH (21:33)
[2020-04-06] MEDS: risperiDONE 1 MG TAB PO SCH (21:34)
[2020-04-06] MEDS: QUEtiapine FUMARATE 100 MG TAB PO SCH (21:34)
[2020-04-06] MEDS: traZODone 50 MG TAB PO PRN (21:35)
[2020-04-07] MEDS: ACETAMINOPHEN TAB 650MG DOSE (2X325MG) PO PRN ×2 (04:39→08:50)
[2020-04-07 06:27] VITALS: BP 101/67
[2020-04-07] MEDS: DIVALPROEX 250 MG TAB PO SCH (08:47)
[2020-04-07] MEDS: NICOTINE 21MG/24HR 1 EA TRANSDERMAL TD SCH (08:49)
[2020-04-07] MEDS: THIAMINE 100 MG TAB PO SCH (08:50)
[2020-04-07] MEDS: BENZTROPINE 2 MG TAB PO SCH ×2 (08:50→21:10)
[2020-04-07] MEDS: NALTREXONE 50 MG TAB PO SCH (08:50)
[2020-04-07] MEDS: FOLIC ACID 1 MG TAB PO SCH (08:50)
[2020-04-07] MEDS: ChlorproMAZINE 100 MG TABLET PO SCH ×3 (08:50→21:09)
[2020-04-07] MEDS: DOCUSATE SODIUM 100 MG CAP PO SCH ×2 (09:00→21:10)
[2020-04-07 17:53] VITALS: BP 124/74
[2020-04-07] MEDS: DIVALPROEX 500 MG TAB PO SCH (21:09)
[2020-04-07] MEDS: QUEtiapine FUMARATE 100 MG TAB PO SCH (21:10)
[2020-04-07] MEDS: risperiDONE 1 MG TAB PO SCH (21:10)
[2020-04-07] MEDS: traZODone 50 MG TAB PO PRN (21:10)
[2020-04-08 06:50] VITALS: BP 135/90
[2020-04-08] MEDS: NICOTINE 21MG/24HR 1 EA TRANSDERMAL TD SCH (08:57)
[2020-04-08] MEDS: BENZTROPINE 2 MG TAB PO SCH ×2 (08:57→21:01)
[2020-04-08] MEDS: DOCUSATE SODIUM 100 MG CAP PO SCH ×2 (08:57→21:01)
[2020-04-08] MEDS: FOLIC ACID 1 MG TAB PO SCH (08:57)
[2020-04-08] MEDS: NALTREXONE 50 MG TAB PO SCH (08:57)
[2020-04-08] MEDS: ChlorproMAZINE 100 MG TABLET PO SCH ×3 (08:57→21:01)
[2020-04-08] MEDS: DIVALPROEX 250 MG TAB PO SCH (08:57)
[2020-04-08] MEDS: THIAMINE 100 MG TAB PO SCH (08:58)
--- NOTE | 2020-04-08 10:00 | MHIPNPDOC ---
[facility] Progress Note Progress Note DATE OF SERVICE: 04/08/20 Subjective HPI: Terrence presents today for a follow up and was met with today in his room. However, he generally reports that he is doing well with his medications but staff reports that his weekend was quite disruptive. Patient had been hearing voices and having various experiences where he felt that people were using chainsaws around him. Patient has very little insight into this and is unable to explain it other than decline it. He does state that he really does feel that people are shooting guns outside and was quite frightened. He continues to not remember later in the day and repeatedly asks if he can go home. Objective Behavior: Cooperative with good eye contact. Repeating behavior. Engaged. Speech: Normal rate. Normal volume. Spontaneous and Fluid. Cognition: Impaired secondary of thought process. Thought Content: No evidence of delusions. No evidence of suicidal ideation. No evidence of aggressive or homicidal ideation. Appears to respond to internal stimuli at times. No thoughts of self harm. Judgement: Poor. Insight: Poor. Assessment F20.89 Other schizophrenia Plan Continue current combination, will increase Seroquel to 200 mg nightly to see if this might help. However, his AOT does constrain us in terms of medication options. Given his complex medication management, simplification would likely be more useful. However, he will likely need long-term treatment conversion to provider certification today as it appears that he is unable to stay controlled as an outpatient and thus will need to continue. Vital Signs Vital Signs Date Time Temp Pulse Resp B/P (MAP) Pulse Ox O2 Delivery O2 Flow Rate FiO2 04/08/20 06:50 97.6 64 16 135/90 (105) 96 Room Air Current Medications Current Medications Medications (Trade) Dose Ordered Sig/Daniel Route PRN Reason Start Time Stop Time Status Last Admin Dose Admin Acetaminophen (Tylenol Tab) 650 mg Q6HP PRN PO HEADACHE or DISCOMFORT 03/28/20 18:45 04/07/20 08:50 Al Hydrox/Mg Hydrox/Simethicone (Mylanta) 30 ml Q4HP PRN PO HEARTBURN/INDIGESTION 03/28/20 18:45 Benztropine Mesylate (Cogentin) 2 mg BID PO 03/28/20 21:00 04/08/20 08:57 Chlorpromazine HCl (Thorazine) 300 mg TID PO 03/28/20 21:00 04/08/20 08:57 Divalproex Sodium (Depakote) 750 mg QAM PO 03/29/20 09:00 04/08/20 08:57 Divalproex Sodium (Depakote) 1,000 mg QHS PO 03/28/20 21:00 04/07/20 21:09 Docusate Sodium (Colace) 100 mg BID PO 03/28/20 21:00 04/08/20 08:57 Folic Acid (Folic Acid) 1 mg DAILY PO 03/29/20 09:00 04/08/20 08:57 Haloperidol (Haldol) 10 mg QAM PO 03/29/20 09:00 03/30/20 12:24 DC 03/30/20 08:02 Haloperidol (Haldol) 15 mg DAILY@1500 PO 03/29/20 15:00 03/30/20 12:24 DC 03/29/20 15:19 Home Med (Med Rec Complete!) ASDIRECTED XX 03/28/20 18:00 03/28/20 17:54 DC Lorazepam (Ativan) 1 mg Q4HP PRN PO ANXIETY/AGITATION 04/05/20 22:15 04/05/20 22:10 Magnesium Hydroxide (Milk Of Magnesia) 30 ml DAILYPRN PRN PO CONSTIPATION 03/28/20 18:45 04/06/20 12:39 Methocarbamol (Robaxin) 500 mg TID PRN PO BACK PAIN 03/29/20 10:45 Naltrexone HCl (Revia) 50 mg DAILY PO 03/29/20 09:00 04/08/20 08:57 Nicotine (Nicoderm Cq 21mg) 1 patch DAILY TD 03/29/20 09:00 04/08/20 08:57 Quetiapine Fumarate (SEROquel) 100 mg QHS PO 03/28/20 21:00 04/05/20 12:08 DC 04/03/20 20:28 Quetiapine Fumarate (SEROquel) 200 mg QHS PO 04/05/20 21:00 04/07/20 21:10 Risperidone (RisperDAL) 1 mg QHS PO 03/28/20 21:00 04/07/20 21:10 Thiamine HCl (Thiamine HCl) 100 mg DAILY PO 03/29/20 09:00 04/08/20 08:58 Trazodone HCl (Desyrel) 50 mg QHSP PRN PO INSOMNIA 03/28/20 18:45 04/07/20 21:10 Allergies Coded Allergies: No Known Allergies (Verified , 10/17/08) BISHNU CASTREJON DO Apr 08, 2020 10:00
[2020-04-08] MEDS: ACETAMINOPHEN TAB 650MG DOSE (2X325MG) PO PRN (10:32)
[2020-04-08 16:10] VITALS: BP 117/59
[2020-04-08] MEDS: traZODone 50 MG TAB PO PRN (21:01)
[2020-04-08] MEDS: QUEtiapine FUMARATE 100 MG TAB PO SCH (21:02)
[2020-04-08] MEDS: DIVALPROEX 500 MG TAB PO SCH (21:03)
[2020-04-08] MEDS: risperiDONE 1 MG TAB PO SCH (21:03)
[2020-04-09 06:36] VITALS: BP 133/79
[2020-04-09] MEDS: NICOTINE 21MG/24HR 1 EA TRANSDERMAL TD SCH (08:23)
[2020-04-09] MEDS: DIVALPROEX 250 MG TAB PO SCH (08:23)
[2020-04-09] MEDS: NALTREXONE 50 MG TAB PO SCH (08:24)
[2020-04-09] MEDS: BENZTROPINE 2 MG TAB PO SCH ×2 (08:24→20:25)
[2020-04-09] MEDS: THIAMINE 100 MG TAB PO SCH (08:24)
[2020-04-09] MEDS: FOLIC ACID 1 MG TAB PO SCH (08:24)
[2020-04-09] MEDS: DOCUSATE SODIUM 100 MG CAP PO SCH ×2 (08:24→20:25)
[2020-04-09] MEDS: ChlorproMAZINE 100 MG TABLET PO SCH ×3 (09:14→20:24)
--- NOTE | 2020-04-09 10:19 | MHIPNPDOC ---
[facility] Progress Note Progress Note DATE OF SERVICE: 04/09/20 Subjective HPI: Terrence presents today for concerns regarding his Schizophrenia condition. He no longer hears gunshots. No more suicidal, or homicidal thoughts. No heart palpitations. Objective Appearance: Well groomed. Well nourished. Appears to be stated age. Affect: Anxious. Cognition: Impaired secondary to thought process. Doesnt answer questions directly. Thought Form: Focused on going home. Insight: Poor. Assessment F20.9 Schizophrenia, unspecified Plan Continue medications at this time. Video meeting with aot provider for secondary evaluation. Gauge his baseline from previously by treating provider to determine if he is close to baseline or not. His behavior of hearing gunshots and others seems to be problematic, and he will likely need to go roasterman. Unless aot can add extra medications but will be hard as it is currently constricted due to outpatient limitations on what he can be tried on. Vital Signs Vital Signs Date Time Temp Pulse Resp B/P (MAP) Pulse Ox O2 Delivery O2 Flow Rate FiO2 04/09/20 06:36 97.3 62 18 133/79 (97) Room Air 04/08/20 06:50 96 Current Medications Current Medications Medications (Trade) Dose Ordered Sig/Daniel Route PRN Reason Start Time Stop Time Status Last Admin Dose Admin Acetaminophen (Tylenol Tab) 650 mg Q6HP PRN PO HEADACHE or DISCOMFORT 03/28/20 18:45 04/08/20 10:32 Al Hydrox/Mg Hydrox/Simethicone (Mylanta) 30 ml Q4HP PRN PO HEARTBURN/INDIGESTION 03/28/20 18:45 Benztropine Mesylate (Cogentin) 2 mg BID PO 03/28/20 21:00 04/09/20 08:24 Chlorpromazine HCl (Thorazine) 300 mg TID PO 03/28/20 21:00 04/09/20 09:14 Divalproex Sodium (Depakote) 750 mg QAM PO 03/29/20 09:00 04/09/20 08:23 Divalproex Sodium (Depakote) 1,000 mg QHS PO 03/28/20 21:00 04/08/20 21:03 Docusate Sodium (Colace) 100 mg BID PO 03/28/20 21:00 04/09/20 08:24 Folic Acid (Folic Acid) 1 mg DAILY PO 03/29/20 09:00 04/09/20 08:24 Haloperidol (Haldol) 10 mg QAM PO 03/29/20 09:00 03/30/20 12:24 DC 03/30/20 08:02 Haloperidol (Haldol) 15 mg DAILY@1500 PO 03/29/20 15:00 03/30/20 12:24 DC 03/29/20 15:19 Home Med (Med Rec Complete!) ASDIRECTED XX 03/28/20 18:00 03/28/20 17:54 DC Lorazepam (Ativan) 1 mg Q4HP PRN PO ANXIETY/AGITATION 04/05/20 22:15 04/05/20 22:10 Magnesium Hydroxide (Milk Of Magnesia) 30 ml DAILYPRN PRN PO CONSTIPATION 03/28/20 18:45 04/06/20 12:39 Methocarbamol (Robaxin) 500 mg TID PRN PO BACK PAIN 03/29/20 10:45 Naltrexone HCl (Revia) 50 mg DAILY PO 03/29/20 09:00 04/09/20 08:24 Nicotine (Nicoderm Cq 21mg) 1 patch DAILY TD 03/29/20 09:00 04/09/20 08:23 Quetiapine Fumarate (SEROquel) 100 mg QHS PO 03/28/20 21:00 04/05/20 12:08 DC 04/03/20 20:28 Quetiapine Fumarate (SEROquel) 200 mg QHS PO 04/05/20 21:00 04/08/20 11:34 DC 04/07/20 21:10 Quetiapine Fumarate (SEROquel) 300 mg QHS PO 04/08/20 21:00 04/08/20 21:02 Risperidone (RisperDAL) 1 mg QHS PO 03/28/20 21:00 04/08/20 21:03 Thiamine HCl (Thiamine HCl) 100 mg DAILY PO 03/29/20 09:00 04/09/20 08:24 Trazodone HCl (Desyrel) 50 mg QHSP PRN PO INSOMNIA 03/28/20 18:45 04/08/20 21:01 Allergies Coded Allergies: No Known Allergies (Verified , 10/17/08) BISHNU CASTREJON DO Apr 09, 2020 10:19
[2020-04-09 16:14] VITALS: BP 115/65
[2020-04-09] MEDS: ACETAMINOPHEN TAB 650MG DOSE (2X325MG) PO PRN (17:16)
[2020-04-09] MEDS: QUEtiapine FUMARATE 100 MG TAB PO SCH (20:25)
[2020-04-09] MEDS: risperiDONE 1 MG TAB PO SCH (20:25)
[2020-04-09] MEDS: DIVALPROEX 500 MG TAB PO SCH (20:25)
[2020-04-10 06:33] VITALS: BP 143/67
[2020-04-10] MEDS: NICOTINE 21MG/24HR 1 EA TRANSDERMAL TD SCH (08:29)
[2020-04-10] MEDS: FOLIC ACID 1 MG TAB PO SCH (08:30)
[2020-04-10] MEDS: NALTREXONE 50 MG TAB PO SCH (08:30)
[2020-04-10] MEDS: BENZTROPINE 2 MG TAB PO SCH ×2 (08:30→21:00)
[2020-04-10] MEDS: DOCUSATE SODIUM 100 MG CAP PO SCH ×2 (08:30→21:00)
[2020-04-10] MEDS: ChlorproMAZINE 100 MG TABLET PO SCH ×3 (08:30→21:00)
[2020-04-10] MEDS: THIAMINE 100 MG TAB PO SCH (08:30)
[2020-04-10] MEDS: DIVALPROEX 250 MG TAB PO SCH (08:31)
--- NOTE | 2020-04-10 09:09 | MHIPNPDOC ---
[facility] Progress Note Progress Note DATE OF SERVICE: 04/10/20 Subjective HPI: The patient was met with today. He continues to report that Nothing's wrong but continues to be quite anxious, pacing back and forth asking various providers questions, but unable to be redirected effectively. Continues to be quite distorted, feeling that he's hearing gunshots. Objective Appearance: fair. Behavior: Anxious. Constricted. continues to simply state I want to go home. disorganized. Thought Form: Linear. Generally confused at times. Judgement: poor. Insight: Poor. Assessment F20.9 Schizophrenia, unspecified Plan Continue current medications without change. Observation will attempt to discuss what the AOT provider as AOT is to be assessed for today on the unit. Further extension of his medication regiment would be critical as he will likely have difficulty. Can try it on a new agent given his polypharmacy that his current. AOT affords him. Vital Signs Vital Signs Date Time Temp Pulse Resp B/P (MAP) Pulse Ox O2 Delivery O2 Flow Rate FiO2 04/10/20 06:33 97.5 72 18 143/67 (92) 04/09/20 06:36 Room Air 04/08/20 06:50 96 Current Medications Current Medications Medications (Trade) Dose Ordered Sig/Daniel Route PRN Reason Start Time Stop Time Status Last Admin Dose Admin Acetaminophen (Tylenol Tab) 650 mg Q6HP PRN PO HEADACHE or DISCOMFORT 03/28/20 18:45 04/09/20 17:16 Al Hydrox/Mg Hydrox/Simethicone (Mylanta) 30 ml Q4HP PRN PO HEARTBURN/INDIGESTION 03/28/20 18:45 Benztropine Mesylate (Cogentin) 2 mg BID PO 03/28/20 21:00 04/10/20 08:30 Chlorpromazine HCl (Thorazine) 300 mg TID PO 03/28/20 21:00 04/10/20 08:30 Divalproex Sodium (Depakote) 750 mg QAM PO 03/29/20 09:00 04/10/20 08:31 Divalproex Sodium (Depakote) 1,000 mg QHS PO 03/28/20 21:00 04/09/20 20:25 Docusate Sodium (Colace) 100 mg BID PO 03/28/20 21:00 04/10/20 08:30 Folic Acid (Folic Acid) 1 mg DAILY PO 03/29/20 09:00 04/10/20 08:30 Haloperidol (Haldol) 10 mg QAM PO 03/29/20 09:00 03/30/20 12:24 DC 03/30/20 08:02 Haloperidol (Haldol) 15 mg DAILY@1500 PO 03/29/20 15:00 03/30/20 12:24 DC 03/29/20 15:19 Home Med (Med Rec Complete!) ASDIRECTED XX 03/28/20 18:00 03/28/20 17:54 DC Lorazepam (Ativan) 1 mg Q4HP PRN PO ANXIETY/AGITATION 04/05/20 22:15 04/05/20 22:10 Magnesium Hydroxide (Milk Of Magnesia) 30 ml DAILYPRN PRN PO CONSTIPATION 03/28/20 18:45 04/06/20 12:39 Methocarbamol (Robaxin) 500 mg TID PRN PO BACK PAIN 03/29/20 10:45 Naltrexone HCl (Revia) 50 mg DAILY PO 03/29/20 09:00 04/10/20 08:30 Nicotine (Nicoderm Cq 21mg) 1 patch DAILY TD 03/29/20 09:00 04/10/20 08:29 Quetiapine Fumarate (SEROquel) 100 mg QHS PO 03/28/20 21:00 04/05/20 12:08 DC 04/03/20 20:28 Quetiapine Fumarate (SEROquel) 200 mg QHS PO 04/05/20 21:00 04/08/20 11:34 DC 04/07/20 21:10 Quetiapine Fumarate (SEROquel) 300 mg QHS PO 04/08/20 21:00 04/09/20 20:25 Risperidone (RisperDAL) 1 mg QHS PO 03/28/20 21:00 04/09/20 20:25 Thiamine HCl (Thiamine HCl) 100 mg DAILY PO 03/29/20 09:00 04/10/20 08:30 Trazodone HCl (Desyrel) 50 mg QHSP PRN PO INSOMNIA 03/28/20 18:45 04/08/20 21:01 Allergies Coded Allergies: No Known Allergies (Verified , 10/17/08) BISHNU CASTREJON DO Apr 10, 2020:08
[2020-04-10] MEDS: LORazepam 1 MG TAB PO PRN (10:44)
[2020-04-10 16:04] VITALS: BP 113/71
[2020-04-10] MEDS: QUEtiapine FUMARATE 100 MG TAB PO SCH (21:00)
[2020-04-10] MEDS: DIVALPROEX 500 MG TAB PO SCH (21:00)
[2020-04-10] MEDS: risperiDONE 1 MG TAB PO SCH (21:00)
[2020-04-10] MEDS: ACETAMINOPHEN TAB 650MG DOSE (2X325MG) PO PRN (22:28)
[2020-04-11 06:24] VITALS: BP 111/52
[2020-04-11] MEDS: FOLIC ACID 1 MG TAB PO SCH (08:57)
[2020-04-11] MEDS: NALTREXONE 50 MG TAB PO SCH (08:57)
[2020-04-11] MEDS: DOCUSATE SODIUM 100 MG CAP PO SCH ×2 (08:57→20:11)
[2020-04-11] MEDS: THIAMINE 100 MG TAB PO SCH (08:57)
[2020-04-11] MEDS: DIVALPROEX 250 MG TAB PO SCH (08:58)
[2020-04-11] MEDS: ChlorproMAZINE 100 MG TABLET PO SCH ×3 (08:58→20:11)
[2020-04-11] MEDS: BENZTROPINE 2 MG TAB PO SCH ×2 (08:58→20:11)
[2020-04-11] MEDS: NICOTINE 21MG/24HR 1 EA TRANSDERMAL TD SCH (08:59)
[2020-04-11] MEDS: ACETAMINOPHEN TAB 650MG DOSE (2X325MG) PO PRN (09:47)
--- NOTE | 2020-04-11 10:44 | MHIPNPDOC ---
[facility] Progress Note Progress Note DATE OF SERVICE: 04/11/20 Subjective HPI: Terrence presents today for a follow up. His agitation has increased a bit lately. He still has trouble with being furious really fast. Patient denies suicidal and homicidal ideation. The entire meeting is him asking about going home and but not engaging in any other conversation other than to repeat that he is "fine" and that he should go back, has been calling [facility] multiple times a day, apparently unable to understand his behavior is problematic. Objective Appearance: Fair hygiene. Behavior: Disorganized. Affect: Anxious. Cognition: Impaired. Thought Form: Delusional. He continues to ask about Klonopin and Vicodin. Tangential. Judgement: Poor. Insight: Poor. Assessment F20.89 Other schizophrenia Plan Increased dose of Seroquel to 400 mg and Risperidone to [address] out to Dr[address] Kang in order to ascertain what the new AOT recommendations are going to be as the patient has significant difficulties. Patient, on review of his MAR, is refusing his Risperidone and his Seroquel. Before this, he had been taking his medications. Vital Signs Vital Signs Date Time Temp Pulse Resp B/P (MAP) Pulse Ox O2 Delivery O2 Flow Rate FiO2 04/11/20 06:24 97.0 102 18 111/52 (71) 04/09/20 06:36 Room Air 04/08/20 06:50 96 Current Medications Current Medications Medications (Trade) Dose Ordered Sig/Daniel Route PRN Reason Start Time Stop Time Status Last Admin Dose Admin Acetaminophen (Tylenol Tab) 650 mg Q6HP PRN PO HEADACHE or DISCOMFORT 03/28/20 18:45 04/11/20 09:47 Al Hydrox/Mg Hydrox/Simethicone (Mylanta) 30 ml Q4HP PRN PO HEARTBURN/INDIGESTION 03/28/20 18:45 Benztropine Mesylate (Cogentin) 2 mg BID PO 03/28/20 21:00 04/11/20 08:58 Chlorpromazine HCl (Thorazine) 300 mg TID PO 03/28/20 21:00 04/11/20 08:58 Divalproex Sodium (Depakote) 750 mg QAM PO 03/29/20 09:00 04/11/20 08:58 Divalproex Sodium (Depakote) 1,000 mg QHS PO 03/28/20 21:00 04/09/20 20:25 Docusate Sodium (Colace) 100 mg BID PO 03/28/20 21:00 04/11/20 08:57 Folic Acid (Folic Acid) 1 mg DAILY PO 03/29/20 09:00 04/11/20 08:57 Haloperidol (Haldol) 10 mg QAM PO 03/29/20 09:00 03/30/20 12:24 DC 03/30/20 08:02 Haloperidol (Haldol) 15 mg DAILY@1500 PO 03/29/20 15:00 03/30/20 12:24 DC 03/29/20 15:19 Home Med (Med Rec Complete!) ASDIRECTED XX 03/28/20 18:00 03/28/20 17:54 DC Lorazepam (Ativan) 1 mg Q4HP PRN PO ANXIETY/AGITATION 04/05/20 22:15 04/10/20 10:44 Magnesium Hydroxide (Milk Of Magnesia) 30 ml DAILYPRN PRN PO CONSTIPATION 03/28/20 18:45 04/06/20 12:39 Methocarbamol (Robaxin) 500 mg TID PRN PO BACK PAIN 03/29/20 10:45 Naltrexone HCl (Revia) 50 mg DAILY PO 03/29/20 09:00 04/11/20 08:57 Nicotine (Nicoderm Cq 21mg) 1 patch DAILY TD 03/29/20 09:00 04/11/20 08:59 Quetiapine Fumarate (SEROquel) 100 mg QHS PO 03/28/20 21:00 04/05/20 12:08 DC 04/03/20 20:28 Quetiapine Fumarate (SEROquel) 200 mg QHS PO 04/05/20 21:00 04/08/20 11:34 DC 04/07/20 21:10 Quetiapine Fumarate (SEROquel) 300 mg QHS PO 04/08/20 21:00 04/09/20 20:25 Risperidone (RisperDAL) 1 mg QHS PO 03/28/20 21:00 04/09/20 20:25 Thiamine HCl (Thiamine HCl) 100 mg DAILY PO 03/29/20 09:00 04/11/20 08:57 Trazodone HCl (Desyrel) 50 mg QHSP PRN PO INSOMNIA 03/28/20 18:45 04/08/20 21:01 Allergies Coded Allergies: No Known Allergies (Verified , 10/17/08) BISHNU CASTREJON DO Apr 11, 2020 10:44
[2020-04-11] MEDS: LORazepam 1 MG TAB PO PRN ×2 (13:11→17:11)
[2020-04-11 18:00] VITALS: BP 138/87
[2020-04-11] MEDS: QUEtiapine FUMARATE 200 MG TAB PO SCH (20:10)
[2020-04-11] MEDS: risperiDONE 2 MG TAB PO SCH (20:10)
[2020-04-11] MEDS: DIVALPROEX 500 MG TAB PO SCH (20:10)
[2020-04-11] MEDS: MAALOX 30 ML SUSP *UDC PO PRN (20:20)
[2020-04-12 06:57] VITALS: BP 108/60
[2020-04-12] MEDS: DIVALPROEX 250 MG TAB PO SCH (08:23)
[2020-04-12] MEDS: NICOTINE 21MG/24HR 1 EA TRANSDERMAL TD SCH (08:23)
[2020-04-12] MEDS: BENZTROPINE 2 MG TAB PO SCH ×2 (08:24→20:35)
[2020-04-12] MEDS: THIAMINE 100 MG TAB PO SCH (08:24)
[2020-04-12] MEDS: FOLIC ACID 1 MG TAB PO SCH (08:24)
[2020-04-12] MEDS: NALTREXONE 50 MG TAB PO SCH (08:24)
[2020-04-12] MEDS: ChlorproMAZINE 100 MG TABLET PO SCH ×3 (08:24→20:36)
[2020-04-12] MEDS: DOCUSATE SODIUM 100 MG CAP PO SCH ×2 (08:24→20:35)
--- NOTE | 2020-04-12 10:56 | MHIPNPDOC ---
[facility] Progress Note Progress Note DATE OF SERVICE: 04/12/20 Subjective HPI: Terrence presents today for concerns regarding his discharge after spending the morning harassing his provider claiming he is fine. Staff report that the patient is paranoid and unable to reason. During the interview, he continues to repeat that he is fine, without any reason. After the patient is told that he will not be discharged today, he leaves the room. Objective Appearance: Hygiene - Fair. Affect: Flat. Paranoid. Cognition: Impaired. Thought Form: Tangential - Focused on discharge. Thought Content: No evidence of delusions. No evidence of suicidal ideation. No evidence of aggressive or homicidal ideation. No thoughts of self harm. Judgement: Poor. Insight: Poor. Assessment F25.9 Schizoaffective disorder, unspecified Plan Continue Thorazine, Depakote, Risperidone 2 mg, Seroquel 400 mg, and other medications. Placed at this time for long-term treatment. Will likely need to go to long-term referral. Vital Signs Vital Signs Date Time Temp Pulse Resp B/P (MAP) Pulse Ox O2 Delivery O2 Flow Rate FiO2 04/12/20 06:57 97.8 94 16 108/60 (76) Room Air 04/08/20 06:50 96 Current Medications Current Medications Medications (Trade) Dose Ordered Sig/Daniel Route PRN Reason Start Time Stop Time Status Last Admin Dose Admin Acetaminophen (Tylenol Tab) 650 mg Q6HP PRN PO HEADACHE or DISCOMFORT 03/28/20 18:45 04/11/20 09:47 Al Hydrox/Mg Hydrox/Simethicone (Mylanta) 30 ml Q4HP PRN PO HEARTBURN/INDIGESTION 03/28/20 18:45 04/11/20 20:20 Benztropine Mesylate (Cogentin) 2 mg BID PO 03/28/20 21:00 04/12/20 08:24 Chlorpromazine HCl (Thorazine) 300 mg TID PO 03/28/20 21:00 04/12/20 08:24 Divalproex Sodium (Depakote) 750 mg QAM PO 03/29/20 09:00 04/12/20 08:23 Divalproex Sodium (Depakote) 1,000 mg QHS PO 03/28/20 21:00 04/11/20 20:10 Docusate Sodium (Colace) 100 mg BID PO 03/28/20 21:00 04/12/20 08:24 Folic Acid (Folic Acid) 1 mg DAILY PO 03/29/20 09:00 04/12/20 08:24 Haloperidol (Haldol) 10 mg QAM PO 03/29/20 09:00 03/30/20 12:24 DC 03/30/20 08:02 Haloperidol (Haldol) 15 mg DAILY@1500 PO 03/29/20 15:00 03/30/20 12:24 DC 03/29/20 15:19 Home Med (Med Rec Complete!) ASDIRECTED XX 03/28/20 18:00 03/28/20 17:54 DC Lorazepam (Ativan) 1 mg Q4HP PRN PO ANXIETY/AGITATION 04/05/20 22:15 04/11/20 17:11 Magnesium Hydroxide (Milk Of Magnesia) 30 ml DAILYPRN PRN PO CONSTIPATION 03/28/20 18:45 04/06/20 12:39 Methocarbamol (Robaxin) 500 mg TID PRN PO BACK PAIN 03/29/20 10:45 Miscellaneous (Unresolved Clarification Entry) SEE LABEL COMMENTS DAILY XX 04/12/20 09:00 Naltrexone HCl (Revia) 50 mg DAILY PO 03/29/20 09:00 04/12/20 08:24 Nicotine (Nicoderm Cq 21mg) 1 patch DAILY TD 03/29/20 09:00 04/12/20 08:23 Quetiapine Fumarate (SEROquel) 100 mg QHS PO 03/28/20 21:00 04/05/20 12:08 DC 04/03/20 20:28 Quetiapine Fumarate (SEROquel) 200 mg QHS PO 04/05/20 21:00 04/08/20 11:34 DC 04/07/20 21:10 Quetiapine Fumarate (SEROquel) 300 mg QHS PO 04/08/20 21:00 04/11/20 13:02 DC 04/09/20 20:25 Quetiapine Fumarate (SEROquel) 400 mg QHS PO 04/11/20 21:00 04/11/20 20:10 Risperidone (RisperDAL) 1 mg QHS PO 03/28/20 21:00 04/11/20 13:02 DC 04/09/20 20:25 Risperidone (RisperDAL) 2 mg QHS PO 04/11/20 21:00 04/11/20 20:10 Thiamine HCl (Thiamine HCl) 100 mg DAILY PO 03/29/20 09:00 04/12/20 08:24 Trazodone HCl (Desyrel) 50 mg QHSP PRN PO INSOMNIA 03/28/20 18:45 04/08/20 21:01 Allergies Coded Allergies: No Known Allergies (Verified , 10/17/08) BISHNU CASTREJON DO Apr 12, 2020 10:56
[2020-04-12] MEDS: LORazepam 1 MG TAB PO PRN (12:21)
[2020-04-12 16:18] VITALS: BP 116/56
[2020-04-12] MEDS: QUEtiapine FUMARATE 200 MG TAB PO SCH (20:35)
[2020-04-12] MEDS: DIVALPROEX 500 MG TAB PO SCH (20:36)
[2020-04-12] MEDS: risperiDONE 2 MG TAB PO SCH (20:36)
[2020-04-12] MEDS: MAALOX 30 ML SUSP *UDC PO PRN (20:37)
[2020-04-13 06:15] VITALS: BP 132/62
[2020-04-13] MEDS: ChlorproMAZINE 100 MG TABLET PO SCH ×2 (08:32→15:13)
[2020-04-13] MEDS: BENZTROPINE 2 MG TAB PO SCH (08:32)
[2020-04-13] MEDS: FOLIC ACID 1 MG TAB PO SCH (08:32)
[2020-04-13] MEDS: DOCUSATE SODIUM 100 MG CAP PO SCH (08:32)
[2020-04-13] MEDS: NALTREXONE 50 MG TAB PO SCH (08:32)
[2020-04-13] MEDS: DIVALPROEX 250 MG TAB PO SCH (08:33)
[2020-04-13] MEDS: NICOTINE 21MG/24HR 1 EA TRANSDERMAL TD SCH (08:33)
[2020-04-13] MEDS: THIAMINE 100 MG TAB PO SCH (08:35)
[2020-04-13] MEDS: LORazepam 1 MG TAB PO PRN ×2 (12:29→17:22)
[2020-04-13 16:14] VITALS: BP 129/74
[2020-04-14] MEDS: BENZTROPINE 2 MG TAB PO SCH ×3 (00:01→20:01)
[2020-04-14] MEDS: ChlorproMAZINE 100 MG TABLET PO SCH ×4 (00:01→20:01)
[2020-04-14] MEDS: QUEtiapine FUMARATE 200 MG TAB PO SCH ×2 (00:01→20:01)
[2020-04-14] MEDS: DOCUSATE SODIUM 100 MG CAP PO SCH ×3 (00:01→20:01)
[2020-04-14] MEDS: traZODone 50 MG TAB PO PRN ×2 (00:02→20:01)
[2020-04-14] MEDS: risperiDONE 2 MG TAB PO SCH ×2 (00:02→20:01)
[2020-04-14] MEDS: DIVALPROEX 500 MG TAB PO SCH ×2 (00:02→20:01)
[2020-04-14] MEDS: MAALOX 30 ML SUSP *UDC PO PRN (00:06)
[2020-04-14 06:24] VITALS: BP 110/53
[2020-04-14] MEDS: FOLIC ACID 1 MG TAB PO SCH (08:01)
[2020-04-14] MEDS: THIAMINE 100 MG TAB PO SCH (08:01)
[2020-04-14] MEDS: NICOTINE 21MG/24HR 1 EA TRANSDERMAL TD SCH (08:01)
[2020-04-14] MEDS: DIVALPROEX 250 MG TAB PO SCH (08:02)
[2020-04-14] MEDS: NALTREXONE 50 MG TAB PO SCH (08:02)
[2020-04-14] MEDS: ACETAMINOPHEN TAB 650MG DOSE (2X325MG) PO PRN ×2 (11:12→20:24)
[2020-04-14 16:14] VITALS: BP 100/58
[2020-04-14] MEDS: LORazepam 1 MG TAB PO PRN (17:45)
[2020-04-15 06:42] VITALS: BP 136/88
[2020-04-15] MEDS: NALTREXONE 50 MG TAB PO SCH (08:24)
[2020-04-15] MEDS: BENZTROPINE 2 MG TAB PO SCH ×2 (08:24→22:16)
[2020-04-15] MEDS: DIVALPROEX 250 MG TAB PO SCH (08:25)
[2020-04-15] MEDS: FOLIC ACID 1 MG TAB PO SCH (08:26)
[2020-04-15] MEDS: DOCUSATE SODIUM 100 MG CAP PO SCH ×2 (08:26→22:17)
[2020-04-15] MEDS: ChlorproMAZINE 100 MG TABLET PO SCH ×3 (08:26→22:16)
[2020-04-15] MEDS: THIAMINE 100 MG TAB PO SCH (08:26)
[2020-04-15] MEDS: NICOTINE 21MG/24HR 1 EA TRANSDERMAL TD SCH (08:27)
[2020-04-15] MEDS: ACETAMINOPHEN TAB 650MG DOSE (2X325MG) PO PRN (09:01)
--- NOTE | 2020-04-15 11:19 | MHIPNPDOC ---
[facility] Progress Note Progress Note DATE OF SERVICE: 04/15/20 Subjective HPI: Terrence presents multiple times today, continuing to pester his provider about going home, asking about going home and doesn't want to go to [place]. Discussed with patient that the referral will be continued, despite protests. He reports that he would get a chartered accountant to contest the transfer. Objective Appearance: Hygiene - Poor. Motor: Psychomotor agitation. Thought Form: Non-Linear. Tangential. Incoherent. Judgement: Poor. Insight: Poor. Assessment F20.89 Other schizophrenia Plan Continue current medications. Refer to [place] as he has made little progress and will likely need a long-term plan for resolution of his symptoms. He does not have significant treatment options for himself. Vital Signs Vital Signs Date Time Temp Pulse Resp B/P (MAP) Pulse Ox O2 Delivery O2 Flow Rate FiO2 04/15/20 06:42 97.8 79 16 136/88 (104) 98 Room Air Current Medications Current Medications Medications (Trade) Dose Ordered Sig/Daniel Route PRN Reason Start Time Stop Time Status Last Admin Dose Admin Acetaminophen (Tylenol Tab) 650 mg Q6HP PRN PO HEADACHE or DISCOMFORT 03/28/20 18:45 04/15/20 09:01 Al Hydrox/Mg Hydrox/Simethicone (Mylanta) 30 ml Q4HP PRN PO HEARTBURN/INDIGESTION 03/28/20 18:45 04/14/20 00:06 Benztropine Mesylate (Cogentin) 2 mg BID PO 03/28/20 21:00 04/15/20 08:24 Chlorpromazine HCl (Thorazine) 300 mg TID PO 03/28/20 21:00 04/15/20 08:26 Divalproex Sodium (Depakote) 750 mg QAM PO 03/29/20 09:00 04/15/20 08:25 Divalproex Sodium (Depakote) 1,000 mg QHS PO 03/28/20 21:00 04/14/20 20:01 Docusate Sodium (Colace) 100 mg BID PO 03/28/20 21:00 04/15/20 08:26 Folic Acid (Folic Acid) 1 mg DAILY PO 03/29/20 09:00 04/15/20 08:26 Haloperidol (Haldol) 10 mg QAM PO 03/29/20 09:00 03/30/20 12:24 DC 03/30/20 08:02 Haloperidol (Haldol) 15 mg DAILY@1500 PO 03/29/20 15:00 03/30/20 12:24 DC 03/29/20 15:19 Home Med (Med Rec Complete!) ASDIRECTED XX 03/28/20 18:00 03/28/20 17:54 DC Lorazepam (Ativan) 1 mg Q4HP PRN PO ANXIETY/AGITATION 04/05/20 22:15 04/14/20 17:45 Magnesium Hydroxide (Milk Of Magnesia) 30 ml DAILYPRN PRN PO CONSTIPATION 03/28/20 18:45 04/06/20 12:39 Methocarbamol (Robaxin) 500 mg TID PRN PO BACK PAIN 03/29/20 10:45 Miscellaneous (Unresolved Clarification Entry) SEE LABEL COMMENTS DAILY XX 04/12/20 09:00 04/12/20 11:11 DC Naltrexone HCl (Revia) 50 mg DAILY PO 03/29/20 09:00 04/15/20 08:24 Nicotine (Nicoderm Cq 21mg) 1 patch DAILY TD 03/29/20 09:00 04/15/20 08:27 Quetiapine Fumarate (SEROquel) 100 mg QHS PO 03/28/20 21:00 04/05/20 12:08 DC 04/03/20 20:28 Quetiapine Fumarate (SEROquel) 200 mg QHS PO 04/05/20 21:00 04/08/20 11:34 DC 04/07/20 21:10 Quetiapine Fumarate (SEROquel) 300 mg QHS PO 04/08/20 21:00 04/11/20 13:02 DC 04/09/20 20:25 Quetiapine Fumarate (SEROquel) 400 mg QHS PO 04/11/20 21:00 04/14/20 20:01 Risperidone (RisperDAL) 1 mg QHS PO 03/28/20 21:00 04/11/20 13:02 DC 04/09/20 20:25 Risperidone (RisperDAL) 2 mg QHS PO 04/11/20 21:00 04/14/20 20:01 Thiamine HCl (Thiamine HCl) 100 mg DAILY PO 03/29/20 09:00 04/15/20 08:26 Trazodone HCl (Desyrel) 50 mg QHSP PRN PO INSOMNIA 03/28/20 18:45 04/14/20 20:01 Allergies Coded Allergies: No Known Allergies (Verified , 10/17/08) BISHNU CASTREJON DO Apr 15, 2020 11:19
[2020-04-15] MEDS: LORazepam 1 MG TAB PO PRN (16:59)
[2020-04-15] MEDS: QUEtiapine FUMARATE 200 MG TAB PO SCH (22:16)
[2020-04-15] MEDS: risperiDONE 2 MG TAB PO SCH (22:16)
[2020-04-15] MEDS: DIVALPROEX 500 MG TAB PO SCH (22:16)
[2020-04-15] MEDS: traZODone 50 MG TAB PO PRN (22:17)
[2020-04-15] MEDS: MOM 30ML SUSPENSION UDC PO PRN (22:21)
[2020-04-16 06:11] VITALS: BP 107/58
[2020-04-16] MEDS: BENZTROPINE 2 MG TAB PO SCH ×2 (08:06→21:48)
[2020-04-16] MEDS: NALTREXONE 50 MG TAB PO SCH (08:06)
[2020-04-16] MEDS: THIAMINE 100 MG TAB PO SCH (08:07)
[2020-04-16] MEDS: FOLIC ACID 1 MG TAB PO SCH (08:08)
[2020-04-16] MEDS: ChlorproMAZINE 100 MG TABLET PO SCH ×3 (08:08→21:47)
[2020-04-16] MEDS: DIVALPROEX 250 MG TAB PO SCH (08:08)
[2020-04-16] MEDS: NICOTINE 21MG/24HR 1 EA TRANSDERMAL TD SCH (08:08)
[2020-04-16] MEDS: DOCUSATE SODIUM 100 MG CAP PO SCH ×2 (08:08→21:47)
[2020-04-16] MEDS: ACETAMINOPHEN TAB 650MG DOSE (2X325MG) PO PRN ×2 (08:09→15:18)
[2020-04-16] MEDS: MAALOX 30 ML SUSP *UDC PO PRN (09:50)
--- NOTE | 2020-04-16 10:43 | MHIPNPDOC ---
[facility] Progress Note Progress Note DATE OF SERVICE: 04/16/20 Subjective HPI: Terrence presents today for concerns regarding his cursing at other patients and staff for unusual reasons. Unable to appreciate any statements. Hearing tomorrow for a transfer to [place]. Specifically continues to request discharge. Objective Appearance: Hygiene - Fair. Affect: Flat. Thought Form: Tangential. Non-linear. Judgement: Poor. Insight: Poor. Assessment F20.9 Schizophrenia, unspecified Plan Continue current medications. Transferred to [place]. Vital Signs Vital Signs Date Time Temp Pulse Resp B/P (MAP) Pulse Ox O2 Delivery O2 Flow Rate FiO2 04/16/20 08:57 Room Air 04/16/20 06:11 97.1 77 16 107/58 (74) 98 Current Medications Current Medications Medications (Trade) Dose Ordered Sig/Daniel Route PRN Reason Start Time Stop Time Status Last Admin Dose Admin Acetaminophen (Tylenol Tab) 650 mg Q6HP PRN PO HEADACHE or DISCOMFORT 03/28/20 18:45 04/16/20 08:09 Al Hydrox/Mg Hydrox/Simethicone (Mylanta) 30 ml Q4HP PRN PO HEARTBURN/INDIGESTION 03/28/20 18:45 04/16/20 09:50 Benztropine Mesylate (Cogentin) 2 mg BID PO 03/28/20 21:00 04/16/20 08:06 Chlorpromazine HCl (Thorazine) 300 mg TID PO 03/28/20 21:00 04/16/20 08:08 Divalproex Sodium (Depakote) 750 mg QAM PO 03/29/20 09:00 04/16/20 08:08 Divalproex Sodium (Depakote) 1,000 mg QHS PO 03/28/20 21:00 04/15/20 22:16 Docusate Sodium (Colace) 100 mg BID PO 03/28/20 21:00 04/16/20 08:08 Folic Acid (Folic Acid) 1 mg DAILY PO 03/29/20 09:00 04/16/20 08:08 Haloperidol (Haldol) 10 mg QAM PO 03/29/20 09:00 03/30/20 12:24 DC 03/30/20 08:02 Haloperidol (Haldol) 15 mg DAILY@1500 PO 03/29/20 15:00 03/30/20 12:24 DC 03/29/20 15:19 Home Med (Med Rec Complete!) ASDIRECTED XX 03/28/20 18:00 03/28/20 17:54 DC Lorazepam (Ativan) 1 mg Q4HP PRN PO ANXIETY/AGITATION 04/05/20 22:15 04/15/20 16:59 Magnesium Hydroxide (Milk Of Magnesia) 30 ml DAILYPRN PRN PO CONSTIPATION 03/28/20 18:45 04/15/20 22:21 Methocarbamol (Robaxin) 500 mg TID PRN PO BACK PAIN 03/29/20 10:45 Miscellaneous (Unresolved Clarification Entry) SEE LABEL COMMENTS DAILY XX 04/12/20 09:00 04/12/20 11:11 DC Naltrexone HCl (Revia) 50 mg DAILY PO 03/29/20 09:00 04/16/20 08:06 Nicotine (Nicoderm Cq 21mg) 1 patch DAILY TD 03/29/20 09:00 04/16/20 08:08 Quetiapine Fumarate (SEROquel) 100 mg QHS PO 03/28/20 21:00 04/05/20 12:08 DC 04/03/20 20:28 Quetiapine Fumarate (SEROquel) 200 mg QHS PO 04/05/20 21:00 04/08/20 11:34 DC 04/07/20 21:10 Quetiapine Fumarate (SEROquel) 300 mg QHS PO 04/08/20 21:00 04/11/20 13:02 DC 04/09/20 20:25 Quetiapine Fumarate (SEROquel) 400 mg QHS PO 04/11/20 21:00 04/15/20 22:16 Risperidone (RisperDAL) 1 mg QHS PO 03/28/20 21:00 04/11/20 13:02 DC 04/09/20 20:25 Risperidone (RisperDAL) 2 mg QHS PO 04/11/20 21:00 04/15/20 22:16 Thiamine HCl (Thiamine HCl) 100 mg DAILY PO 03/29/20 09:00 04/16/20 08:07 Trazodone HCl (Desyrel) 50 mg QHSP PRN PO INSOMNIA 03/28/20 18:45 04/15/20 22:17 Allergies Coded Allergies: No Known Allergies (Verified , 10/17/08) BISHNU CASTREJON DO Apr 16, 2020 10:43
[2020-04-16] MEDS: LORazepam 1 MG TAB PO PRN (15:45)
[2020-04-16 18:05] VITALS: BP 140/89
[2020-04-16] MEDS: DIVALPROEX 500 MG TAB PO SCH (21:47)
[2020-04-16] MEDS: risperiDONE 2 MG TAB PO SCH (21:47)
[2020-04-16] MEDS: QUEtiapine FUMARATE 200 MG TAB PO SCH (21:48)
[2020-04-17 06:56] VITALS: BP 113/58
[2020-04-17] MEDS: ChlorproMAZINE 100 MG TABLET PO SCH ×3 (08:08→20:12)
[2020-04-17] MEDS: NICOTINE 21MG/24HR 1 EA TRANSDERMAL TD SCH (08:08)
[2020-04-17] MEDS: FOLIC ACID 1 MG TAB PO SCH (08:08)
[2020-04-17] MEDS: THIAMINE 100 MG TAB PO SCH (08:08)
[2020-04-17] MEDS: BENZTROPINE 2 MG TAB PO SCH ×2 (08:08→20:12)
[2020-04-17] MEDS: DOCUSATE SODIUM 100 MG CAP PO SCH ×2 (08:08→20:12)
[2020-04-17] MEDS: NALTREXONE 50 MG TAB PO SCH (08:08)
[2020-04-17] MEDS: DIVALPROEX 250 MG TAB PO SCH (08:08)
--- NOTE | 2020-04-17 09:06 | MHIPNPDOC ---
[facility] Progress Note Progress Note DATE OF SERVICE: 04/17/20 Subjective HPI: Terrence presents today for concerns regarding a follow up. Patient was met with today. He had his transfer hearing today of which he left after saying multiple things. He did not want to go to [place], but he did not explain further and left. Patient still remains distorted and paranoid. Nursing staff reports that he remains still quite unable to engage in any meaningful conversations and generally still has episodes at night where he becomes paranoid and yells at people who are not there. He still has episodes of hearing. He reports that hears gunshots, becoming paranoid and difficult to redirect. Patient simply says I want to go. Objective Affect: Appropriate to context. Flat. Full range. Speech: Normal volume. Spontaneous and Fluid. Associations mildy loosened. Normal rate. Cognition: Alert. Orientation is grossly intact. Thought Form: Linear and goal directed. Specific, but unclear and tangential. Judgement: Poor. Insight: Poor. Assessment F25.9 Schizoaffective disorder, unspecified Plan Continue Thorazine, Invega injection, Risperidone, Seroquel 400 mg, and Naltrexone as well as Trazodone as he has these ordered through his AOT. Im concerned about changing his medications too quickly as his combination concurrently, although certainly not ideal, seems to afford him some measure of stability that had been thrown apart from his previous medication trials for Clozaril. Vital Signs Vital Signs Date Time Temp Pulse Resp B/P (MAP) Pulse Ox O2 Delivery O2 Flow Rate FiO2 04/17/20 06:56 96.7 82 20 113/58 (76) 04/16/20 08:57 Room Air 04/16/20 06:11 98 Current Medications Current Medications Medications (Trade) Dose Ordered Sig/Daniel Route PRN Reason Start Time Stop Time Status Last Admin Dose Admin Acetaminophen (Tylenol Tab) 650 mg Q6HP PRN PO HEADACHE or DISCOMFORT 03/28/20 18:45 04/16/20 15:18 Al Hydrox/Mg Hydrox/Simethicone (Mylanta) 30 ml Q4HP PRN PO HEARTBURN/INDIGESTION 03/28/20 18:45 04/16/20 09:50 Benztropine Mesylate (Cogentin) 2 mg BID PO 03/28/20 21:00 04/17/20 08:08 Chlorpromazine HCl (Thorazine) 300 mg TID PO 03/28/20 21:00 04/17/20 08:08 Divalproex Sodium (Depakote) 750 mg QAM PO 03/29/20 09:00 04/17/20 08:08 Divalproex Sodium (Depakote) 1,000 mg QHS PO 03/28/20 21:00 04/16/20 21:47 Docusate Sodium (Colace) 100 mg BID PO 03/28/20 21:00 04/17/20 08:08 Folic Acid (Folic Acid) 1 mg DAILY PO 03/29/20 09:00 04/17/20 08:08 Haloperidol (Haldol) 10 mg QAM PO 03/29/20 09:00 03/30/20 12:24 DC 03/30/20 08:02 Haloperidol (Haldol) 15 mg DAILY@1500 PO 03/29/20 15:00 03/30/20 12:24 DC 03/29/20 15:19 Home Med (Med Rec Complete!) ASDIRECTED XX 03/28/20 18:00 03/28/20 17:54 DC Lorazepam (Ativan) 1 mg Q4HP PRN PO ANXIETY/AGITATION 04/05/20 22:15 04/16/20 15:45 Magnesium Hydroxide (Milk Of Magnesia) 30 ml DAILYPRN PRN PO CONSTIPATION 03/28/20 18:45 04/15/20 22:21 Methocarbamol (Robaxin) 500 mg TID PRN PO BACK PAIN 03/29/20 10:45 Miscellaneous (Unresolved Clarification Entry) SEE LABEL COMMENTS DAILY XX 04/12/20 09:00 04/12/20 11:11 DC Naltrexone HCl (Revia) 50 mg DAILY PO 03/29/20 09:00 04/17/20 08:08 Nicotine (Nicoderm Cq 21mg) 1 patch DAILY TD 03/29/20 09:00 04/17/20 08:08 Quetiapine Fumarate (SEROquel) 100 mg QHS PO 03/28/20 21:00 04/05/20 12:08 DC 04/03/20 20:28 Quetiapine Fumarate (SEROquel) 200 mg QHS PO 04/05/20 21:00 04/08/20 11:34 DC 04/07/20 21:10 Quetiapine Fumarate (SEROquel) 300 mg QHS PO 04/08/20 21:00 04/11/20 13:02 DC 04/09/20 20:25 Quetiapine Fumarate (SEROquel) 400 mg QHS PO 04/11/20 21:00 04/16/20 21:48 Risperidone (RisperDAL) 1 mg QHS PO 03/28/20 21:00 04/11/20 13:02 DC 04/09/20 20:25 Risperidone (RisperDAL) 2 mg QHS PO 04/11/20 21:00 04/16/20 21:47 Thiamine HCl (Thiamine HCl) 100 mg DAILY PO 03/29/20 09:00 04/17/20 08:08 Trazodone HCl (Desyrel) 50 mg QHSP PRN PO INSOMNIA 03/28/20 18:45 04/15/20 22:17 Allergies Coded Allergies: No Known Allergies (Verified , 10/17/08) BISHNU CASTREJON DO Apr 17, 2020 09:06
[2020-04-17] MEDS: ACETAMINOPHEN TAB 650MG DOSE (2X325MG) PO PRN (13:22)
[2020-04-17 17:24] VITALS: BP 152/81
[2020-04-17] MEDS: QUEtiapine FUMARATE 200 MG TAB PO SCH (20:12)
[2020-04-17] MEDS: risperiDONE 2 MG TAB PO SCH (20:12)
[2020-04-17] MEDS: DIVALPROEX 500 MG TAB PO SCH (20:12)
[2020-04-17] MEDS: MAALOX 30 ML SUSP *UDC PO PRN (20:14)
[2020-04-18] MEDS: ACETAMINOPHEN TAB 650MG DOSE (2X325MG) PO PRN ×2 (03:22→14:23)
[2020-04-18 06:35] VITALS: BP 117/57
[2020-04-18] MEDS: NICOTINE 21MG/24HR 1 EA TRANSDERMAL TD SCH (08:59)
[2020-04-18] MEDS: FOLIC ACID 1 MG TAB PO SCH (09:00)
[2020-04-18] MEDS: NALTREXONE 50 MG TAB PO SCH (09:00)
[2020-04-18] MEDS: ChlorproMAZINE 100 MG TABLET PO SCH ×3 (09:00→20:19)
[2020-04-18] MEDS: DOCUSATE SODIUM 100 MG CAP PO SCH ×2 (09:00→20:20)
[2020-04-18] MEDS: THIAMINE 100 MG TAB PO SCH (09:00)
[2020-04-18] MEDS: DIVALPROEX 250 MG TAB PO SCH (09:01)
[2020-04-18] MEDS: BENZTROPINE 2 MG TAB PO SCH ×2 (09:01→20:20)
--- NOTE | 2020-04-18 10:05 | MHIPNPDOC ---
[facility] Progress Note Progress Note DATE OF SERVICE: 04/18/20 Subjective HPI: The patient has met with today. However, he reports that he doesn't want to go to [place]. He walked out of his hearing previously but appears to have no insight into the stating that he doesn't want to go and only repeating this without any other information. Objective Appearance: Well nourished. Appears to be stated age. Well groomed. Behavior: Hyper-focused. Perseverative on discharge. Repeats the phrase I want to go. Affect: Flat. Thought Form: Associations loosened. Linear and goal directed. Thought Content: No evidence of delusions. Responds to some internal stimuli. No thoughts of self harm. No evidence of aggressive or homicidal ideation. No evidence of suicidal ideation. Judgement: Poor. Insight: Poor. Assessment F20.9 Schizophrenia, unspecified Plan Continue current complex medication regiment. Will refer to [place] [facility] as he currently will be in much need of this treatment. His recovery will be protracted and maybe needed more advanced treatments than offered at this Hospital. Vital Signs Vital Signs Date Time Temp Pulse Resp B/P (MAP) Pulse Ox O2 Delivery O2 Flow Rate FiO2 04/18/20 06:35 97.0 84 18 117/57 (77) 04/17/20 09:20 Room Air 04/16/20 06:11 98 Current Medications Current Medications Medications (Trade) Dose Ordered Sig/Daniel Route PRN Reason Start Time Stop Time Status Last Admin Dose Admin Acetaminophen (Tylenol Tab) 650 mg Q6HP PRN PO HEADACHE or DISCOMFORT 03/28/20 18:45 04/18/20 03:22 Al Hydrox/Mg Hydrox/Simethicone (Mylanta) 30 ml Q4HP PRN PO HEARTBURN/INDIGESTION 03/28/20 18:45 04/17/20 20:14 Benztropine Mesylate (Cogentin) 2 mg BID PO 03/28/20 21:00 04/18/20 09:01 Chlorpromazine HCl (Thorazine) 300 mg TID PO 03/28/20 21:00 04/18/20 09:00 Divalproex Sodium (Depakote) 750 mg QAM PO 03/29/20 09:00 04/18/20 09:01 Divalproex Sodium (Depakote) 1,000 mg QHS PO 03/28/20 21:00 04/17/20 20:12 Docusate Sodium (Colace) 100 mg BID PO 03/28/20 21:00 04/18/20 09:00 Folic Acid (Folic Acid) 1 mg DAILY PO 03/29/20 09:00 04/18/20 09:00 Haloperidol (Haldol) 10 mg QAM PO 03/29/20 09:00 03/30/20 12:24 DC 03/30/20 08:02 Haloperidol (Haldol) 15 mg DAILY@1500 PO 03/29/20 15:00 03/30/20 12:24 DC 03/29/20 15:19 Home Med (Med Rec Complete!) ASDIRECTED XX 03/28/20 18:00 03/28/20 17:54 DC Lorazepam (Ativan) 1 mg Q4HP PRN PO ANXIETY/AGITATION 04/05/20 22:15 04/16/20 15:45 Magnesium Hydroxide (Milk Of Magnesia) 30 ml DAILYPRN PRN PO CONSTIPATION 03/28/20 18:45 04/15/20 22:21 Methocarbamol (Robaxin) 500 mg TID PRN PO BACK PAIN 03/29/20 10:45 Miscellaneous (Unresolved Clarification Entry) SEE LABEL COMMENTS DAILY XX 04/12/20 09:00 04/12/20 11:11 DC Naltrexone HCl (Revia) 50 mg DAILY PO 03/29/20 09:00 04/18/20 09:00 Nicotine (Nicoderm Cq 21mg) 1 patch DAILY TD 03/29/20 09:00 04/18/20 08:59 Quetiapine Fumarate (SEROquel) 100 mg QHS PO 03/28/20 21:00 04/05/20 12:08 DC 04/03/20 20:28 Quetiapine Fumarate (SEROquel) 200 mg QHS PO 04/05/20 21:00 04/08/20 11:34 DC 04/07/20 21:10 Quetiapine Fumarate (SEROquel) 300 mg QHS PO 04/08/20 21:00 04/11/20 13:02 DC 04/09/20 20:25 Quetiapine Fumarate (SEROquel) 400 mg QHS PO 04/11/20 21:00 04/17/20 20:12 Risperidone (RisperDAL) 1 mg QHS PO 03/28/20 21:00 04/11/20 13:02 DC 04/09/20 20:25 Risperidone (RisperDAL) 2 mg QHS PO 04/11/20 21:00 04/17/20 20:12 Thiamine HCl (Thiamine HCl) 100 mg DAILY PO 03/29/20 09:00 04/18/20 09:00 Trazodone HCl (Desyrel) 50 mg QHSP PRN PO INSOMNIA 03/28/20 18:45 04/15/20 22:17 Allergies Coded Allergies: No Known Allergies (Verified , 10/17/08) BISHNU CASTREJON DO Apr 18, 2020 10:04
[2020-04-18] MEDS: LORazepam 1 MG TAB PO PRN (10:50)
[2020-04-18] MEDS: QUEtiapine FUMARATE 200 MG TAB PO SCH (20:20)
[2020-04-18] MEDS: risperiDONE 2 MG TAB PO SCH (20:20)
[2020-04-18] MEDS: DIVALPROEX 500 MG TAB PO SCH (20:20)
[2020-04-19] MEDS: ACETAMINOPHEN TAB 650MG DOSE (2X325MG) PO PRN (05:47)
[2020-04-19 06:26] VITALS: BP 115/53
[2020-04-19] MEDS: NALTREXONE 50 MG TAB PO SCH (08:42)
[2020-04-19] MEDS: FOLIC ACID 1 MG TAB PO SCH (08:42)
[2020-04-19] MEDS: BENZTROPINE 2 MG TAB PO SCH ×2 (08:42→20:51)
[2020-04-19] MEDS: DIVALPROEX 250 MG TAB PO SCH (08:43)
[2020-04-19] MEDS: THIAMINE 100 MG TAB PO SCH (08:43)
[2020-04-19] MEDS: ChlorproMAZINE 100 MG TABLET PO SCH ×3 (08:43→20:51)
[2020-04-19] MEDS: DOCUSATE SODIUM 100 MG CAP PO SCH ×2 (08:43→20:52)
[2020-04-19] MEDS: NICOTINE 21MG/24HR 1 EA TRANSDERMAL TD SCH (08:44)
[2020-04-19] MEDS: LORazepam 1 MG TAB PO PRN (14:26)
[2020-04-19 18:01] VITALS: BP 128/83
[2020-04-19] MEDS: DIVALPROEX 500 MG TAB PO SCH (20:51)
[2020-04-19] MEDS: risperiDONE 2 MG TAB PO SCH (20:51)
[2020-04-19] MEDS: QUEtiapine FUMARATE 200 MG TAB PO SCH (20:52)
[2020-04-20] MEDS: ACETAMINOPHEN TAB 650MG DOSE (2X325MG) PO PRN (04:00)
[2020-04-20 06:35] VITALS: BP 106/65
[2020-04-20] MEDS: NICOTINE 21MG/24HR 1 EA TRANSDERMAL TD SCH (08:08)
[2020-04-20] MEDS: ChlorproMAZINE 100 MG TABLET PO SCH ×3 (08:08→20:10)
[2020-04-20] MEDS: BENZTROPINE 2 MG TAB PO SCH ×2 (08:09→20:09)
[2020-04-20] MEDS: DOCUSATE SODIUM 100 MG CAP PO SCH ×2 (08:09→20:10)
[2020-04-20] MEDS: NALTREXONE 50 MG TAB PO SCH (08:09)
[2020-04-20] MEDS: THIAMINE 100 MG TAB PO SCH (08:09)
[2020-04-20] MEDS: FOLIC ACID 1 MG TAB PO SCH (08:09)
[2020-04-20] MEDS: DIVALPROEX 250 MG TAB PO SCH (08:10)
[2020-04-20 18:02] VITALS: BP 135/87
[2020-04-20] MEDS: DIVALPROEX 500 MG TAB PO SCH (20:10)
[2020-04-20] MEDS: risperiDONE 2 MG TAB PO SCH (20:10)
[2020-04-20] MEDS: QUEtiapine FUMARATE 200 MG TAB PO SCH (20:10)
[2020-04-21] MEDS: LORazepam 1 MG TAB PO PRN (00:32)
[2020-04-21] MEDS: traZODone 50 MG TAB PO PRN ×2 (00:35→20:24)
[2020-04-21] MEDS: NALTREXONE 50 MG TAB PO SCH (08:26)
[2020-04-21] MEDS: NICOTINE 21MG/24HR 1 EA TRANSDERMAL TD SCH (08:26)
[2020-04-21] MEDS: BENZTROPINE 2 MG TAB PO SCH ×2 (08:26→20:34)
[2020-04-21] MEDS: DOCUSATE SODIUM 100 MG CAP PO SCH ×2 (08:26→20:24)
[2020-04-21] MEDS: THIAMINE 100 MG TAB PO SCH (08:26)
[2020-04-21] MEDS: DIVALPROEX 250 MG TAB PO SCH (08:27)
[2020-04-21] MEDS: ChlorproMAZINE 100 MG TABLET PO SCH ×3 (08:27→20:23)
[2020-04-21] MEDS: FOLIC ACID 1 MG TAB PO SCH (08:27)
[2020-04-21] MEDS: ACETAMINOPHEN TAB 650MG DOSE (2X325MG) PO PRN (12:41)
[2020-04-21 18:02] VITALS: BP 107/63
[2020-04-21] MEDS: DIVALPROEX 500 MG TAB PO SCH (20:24)
[2020-04-21] MEDS: risperiDONE 2 MG TAB PO SCH (20:24)
[2020-04-21] MEDS: QUEtiapine FUMARATE 200 MG TAB PO SCH (20:24)
[2020-04-22] MEDS: ACETAMINOPHEN TAB 650MG DOSE (2X325MG) PO PRN (06:11)
[2020-04-22 06:33] VITALS: BP 106/62
[2020-04-22] MEDS: THIAMINE 100 MG TAB PO SCH (08:06)
[2020-04-22] MEDS: BENZTROPINE 2 MG TAB PO SCH ×2 (08:06→20:32)
[2020-04-22] MEDS: NALTREXONE 50 MG TAB PO SCH (08:06)
[2020-04-22] MEDS: NICOTINE 21MG/24HR 1 EA TRANSDERMAL TD SCH (08:06)
[2020-04-22] MEDS: DIVALPROEX 250 MG TAB PO SCH (08:06)
[2020-04-22] MEDS: FOLIC ACID 1 MG TAB PO SCH (08:07)
[2020-04-22] MEDS: DOCUSATE SODIUM 100 MG CAP PO SCH ×2 (08:07→20:32)
[2020-04-22] MEDS: ChlorproMAZINE 100 MG TABLET PO SCH ×3 (08:07→20:33)
[2020-04-22] MEDS: methocarbamoL 500 MG TAB PO PRN (08:08)
--- NOTE | 2020-04-22 09:44 | MHIPNPDOC ---
[facility] Progress Note Progress Note DATE OF SERVICE: 04/22/20 Subjective HPI: Patient presents today for follow-up. Patient still maintains that he will not go to [facility] even though he walked out of the hearing. He states that he has no other problems and that he should be given another chance to leave. Objective Appearance: Fair Hygeine. Behavior: Pleasant. Engaged. Cooperative with good eye contact. Cognition: Impaired. Thought Form: Tangential. Associations are loose. Thought Content: Appears quite paranoid. No evidence of suicidal ideation. No thoughts of self harm. No evidence of aggressive or homicidal ideation. Judgement: Poor. Insight: Poor. Assessment F25.9 Schizoaffective disorder, unspecified Plan Continue medications as current. Referral to [facility] in process at this time will likely mean long-term dylan tment. Vital Signs Vital Signs Date Time Temp Pulse Resp B/P (MAP) Pulse Ox O2 Delivery O2 Flow Rate FiO2 04/22/20 06:33 96.7 77 16 106/62 (77) 98 Room Air Current Medications Current Medications Medications (Trade) Dose Ordered Sig/Daniel Route PRN Reason Start Time Stop Time Status Last Admin Dose Admin Acetaminophen (Tylenol Tab) 650 mg Q6HP PRN PO HEADACHE or DISCOMFORT 03/28/20 18:45 04/22/20 06:11 Al Hydrox/Mg Hydrox/Simethicone (Mylanta) 30 ml Q4HP PRN PO HEARTBURN/INDIGESTION 03/28/20 18:45 04/17/20 20:14 Benztropine Mesylate (Cogentin) 2 mg BID PO 03/28/20 21:00 04/22/20 08:06 Chlorpromazine HCl (Thorazine) 300 mg TID PO 03/28/20 21:00 04/22/20 08:07 Divalproex Sodium (Depakote) 750 mg QAM PO 03/29/20 09:00 04/22/20 08:06 Divalproex Sodium (Depakote) 1,000 mg QHS PO 03/28/20 21:00 04/21/20 20:24 Docusate Sodium (Colace) 100 mg BID PO 03/28/20 21:00 04/22/20 08:07 Folic Acid (Folic Acid) 1 mg DAILY PO 03/29/20 09:00 04/22/20 08:07 Haloperidol (Haldol) 10 mg QAM PO 03/29/20 09:00 03/30/20 12:24 DC 03/30/20 08:02 Haloperidol (Haldol) 15 mg DAILY@1500 PO 03/29/20 15:00 03/30/20 12:24 DC 03/29/20 15:19 Home Med (Med Rec Complete!) ASDIRECTED XX 03/28/20 18:00 03/28/20 17:54 DC Lorazepam (Ativan) 1 mg Q4HP PRN PO ANXIETY/AGITATION 04/05/20 22:15 04/21/20 00:32 Magnesium Hydroxide (Milk Of Magnesia) 30 ml DAILYPRN PRN PO CONSTIPATION 03/28/20 18:45 04/15/20 22:21 Methocarbamol (Robaxin) 500 mg TID PRN PO BACK PAIN 03/29/20 10:45 04/22/20 08:08 Miscellaneous (Unresolved Clarification Entry) SEE LABEL COMMENTS DAILY XX 04/12/20 09:00 04/12/20 11:11 DC Naltrexone HCl (Revia) 50 mg DAILY PO 03/29/20 09:00 04/22/20 08:06 Nicotine (Nicoderm Cq 21mg) 1 patch DAILY TD 03/29/20 09:00 04/22/20 08:06 Quetiapine Fumarate (SEROquel) 100 mg QHS PO 03/28/20 21:00 04/05/20 12:08 DC 04/03/20 20:28 Quetiapine Fumarate (SEROquel) 200 mg QHS PO 04/05/20 21:00 04/08/20 11:34 DC 04/07/20 21:10 Quetiapine Fumarate (SEROquel) 300 mg QHS PO 04/08/20 21:00 04/11/20 13:02 DC 04/09/20 20:25 Quetiapine Fumarate (SEROquel) 400 mg QHS PO 04/11/20 21:00 04/21/20 20:24 Risperidone (RisperDAL) 1 mg QHS PO 03/28/20 21:00 04/11/20 13:02 DC 04/09/20 20:25 Risperidone (RisperDAL) 2 mg QHS PO 04/11/20 21:00 04/21/20 20:24 Thiamine HCl (Thiamine HCl) 100 mg DAILY PO 03/29/20 09:00 04/22/20 08:06 Trazodone HCl (Desyrel) 50 mg QHSP PRN PO INSOMNIA 03/28/20 18:45 04/21/20 20:24 Allergies Coded Allergies: No Known Allergies (Verified , 10/17/08) BISHNU CASTREJON DO Apr 22, 2020 09:44
[2020-04-22] MEDS: LORazepam 1 MG TAB PO PRN (12:00)
[2020-04-22 16:05] VITALS: BP 113/68
[2020-04-22] MEDS: risperiDONE 2 MG TAB PO SCH (20:32)
[2020-04-22] MEDS: traZODone 50 MG TAB PO PRN (20:32)
[2020-04-22] MEDS: DIVALPROEX 500 MG TAB PO SCH (20:32)
[2020-04-22] MEDS: QUEtiapine FUMARATE 200 MG TAB PO SCH (20:33)
[2020-04-22] MEDS: MAALOX 30 ML SUSP *UDC PO PRN (20:37)
[2020-04-23] MEDS: methocarbamoL 500 MG TAB PO PRN (04:59)
[2020-04-23] MEDS: NALTREXONE 50 MG TAB PO SCH (08:16)
[2020-04-23] MEDS: DOCUSATE SODIUM 100 MG CAP PO SCH ×2 (08:16→21:14)
[2020-04-23] MEDS: DIVALPROEX 250 MG TAB PO SCH (08:16)
[2020-04-23] MEDS: THIAMINE 100 MG TAB PO SCH (08:16)
[2020-04-23] MEDS: BENZTROPINE 2 MG TAB PO SCH ×2 (08:16→21:15)
[2020-04-23] MEDS: ChlorproMAZINE 100 MG TABLET PO SCH ×3 (08:16→21:14)
[2020-04-23] MEDS: FOLIC ACID 1 MG TAB PO SCH (08:16)
[2020-04-23] MEDS: NICOTINE 21MG/24HR 1 EA TRANSDERMAL TD SCH (08:17)
--- NOTE | 2020-04-23 09:35 | MHIPN ---
DATE: 04/22/2020 The patient today tells me that he is doing fine. He has no complaints. He states that the plan is to send him for long-term treatment at [facility]. He does not seem to have any insight regarding this. The patient is on Assisted Outpatient Treatment (AOT). MENTAL STATUS EXAMINATION: He is alert and oriented times three. Eye contact is fair. Psychomotor activity is decreased. There is no formal thought disorder noted. He says his mood is fine. His affect is flat. He is not suicidal or homicidal. Concentration is poor. Insight and judgment is poor. DIAGNOSIS: Schizoaffective disorder, unspecified type. TREATMENT PLAN: We will continue to monitor the patient for his ongoing psychotic symptoms and poor insight and judgment and we will continue to titrate medications as indicated. GABI
--- NOTE | 2020-04-23 10:43 | MHIPNPDOC ---
[facility] Progress Note Progress Note DATE OF SERVICE: 04/23/20 Subjective HPI: The patient's met with briefly. He discussed with him the plan to continue to look at going [facility]. He refuses and after stating he deserves a third chance, and that he will get a public policy professor and left the interview Objective Behavior: Perseverative on discharge. Affect: Flat. Little reactivity. Cognition: Association loosened. Incoherent. Impaired secondary to thought process. Thought Form: Linear and goal directed. Judgement: Poor. Insight: Poor. Assessment F25.9 Schizoaffective disorder, unspecified Plan Continue medications with transfer to [facility] pending Vital Signs Vital Signs Date Time Temp Pulse Resp B/P (MAP) Pulse Ox O2 Delivery O2 Flow Rate FiO2 04/23/20 09:39 Room Air 04/22/20 16:05 97.1 60 18 113/68 (83) 04/22/20 06:33 98 Current Medications Current Medications Medications (Trade) Dose Ordered Sig/Daniel Route PRN Reason Start Time Stop Time Status Last Admin Dose Admin Acetaminophen (Tylenol Tab) 650 mg Q6HP PRN PO HEADACHE or DISCOMFORT 03/28/20 18:45 04/22/20 06:11 Al Hydrox/Mg Hydrox/Simethicone (Mylanta) 30 ml Q4HP PRN PO HEARTBURN/INDIGESTION 03/28/20 18:45 04/22/20 20:37 Benztropine Mesylate (Cogentin) 2 mg BID PO 03/28/20 21:00 04/23/20 08:16 Chlorpromazine HCl (Thorazine) 300 mg TID PO 03/28/20 21:00 04/23/20 08:16 Divalproex Sodium (Depakote) 750 mg QAM PO 03/29/20 09:00 04/23/20 08:16 Divalproex Sodium (Depakote) 1,000 mg QHS PO 03/28/20 21:00 04/22/20 20:32 Docusate Sodium (Colace) 100 mg BID PO 03/28/20 21:00 04/23/20 08:16 Folic Acid (Folic Acid) 1 mg DAILY PO 03/29/20 09:00 04/23/20 08:16 Haloperidol (Haldol) 10 mg QAM PO 03/29/20 09:00 03/30/20 12:24 DC 03/30/20 08:02 Haloperidol (Haldol) 15 mg DAILY@1500 PO 03/29/20 15:00 03/30/20 12:24 DC 03/29/20 15:19 Home Med (Med Rec Complete!) ASDIRECTED XX 03/28/20 18:00 03/28/20 17:54 DC Lorazepam (Ativan) 1 mg Q4HP PRN PO ANXIETY/AGITATION 04/05/20 22:15 04/22/20 12:00 Magnesium Hydroxide (Milk Of Magnesia) 30 ml DAILYPRN PRN PO CONSTIPATION 03/28/20 18:45 04/15/20 22:21 Methocarbamol (Robaxin) 500 mg TID PRN PO BACK PAIN 03/29/20 10:45 04/23/20 04:59 Miscellaneous (Unresolved Clarification Entry) SEE LABEL COMMENTS DAILY XX 04/12/20 09:00 04/12/20 11:11 DC Naltrexone HCl (Revia) 50 mg DAILY PO 03/29/20 09:00 04/23/20 08:16 Nicotine (Nicoderm Cq 21mg) 1 patch DAILY TD 03/29/20 09:00 04/23/20 08:17 Quetiapine Fumarate (SEROquel) 100 mg QHS PO 03/28/20 21:00 04/05/20 12:08 DC 04/03/20 20:28 Quetiapine Fumarate (SEROquel) 200 mg QHS PO 04/05/20 21:00 04/08/20 11:34 DC 04/07/20 21:10 Quetiapine Fumarate (SEROquel) 300 mg QHS PO 04/08/20 21:00 04/11/20 13:02 DC 04/09/20 20:25 Quetiapine Fumarate (SEROquel) 400 mg QHS PO 04/11/20 21:00 04/22/20 20:33 Risperidone (RisperDAL) 1 mg QHS PO 03/28/20 21:00 04/11/20 13:02 DC 04/09/20 20:25 Risperidone (RisperDAL) 2 mg QHS PO 04/11/20 21:00 04/22/20 20:32 Thiamine HCl (Thiamine HCl) 100 mg DAILY PO 9/18/20 09:00 04/23/20 08:16 Trazodone HCl (Desyrel) 50 mg QHSP PRN PO INSOMNIA 03/28/20 18:45 04/22/20 20:32 Allergies Coded Allergies: No Known Allergies (Verified , 10/17/08) BISHNU CASTREJON DO Apr 23, 2020 10:43
[2020-04-23] MEDS: MOM 30ML SUSPENSION UDC PO PRN (11:16)
[2020-04-23] MEDS: ACETAMINOPHEN TAB 650MG DOSE (2X325MG) PO PRN (15:47)
[2020-04-23 16:40] VITALS: BP 104/65
[2020-04-23] MEDS: risperiDONE 2 MG TAB PO SCH (21:14)
[2020-04-23] MEDS: DIVALPROEX 500 MG TAB PO SCH (21:14)
[2020-04-23] MEDS: QUEtiapine FUMARATE 200 MG TAB PO SCH (21:14)
[2020-04-24] MEDS: ACETAMINOPHEN TAB 650MG DOSE (2X325MG) PO PRN ×3 (05:17→21:40)
[2020-04-24 06:32] VITALS: BP 117/58
[2020-04-24] MEDS: ChlorproMAZINE 100 MG TABLET PO SCH ×3 (08:02→21:40)
[2020-04-24] MEDS: NALTREXONE 50 MG TAB PO SCH (08:02)
[2020-04-24] MEDS: BENZTROPINE 2 MG TAB PO SCH ×2 (08:02→21:39)
[2020-04-24] MEDS: DOCUSATE SODIUM 100 MG CAP PO SCH ×2 (08:02→21:39)
[2020-04-24] MEDS: DIVALPROEX 250 MG TAB PO SCH (08:02)
[2020-04-24] MEDS: THIAMINE 100 MG TAB PO SCH (08:02)
[2020-04-24] MEDS: FOLIC ACID 1 MG TAB PO SCH (08:02)
[2020-04-24] MEDS: NICOTINE 21MG/24HR 1 EA TRANSDERMAL TD SCH (08:03)
--- NOTE | 2020-04-24 10:56 | MHIPNPDOC ---
[facility] Progress Note Progress Note DATE OF SERVICE: 04/24/20 Subjective HPI: Terrence presents today for concerns regarding his discharge from [facility]. Patient is exemplifying anger during objective exam and is upset. Objective Speech: Incoherent. Thought Form: Tangential. Impaired thought process. Judgement: Poor. Insight: Poor. Assessment F20.0 Paranoid schizophrenia Plan Continue with same medications. Need to get referral for long-term treatment. Vital Signs Vital Signs Date Time Temp Pulse Resp B/P (MAP) Pulse Ox O2 Delivery O2 Flow Rate FiO2 04/24/20 09:45 Room Air 04/24/20 06:32 97.8 73 18 117/58 (77) 04/22/20 06:33 98 Current Medications Current Medications Medications (Trade) Dose Ordered Sig/Daniel Route PRN Reason Start Time Stop Time Status Last Admin Dose Admin Acetaminophen (Tylenol Tab) 650 mg Q6HP PRN PO HEADACHE or DISCOMFORT 03/28/20 18:45 04/24/20 05:17 Al Hydrox/Mg Hydrox/Simethicone (Mylanta) 30 ml Q4HP PRN PO HEARTBURN/INDIGESTION 03/28/20 18:45 04/22/20 20:37 Benztropine Mesylate (Cogentin) 2 mg BID PO 03/28/20 21:00 04/24/20 08:02 Chlorpromazine HCl (Thorazine) 300 mg TID PO 03/28/20 21:00 04/24/20 08:02 Divalproex Sodium (Depakote) 750 mg QAM PO 03/29/20 09:00 04/24/20 08:02 Divalproex Sodium (Depakote) 1,000 mg QHS PO 03/28/20 21:00 04/23/20 21:14 Docusate Sodium (Colace) 100 mg BID PO 03/28/20 21:00 04/24/20 08:02 Folic Acid (Folic Acid) 1 mg DAILY PO 03/29/20 09:00 04/24/20 08:02 Haloperidol (Haldol) 10 mg QAM PO 03/29/20 09:00 03/30/20 12:24 DC 03/30/20 08:02 Haloperidol (Haldol) 15 mg DAILY@1500 PO 03/29/20 15:00 03/30/20 12:24 DC 03/29/20 15:19 Home Med (Med Rec Complete!) ASDIRECTED XX 03/28/20 18:00 03/28/20 17:54 DC Lorazepam (Ativan) 1 mg Q4HP PRN PO ANXIETY/AGITATION 04/05/20 22:15 04/22/20 12:00 Magnesium Hydroxide (Milk Of Magnesia) 30 ml DAILYPRN PRN PO CONSTIPATION 03/28/20 18:45 04/23/20 11:16 Methocarbamol (Robaxin) 500 mg TID PRN PO BACK PAIN 03/29/20 10:45 04/23/20 04:59 Miscellaneous (Unresolved Clarification Entry) SEE LABEL COMMENTS DAILY XX 04/12/20 09:00 04/12/20 11:11 DC Naltrexone HCl (Revia) 50 mg DAILY PO 03/29/20 09:00 04/24/20 08:02 Nicotine (Nicoderm Cq 21mg) 1 patch DAILY TD 03/29/20 09:00 04/24/20 08:03 Quetiapine Fumarate (SEROquel) 100 mg QHS PO 03/28/20 21:00 04/05/20 12:08 DC 04/03/20 20:28 Quetiapine Fumarate (SEROquel) 200 mg QHS PO 04/05/20 21:00 04/08/20 11:34 DC 04/07/20 21:10 Quetiapine Fumarate (SEROquel) 300 mg QHS PO 04/08/20 21:00 04/11/20 13:02 DC 04/09/20 20:25 Quetiapine Fumarate (SEROquel) 400 mg QHS PO 04/11/20 21:00 04/23/20 21:14 Risperidone (RisperDAL) 1 mg QHS PO 03/28/20 21:00 04/11/20 13:02 DC 04/09/20 20:25 Risperidone (RisperDAL) 2 mg QHS PO 04/11/20 21:00 04/23/20 21:14 Thiamine HCl (Thiamine HCl) 100 mg DAILY PO 03/29/20 09:00 04/24/20 08:02 Trazodone HCl (Desyrel) 50 mg QHSP PRN PO INSOMNIA 03/28/20 18:45 04/22/20 20:32 Allergies Coded Allergies: No Known Allergies (Verified , 10/17/08) BISHNU CASTREJON DO Apr 24, 2020 10:56
[2020-04-24] MEDS: methocarbamoL 500 MG TAB PO PRN (16:58)
[2020-04-24] MEDS: risperiDONE 2 MG TAB PO SCH (21:39)
[2020-04-24] MEDS: DIVALPROEX 500 MG TAB PO SCH (21:39)
[2020-04-24] MEDS: QUEtiapine FUMARATE 200 MG TAB PO SCH (21:39)
[2020-04-24] MEDS: MAALOX 30 ML SUSP *UDC PO PRN (21:45)
[2020-04-25 06:31] VITALS: BP 145/75
[2020-04-25] MEDS: DOCUSATE SODIUM 100 MG CAP PO SCH ×2 (08:02→20:50)
[2020-04-25] MEDS: FOLIC ACID 1 MG TAB PO SCH (08:02)
[2020-04-25] MEDS: THIAMINE 100 MG TAB PO SCH (08:02)
[2020-04-25] MEDS: NALTREXONE 50 MG TAB PO SCH (08:02)
[2020-04-25] MEDS: BENZTROPINE 2 MG TAB PO SCH ×2 (08:02→20:50)
[2020-04-25] MEDS: ChlorproMAZINE 100 MG TABLET PO SCH ×3 (08:02→20:50)
[2020-04-25] MEDS: DIVALPROEX 250 MG TAB PO SCH (08:03)
[2020-04-25] MEDS: NICOTINE 21MG/24HR 1 EA TRANSDERMAL TD SCH (08:03)
--- NOTE | 2020-04-25 09:41 | MHIPNPDOC ---
[facility] Progress Note Progress Note DATE OF SERVICE: 04/25/20 Subjective HPI: Patient has been met with briefly. However, he ends the interview quite quickly. He reports that he still doesn't want to go to [facility] and continues to harass the discharge planners saying that he doesn't want to go and otherwise is unable to reason any particular argument other than his statement. However, he doesn't Rectify that he is not wanting to go. Objective Behavior: Tangential. Affect: Flat with low reactivity. Cognition: Paired secondary to thought process. Thought Form: Nonlinear. Associations not intact. Judgement: Poor. Insight: Poor. Assessment F25.9 Schizoaffective disorder, unspecified Plan Continue medications as current Continue with referral to [facility]. Vital Signs Vital Signs Date Time Temp Pulse Resp B/P (MAP) Pulse Ox O2 Delivery O2 Flow Rate FiO2 04/25/20 06:31 97.6 82 18 145/75 (98) 04/24/20 09:45 Room Air 04/22/20 06:33 98 Current Medications Current Medications Medications (Trade) Dose Ordered Sig/Daniel Route PRN Reason Start Time Stop Time Status Last Admin Dose Admin Acetaminophen (Tylenol Tab) 650 mg Q6HP PRN PO HEADACHE or DISCOMFORT 03/28/20 18:45 04/24/20 21:40 Al Hydrox/Mg Hydrox/Simethicone (Mylanta) 30 ml Q4HP PRN PO HEARTBURN/INDIGESTION 03/28/20 18:45 04/24/20 21:45 Benztropine Mesylate (Cogentin) 2 mg BID PO 03/28/20 21:00 04/25/20 08:02 Chlorpromazine HCl (Thorazine) 300 mg TID PO 03/28/20 21:00 04/25/20 08:02 Divalproex Sodium (Depakote) 750 mg QAM PO 03/29/20 09:00 04/25/20 08:03 Divalproex Sodium (Depakote) 1,000 mg QHS PO 03/28/20 21:00 04/24/20 21:39 Docusate Sodium (Colace) 100 mg BID PO 03/28/20 21:00 04/25/20 08:02 Folic Acid (Folic Acid) 1 mg DAILY PO 03/29/20 09:00 04/25/20 08:02 Haloperidol (Haldol) 10 mg QAM PO 03/29/20 09:00 03/30/20 12:24 DC 03/30/20 08:02 Haloperidol (Haldol) 15 mg DAILY@1500 PO 03/29/20 15:00 03/30/20 12:24 DC 03/29/20 15:19 Home Med (Med Rec Complete!) ASDIRECTED XX 03/28/20 18:00 03/28/20 17:54 DC Lorazepam (Ativan) 1 mg Q4HP PRN PO ANXIETY/AGITATION 04/05/20 22:15 04/22/20 12:00 Magnesium Hydroxide (Milk Of Magnesia) 30 ml DAILYPRN PRN PO CONSTIPATION 03/28/20 18:45 04/23/20 11:16 Methocarbamol (Robaxin) 500 mg TID PRN PO BACK PAIN 03/29/20 10:45 04/24/20 16:58 Miscellaneous (Unresolved Clarification Entry) SEE LABEL COMMENTS DAILY XX 04/24/20 09:00 04/24/20 15:11 DC Miscellaneous (Unresolved Clarification Entry) SEE LABEL COMMENTS DAILY XX 04/12/20 09:00 04/12/20 11:11 DC Naltrexone HCl (Revia) 50 mg DAILY PO 03/29/20 09:00 04/25/20 08:02 Nicotine (Nicoderm Cq 21mg) 1 patch DAILY TD 03/29/20 09:00 04/25/20 08:03 Quetiapine Fumarate (SEROquel) 100 mg QHS PO 03/28/20 21:00 04/05/20 12:08 DC 04/03/20 20:28 Quetiapine Fumarate (SEROquel) 200 mg QHS PO 04/05/20 21:00 04/08/20 11:34 DC 04/07/20 21:10 Quetiapine Fumarate (SEROquel) 300 mg QHS PO 04/08/20 21:00 04/11/20 13:02 DC 04/09/20 20:25 Quetiapine Fumarate (SEROquel) 400 mg QHS PO 04/11/20 21:00 04/24/20 21:39 Risperidone (RisperDAL) 1 mg QHS PO 03/28/20 21:00 04/11/20 13:02 DC 04/09/20 20:25 Risperidone (RisperDAL) 2 mg QHS PO 04/11/20 21:00 04/24/20 21:39 Thiamine HCl (Thiamine HCl) 100 mg DAILY PO 03/29/20 09:00 04/25/20 08:02 Trazodone HCl (Desyrel) 50 mg QHSP PRN PO INSOMNIA 03/28/20 18:45 04/22/20 20:32 Allergies Coded Allergies: No Known Allergies (Verified , 10/17/08) BISHNU CASTREJON DO Apr 25, 2020 09:40
[2020-04-25] MEDS: LORazepam 1 MG TAB PO PRN (12:23)
[2020-04-25] MEDS: methocarbamoL 500 MG TAB PO PRN (13:28)
[2020-04-25] MEDS: ACETAMINOPHEN TAB 650MG DOSE (2X325MG) PO PRN ×2 (13:28→17:37)
[2020-04-25] MEDS: DIVALPROEX 500 MG TAB PO SCH (20:50)
[2020-04-25] MEDS: QUEtiapine FUMARATE 200 MG TAB PO SCH (20:50)
[2020-04-25] MEDS: risperiDONE 2 MG TAB PO SCH (20:50)
[2020-04-26 07:20] VITALS: BP 103/55
[2020-04-26] MEDS: methocarbamoL 500 MG TAB PO PRN (07:49)
[2020-04-26] MEDS: BENZTROPINE 2 MG TAB PO SCH ×2 (08:07→21:00)
[2020-04-26] MEDS: NALTREXONE 50 MG TAB PO SCH (08:07)
[2020-04-26] MEDS: THIAMINE 100 MG TAB PO SCH (08:07)
[2020-04-26] MEDS: ChlorproMAZINE 100 MG TABLET PO SCH ×3 (08:07→21:00)
[2020-04-26] MEDS: DOCUSATE SODIUM 100 MG CAP PO SCH ×2 (08:08→20:59)
[2020-04-26] MEDS: FOLIC ACID 1 MG TAB PO SCH (08:08)
[2020-04-26] MEDS: DIVALPROEX 250 MG TAB PO SCH (08:08)
[2020-04-26] MEDS: NICOTINE 21MG/24HR 1 EA TRANSDERMAL TD SCH (08:09)
--- NOTE | 2020-04-26 10:30 | MHIPNPDOC ---
[facility] Progress Note Progress Note DATE OF SERVICE: 04/26/20 Subjective HPI: Terrence presents today for a check up. He continues to report that he does not want to go to [place] and quickly leaves after this discussion after he protests this multiple times. He is still bizarre and unable to engage in any reasonable conversation. Objective Appearance: Hygiene, fair. Behavior: Tangential. Incoherent. Perseverate uppn discharge. Speech: Normal rate. Normal volume. Spontaneous and Fluid. Judgement: Poor. Insight: Poor. Assessment F20.9 Schizophrenia, unspecified Plan Continue medications as current Concerned about changing them due to his decompensation last time. He was accepted to [facility], however he will be tapered off the Ativan which will begin next week. Vital Signs Vital Signs Date Time Temp Pulse Resp B/P (MAP) Pulse Ox O2 Delivery O2 Flow Rate FiO2 04/26/20 07:20 97.8 74 16 103/55 (71) Room Air 04/22/20 06:33 98 Current Medications Current Medications Medications (Trade) Dose Ordered Sig/Daniel Route PRN Reason Start Time Stop Time Status Last Admin Dose Admin Acetaminophen (Tylenol Tab) 650 mg Q6HP PRN PO HEADACHE or DISCOMFORT 03/28/20 18:45 04/25/20 17:37 Al Hydrox/Mg Hydrox/Simethicone (Mylanta) 30 ml Q4HP PRN PO HEARTBURN/INDIGESTION 03/28/20 18:45 04/24/20 21:45 Benztropine Mesylate (Cogentin) 2 mg BID PO 03/28/20 21:00 04/26/20 08:07 Chlorpromazine HCl (Thorazine) 300 mg TID PO 03/28/20 21:00 04/26/20 08:07 Divalproex Sodium (Depakote) 750 mg QAM PO 03/29/20 09:00 04/26/20 08:08 Divalproex Sodium (Depakote) 1,000 mg QHS PO 03/28/20 21:00 04/25/20 20:50 Docusate Sodium (Colace) 100 mg BID PO 03/28/20 21:00 04/26/20 08:08 Folic Acid (Folic Acid) 1 mg DAILY PO 03/29/20 09:00 04/26/20 08:08 Haloperidol (Haldol) 10 mg QAM PO 03/29/20 09:00 03/30/20 12:24 DC 03/30/20 08:02 Haloperidol (Haldol) 15 mg DAILY@1500 PO 03/29/20 15:00 03/30/20 12:24 DC 03/29/20 15:19 Home Med (Med Rec Complete!) ASDIRECTED XX 03/28/20 18:00 03/28/20 17:54 DC Lorazepam (Ativan) 1 mg Q4HP PRN PO ANXIETY/AGITATION 04/05/20 22:15 04/25/20 12:23 Magnesium Hydroxide (Milk Of Magnesia) 30 ml DAILYPRN PRN PO CONSTIPATION 03/28/20 18:45 04/23/20 11:16 Methocarbamol (Robaxin) 500 mg TID PRN PO BACK PAIN 03/29/20 10:45 04/26/20 07:49 Miscellaneous (Unresolved Clarification Entry) SEE LABEL COMMENTS DAILY XX 04/24/20 09:00 04/24/20 15:11 DC Miscellaneous (Unresolved Clarification Entry) SEE LABEL COMMENTS DAILY XX 04/12/20 09:00 04/12/20 11:11 DC Naltrexone HCl (Revia) 50 mg DAILY PO 03/29/20 09:00 04/26/20 08:07 Nicotine (Nicoderm Cq 21mg) 1 patch DAILY TD 03/29/20 09:00 04/26/20 08:09 Quetiapine Fumarate (SEROquel) 100 mg QHS PO 03/28/20 21:00 04/05/20 12:08 DC 04/03/20 20:28 Quetiapine Fumarate (SEROquel) 200 mg QHS PO 04/05/20 21:00 04/08/20 11:34 DC 04/07/20 21:10 Quetiapine Fumarate (SEROquel) 300 mg QHS PO 04/08/20 21:00 04/11/20 13:02 DC 04/09/20 20:25 Quetiapine Fumarate (SEROquel) 400 mg QHS PO 04/11/20 21:00 04/25/20 20:50 Risperidone (RisperDAL) 1 mg QHS PO 03/28/20 21:00 04/11/20 13:02 DC 04/09/20 20:25 Risperidone (RisperDAL) 2 mg QHS PO 04/11/20 21:00 04/25/20 20:50 Thiamine HCl (Thiamine HCl) 100 mg DAILY PO 03/29/20 09:00 04/26/20 08:07 Trazodone HCl (Desyrel) 50 mg QHSP PRN PO INSOMNIA 03/28/20 18:45 04/22/20 20:32 Allergies Coded Allergies: No Known Allergies (Verified , 10/17/08) BISHNU CASTREJON DO Apr 26, 2020 10:30
[2020-04-26] MEDS: LORazepam 1 MG TAB PO PRN (13:52)
[2020-04-26 16:09] VITALS: BP 138/88
[2020-04-26] MEDS: DIVALPROEX 500 MG TAB PO SCH (20:59)
[2020-04-26] MEDS: QUEtiapine FUMARATE 200 MG TAB PO SCH (20:59)
[2020-04-26] MEDS: traZODone 50 MG TAB PO PRN (20:59)
[2020-04-26] MEDS: risperiDONE 2 MG TAB PO SCH (21:00)
[2020-04-27] MEDS: ACETAMINOPHEN TAB 650MG DOSE (2X325MG) PO PRN ×3 (04:47→20:53)
[2020-04-27 06:29] VITALS: BP 137/58
[2020-04-27] MEDS: NICOTINE 21MG/24HR 1 EA TRANSDERMAL TD SCH (08:00)
[2020-04-27] MEDS: THIAMINE 100 MG TAB PO SCH (08:01)
[2020-04-27] MEDS: FOLIC ACID 1 MG TAB PO SCH (08:01)
[2020-04-27] MEDS: BENZTROPINE 2 MG TAB PO SCH ×2 (08:01→20:52)
[2020-04-27] MEDS: DIVALPROEX 250 MG TAB PO SCH (08:01)
[2020-04-27] MEDS: DOCUSATE SODIUM 100 MG CAP PO SCH ×2 (08:01→20:52)
[2020-04-27] MEDS: ChlorproMAZINE 100 MG TABLET PO SCH ×3 (08:01→20:52)
[2020-04-27] MEDS: NALTREXONE 50 MG TAB PO SCH (08:01)
[2020-04-27] MEDS: methocarbamoL 500 MG TAB PO PRN (10:31)
[2020-04-27 16:29] VITALS: BP 120/66
[2020-04-27] MEDS: DIVALPROEX 500 MG TAB PO SCH (20:51)
[2020-04-27] MEDS: QUEtiapine FUMARATE 200 MG TAB PO SCH (20:51)
[2020-04-27] MEDS: risperiDONE 2 MG TAB PO SCH (20:52)
[2020-04-27] MEDS: traZODone 50 MG TAB PO PRN (20:52)
[2020-04-28 06:27] VITALS: BP 134/62
[2020-04-28] MEDS: FOLIC ACID 1 MG TAB PO SCH (08:03)
[2020-04-28] MEDS: NICOTINE 21MG/24HR 1 EA TRANSDERMAL TD SCH (08:03)
[2020-04-28] MEDS: BENZTROPINE 2 MG TAB PO SCH ×2 (08:04→21:47)
[2020-04-28] MEDS: ACETAMINOPHEN TAB 650MG DOSE (2X325MG) PO PRN ×2 (08:04→14:02)
[2020-04-28] MEDS: DIVALPROEX 250 MG TAB PO SCH (08:04)
[2020-04-28] MEDS: ChlorproMAZINE 100 MG TABLET PO SCH ×3 (08:04→21:46)
[2020-04-28] MEDS: DOCUSATE SODIUM 100 MG CAP PO SCH ×2 (08:04→21:47)
[2020-04-28] MEDS: NALTREXONE 50 MG TAB PO SCH (08:04)
[2020-04-28] MEDS: THIAMINE 100 MG TAB PO SCH (08:04)
[2020-04-28] MEDS ORDERED: diphenhydrAMINE 50MG CAP PO STA (14:35)
[2020-04-28 17:06] VITALS: BP 145/80
[2020-04-28] MEDS: LORazepam 1 MG TAB PO PRN (18:31)
[2020-04-28] MEDS: risperiDONE 2 MG TAB PO SCH (21:46)
[2020-04-28] MEDS: QUEtiapine FUMARATE 200 MG TAB PO SCH (21:47)
[2020-04-28] MEDS: DIVALPROEX 500 MG TAB PO SCH (21:47)
[2020-04-28] MEDS: TRIAMCINOLONE ACET 0.1% OINTMENT 15 GM TOP SCH (21:49)
[2020-04-29] MEDS: ACETAMINOPHEN TAB 650MG DOSE (2X325MG) PO PRN ×2 (05:22→12:44)
[2020-04-29 06:45] VITALS: BP 133/50
[2020-04-29] MEDS: BENZTROPINE 2 MG TAB PO SCH ×2 (09:32→21:19)
[2020-04-29] MEDS: ChlorproMAZINE 100 MG TABLET PO SCH ×3 (09:32→21:19)
[2020-04-29] MEDS: THIAMINE 100 MG TAB PO SCH (09:32)
[2020-04-29] MEDS: FOLIC ACID 1 MG TAB PO SCH (09:32)
[2020-04-29] MEDS: NALTREXONE 50 MG TAB PO SCH (09:32)
[2020-04-29] MEDS: DOCUSATE SODIUM 100 MG CAP PO SCH ×2 (09:32→21:19)
[2020-04-29] MEDS: NICOTINE 21MG/24HR 1 EA TRANSDERMAL TD SCH (09:33)
[2020-04-29] MEDS: TRIAMCINOLONE ACET 0.1% OINTMENT 15 GM TOP SCH ×2 (09:33→21:20)
[2020-04-29] MEDS: DIVALPROEX 250 MG TAB PO SCH (09:44)
--- NOTE | 2020-04-29 09:52 | MHIPNPDOC ---
[facility] Progress Note Progress Note DATE OF SERVICE: 04/29/20 Subjective HPI: Terrence presents today for a check up. He continues to state that he does not want to go to the [facility]. He has notably been more focused on attempting to shave. He is unable to describe the situation that had brought him in or the rationale for his transfer. MEDICATIONS: They had requested for the patient to be tapered off Ativan, however, it is concerning due to whether this would impair him. Objective Appearance: Well nourished. Well groomed. Appears to be stated age. Speech: Perseverative. Thought Form: Associations loosened. Perseverative. Judgement: Poor. Insight: Poor. Assessment F20.9 Schizophrenia, unspecified Plan Continue current medications. Slowly taper him off over this week, but it is concerning as it could be problematic. Discuss with provider, at [facility] says his medication regimen is quite complex. Vital Signs Vital Signs Date Time Temp Pulse Resp B/P (MAP) Pulse Ox O2 Delivery O2 Flow Rate FiO2 04/29/20 06:45 97.2 90 20 133/50 (77) 04/26/20 10:56 Room Air Current Medications Current Medications Medications (Trade) Dose Ordered Sig/Daniel Route PRN Reason Start Time Stop Time Status Last Admin Dose Admin Acetaminophen (Tylenol Tab) 650 mg Q6HP PRN PO HEADACHE or DISCOMFORT 03/28/20 18:45 04/29/20 05:22 Al Hydrox/Mg Hydrox/Simethicone (Mylanta) 30 ml Q4HP PRN PO HEARTBURN/INDIGESTION 03/28/20 18:45 04/24/20 21:45 Benztropine Mesylate (Cogentin) 2 mg BID PO 03/28/20 21:00 04/29/20 09:32 Chlorpromazine HCl (Thorazine) 300 mg TID PO 03/28/20 21:00 04/29/20 09:32 Diphenhydramine HCl (Benadryl) 50 mg STAT STAT PO 04/28/20 14:35 04/28/20 14:36 DC 04/28/20 14:39 Divalproex Sodium (Depakote) 750 mg QAM PO 03/29/20 09:00 04/29/20 09:44 Divalproex Sodium (Depakote) 1,000 mg QHS PO 03/28/20 21:00 04/28/20 21:47 Docusate Sodium (Colace) 100 mg BID PO 03/28/20 21:00 04/29/20 09:32 Folic Acid (Folic Acid) 1 mg DAILY PO 03/29/20 09:00 04/29/20 09:32 Haloperidol (Haldol) 10 mg QAM PO 03/29/20 09:00 03/30/20 12:24 DC 03/30/20 08:02 Haloperidol (Haldol) 15 mg DAILY@1500 PO 03/29/20 15:00 03/30/20 12:24 DC 03/29/20 15:19 Home Med (Med Rec Complete!) ASDIRECTED XX 03/28/20 18:00 03/28/20 17:54 DC Lorazepam (Ativan) 1 mg Q4HP PRN PO ANXIETY/AGITATION 04/05/20 22:15 04/28/20 18:31 Magnesium Hydroxide (Milk Of Magnesia) 30 ml DAILYPRN PRN PO CONSTIPATION 03/28/20 18:45 04/23/20 11:16 Methocarbamol (Robaxin) 500 mg TID PRN PO BACK PAIN 03/29/20 10:45 04/27/20 10:31 Miscellaneous (Unresolved Clarification Entry) SEE LABEL COMMENTS DAILY XX 04/24/20 09:00 04/24/20 15:11 DC Miscellaneous (Unresolved Clarification Entry) SEE LABEL COMMENTS DAILY XX 04/12/20 09:00 04/12/20 11:11 DC Naltrexone HCl (Revia) 50 mg DAILY PO 03/29/20 09:00 04/29/20 09:32 Nicotine (Nicoderm Cq 21mg) 1 patch DAILY TD 03/29/20 09:00 04/29/20 09:33 Quetiapine Fumarate (SEROquel) 100 mg QHS PO 03/28/20 21:00 04/05/20 12:08 DC 04/03/20 20:28 Quetiapine Fumarate (SEROquel) 200 mg QHS PO 04/05/20 21:00 04/08/20 11:34 DC 04/07/20 21:10 Quetiapine Fumarate (SEROquel) 300 mg QHS PO 04/08/20 21:00 04/11/20 13:02 DC 04/09/20 20:25 Quetiapine Fumarate (SEROquel) 400 mg QHS PO 04/11/20 21:00 04/28/20 21:47 Risperidone (RisperDAL) 1 mg QHS PO 03/28/20 21:00 04/11/20 13:02 DC 04/09/20 20:25 Risperidone (RisperDAL) 2 mg QHS PO 04/11/20 21:00 04/28/20 21:46 Thiamine HCl (Thiamine HCl) 100 mg DAILY PO 03/29/20 09:00 04/29/20 09:32 Trazodone HCl (Desyrel) 50 mg QHSP PRN PO INSOMNIA 03/28/20 18:45 04/27/20 20:52 Triamcinolone Acetonide (Kenalog 0.1% Ointment) both arms BID TOP 04/28/20 21:00 04/29/20 09:33 Allergies Coded Allergies: No Known Allergies (Verified , 10/17/08) BISHNU CASTREJON DO Apr 29, 2020 09:52
[2020-04-29 17:29] VITALS: BP 132/74
[2020-04-29] MEDS: risperiDONE 2 MG TAB PO SCH (21:19)
[2020-04-29] MEDS: QUEtiapine FUMARATE 200 MG TAB PO SCH (21:19)
[2020-04-29] MEDS: DIVALPROEX 500 MG TAB PO SCH (21:20)
[2020-04-30] MEDS: ACETAMINOPHEN TAB 650MG DOSE (2X325MG) PO PRN ×2 (02:27→12:58)
[2020-04-30 06:24] VITALS: BP 100/52
[2020-04-30] MEDS: THIAMINE 100 MG TAB PO SCH (08:42)
[2020-04-30] MEDS: FOLIC ACID 1 MG TAB PO SCH (08:42)
[2020-04-30] MEDS: ChlorproMAZINE 100 MG TABLET PO SCH ×3 (08:43→20:23)
[2020-04-30] MEDS: DOCUSATE SODIUM 100 MG CAP PO SCH ×2 (08:43→20:23)
[2020-04-30] MEDS: methocarbamoL 500 MG TAB PO PRN (08:43)
[2020-04-30] MEDS: BENZTROPINE 2 MG TAB PO SCH ×2 (08:43→20:23)
[2020-04-30] MEDS: NALTREXONE 50 MG TAB PO SCH (08:43)
[2020-04-30] MEDS: DIVALPROEX 250 MG TAB PO SCH (08:44)
[2020-04-30] MEDS: NICOTINE 21MG/24HR 1 EA TRANSDERMAL TD SCH (08:44)
[2020-04-30] MEDS: TRIAMCINOLONE ACET 0.1% OINTMENT 15 GM TOP SCH ×2 (08:44→20:23)
[2020-04-30] MEDS: risperiDONE 2 MG TAB PO SCH (20:23)
[2020-04-30] MEDS: QUEtiapine FUMARATE 200 MG TAB PO SCH (20:23)
[2020-04-30] MEDS: traZODone 50 MG TAB PO PRN (20:23)
[2020-04-30] MEDS: DIVALPROEX 500 MG TAB PO SCH (20:23)
[2020-05-01 06:35] VITALS: BP 95/62
[2020-05-01] MEDS: NALTREXONE 50 MG TAB PO SCH (09:10)
[2020-05-01] MEDS: ChlorproMAZINE 100 MG TABLET PO SCH ×3 (09:11→21:51)
[2020-05-01] MEDS: FOLIC ACID 1 MG TAB PO SCH (09:11)
[2020-05-01] MEDS: BENZTROPINE 2 MG TAB PO SCH ×2 (09:12→21:52)
[2020-05-01] MEDS: DOCUSATE SODIUM 100 MG CAP PO SCH ×2 (09:12→21:50)
[2020-05-01] MEDS: THIAMINE 100 MG TAB PO SCH (09:12)
[2020-05-01] MEDS: DIVALPROEX 250 MG TAB PO SCH (09:13)
[2020-05-01] MEDS: ACETAMINOPHEN TAB 650MG DOSE (2X325MG) PO PRN ×2 (09:13→21:50)
[2020-05-01] MEDS: NICOTINE 21MG/24HR 1 EA TRANSDERMAL TD SCH (09:14)
[2020-05-01] MEDS: TRIAMCINOLONE ACET 0.1% OINTMENT 15 GM TOP SCH ×2 (09:15→21:52)
[2020-05-01] MEDS: methocarbamoL 500 MG TAB PO PRN (13:21)
[2020-05-01 17:17] VITALS: BP 131/77
[2020-05-01] MEDS: risperiDONE 2 MG TAB PO SCH (21:49)
[2020-05-01] MEDS: traZODone 50 MG TAB PO PRN (21:50)
[2020-05-01] MEDS: QUEtiapine FUMARATE 200 MG TAB PO SCH (21:51)
[2020-05-01] MEDS: DIVALPROEX 500 MG TAB PO SCH (21:51)
[2020-05-02 07:28] VITALS: BP 97/55
--- NOTE | 2020-05-02 08:09 | MHIPN ---
DATE: 05/01/2020 VITAL SIGNS: Blood pressure 131/77, pulse 70, temperature 98. CHIEF COMPLAINT: Says feels okay. SUBJECTIVE: He is seen for follow-up. He has been assigned to me for today, as is away. Patient says he has been doing okay, suggests moods are gross, otherwise he sleeps well. He is somewhat preoccupied with wanting to shave. MENTAL STATUS EXAM: He is neat, cooperative. No agitation. He is trying to remove a spoon from the door lock, he says he placed it there to lock the door. Answers questions briefly, coherently. Denies suicidal thoughts or intents. No homicidal ideation or intents. Judgment and insight remain poor. Cognition grossly intact. PLAN: The plan is to continue current care and observation. Patient possibly requires long-term care. Further recommendations will be made depending on the clinical picture. GABI
[2020-05-02] MEDS: BENZTROPINE 2 MG TAB PO SCH ×2 (08:17→20:43)
[2020-05-02] MEDS: NALTREXONE 50 MG TAB PO SCH (08:17)
[2020-05-02] MEDS: DIVALPROEX 250 MG TAB PO SCH (08:18)
[2020-05-02] MEDS: FOLIC ACID 1 MG TAB PO SCH (08:18)
[2020-05-02] MEDS: THIAMINE 100 MG TAB PO SCH (08:18)
[2020-05-02] MEDS: NICOTINE 21MG/24HR 1 EA TRANSDERMAL TD SCH (08:19)
[2020-05-02] MEDS: ChlorproMAZINE 100 MG TABLET PO SCH ×3 (08:19→20:42)
[2020-05-02] MEDS: DOCUSATE SODIUM 100 MG CAP PO SCH ×2 (08:19→20:43)
[2020-05-02] MEDS: TRIAMCINOLONE ACET 0.1% OINTMENT 15 GM TOP SCH ×2 (08:20→20:42)
--- NOTE | 2020-05-02 10:29 | MHIPNPDOC ---
[facility] Progress Note Progress Note DATE OF SERVICE: 05/02/20 Subjective HPI: The patient is met with, continues to repeat that doesn't want to go [place] in that he will get a curator zoological museum. He spent the majority of day trying to get people to allow him to shave but doesn't appear to understand the rationale, still quite psychotic. Objective General: poor Speech: rapid Thought processes: tangential Thought content: psychotic delusions Abstract reasoning, and computation: impaired Description of associations: imparied Description of abnormal or psychotic thoughts:Unclear, appears to have psychotic processes going on. Judgment: poor Insight: poor Orientation: Alert and orientated 3 Recent and remote memory: Intact Attention span and concentration: impaired secondary to thought process Fund of knowledge: unable to determine Mood: "I don't want to go" Affect: flat, little reactivity Assessment schizoaffective disorder Plan Continue with transfer, continue meds as is without any changes Vital Signs Vital Signs Date Time Temp Pulse Resp B/P (MAP) Pulse Ox O2 Delivery O2 Flow Rate FiO2 05/02/20 07:28 97.6 85 18 97/55 (69) Room Air Current Medications Current Medications Medications (Trade) Dose Ordered Sig/Daniel Route PRN Reason Start Time Stop Time Status Last Admin Dose Admin Acetaminophen (Tylenol Tab) 650 mg Q6HP PRN PO HEADACHE or DISCOMFORT 03/28/20 18:45 05/01/20 21:50 Al Hydrox/Mg Hydrox/Simethicone (Mylanta) 30 ml Q4HP PRN PO HEARTBURN/INDIGESTION 03/28/20 18:45 04/24/20 21:45 Benztropine Mesylate (Cogentin) 2 mg BID PO 03/28/20 21:00 05/02/20 08:17 Chlorpromazine HCl (Thorazine) 300 mg TID PO 03/28/20 21:00 05/02/20 08:19 Diphenhydramine HCl (Benadryl) 50 mg STAT STAT PO 04/28/20 14:35 04/28/20 14:36 DC 04/28/20 14:39 Divalproex Sodium (Depakote) 750 mg QAM PO 03/29/20 09:00 05/02/20 08:18 Divalproex Sodium (Depakote) 1,000 mg QHS PO 03/28/20 21:00 05/01/20 21:51 Docusate Sodium (Colace) 100 mg BID PO 03/28/20 21:00 05/02/20 08:19 Folic Acid (Folic Acid) 1 mg DAILY PO 03/29/20 09:00 05/02/20 08:18 Haloperidol (Haldol) 10 mg QAM PO 03/29/20 09:00 03/30/20 12:24 DC 03/30/20 08:02 Haloperidol (Haldol) 15 mg DAILY@1500 PO 03/29/20 15:00 03/30/20 12:24 DC 03/29/20 15:19 Home Med (Med Rec Complete!) ASDIRECTED XX 03/28/20 18:00 03/28/20 17:54 DC Lorazepam (Ativan) 1 mg Q4HP PRN PO ANXIETY/AGITATION 04/05/20 22:15 05/01/20 14:47 DC 04/28/20 18:31 Magnesium Hydroxide (Milk Of Magnesia) 30 ml DAILYPRN PRN PO CONSTIPATION 03/28/20 18:45 04/23/20 11:16 Methocarbamol (Robaxin) 500 mg TID PRN PO BACK PAIN 03/29/20 10:45 05/01/20 13:21 Miscellaneous (Unresolved Clarification Entry) SEE LABEL COMMENTS DAILY XX 04/24/20 09:00 04/24/20 15:11 DC Miscellaneous (Unresolved Clarification Entry) SEE LABEL COMMENTS DAILY XX 04/12/20 09:00 04/12/20 11:11 DC Naltrexone HCl (Revia) 50 mg DAILY PO 03/29/20 09:00 05/02/20 08:17 Nicotine (Nicoderm Cq 21mg) 1 patch DAILY TD 03/29/20 09:00 05/02/20 08:19 Quetiapine Fumarate (SEROquel) 100 mg QHS PO 03/28/20 21:00 04/05/20 12:08 DC 04/03/20 20:28 Quetiapine Fumarate (SEROquel) 200 mg QHS PO 04/05/20 21:00 04/08/20 11:34 DC 04/07/20 21:10 Quetiapine Fumarate (SEROquel) 300 mg QHS PO 04/08/20 21:00 04/11/20 13:02 DC 04/09/20 20:25 Quetiapine Fumarate (SEROquel) 400 mg QHS PO 04/11/20 21:00 05/01/20 21:51 Risperidone (RisperDAL) 1 mg QHS PO 03/28/20 21:00 04/11/20 13:02 DC 04/09/20 20:25 Risperidone (RisperDAL) 2 mg QHS PO 04/11/20 21:00 05/01/20 21:49 Thiamine HCl (Thiamine HCl) 100 mg DAILY PO 03/29/20 09:00 05/02/20 08:18 Trazodone HCl (Desyrel) 50 mg QHSP PRN PO INSOMNIA 03/28/20 18:45 05/01/20 21:50 Triamcinolone Acetonide (Kenalog 0.1% Ointment) both arms BID TOP 04/28/20 21:00 05/02/20 08:20 Allergies Coded Allergies: No Known Allergies (Verified , 10/17/08) BISHNU CASTREJON DO May 02, 2020 10:29
[2020-05-02] MEDS: ACETAMINOPHEN TAB 650MG DOSE (2X325MG) PO PRN (16:04)
[2020-05-02 19:11] VITALS: BP 145/86
[2020-05-02] MEDS: QUEtiapine FUMARATE 200 MG TAB PO SCH (20:42)
[2020-05-02] MEDS: DIVALPROEX 500 MG TAB PO SCH (20:42)
[2020-05-02] MEDS: risperiDONE 2 MG TAB PO SCH (20:43)
[2020-05-03 06:31] VITALS: BP 117/63
[2020-05-03] MEDS: BENZTROPINE 2 MG TAB PO SCH ×2 (08:52→20:19)
[2020-05-03] MEDS: NALTREXONE 50 MG TAB PO SCH (08:52)
[2020-05-03] MEDS: FOLIC ACID 1 MG TAB PO SCH (08:54)
[2020-05-03] MEDS: DIVALPROEX 250 MG TAB PO SCH (08:54)
[2020-05-03] MEDS: THIAMINE 100 MG TAB PO SCH (08:54)
[2020-05-03] MEDS: DOCUSATE SODIUM 100 MG CAP PO SCH ×2 (08:54→20:19)
[2020-05-03] MEDS: ChlorproMAZINE 100 MG TABLET PO SCH ×3 (08:54→20:19)
[2020-05-03] MEDS: TRIAMCINOLONE ACET 0.1% OINTMENT 15 GM TOP SCH ×2 (08:55→20:21)
[2020-05-03] MEDS: NICOTINE 21MG/24HR 1 EA TRANSDERMAL TD SCH (08:55)
[2020-05-03] MEDS: ACETAMINOPHEN TAB 650MG DOSE (2X325MG) PO PRN (11:51)
--- NOTE | 2020-05-03 12:32 | MHIPNPDOC ---
[facility] Progress Note Progress Note DATE OF SERVICE: 05/03/20 Subjective HPI: Patient is attempted to be met with, however he ins the interview early, as he states we have "nothing to talk about" as he wants to shave and that he wants to be discharged. He continues to state that he will not go to [place], has difficulty yelling at himself responding to internal stimuli. Objective General: poor Speech: fluid Thought processes: tangential Thought content: psychotic delusions Abstract reasoning, and computation: impaired Description of associations: imparied Description of abnormal or psychotic thoughts:Unclear, appears to have psychotic processes going on. Judgment: poor Insight: poor Orientation: Alert and orientated 3 Recent and remote memory: Intact Attention span and concentration: impaired secondary to thought process Fund of knowledge: unable to determine Mood: "shave" Affect: flat, little reactivity Assessment schizoaffective disorder, bipolar type Plan Continue medications as current, [facility] has accepted in for transfer, discontinued benzodiazepine as he is not been using Vital Signs Vital Signs Date Time Temp Pulse Resp B/P (MAP) Pulse Ox O2 Delivery O2 Flow Rate FiO2 05/03/20 06:31 97.5 79 14 117/63 (81) Room Air Current Medications Current Medications Medications (Trade) Dose Ordered Sig/Daniel Route PRN Reason Start Time Stop Time Status Last Admin Dose Admin Acetaminophen (Tylenol Tab) 650 mg Q6HP PRN PO HEADACHE or DISCOMFORT 03/28/20 18:45 05/03/20 11:51 Al Hydrox/Mg Hydrox/Simethicone (Mylanta) 30 ml Q4HP PRN PO HEARTBURN/INDIGESTION 03/28/20 18:45 04/24/20 21:45 Benztropine Mesylate (Cogentin) 2 mg BID PO 03/28/20 21:00 05/03/20 08:52 Chlorpromazine HCl (Thorazine) 300 mg TID PO 03/28/20 21:00 05/03/20 08:54 Diphenhydramine HCl (Benadryl) 50 mg STAT STAT PO 04/28/20 14:35 04/28/20 14:36 DC 04/28/20 14:39 Divalproex Sodium (Depakote) 750 mg QAM PO 03/29/20 09:00 05/03/20 08:54 Divalproex Sodium (Depakote) 1,000 mg QHS PO 03/28/20 21:00 05/02/20 20:42 Docusate Sodium (Colace) 100 mg BID PO 03/28/20 21:00 05/03/20 08:54 Folic Acid (Folic Acid) 1 mg DAILY PO 03/29/20 09:00 05/03/20 08:54 Haloperidol (Haldol) 10 mg QAM PO 03/29/20 09:00 03/30/20 12:24 DC 03/30/20 08:02 Haloperidol (Haldol) 15 mg DAILY@1500 PO 03/29/20 15:00 03/30/20 12:24 DC 03/29/20 15:19 Home Med (Med Rec Complete!) ASDIRECTED XX 03/28/20 18:00 03/28/20 17:54 DC Lorazepam (Ativan) 1 mg Q4HP PRN PO ANXIETY/AGITATION 04/05/20 22:15 05/01/20 14:47 DC 04/28/20 18:31 Magnesium Hydroxide (Milk Of Magnesia) 30 ml DAILYPRN PRN PO CONSTIPATION 03/28/20 18:45 04/23/20 11:16 Methocarbamol (Robaxin) 500 mg TID PRN PO BACK PAIN 03/29/20 10:45 05/01/20 13:21 Miscellaneous (Unresolved Clarification Entry) SEE LABEL COMMENTS DAILY XX 04/24/20 09:00 04/24/20 15:11 DC Miscellaneous (Unresolved Clarification Entry) SEE LABEL COMMENTS DAILY XX 04/12/20 09:00 04/12/20 11:11 DC Naltrexone HCl (Revia) 50 mg DAILY PO 03/29/20 09:00 05/03/20 08:52 Nicotine (Nicoderm Cq 21mg) 1 patch DAILY TD 03/29/20 09:00 05/03/20 08:55 Quetiapine Fumarate (SEROquel) 100 mg QHS PO 03/28/20 21:00 04/05/20 12:08 DC 04/03/20 20:28 Quetiapine Fumarate (SEROquel) 200 mg QHS PO 04/05/20 21:00 04/08/20 11:34 DC 04/07/20 21:10 Quetiapine Fumarate (SEROquel) 300 mg QHS PO 04/08/20 21:00 04/11/20 13:02 DC 04/09/20 20:25 Quetiapine Fumarate (SEROquel) 400 mg QHS PO 04/11/20 21:00 05/02/20 20:42 Risperidone (RisperDAL) 1 mg QHS PO 03/28/20 21:00 04/11/20 13:02 DC 04/09/20 20:25 Risperidone (RisperDAL) 2 mg QHS PO 04/11/20 21:00 05/02/20 20:43 Thiamine HCl (Thiamine HCl) 100 mg DAILY PO 03/29/20 09:00 05/03/20 08:54 Trazodone HCl (Desyrel) 50 mg QHSP PRN PO INSOMNIA 03/28/20 18:45 05/01/20 21:50 Triamcinolone Acetonide (Kenalog 0.1% Ointment) both arms BID TOP 04/28/20 21:00 05/03/20 08:55 Allergies Coded Allergies: No Known Allergies (Verified , 10/17/08) BISHNU CASTREJON DO May 03, 2020 12:32
[2020-05-03 18:13] VITALS: BP 155/85
[2020-05-03] MEDS: DIVALPROEX 500 MG TAB PO SCH (20:19)
[2020-05-03] MEDS: risperiDONE 2 MG TAB PO SCH (20:19)
[2020-05-03] MEDS: QUEtiapine FUMARATE 200 MG TAB PO SCH (20:19)
[2020-05-04] MEDS: ACETAMINOPHEN TAB 650MG DOSE (2X325MG) PO PRN (06:42)
[2020-05-04 06:48] VITALS: BP 111/68
[2020-05-04] MEDS: TRIAMCINOLONE ACET 0.1% OINTMENT 15 GM TOP SCH ×2 (08:47→22:36)
[2020-05-04] MEDS: ChlorproMAZINE 100 MG TABLET PO SCH ×3 (08:48→22:38)
[2020-05-04] MEDS: NICOTINE 21MG/24HR 1 EA TRANSDERMAL TD SCH (08:48)
[2020-05-04] MEDS: DOCUSATE SODIUM 100 MG CAP PO SCH ×2 (08:49→22:38)
[2020-05-04] MEDS: FOLIC ACID 1 MG TAB PO SCH (08:49)
[2020-05-04] MEDS: NALTREXONE 50 MG TAB PO SCH (08:49)
[2020-05-04] MEDS: THIAMINE 100 MG TAB PO SCH (08:49)
[2020-05-04] MEDS: BENZTROPINE 2 MG TAB PO SCH ×2 (08:49→22:38)
[2020-05-04] MEDS: DIVALPROEX 250 MG TAB PO SCH (08:50)
[2020-05-04] MEDS: MAALOX 30 ML SUSP *UDC PO PRN (13:00)
[2020-05-04 17:40] VITALS: BP 139/73
[2020-05-04] MEDS ORDERED: OLANZapine ORAL DISINTEGRATING TAB 5MG PO ONE (18:00)
[2020-05-04] MEDS: QUEtiapine FUMARATE 200 MG TAB PO SCH (22:38)
[2020-05-04] MEDS: traZODone 50 MG TAB PO PRN (22:38)
[2020-05-04] MEDS: risperiDONE 2 MG TAB PO SCH (22:38)
[2020-05-04] MEDS: DIVALPROEX 500 MG TAB PO SCH (22:38)
[2020-05-05] MEDS: ACETAMINOPHEN TAB 650MG DOSE (2X325MG) PO PRN ×2 (05:44→11:28)
[2020-05-05 05:45] VITALS: BP 84/60
[2020-05-05 06:04] VITALS: BP 124/75
[2020-05-05] MEDS: TRIAMCINOLONE ACET 0.1% OINTMENT 15 GM TOP SCH ×2 (09:17→20:25)
[2020-05-05] MEDS: BENZTROPINE 2 MG TAB PO SCH ×2 (09:18→20:24)
[2020-05-05] MEDS: ChlorproMAZINE 100 MG TABLET PO SCH ×3 (09:18→20:24)
[2020-05-05] MEDS: NICOTINE 21MG/24HR 1 EA TRANSDERMAL TD SCH (09:18)
[2020-05-05] MEDS: DOCUSATE SODIUM 100 MG CAP PO SCH ×2 (09:18→20:24)
[2020-05-05] MEDS: THIAMINE 100 MG TAB PO SCH (09:18)
[2020-05-05] MEDS: FOLIC ACID 1 MG TAB PO SCH (09:18)
[2020-05-05] MEDS: NALTREXONE 50 MG TAB PO SCH (09:18)
[2020-05-05] MEDS: DIVALPROEX 250 MG TAB PO SCH (09:19)
[2020-05-05 18:36] VITALS: BP 154/90
[2020-05-05] MEDS: DIVALPROEX 500 MG TAB PO SCH (20:24)
[2020-05-05] MEDS: risperiDONE 2 MG TAB PO SCH (20:24)
[2020-05-05] MEDS: QUEtiapine FUMARATE 200 MG TAB PO SCH (20:24)
[2020-05-05] MEDS: traZODone 50 MG TAB PO PRN (20:27)
[2020-05-06] MEDS: NICOTINE 21MG/24HR 1 EA TRANSDERMAL TD SCH (08:28)
[2020-05-06] MEDS: NALTREXONE 50 MG TAB PO SCH (08:29)
[2020-05-06] MEDS: BENZTROPINE 2 MG TAB PO SCH ×2 (08:29→21:00)
[2020-05-06] MEDS: DOCUSATE SODIUM 100 MG CAP PO SCH ×2 (08:29→21:01)
[2020-05-06] MEDS: ChlorproMAZINE 100 MG TABLET PO SCH ×3 (08:29→21:00)
[2020-05-06] MEDS: DIVALPROEX 250 MG TAB PO SCH (08:29)
[2020-05-06] MEDS: THIAMINE 100 MG TAB PO SCH (08:29)
[2020-05-06] MEDS: FOLIC ACID 1 MG TAB PO SCH (08:29)
[2020-05-06] MEDS: TRIAMCINOLONE ACET 0.1% OINTMENT 15 GM TOP SCH ×2 (08:30→21:02)
--- NOTE | 2020-05-06 09:48 | MHIPNPDOC ---
[facility] Progress Note Progress Note DATE OF SERVICE: 05/06/20 Subjective HPI: Terrence presents today for a follow-up. Patient reports that he does not want to go to [place]. He feels people are out to kill him and that if he were to go there that someones waiting there to end his life. No meaningful conversation is obtained otherwise. Objective Appearance: Appears to be stated age. Hygiene - Fair. Well nourished. Behavior: Paranoid. Thought Form: Nonlinear at times. Judgement: Poor. Insight: Poor. Assessment F20.9 Schizophrenia, unspecified Plan Continue transfer to [place] Ordered CBC, CMP, and EKG. Some mild abnormalities. Hospitalists report that theres no need to follow-up as they are insignificant. Vital Signs Vital Signs Date Time Temp Pulse Resp B/P (MAP) Pulse Ox O2 Delivery O2 Flow Rate FiO2 05/05/20 18:36 97.8 77 16 154/90 (111) 99 Room Air Current Medications Current Medications Medications (Trade) Dose Ordered Sig/Daniel Route PRN Reason Start Time Stop Time Status Last Admin Dose Admin Acetaminophen (Tylenol Tab) 650 mg Q6HP PRN PO HEADACHE or DISCOMFORT 03/28/20 18:45 05/05/20 11:28 Al Hydrox/Mg Hydrox/Simethicone (Mylanta) 30 ml Q4HP PRN PO HEARTBURN/INDIGESTION 03/28/20 18:45 05/04/20 13:00 Benztropine Mesylate (Cogentin) 2 mg BID PO 03/28/20 21:00 05/06/20 08:29 Chlorpromazine HCl (Thorazine) 300 mg TID PO 03/28/20 21:00 05/06/20 08:29 Diphenhydramine HCl (Benadryl) 50 mg STAT STAT PO 04/28/20 14:35 04/28/20 14:36 DC 04/28/20 14:39 Divalproex Sodium (Depakote) 750 mg QAM PO 03/29/20 09:00 05/06/20 08:29 Divalproex Sodium (Depakote) 1,000 mg QHS PO 03/28/20 21:00 05/05/20 20:24 Docusate Sodium (Colace) 100 mg BID PO 03/28/20 21:00 05/06/20 08:29 Folic Acid (Folic Acid) 1 mg DAILY PO 03/29/20 09:00 05/06/20 08:29 Haloperidol (Haldol) 10 mg QAM PO 03/29/20 09:00 03/30/20 12:24 DC 03/30/20 08:02 Haloperidol (Haldol) 15 mg DAILY@1500 PO 03/29/20 15:00 03/30/20 12:24 DC 03/29/20 15:19 Home Med (Med Rec Complete!) ASDIRECTED XX 03/28/20 18:00 03/28/20 17:54 DC Lorazepam (Ativan) 1 mg Q4HP PRN PO ANXIETY/AGITATION 04/05/20 22:15 05/01/20 14:47 DC 04/28/20 18:31 Magnesium Hydroxide (Milk Of Magnesia) 30 ml DAILYPRN PRN PO CONSTIPATION 03/28/20 18:45 04/23/20 11:16 Methocarbamol (Robaxin) 500 mg TID PRN PO BACK PAIN 03/29/20 10:45 05/01/20 13:21 Miscellaneous (Unresolved Clarification Entry) SEE LABEL COMMENTS DAILY XX 04/24/20 09:00 04/24/20 15:11 DC Miscellaneous (Unresolved Clarification Entry) SEE LABEL COMMENTS DAILY XX 04/12/20 09:00 04/12/20 11:11 DC Naltrexone HCl (Revia) 50 mg DAILY PO 03/29/20 09:00 05/06/20 08:29 Nicotine (Nicoderm Cq 21mg) 1 patch DAILY TD 03/29/20 09:00 05/06/20 08:28 Quetiapine Fumarate (SEROquel) 100 mg QHS PO 03/28/20 21:00 04/05/20 12:08 DC 04/03/20 20:28 Quetiapine Fumarate (SEROquel) 200 mg QHS PO 04/05/20 21:00 04/08/20 11:34 DC 04/07/20 21:10 Quetiapine Fumarate (SEROquel) 300 mg QHS PO 04/08/20 21:00 04/11/20 13:02 DC 04/09/20 20:25 Quetiapine Fumarate (SEROquel) 400 mg QHS PO 04/11/20 21:00 05/05/20 20:24 Risperidone (RisperDAL) 1 mg QHS PO 03/28/20 21:00 04/11/20 13:02 DC 04/09/20 20:25 Risperidone (RisperDAL) 2 mg QHS PO 04/11/20 21:00 05/05/20 20:24 Thiamine HCl (Thiamine HCl) 100 mg DAILY PO 03/29/20 09:00 05/06/20 08:29 Trazodone HCl (Desyrel) 50 mg QHSP PRN PO INSOMNIA 03/28/20 18:45 05/05/20 20:27 Triamcinolone Acetonide (Kenalog 0.1% Ointment) both arms BID TOP 04/28/20 21:00 05/06/20 08:30 Allergies Coded Allergies: No Known Allergies (Verified , 10/17/08) BISHNU CASTREJON DO May 06, 2020 09:48
[2020-05-06] MEDS: ACETAMINOPHEN TAB 650MG DOSE (2X325MG) PO PRN (11:28)
[2020-05-06 12:09] LABS: BASO # 0.1 10^3/uL (0.0-0.2); EOS # 0.3 10^3/uL (0.0-0.5); EOS % 6.2 % (0.0-3.0); HEMATOCRIT 35.9 % (42.0-52.0); HEMOGLOBIN 12.6 g/dl (13.5-17.5); LYMPH # 0.9 10^3/uL (1.5-5.0); LYMPH % 18.7 % (24.0-44.0); MEAN CORPUSCULAR HEMOGLOBIN 31.5 pg (27.0-33.0); MEAN CORPUSCULAR HGB CONC 35.1 g/dl (32.0-36.5); MEAN CORPUSCULAR VOLUME 89.8 fl (80.0-96.0); MONO # 0.7 10^3/uL (0.0-0.8); MONO % 13.6 % (0.0-5.0); NEUTROPHILS # 2.9 10^3/uL (1.5-8.5); NEUTROPHILS % 58.4 % (36.0-66.0); PLATELET COUNT, AUTOMATED 184 10^3/uL (150-450); WHITE BLOOD COUNT 4.9 10^3/uL (4.0-10.0)
[2020-05-06 12:31] LABS: ALBUMIN 3.8 GM/DL (3.2-5.2); ALT/SGPT 17 U/L (12-78); BILIRUBIN,TOTAL 0.4 MG/DL (0.2-1.0); BLOOD UREA NITROGEN 9 MG/DL (7-18); CALCIUM LEVEL 9.2 MG/DL (8.5-10.1); CARBON DIOXIDE LEVEL 29 MEQ/L (21-32); CHLORIDE LEVEL 97 MEQ/L (98-107); CREATININE FOR GFR 0.92 MG/DL (0.70-1.30); GLOMERULAR FILTRATION RATE > 60.0 (>56); GLUCOSE, FASTING 88 MG/DL (70-100); POTASSIUM SERUM 4.7 MEQ/L (3.5-5.1); SODIUM LEVEL 131 MEQ/L (136-145); TOTAL PROTEIN 6.8 GM/DL (6.4-8.2)
[2020-05-06 16:56] VITALS: BP 100/63
[2020-05-06] MEDS: risperiDONE 2 MG TAB PO SCH (21:01)
[2020-05-06] MEDS: DIVALPROEX 500 MG TAB PO SCH (21:01)
[2020-05-06] MEDS: QUEtiapine FUMARATE 200 MG TAB PO SCH (21:01)
[2020-05-07] MEDS: ACETAMINOPHEN TAB 650MG DOSE (2X325MG) PO PRN ×2 (05:40→09:02)
[2020-05-07 06:41] VITALS: BP 131/71
[2020-05-07] MEDS: NICOTINE 21MG/24HR 1 EA TRANSDERMAL TD SCH (08:59)
[2020-05-07] MEDS: DIVALPROEX 250 MG TAB PO SCH (09:00)
[2020-05-07] MEDS: FOLIC ACID 1 MG TAB PO SCH (09:00)
[2020-05-07] MEDS: TRIAMCINOLONE ACET 0.1% OINTMENT 15 GM TOP SCH ×2 (09:00→21:00)
[2020-05-07] MEDS: BENZTROPINE 2 MG TAB PO SCH ×2 (09:01→21:42)
[2020-05-07] MEDS: NALTREXONE 50 MG TAB PO SCH (09:01)
[2020-05-07] MEDS: DOCUSATE SODIUM 100 MG CAP PO SCH ×2 (09:01→21:42)
[2020-05-07] MEDS: ChlorproMAZINE 100 MG TABLET PO SCH ×3 (09:01→21:42)
[2020-05-07] MEDS: THIAMINE 100 MG TAB PO SCH (09:01)
--- NOTE | 2020-05-07 10:39 | MHDSPDOC ---
[facility] Discharge Summary Discharge Summary DATE OF ADMISSION: Mar 28, 2020 at 18:38 DATE OF DISCHARGE: 05/07/20 DISCHARGE DIAGNOSES: [facility] CONSULTANTS INVOLVED:[ None (basic hospitalist screening)]- repeat of labs showed some mild abnormalities, however, there was reported to be no follow up indicated from internal medicine. Serial EKGs had been WNL for Qtc. REASON FOR ADMISSION & TREATMENT AND PROGRESS ON THE UNIT : Patient was admitted after being discharged for the second time in several months, he reportedly had disorganized behavior with significant paranoid behavior. He was discharged on a complex medication mix of haldol, thorazine, seroquel and risperidone due to his AOT order requiring several of the antipsychotics. He was admitted and resumed on the same medications, he was paranoid and difficulty with responding to internal stimuli, we were able to contain his behavior of rubbing his face. He wasn't able to respond to mulitple non medication interventions and was triaged to termite inspector care. He continued to worry about others wanting to kill him. He was repeative and had difficulty with sterotypical behaviors. DISCHARGE ASSESSMENT[unchanged] Legal status considerations: 2PC completed and transfer hearing held MENTAL STATUS EXAMINATION ON DISCHARGE: Please see previous progress note PLAN/FOLLOWUP ARRANGEMENTS: Per [facility]/TLS The amount of time spent in the coordination of care for this patient was approx imately 30 minutes. Vital Signs/I&Os Vital Signs Date Time Temp Pulse Resp B/P (MAP) Pulse Ox O2 Delivery O2 Flow Rate FiO2 05/07/20 06:41 97.6 71 18 131/71 (91) 05/05/20 18:36 99 Room Air Laboratory Data Labs 24H Laboratory Tests 2 05/06/20 11:54: Immature Granulocyte % (Auto) 2.1, Neutrophils (%) (Auto) 58.4, Lymphocytes (%) (Auto) 18.7L, Monocytes (%) (Auto) 13.6H, Eosinophils (%) (Auto) 6.2H, Basophils (%) (Auto) 1.0, Neutrophils # (Auto) 2.9, Lymphocytes # (Auto) 0.9L, Monocytes # (Auto) 0.7, Eosinophils # (Auto) 0.3, Basophils # (Auto) 0.1, Nucleated Red Blood Cells % (auto) 0.0, Anion Gap 5L, Glomerular Filtration Rate > 60.0, Calcium Level 9.2, Total Bilirubin 0.4, Aspartate Amino Transf (AST/SGOT) 15, Alanine Aminotransferase (ALT/SGPT) 17, Alkaline Phosphatase 42L, Total Protein 6.8, Albumin 3.8, Albumin/Globulin Ratio 1.3 CBC/BMP Laboratory Tests 05/06/20 11:54 Medications Scheduled Benztropine Mesylate (Benztropine Mesylate) 2 Mg Tablet, 2 MG PO BID for . , (Reported) Chlorpromazine HCl (Chlorpromazine HCl) 100 Mg Tablet, 300 MG PO TID, (Reported) Divalproex Sodium (Divalproex Sodium) 250 Mg Tablet.dr, 750 MG PO QAM, ( Reported) Divalproex Sodium (Divalproex Sodium) 500 Mg Tablet.dr, 1,000 MG PO QHS, (Reported) Docusate Sodium (Colace) 100 Mg Capsule, 100 MG PO BID, (Reported) Folic Acid (Folic Acid) 1 Mg Tablet, 1 MG PO DAILY, (Reported) Haloperidol (Haloperidol) 10 Mg Tablet, 10 MG PO QAM, (Reported) Haloperidol (Haloperidol) 5 Mg Tablet, 15 MG PO DAILY, (Reported) TAKES AT 1500 Ibuprofen (Ibuprofen) 600 Mg Tablet, 600 MG PO TID, (Reported) Naltrexone HCl (Naltrexone HCl) 50 Mg Tablet, 50 MG PO DAILY, (Reported) Paliperidone Palmitate (Invega Sustenna) 234 Mg/1.5 Ml Syringe, 234 MG IM QMONTH, (Reported) Quetiapine Fumarate (Quetiapine Fumarate) 100 Mg Tablet, 100 MG PO QHS, (Reported) Risperidone (Risperidone) 1 Mg Tablet, 1 MG PO QHS, (Reported) Thiamine HCl (Thiamine HCl) 100 Mg Tablet, 100 MG PO DAILY, (Reported) Trazodone HCl (Trazodone HCl) 50 Mg Tablet, 50 MG PO QHS, (Reported) Scheduled PRN Methocarbamol (Methocarbamol) 500 Mg Tablet, 500 MG PO TID PRN for BACK PAIN, (Reported) Allergies Coded Allergies: No Known Allergies (Verified , 10/17/08) BISHNU CASTREJON DO May 07, 2020 10:39
--- NOTE | 2020-05-07 13:30 | MHIPNPDOC ---
[facility] Progress Note Progress Note DATE OF SERVICE: 05/07/20 Subjective HPI: Terrence presents today for a mental health examine. He continues to report that he is going to get a recruitment assistant and does not discuss much else. Patient continues to report that he thinks people are out to get him. He has been observed yelling in his room at the top of his lungs, saying the people are going to hurt him. Objective Behavior: Pacing back and forth consistently. Thought Form: Tangential. Perception: Perceptive. Judgement: Poor. Insight: Poor. Assessment F25.9 Schizoaffective disorder, unspecified Plan Continue current medications. Will be transitioning patient to [facility], which was delayed due to him refusing the Covid-19 test. However, plan is for Wednesday. Vital Signs Vital Signs Date Time Temp Pulse Resp B/P (MAP) Pulse Ox O2 Delivery O2 Flow Rate FiO2 05/07/20 09:00 Room Air 05/07/20 06:41 97.6 71 18 131/71 (91) 05/05/20 18:36 99 Current Medications Current Medications Medications (Trade) Dose Ordered Sig/Daniel Route PRN Reason Start Time Stop Time Status Last Admin Dose Admin Acetaminophen (Tylenol Tab) 650 mg Q6HP PRN PO HEADACHE or DISCOMFORT 03/28/20 18:45 05/07/20 09:02 Al Hydrox/Mg Hydrox/Simethicone (Mylanta) 30 ml Q4HP PRN PO HEARTBURN/INDIGESTION 03/28/20 18:45 05/04/20 13:00 Benztropine Mesylate (Cogentin) 2 mg BID PO 03/28/20 21:00 05/07/20 09:01 Chlorpromazine HCl (Thorazine) 300 mg TID PO 03/28/20 21:00 05/07/20 09:01 Diphenhydramine HCl (Benadryl) 50 mg STAT STAT PO 04/28/20 14:35 04/28/20 14:36 DC 04/28/20 14:39 Divalproex Sodium (Depakote) 750 mg QAM PO 03/29/20 09:00 05/07/20 09:00 Divalproex Sodium (Depakote) 1,000 mg QHS PO 03/28/20 21:00 05/06/20 21:01 Docusate Sodium (Colace) 100 mg BID PO 03/28/20 21:00 05/07/20 09:01 Folic Acid (Folic Acid) 1 mg DAILY PO 03/29/20 09:00 05/07/20 09:00 Haloperidol (Haldol) 10 mg QAM PO 03/29/20 09:00 03/30/20 12:24 DC 03/30/20 08:02 Haloperidol (Haldol) 15 mg DAILY@1500 PO 03/29/20 15:00 03/30/20 12:24 DC 03/29/20 15:19 Home Med (Med Rec Complete!) ASDIRECTED XX 03/28/20 18:00 03/28/20 17:54 DC Lorazepam (Ativan) 1 mg Q4HP PRN PO ANXIETY/AGITATION 04/05/20 22:15 05/01/20 14:47 DC 04/28/20 18:31 Magnesium Hydroxide (Milk Of Magnesia) 30 ml DAILYPRN PRN PO CONSTIPATION 03/28/20 18:45 04/23/20 11:16 Methocarbamol (Robaxin) 500 mg TID PRN PO BACK PAIN 03/29/20 10:45 05/01/20 13:21 Miscellaneous (Unresolved Clarification Entry) SEE LABEL COMMENTS DAILY XX 04/24/20 09:00 04/24/20 15:11 DC Miscellaneous (Unresolved Clarification Entry) SEE LABEL COMMENTS DAILY XX 04/12/20 09:00 04/12/20 11:11 DC Naltrexone HCl (Revia) 50 mg DAILY PO 03/29/20 09:00 05/07/20 09:01 Nicotine (Nicoderm Cq 21mg) 1 patch DAILY TD 03/29/20 09:00 05/07/20 08:59 Quetiapine Fumarate (SEROquel) 100 mg QHS PO 03/28/20 21:00 04/05/20 12:08 DC 04/03/20 20:28 Quetiapine Fumarate (SEROquel) 200 mg QHS PO 04/05/20 21:00 04/08/20 11:34 DC 04/07/20 21:10 Quetiapine Fumarate (SEROquel) 300 mg QHS PO 04/08/20 21:00 04/11/20 13:02 DC 04/09/20 20:25 Quetiapine Fumarate (SEROquel) 400 mg QHS PO 04/11/20 21:00 05/06/20 21:01 Risperidone (RisperDAL) 1 mg QHS PO 03/28/20 21:00 04/11/20 13:02 DC 04/09/20 20:25 Risperidone (RisperDAL) 2 mg QHS PO 04/11/20 21:00 05/06/20 21:01 Thiamine HCl (Thiamine HCl) 100 mg DAILY PO 03/29/20 09:00 05/07/20 09:01 Trazodone HCl (Desyrel) 50 mg QHSP PRN PO INSOMNIA 03/28/20 18:45 05/05/20 20:27 Triamcinolone Acetonide (Kenalog 0.1% Ointment) both arms BID TOP 04/28/20 21:00 05/06/20 21:02 Allergies Coded Allergies: No Known Allergies (Verified , 10/17/08) BISHNU CASTREJON DO May 07, 2020 13:30
[2020-05-07] MEDS: methocarbamoL 500 MG TAB PO PRN (16:11)
[2020-05-07 16:29] VITALS: BP 118/72
[2020-05-07] MEDS: QUEtiapine FUMARATE 200 MG TAB PO SCH (21:42)
[2020-05-07] MEDS: risperiDONE 2 MG TAB PO SCH (21:42)
[2020-05-07] MEDS: DIVALPROEX 500 MG TAB PO SCH (21:43)
[2020-05-08 06:41] VITALS: BP 133/73
[2020-05-08] MEDS: DIVALPROEX 250 MG TAB PO SCH (08:46)
[2020-05-08] MEDS: THIAMINE 100 MG TAB PO SCH (08:47)
[2020-05-08] MEDS: BENZTROPINE 2 MG TAB PO SCH ×2 (08:47→20:34)
[2020-05-08] MEDS: FOLIC ACID 1 MG TAB PO SCH (08:47)
[2020-05-08] MEDS: DOCUSATE SODIUM 100 MG CAP PO SCH ×2 (08:47→20:33)
[2020-05-08] MEDS: NICOTINE 21MG/24HR 1 EA TRANSDERMAL TD SCH (08:47)
[2020-05-08] MEDS: ChlorproMAZINE 100 MG TABLET PO SCH ×3 (08:47→20:33)
[2020-05-08] MEDS: NALTREXONE 50 MG TAB PO SCH (08:47)
[2020-05-08] MEDS: TRIAMCINOLONE ACET 0.1% OINTMENT 15 GM TOP SCH ×2 (08:48→20:33)
--- NOTE | 2020-05-08 10:28 | MHIPNPDOC ---
[facility] Progress Note Progress Note DATE OF SERVICE: 05/08/20 Subjective HPI: Terrence presents today for a mental health examine. He continues to report that he is going to get a scalder and does not discuss much else. Patient continues to report that he thinks people are out to get him. He has been observed yelling in his room at the top of his lungs, saying the people are going to hurt him. Objective Behavior: Pacing back and forth consistently. Thought Form: Tangential. Perception: Perceptive. Judgement: Poor. Insight: Poor. Assessment F25.9 Schizoaffective disorder, unspecified Plan Continue current medications. Will be transitioning patient to [place], which was delayed due to him refusing the Covid-19 test. However, plan is for Wednesday. Vital Signs Vital Signs Date Time Temp Pulse Resp B/P (MAP) Pulse Ox O2 Delivery O2 Flow Rate FiO2 05/08/20 06:41 96.8 66 16 133/73 (93) 05/07/20 09:00 Room Air 05/05/20 18:36 99 Current Medications Current Medications Medications (Trade) Dose Ordered Sig/Daniel Route PRN Reason Start Time Stop Time Status Last Admin Dose Admin Acetaminophen (Tylenol Tab) 650 mg Q6HP PRN PO HEADACHE or DISCOMFORT 03/28/20 18:45 05/07/20 09:02 Al Hydrox/Mg Hydrox/Simethicone (Mylanta) 30 ml Q4HP PRN PO HEARTBURN/INDIGESTION 03/28/20 18:45 05/04/20 13:00 Benztropine Mesylate (Cogentin) 2 mg BID PO 03/28/20 21:00 05/08/20 08:47 Chlorpromazine HCl (Thorazine) 300 mg TID PO 03/28/20 21:00 05/08/20 08:47 Diphenhydramine HCl (Benadryl) 50 mg STAT STAT PO 04/28/20 14:35 04/28/20 14:36 DC 04/28/20 14:39 Divalproex Sodium (Depakote) 750 mg QAM PO 03/29/20 09:00 05/08/20 08:46 Divalproex Sodium (Depakote) 1,000 mg QHS PO 03/28/20 21:00 10/27/20 21:43 Docusate Sodium (Colace) 100 mg BID PO 03/28/20 21:00 05/08/20 08:47 Folic Acid (Folic Acid) 1 mg DAILY PO 03/29/20 09:00 05/08/20 08:47 Haloperidol (Haldol) 10 mg QAM PO 03/29/20 09:00 03/30/20 12:24 DC 03/30/20 08:02 Haloperidol (Haldol) 15 mg DAILY@1500 PO 03/29/20 15:00 03/30/20 12:24 DC 03/29/20 15:19 Home Med (Med Rec Complete!) ASDIRECTED XX 03/28/20 18:00 03/28/20 17:54 DC Lorazepam (Ativan) 1 mg Q4HP PRN PO ANXIETY/AGITATION 04/05/20 22:15 05/01/20 14:47 DC 04/28/20 18:31 Magnesium Hydroxide (Milk Of Magnesia) 30 ml DAILYPRN PRN PO CONSTIPATION 03/28/20 18:45 04/23/20 11:16 Methocarbamol (Robaxin) 500 mg TID PRN PO BACK PAIN 03/29/20 10:45 05/07/20 16:11 Miscellaneous (Unresolved Clarification Entry) SEE LABEL COMMENTS DAILY XX 04/24/20 09:00 04/24/20 15:11 DC Miscellaneous (Unresolved Clarification Entry) SEE LABEL COMMENTS DAILY XX 04/12/20 09:00 04/12/20 11:11 DC Naltrexone HCl (Revia) 50 mg DAILY PO 03/29/20 09:00 05/08/20 08:47 Nicotine (Nicoderm Cq 21mg) 1 patch DAILY TD 03/29/20 09:00 05/08/20 08:47 Quetiapine Fumarate (SEROquel) 100 mg QHS PO 03/28/20 21:00 04/05/20 12:08 DC 04/03/20 20:28 Quetiapine Fumarate (SEROquel) 200 mg QHS PO 04/05/20 21:00 04/08/20 11:34 DC 04/07/20 21:10 Quetiapine Fumarate (SEROquel) 300 mg QHS PO 04/08/20 21:00 04/11/20 13:02 DC 04/09/20 20:25 Quetiapine Fumarate (SEROquel) 400 mg QHS PO 04/11/20 21:00 05/07/20 21:42 Risperidone (RisperDAL) 1 mg QHS PO 03/28/20 21:00 04/11/20 13:02 DC 04/09/20 20:25 Risperidone (RisperDAL) 2 mg QHS PO 04/11/20 21:00 05/07/20 21:42 Thiamine HCl (Thiamine HCl) 100 mg DAILY PO 03/29/20 09:00 05/08/20 08:47 Trazodone HCl (Desyrel) 50 mg QHSP PRN PO INSOMNIA 03/28/20 18:45 05/05/20 20:27 Triamcinolone Acetonide (Kenalog 0.1% Ointment) both arms BID TOP 04/28/20 21:00 05/08/20 08:48 Allergies Coded Allergies: No Known Allergies (Verified , 10/17/08) BISHNU CASTREJON DO May 08, 2020 10:28
[2020-05-08 16:29] VITALS: BP 126/72
[2020-05-08] MEDS: traZODone 50 MG TAB PO PRN (20:33)
[2020-05-08] MEDS: DIVALPROEX 500 MG TAB PO SCH (20:34)
[2020-05-08] MEDS: risperiDONE 2 MG TAB PO SCH (20:34)
[2020-05-08] MEDS: QUEtiapine FUMARATE 200 MG TAB PO SCH (20:34)
[2020-05-08] MEDS: MAALOX 30 ML SUSP *UDC PO PRN (21:25)
[2020-05-09 06:59] VITALS: BP 107/61
[2020-05-09] MEDS: ChlorproMAZINE 100 MG TABLET PO SCH ×3 (08:11→21:05)
[2020-05-09] MEDS: BENZTROPINE 2 MG TAB PO SCH ×2 (08:12→21:06)
[2020-05-09] MEDS: NALTREXONE 50 MG TAB PO SCH (08:12)
[2020-05-09] MEDS: DOCUSATE SODIUM 100 MG CAP PO SCH ×2 (08:12→21:06)
[2020-05-09] MEDS: THIAMINE 100 MG TAB PO SCH (08:12)
[2020-05-09] MEDS: FOLIC ACID 1 MG TAB PO SCH (08:12)
[2020-05-09] MEDS: DIVALPROEX 250 MG TAB PO SCH (08:13)
[2020-05-09] MEDS: TRIAMCINOLONE ACET 0.1% OINTMENT 15 GM TOP SCH ×2 (08:14→21:00)
[2020-05-09] MEDS: NICOTINE 21MG/24HR 1 EA TRANSDERMAL TD SCH (08:14)
[2020-05-09] MEDS: MAALOX 30 ML SUSP *UDC PO PRN (08:47)
[2020-05-09] MEDS: ACETAMINOPHEN TAB 650MG DOSE (2X325MG) PO PRN (09:17)
--- NOTE | 2020-05-09 11:16 | MHIPNPDOC ---
[facility] Progress Note Progress Note DATE OF SERVICE: 05/09/20 Subjective HPI: Terrence presents today regarding his transfer and cold symptoms. He reports that he does not want to go to [place] and is going to get a route clerk. Patient reports having cold symptoms including a cough and sneezing. He continues to be psychotic, focus, and separative on multiple different topics, but cannot describe anything specific. MEDICATIONS: He wants medication for his symptoms. He states that his medications are fine with no elaboration. Objective Appearance: Appears to be stated age. Well nourished. Hygiene - Fair. Speech: Normal volume. Normal rate. Spontaneous and Fluid. Thought Form: Tangential. Judgement: Poor. Insight: Poor. Assessment F25.9 Schizoaffective disorder, unspecified Plan Continue current mixture of medications Transfer on Wednesday Order Covid-19 test and perhaps some cold medications depending on the outcome of the test. Appears that disorganized behavior makes it difficult to ascertain, continue to encourage mask-wearing due to his symptoms Vital Signs Vital Signs Date Time Temp Pulse Resp B/P (MAP) Pulse Ox O2 Delivery O2 Flow Rate FiO2 05/09/20 07:48 Room Air 05/09/20 06:59 97.6 85 16 107/61 (76 96 Current Medications Current Medications Medications (Trade) Dose Ordered Sig/Daniel Route PRN Reason Start Time Stop Time Status Last Admin Dose Admin Acetaminophen (Tylenol Tab) 650 mg Q6HP PRN PO HEADACHE or DISCOMFORT 03/28/20 18:45 05/09/20 09:17 Al Hydrox/Mg Hydrox/Simethicone (Mylanta) 30 ml Q4HP PRN PO HEARTBURN/INDIGESTION 03/28/20 18:45 05/09/20 08:47 Benztropine Mesylate (Cogentin) 2 mg BID PO 03/28/20 21:00 05/09/20 08:12 Chlorpromazine HCl (Thorazine) 300 mg TID PO 03/28/20 21:00 05/09/20 08:11 Diphenhydramine HCl (Benadryl) 50 mg STAT STAT PO 04/28/20 14:35 04/28/20 14:36 DC 04/28/20 14:39 Divalproex Sodium (Depakote) 750 mg QAM PO 03/29/20 09:00 05/09/20 08:13 Divalproex Sodium (Depakote) 1,000 mg QHS PO 03/28/20 21:00 05/08/20 20:34 Docusate Sodium (Colace) 100 mg BID PO 03/28/20 21:00 05/09/20 08:12 Folic Acid (Folic Acid) 1 mg DAILY PO 03/29/20 09:00 05/09/20 08:12 Haloperidol (Haldol) 10 mg QAM PO 03/29/20 09:00 03/30/20 12:24 DC 03/30/20 08:02 Haloperidol (Haldol) 15 mg DAILY@1500 PO 03/29/20 15:00 03/30/20 12:24 DC 03/29/20 15:19 Home Med (Med Rec Complete!) ASDIRECTED XX 03/28/20 18:00 03/28/20 17:54 DC Lorazepam (Ativan) 1 mg Q4HP PRN PO ANXIETY/AGITATION 04/05/20 22:15 05/01/20 14:47 DC 04/28/20 18:31 Magnesium Hydroxide (Milk Of Magnesia) 30 ml DAILYPRN PRN PO CONSTIPATION 03/28/20 18:45 04/23/20 11:16 Methocarbamol (Robaxin) 500 mg TID PRN PO BACK PAIN 03/29/20 10:45 05/07/20 16:11 Miscellaneous (Unresolved Clarification Entry) SEE LABEL COMMENTS DAILY XX 04/24/20 09:00 04/24/20 15:11 DC Miscellaneous (Unresolved Clarification Entry) SEE LABEL COMMENTS DAILY XX 04/12/20 09:00 04/12/20 11:11 DC Naltrexone HCl (Revia) 50 mg DAILY PO 03/29/20 09:00 05/09/20 08:12 Nicotine (Nicoderm Cq 21mg) 1 patch DAILY TD 03/29/20 09:00 05/09/20 08:14 Quetiapine Fumarate (SEROquel) 100 mg QHS PO 03/28/20 21:00 04/05/20 12:08 DC 04/03/20 20:28 Quetiapine Fumarate (SEROquel) 200 mg QHS PO 04/05/20 21:00 04/08/20 11:34 DC 04/07/20 21:10 Quetiapine Fumarate (SEROquel) 300 mg QHS PO 04/08/20 21:00 04/11/20 13:02 DC 04/09/20 20:25 Quetiapine Fumarate (SEROquel) 400 mg QHS PO 04/11/20 21:00 05/08/20 20:34 Risperidone (RisperDAL) 1 mg QHS PO 03/28/20 21:00 04/11/20 13:02 DC 04/09/20 20:25 Risperidone (RisperDAL) 2 mg QHS PO 04/11/20 21:00 05/08/20 20:34 Thiamine HCl (Thiamine HCl) 100 mg DAILY PO 03/29/20 09:00 05/09/20 08:12 Trazodone HCl (Desyrel) 50 mg QHSP PRN PO INSOMNIA 03/28/20 18:45 05/08/20 20:33 Triamcinolone Acetonide (Kenalog 0.1% Ointment) both arms BID TOP 04/28/20 21:00 05/08/20 20:33 Allergies Coded Allergies: No Known Allergies (Verified , 10/17/08) BISHNU CASTREJON DO May 09, 2020 11:16
[2020-05-09 16:49] VITALS: BP 125/67
[2020-05-09] MEDS: risperiDONE 2 MG TAB PO SCH (21:04)
[2020-05-09] MEDS: QUEtiapine FUMARATE 200 MG TAB PO SCH (21:05)
[2020-05-09] MEDS: DIVALPROEX 500 MG TAB PO SCH (21:06)
[2020-05-10] MEDS: ACETAMINOPHEN TAB 650MG DOSE (2X325MG) PO PRN ×2 (04:32→18:30)
[2020-05-10 06:50] VITALS: BP 138/75
[2020-05-10] MEDS: THIAMINE 100 MG TAB PO SCH (08:37)
[2020-05-10] MEDS: ChlorproMAZINE 100 MG TABLET PO SCH ×3 (08:37→20:06)
[2020-05-10] MEDS: DOCUSATE SODIUM 100 MG CAP PO SCH ×2 (08:37→20:05)
[2020-05-10] MEDS: NALTREXONE 50 MG TAB PO SCH (08:37)
[2020-05-10] MEDS: DIVALPROEX 250 MG TAB PO SCH (08:37)
[2020-05-10] MEDS: BENZTROPINE 2 MG TAB PO SCH ×2 (08:37→20:05)
[2020-05-10] MEDS: FOLIC ACID 1 MG TAB PO SCH (08:37)
[2020-05-10] MEDS: NICOTINE 21MG/24HR 1 EA TRANSDERMAL TD SCH (08:38)
[2020-05-10] MEDS: TRIAMCINOLONE ACET 0.1% OINTMENT 15 GM TOP SCH ×2 (08:38→20:07)
--- NOTE | 2020-05-10 11:05 | MHIPNPDOC ---
[facility] Progress Note Progress Note DATE OF SERVICE: 05/10/20 Subjective HPI/Interval Hx: The patient is met with today, still is distorted, stating that he will not go to [place], but continues to be perseverative and then leave the interview quickly after it's reinforced that he will be going. Objective General: poor Speech: rapid Thought processes: tangential Thought content: psychotic delusions Abstract reasoning, and computation: impaired Description of associations: imparied Description of abnormal or psychotic thoughts:Unclear, appears to have psychotic processes going on. Judgment: poor Insight: poor Orientation: Alert and orientated 3 Recent and remote memory: Intact Attention span and concentration: impaired secondary to thought process Fund of knowledge: unable to determine Mood: "I don't want to go" Affect: flat, little reactivity Assessment schizoaffective disorder Plan , Continue current medications, transfer on Wednesday to [place], Covid test came back negative Vital Signs Vital Signs Date Time Temp Pulse Resp B/P (MAP) Pulse Ox O2 Delivery O2 Flow Rate FiO2 05/10/20 06:50 97.7 63 16 138/75 (96) 97 Room Air Laboratory Data 24H Labs Laboratory Tests 2 05/10/20 06:45: Coronavirus (COVID-19)(PCR) NEGATIVE Current Medications Current Medications Medications (Trade) Dose Ordered Sig/Daniel Route PRN Reason Start Time Stop Time Status Last Admin Dose Admin Acetaminophen (Tylenol Tab) 650 mg Q6HP PRN PO HEADACHE or DISCOMFORT 03/28/20 18:45 05/10/20 04:32 Al Hydrox/Mg Hydrox/Simethicone (Mylanta) 30 ml Q4HP PRN PO HEARTBURN/INDIGESTION 03/28/20 18:45 05/09/20 08:47 Benztropine Mesylate (Cogentin) 2 mg BID PO 03/28/20 21:00 05/10/20 08:37 Chlorpromazine HCl (Thorazine) 300 mg TID PO 03/28/20 21:00 05/10/20 08:37 Diphenhydramine HCl (Benadryl) 50 mg STAT STAT PO 04/28/20 14:35 04/28/20 14:36 DC 04/28/20 14:39 Divalproex Sodium (Depakote) 750 mg QAM PO 03/29/20 09:00 05/10/20 08:37 Divalproex Sodium (Depakote) 1,000 mg QHS PO 03/28/20 21:00 05/09/20 21:06 Docusate Sodium (Colace) 100 mg BID PO 03/28/20 21:00 05/10/20 08:37 Folic Acid (Folic Acid) 1 mg DAILY PO 03/29/20 09:00 05/10/20 08:37 Haloperidol (Haldol) 10 mg QAM PO 03/29/20 09:00 03/30/20 12:24 DC 03/30/20 08:02 Haloperidol (Haldol) 15 mg DAILY@1500 PO 03/29/20 15:00 03/30/20 12:24 DC 03/29/20 15:19 Home Med (Med Rec Complete!) ASDIRECTED XX 03/28/20 18:00 03/28/20 17:54 DC Lorazepam (Ativan) 1 mg Q4HP PRN PO ANXIETY/AGITATION 04/05/20 22:15 05/01/20 14:47 DC 04/28/20 18:31 Magnesium Hydroxide (Milk Of Magnesia) 30 ml DAILYPRN PRN PO CONSTIPATION 03/28/20 18:45 04/23/20 11:16 Methocarbamol (Robaxin) 500 mg TID PRN PO BACK PAIN 03/29/20 10:45 05/07/20 16:11 Miscellaneous (Unresolved Clarification Entry) SEE LABEL COMMENTS DAILY XX 04/24/20 09:00 04/24/20 15:11 DC Miscellaneous (Unresolved Clarification Entry) SEE LABEL COMMENTS DAILY XX 04/12/20 09:00 04/12/20 11:11 DC Naltrexone HCl (Revia) 50 mg DAILY PO 03/29/20 09:00 05/10/20 08:37 Nicotine (Nicoderm Cq 21mg) 1 patch DAILY TD 03/29/20 09:00 05/10/20 08:38 Oxymetazoline HCl (Afrin) 2 spray BID NA 05/10/20 09:00 05/12/20 21:01 Quetiapine Fumarate (SEROquel) 100 mg QHS PO 03/28/20 21:00 04/05/20 12:08 DC 04/03/20 20:28 Quetiapine Fumarate (SEROquel) 200 mg QHS PO 04/05/20 21:00 04/08/20 11:34 DC 04/07/20 21:10 Quetiapine Fumarate (SEROquel) 300 mg QHS PO 04/08/20 21:00 04/11/20 13:02 DC 04/09/20 20:25 Quetiapine Fumarate (SEROquel) 400 mg QHS PO 04/11/20 21:00 05/09/20 21:05 Risperidone (RisperDAL) 1 mg QHS PO 03/28/20 21:00 04/11/20 13:02 DC 04/09/20 20:25 Risperidone (RisperDAL) 2 mg QHS PO 04/11/20 21:00 05/09/20 21:04 Thiamine HCl (Thiamine HCl) 100 mg DAILY PO 03/29/20 09:00 05/10/20 08:37 Trazodone HCl (Desyrel) 50 mg QHSP PRN PO INSOMNIA 03/28/20 18:45 05/08/20 20:33 Triamcinolone Acetonide (Kenalog 0.1% Ointment) both arms BID TOP 04/28/20 21:00 05/10/20 08:38 Allergies Coded Allergies: No Known Allergies (Verified , 10/17/08) BISHNU CASTREJON DO May 10, 2020 11:05
[2020-05-10] MEDS: OXYMETAZOLINE 0.05% NASAL SPRAY (AFRIN) SCH ×2 (11:40→20:05)
[2020-05-10 16:05] VITALS: BP 126/64
[2020-05-10] MEDS: risperiDONE 2 MG TAB PO SCH (20:05)
[2020-05-10] MEDS: DIVALPROEX 500 MG TAB PO SCH (20:05)
[2020-05-10] MEDS: traZODone 50 MG TAB PO PRN (20:06)
[2020-05-10] MEDS: QUEtiapine FUMARATE 200 MG TAB PO SCH (20:07)
[2020-05-11 06:44] VITALS: BP 140/57
[2020-05-11] MEDS: ACETAMINOPHEN TAB 650MG DOSE (2X325MG) PO PRN ×2 (07:03→15:19)
[2020-05-11] MEDS: OXYMETAZOLINE 0.05% NASAL SPRAY (AFRIN) SCH ×2 (08:32→20:59)
[2020-05-11] MEDS: NICOTINE 21MG/24HR 1 EA TRANSDERMAL TD SCH (08:33)
[2020-05-11] MEDS: FOLIC ACID 1 MG TAB PO SCH (08:33)
[2020-05-11] MEDS: TRIAMCINOLONE ACET 0.1% OINTMENT 15 GM TOP SCH ×3 (08:33→21:23)
[2020-05-11] MEDS: NALTREXONE 50 MG TAB PO SCH (08:33)
[2020-05-11] MEDS: THIAMINE 100 MG TAB PO SCH (08:33)
[2020-05-11] MEDS: BENZTROPINE 2 MG TAB PO SCH ×2 (08:33→20:59)
[2020-05-11] MEDS: ChlorproMAZINE 100 MG TABLET PO SCH ×3 (08:33→20:58)
[2020-05-11] MEDS: DOCUSATE SODIUM 100 MG CAP PO SCH ×2 (08:33→20:59)
[2020-05-11] MEDS: DIVALPROEX 250 MG TAB PO SCH (08:34)
[2020-05-11 16:28] VITALS: BP 137/73
[2020-05-11] MEDS: QUEtiapine FUMARATE 200 MG TAB PO SCH (20:59)
[2020-05-11] MEDS: risperiDONE 2 MG TAB PO SCH (20:59)
[2020-05-11] MEDS: traZODone 50 MG TAB PO PRN (20:59)
[2020-05-11] MEDS: DIVALPROEX 500 MG TAB PO SCH (20:59)
[2020-05-12] MEDS: ACETAMINOPHEN TAB 650MG DOSE (2X325MG) PO PRN ×2 (05:41→14:21)
[2020-05-12 06:40] VITALS: BP 141/68
[2020-05-12] MEDS: NALTREXONE 50 MG TAB PO SCH (08:06)
[2020-05-12] MEDS: BENZTROPINE 2 MG TAB PO SCH ×2 (08:06→21:54)
[2020-05-12] MEDS: ChlorproMAZINE 100 MG TABLET PO SCH ×3 (08:06→21:53)
[2020-05-12] MEDS: DOCUSATE SODIUM 100 MG CAP PO SCH ×2 (08:07→21:53)
[2020-05-12] MEDS: THIAMINE 100 MG TAB PO SCH (08:07)
[2020-05-12] MEDS: DIVALPROEX 250 MG TAB PO SCH (08:07)
[2020-05-12] MEDS: FOLIC ACID 1 MG TAB PO SCH (08:07)
[2020-05-12] MEDS: TRIAMCINOLONE ACET 0.1% OINTMENT 15 GM TOP SCH ×2 (08:08→21:53)
[2020-05-12] MEDS: NICOTINE 21MG/24HR 1 EA TRANSDERMAL TD SCH (08:08)
[2020-05-12] MEDS: OXYMETAZOLINE 0.05% NASAL SPRAY (AFRIN) SCH ×2 (08:09→21:53)
[2020-05-12] MEDS: methocarbamoL 500 MG TAB PO PRN (08:59)
[2020-05-12 16:44] VITALS: BP 128/78
[2020-05-12] MEDS: QUEtiapine FUMARATE 200 MG TAB PO SCH (21:53)
[2020-05-12] MEDS: risperiDONE 2 MG TAB PO SCH (21:53)
[2020-05-12] MEDS: DIVALPROEX 500 MG TAB PO SCH (21:54)
[2020-05-12] MEDS: MAALOX 30 ML SUSP *UDC PO PRN (22:23)
[2020-05-13 06:52] VITALS: BP 112/68
[2020-05-13] MEDS: FOLIC ACID 1 MG TAB PO SCH (08:21)
[2020-05-13] MEDS: ChlorproMAZINE 100 MG TABLET PO SCH (08:21)
[2020-05-13] MEDS: BENZTROPINE 2 MG TAB PO SCH (08:21)
[2020-05-13] MEDS: DIVALPROEX 250 MG TAB PO SCH (08:21)
[2020-05-13] MEDS: DOCUSATE SODIUM 100 MG CAP PO SCH (08:21)
[2020-05-13] MEDS: NALTREXONE 50 MG TAB PO SCH (08:21)
[2020-05-13] MEDS: THIAMINE 100 MG TAB PO SCH (08:21)
[2020-05-13] MEDS: NICOTINE 21MG/24HR 1 EA TRANSDERMAL TD SCH (08:22)
[2020-05-13] MEDS: TRIAMCINOLONE ACET 0.1% OINTMENT 15 GM TOP SCH (08:22)
[2020-05-13] MEDS: methocarbamoL 500 MG TAB PO PRN (08:25)
--- NOTE | 2020-05-13 10:15 | MHDSPDOC ---
[facility] Discharge Summary Discharge Summary DATE OF ADMISSION: Mar 28, 2020 at 18:38 DATE OF DISCHARGE: May 13, 2020 at 13:55 Terrence presents today after his triage for discharge. Due to him refusing a Covid-19 test and x-ray test, he had to be reconsidered. He was reconsidered and accepted as he was observed over the following days with no significant changes. He was triage for discharge and subsequently sent. Objective Affect: Flat. Thought Form: Non-linear. Perseverative. Tangential. Judgement: Poor. Insight: Poor. Assessment F25.0 Schizoaffective disorder, bipolar type Transfer to [facility], doc to doc completed Vital Signs/I&Os Vital Signs Date Time Temp Pulse Resp B/P (MAP) Pulse Ox O2 Delivery O2 Flow Rate FiO2 05/13/20 06:52 97.6 74 12 112/68 (83) Room Air 05/10/20 06:50 97 Medications Scheduled Benztropine Mesylate (Benztropine Mesylate) 2 Mg Tablet, 2 MG PO BID for . , (Reported) Chlorpromazine HCl (Chlorpromazine HCl) 100 Mg Tablet, 300 MG PO TID, (Reported) Divalproex Sodium (Divalproex Sodium) 250 Mg Tablet.dr, 750 MG PO QAM, (Reported) Divalproex Sodium (Divalproex Sodium) 500 Mg Tablet.dr, 1,000 MG PO QHS, (Reported) Docusate Sodium (Colace) 100 Mg Capsule, 100 MG PO BID, (Reported) Folic Acid (Folic Acid) 1 Mg Tablet, 1 MG PO DAILY, (Reported) Haloperidol (Haloperidol) 10 Mg Tablet, 10 MG PO QAM, (Reported) Haloperidol (Haloperidol) 5 Mg Tablet, 15 MG PO DAILY, (Reported) TAKES AT 1500 Ibuprofen (Ibuprofen) 600 Mg Tablet, 600 MG PO TID, (Reported) Naltrexone HCl (Naltrexone HCl) 50 Mg Tablet, 50 MG PO DAILY, (Reported) Paliperidone Palmitate (Invega Sustenna) 234 Mg/1.5 Ml Syringe, 234 MG IM QMONTH, (Reported) Quetiapine Fumarate (Quetiapine Fumarate) 100 Mg Tablet, 100 MG PO QHS, (Reported) Risperidone (Risperidone) 1 Mg Tablet, 1 MG PO QHS, (Reported) Thiamine HCl (Thiamine HCl) 100 Mg Tablet, 100 MG PO DAILY, (Reported) Trazodone HCl (Trazodone HCl) 50 Mg Tablet, 50 MG PO QHS, (Reported) Scheduled PRN Methocarbamol (Methocarbamol) 500 Mg Tablet, 500 MG PO TID PRN for BACK PAIN, (Reported) Allergies Coded Allergies: No Known Allergies (Verified , 10/17/08) BISHNU CASTREJON DO May 13, 2020 10:15
== END 2020-05-13 13:55 | disposition short-term general hospital (02) | DRG 750 ==
LOC: M ED 10:59 → M ED INP 18:38 → M PSY 23:35
PROVIDERS: ADMIT Psychiatry & Neurology Addiction Medicine; ATTEND Psychiatry & Neurology Addiction Medicine
DX: F20.0 Paranoid schizophrenia (principal); Z79.899 Other long term (current) drug therapy

== ENCOUNTER 2020-11-24 13:04 | Emergency (ER) | payer MEDICAID, OTHER ==
[~2020-11-24] VITALS: Ht 182.9 cm; Wt 81.8 kg
[~2020-11-24 13:04] MED LIST changes: +CHLO100T30 PO; +COLA100C5 PO; +DIVA250T67 PO; -GNP200CA2 PO; +IBUP1TAB6 PO; +IBUP200C90 PO; +METH-1164 PO; -METH1TAB40 PO; +RISP-8 PO; -RISP1TAB3 PO; +THIA100T7 PO; +TRAZ-186 PO
[2020-11-24 13:05] VITALS: BP 145/86
== END 2020-11-24 13:19 | disposition left against medical advice (07) ==
LOC: M ED 13:04
DX: Z53.21 Procedure and treatment not carried out due to patient leaving prior to being seen by health care provider (principal)

== ENCOUNTER → 2020-12-11 | Outpatient (CLI) | payer MEDICAID | LOC: M OUTALCOH 09:05 | PROVIDERS: ATTEND Psychiatry & Neurology Psychiatry | DX: F10.20 Alcohol dependence, uncomplicated (principal) ==

== ENCOUNTER 2020-12-20 12:16 | Inpatient (IN) | payer MEDICAID, OTHER ==
[~2020-12-20] VITALS: Ht 172.7 cm; Wt 65.9 kg
[2020-12-20 15:35] LABS: HEMATOCRIT 39.6 % (42.0-52.0); HEMOGLOBIN 13.6 g/dl (13.5-17.5); MEAN CORPUSCULAR HEMOGLOBIN 29.8 pg (27.0-33.0); MEAN CORPUSCULAR HGB CONC 34.3 g/dl (32.0-36.5); MEAN CORPUSCULAR VOLUME 86.7 fl (80.0-96.0); PLATELET COUNT, AUTOMATED 239 10^3/uL (150-450); RED BLOOD COUNT 4.57 10^6/uL (4.30-6.10); WHITE BLOOD COUNT 8.4 10^3/uL (4.0-10.0)
[2020-12-20 16:10] LABS: ACETAMINOPHEN LEVEL < 2.0 UG/ML (10.0-30.0); ALBUMIN 4.5 GM/DL (3.2-5.2); ALT/SGPT 27 U/L (12-78); BILIRUBIN,DIRECT 0.2 MG/DL (0.0-0.2); BILIRUBIN,TOTAL 0.6 MG/DL (0.2-1.0); BLOOD UREA NITROGEN 12 MG/DL (7-18); CARBON DIOXIDE LEVEL 29 MEQ/L (21-32); CHLORIDE LEVEL 105 MEQ/L (98-107); CREATININE FOR GFR 0.78 MG/DL (0.70-1.30); ETHYL ALCOHOL (ETHANOL) < 0.003 % (0.000-0.010); GLOMERULAR FILTRATION RATE > 60.0 (>56); GLUCOSE, FASTING 105 MG/DL (70-100); POTASSIUM SERUM 3.9 MEQ/L (3.5-5.1); SALICYLATE LEVEL 4.9 MG/DL (5.0-30.0); SODIUM LEVEL 137 MEQ/L (136-145); THYROID STIMULATING HORMONE 0.745 uIU/ML (0.358-3.740); TOTAL PROTEIN 7.4 GM/DL (6.4-8.2)
[2020-12-20] MEDS ORDERED: CHLO200T11 PO (16:43)
[2020-12-20] MEDS ORDERED: HALO10AM IM (16:43)
[2020-12-20] MEDS ORDERED: CETI-24 PO (16:48)
[2020-12-20] MEDS ORDERED: THIA100T22 PO (16:48)
[2020-12-20] MEDS ORDERED: PANT40TA29 PO (16:48)
[2020-12-20] MEDS ORDERED: NAPR-885 PO (16:48)
[2020-12-20] MEDS ORDERED: FLUTISP NARES (16:48)
[2020-12-20 17:40] LABS: AMPHETAMINES LEVEL URINE NEGATIVE (NEGATIVE); BARBITURATES URINE NEGATIVE (NEGATIVE); BENZODIAZEPINES URINE NEGATIVE (NEGATIVE); CANNABINOIDS URINE NEGATIVE (NEGATIVE); COCAINE METABOLITE URINE NEGATIVE (NEGATIVE); METHADONE URINE NEGATIVE (NEGATIVE); OPIATES URINE NEGATIVE (NEGATIVE); PHENCYCLIDINE URINE NEGATIVE (NEGATIVE)
[2020-12-20 20:29] LABS: RSV AMPLIFICATION NEGATIVE (NEGATIVE)
[2020-12-20] MEDS ORDERED: MAALOX 30 ML SUSP *UDC PO PRN (20:30)
[2020-12-20] MEDS ORDERED: NICOTINE 21MG/24HR 1 EA TRANSDERMAL TD PRN (20:30)
[2020-12-20] MEDS ORDERED: FLUTICASONE PROP 0.05% NASAL SPRAY 16 GM (FLONASE) NARES PRN (20:30)
[2020-12-20] MEDS ORDERED: MOM 30ML SUSPENSION UDC PO PRN (20:30)
[2020-12-20 21:56] VITALS: BP 134/78
[2020-12-20] MEDS: DOCUSATE SODIUM 100MG CAPSULE PO SCH (22:23)
[2020-12-20] MEDS: BENZTROPINE 2 MG TAB PO SCH (22:23)
[2020-12-20] MEDS: traZODone 50 MG TAB PO PRN (22:23)
[2020-12-20] MEDS: NAPROXEN 250 MG TAB PO SCH (22:24)
[2020-12-21 05:53] VITALS: BP 140/70
[2020-12-21] MEDS: DOCUSATE SODIUM 100MG CAPSULE PO SCH ×2 (08:07→21:05)
[2020-12-21] MEDS: PANTOPRAZOLE 40MG TAB (PROTONIX) PO SCH (08:07)
[2020-12-21] MEDS: THIAMINE 100 MG TAB PO SCH (08:08)
[2020-12-21] MEDS: CETIRIZINE (ZyrTEC) 10 MG TAB PO SCH (08:08)
[2020-12-21] MEDS: NAPROXEN 250 MG TAB PO SCH ×2 (08:08→21:05)
[2020-12-21] MEDS: BENZTROPINE 2 MG TAB PO SCH ×2 (08:08→21:06)
[2020-12-21] MEDS: NALTREXONE 50 MG TAB PO SCH (08:08)
[2020-12-21] MEDS: haloperidoL 5 MG TAB PO SCH (08:08)
--- NOTE | 2020-12-21 14:41 | HPEPDOC ---
[facility] Medical History & Physical Date of Admission Dec 20, 2020 Date of Service: Dec 21, 2020 History and Physical CHIEF COMPLAINT: Paranoid delusions HISTORY OF PRESENT ILLNESS: The patient apparently lives a transitional living services, he has been becoming more verbally aggressive with his peers as well as exhibiting bizarre behavior, therefore he was brought to the hospital for further evaluation of what appears to be worsening psychiatric issues. CODE STATUS: Full code PAST MEDICAL HISTORY: Lyme disease 2019 Chronic back pain History of alcohol abuse Questionable history of polysubstance abuse, per medical record History of aspiration pneumonia requiring intubation Schizophrenia PAST SURGICAL HISTORY: Left knee surgery SOCIAL HISTORY: Reports that he smokes about a pack a day, states he does not drink alcohol or use any illicit drugs. FAMILY HISTORY: Patient does not report any family history of any medical conditions at all REVIEW OF SYSTEMS: Constitutional: Patient denies fevers, chills, night sweats, recent weight gain/loss. HEENT: Patient denies blurred or double vision, transient visual disturbances, postnasal drip, epistaxis, sore throat, difficulty chewing or swallowing food. Cardiovascular: Patient denies chest discomfort/pain, palpitations, exertional dyspnea, orthopnea, edema of the extremities, claudication. Respiratory: Patient denies dyspnea, wheezing, cough, hemoptysis, sputum production. Gastrointestinal: Patient denies nausea, vomiting, diarrhea, constipation, abdominal pain, melena, hematochezia, hematemesis, jaundice. PHYSICAL EXAMINATION: General: Awake, alert. He does not appear to be in any acute distress HEENT: Head normocephalic atraumatic, conjunctiva are pink, sclera are nonicteric, buccal mucosa is pink and moist with no lesions in the oropharynx. Hearing is grossly intact to conversation. Respiratory: Clear to auscultation bilaterally with no wheezes, rales, or rhonchi. Cardiovascular: Regular rate and rhythm, with no rubs, gallops, or murmur. Abdomen: Soft, nontender, nondistended, no hepatosplenomegaly appreciated. Bowel sounds present. Extremities: No evidence of clubbing or cyanosis. ASSESSMENT/PLAN: Paranoid delusions -Management per recommendations from psychiatry team Otherwise he does not appear to have any other chronic medical conditions, and all of his home medications are for psychiatric treatment. Thank you for the consult, please consult us once again if he has any medical issues. Vital Signs Vital Signs Date Time Temp Pulse Resp B/P (MAP) Pulse Ox O2 Delivery O2 Flow Rate FiO2 12/21/20 05:53 99.0 78 20 140/70 (93) 99 Room Air Laboratory Data Labs 24H Laboratory Tests 2 12/20/20 15:23: Nucleated Red Blood Cells % (auto) 0.0, Anion Gap 3L, Glomerular Filtration Rate > 60.0, Calcium Level 9.0, Total Bilirubin 0.6, Direct Bilirubin 0.2, Aspartate Amino Transf (AST/SGOT) 21, Alanine Aminotransferase (ALT/SGPT) 27, Alkaline Phosphatase 57, Total Protein 7.4, Albumin 4.5, Albumin/Globulin Ratio 1.6, Thyroid Stimulating Hormone (TSH) 0.745, Salicylates Level 4.9L, Acetaminophen Level < 2.0L, Ethyl Alcohol Level < 0.003 12/20/20 19:17: Coronavirus (COVID-19)(PCR) NEGATIVE, Influenza Type A (RT-PCR) NEGATIVE, Influenza Type B (RT-PCR) NEGATIVE, Respiratory Syncytial Virus (PCR) NEGATIVE CBC/BMP Laboratory Tests 12/20/20 15:23 Home Medications Scheduled Benztropine Mesylate (Benztropine Mesylate) 2 Mg Tablet, 2 MG PO BID for . Cetirizine HCl (Cetirizine HCl) 10 Mg Tablet, 10 MG PO DAILY Chlorpromazine HCl (Chlorpromazine HCl) 200 Mg Tablet, 200 MG PO TID Docusate Sodium (Colace) 100 Mg Capsule, 100 MG PO BID Haloperidol (Haloperidol) 5 Mg Tablet, 5 MG PO DAILY Haloperidol Decanoate (Haloperidol Decanoate) 100 Mg/1 Ml Vial, 1 ML IM Q2WK Naltrexone HCl (Naltrexone HCl) 50 Mg Tablet, 50 MG PO DAILY Naproxen (Naproxen) 500 Mg Tablet, 500 MG PO BID Pantoprazole Sodium (Pantoprazole Sodium) 40 Mg Tablet.dr, 40 MG PO DAILY Thiamine HCl (Thiamine HCl) 100 Mg Tablet, 100 MG PO DAILY Scheduled PRN Fluticasone Propionate (Fluticasone Propionate) 16 Gm [place].susp, 1 SPRAY NARES BID PRN for CONGESTION Methocarbamol (Methocarbamol) 500 Mg Tablet, 500 MG PO TID PRN for BACK PAIN Allergies Coded Allergies: No Known Allergies (Verified , 10/17/08) A-FIB/CHADSVASC A-FIB History Current/History of A-Fib/PAF?: No MARIA DEL CARMEN TINEO DO Dec 21, 2020 14:41
[2020-12-21 16:22] VITALS: BP 150/77
[2020-12-21] MEDS: traZODone 50 MG TAB PO PRN (21:05)
[2020-12-22 06:48] VITALS: BP 151/78
[2020-12-22] MEDS: NALTREXONE 50 MG TAB PO SCH (08:04)
[2020-12-22] MEDS: NAPROXEN 250 MG TAB PO SCH ×2 (08:04→20:27)
[2020-12-22] MEDS: PANTOPRAZOLE 40MG TAB (PROTONIX) PO SCH (08:04)
[2020-12-22] MEDS: CETIRIZINE (ZyrTEC) 10 MG TAB PO SCH (08:04)
[2020-12-22] MEDS: THIAMINE 100 MG TAB PO SCH (08:04)
[2020-12-22] MEDS: BENZTROPINE 2 MG TAB PO SCH ×2 (08:04→20:27)
[2020-12-22] MEDS: haloperidoL 5 MG TAB PO SCH (08:04)
[2020-12-22] MEDS: DOCUSATE SODIUM 100MG CAPSULE PO SCH ×2 (08:05→20:27)
[2020-12-22] MEDS: OLANZapine ORAL DISINTEGRATING TAB 5MG PO PRN (09:45)
[2020-12-22 15:40] VITALS: BP 136/76
[2020-12-22] MEDS: traZODone 50 MG TAB PO PRN (20:27)
[2020-12-23 06:25] VITALS: BP 134/74
[2020-12-23] MEDS: DOCUSATE SODIUM 100MG CAPSULE PO SCH ×2 (08:33→19:28)
[2020-12-23] MEDS: haloperidoL 5 MG TAB PO SCH (08:34)
[2020-12-23] MEDS: BENZTROPINE 2 MG TAB PO SCH ×2 (08:34→19:28)
[2020-12-23] MEDS: NAPROXEN 250 MG TAB PO SCH ×2 (08:34→19:29)
[2020-12-23] MEDS: CETIRIZINE (ZyrTEC) 10 MG TAB PO SCH (08:35)
[2020-12-23] MEDS: THIAMINE 100 MG TAB PO SCH (08:35)
[2020-12-23] MEDS: NALTREXONE 50 MG TAB PO SCH (08:36)
[2020-12-23] MEDS: PANTOPRAZOLE 40MG TAB (PROTONIX) PO SCH (08:36)
--- NOTE | 2020-12-23 09:40 | MHIPNPDOC ---
[facility] Progress Note Progress Note DATE OF SERVICE: 12/23/20 The patient claims that she forgot to take his medications over the past week and he started to hear voices. He also reports that he got his injector of haloperidol 2 weeks ago and generally been complying with his medication. He lives in a [facility] and has no complaint about the place. He claims that since he has been admitted and back on his medications. He is feeling better and not hearing voices anymore and does not have any thoughts of hurting anybody including himself. He is a little disheveled but pleasant on approach, able to a nswer questions in a relevant manner, but not very spontaneous and very superficial. HISTORY: . VITAL SIGNS: See below. NEW TEST RESULTS: . CURRENT MEDICATIONS: See below. MENTAL STATUS EXAMINATION: Patient is a 55 -year old male, who is , pleasant and in control. Speech: Is relevant but simplistic. Language skills are , fair. Thought processes including: , Coherent and relevant, but not spontaneous. Thought content: , Denies any paranoia or suicidal thoughts at this time. Abstract reasoning, and computation: poor. Description of associations: Relevant. Description of abnormal or psychotic thoughts: Claims that the voices stopped since his admission. Judgment: , Poor. Insight: poor. Orientation: , Oriented. Recent and remote memory: Only fair. Attention span and concentration: poor. Language: . Fund of knowledge: poor. Mood: Reports feeling much better and not depressed. Affect: , Appropriate, and animated]. DIAGNOSES: 1. . Chronic schizophrenia 2. . 3. . ASSESSMENT:[Cooperating with the treatment showing some improvement] MANAGEMENT PLAN: [Continued the current medications contacted his [facility] for discharge planning]. TIME SPENT: [20] minutes. Vital Signs Vital Signs Date Time Temp Pulse Resp B/P (MAP) Pulse Ox O2 Delivery O2 Flow Rate FiO2 12/23/20 06:25 97.8 70 20 134/74 (94) 98 Room Air Current Medications Current Medications Medications (Trade) Dose Ordered Sig/Daniel Route PRN Reason Start Time Stop Time Status Last Admin Dose Admin Acetaminophen (Tylenol Tab) 650 mg Q6HP PRN PO HEADACHE or DISCOMFORT 12/20/20 20:30 Al Hydrox/Mg Hydrox/Simethicone (Mylanta) 30 ml Q4HP PRN PO HEARTBURN/INDIGESTION 12/20/20 20:30 Benztropine Mesylate (Cogentin) 2 mg BID PO 12/20/20 21:00 12/23/20 08:34 Cetirizine HCl (ZyrTEC) 10 mg DAILY PO 12/21/20 09:00 12/23/20 08:35 Docusate Sodium (Colace) 100 mg BID PO 12/20/20 21:00 12/23/20 08:33 Fluticasone Propionate (Flonase 0.05% Nasal [place]) 1 spray BIDP PRN NARES CONGESTION 12/20/20 20:30 Haloperidol (Haldol) 5 mg DAILY PO 12/21/20 09:00 12/23/20 08:34 Home Med (Med Rec Complete!) ASDIRECTED XX 12/20/20 16:50 12/20/20 16:53 DC Magnesium Hydroxide (Milk Of Magnesia) 30 ml DAILYPRN PRN PO CONSTIPATION 12/20/20 20:30 Methocarbamol (Robaxin) 500 mg TID PRN PO BACK PAIN 12/20/20 20:30 Naltrexone HCl (Revia) 50 mg DAILY PO 12/21/20 09:00 12/23/20 08:36 Naproxen (Naprosyn) 500 mg BID PO 12/20/20 21:00 12/23/20 08:34 Nicotine (Nicoderm Cq 21mg) 1 patch DAILY PRN TD Nicotine withdrawal 12/20/20 20:30 Olanzapine (ZyPREXA ZYDIS) 5 mg Q4HP PRN PO AGITATION 12/20/20 20:30 12/22/20 09:45 Pantoprazole Sodium (Protonix) 40 mg DAILY PO 12/21/20 09:00 12/23/20 08:36 Thiamine HCl (Thiamine HCl) 100 mg DAILY PO 12/21/20 09:00 12/23/20 08:35 Trazodone HCl (Desyrel) 50 mg QHSP PRN PO INSOMNIA 12/20/20 20:30 12/22/20 20:27 Allergies Coded Allergies: No Known Allergies (Verified , 10/17/08) TABATHA JOAQUIN M.D. Dec 23, 2020 09:40
--- NOTE | 2020-12-23 14:00 | MHIPN ---
[facility] PSYCHIATRIC PROGRESS NOTE DATE: 12/22/2020 HISTORY OF PRESENT ILLNESS: The patient today states that he is doing okay then he says he is still hearing voices; they are spreading rumors about him. MENTAL STATUS EXAM: This patient is alert and oriented times 3. Eye contact is fair. Psychomotor activity is decreased. There is no formal thought disorder noted. He says his mood is "good." Affect is constricted. He continues to have paranoid thoughts. He denies suicidal or homicidal ideations. Concentration is fair. Memory intact. Insight and judgment is poor. DIAGNOSES: 1. Schizophrenia. 2. Alcohol use disorder. 3. Cannabis use disorder. 4. Unspecified neurocognitive disorder secondary to chronic alcohol use. TREATMENT PLAN: We will continue to monitor the patient for paranoid thoughts and to titrate medication as indicated.
[2020-12-23] MEDS: OLANZapine ORAL DISINTEGRATING TAB 5MG PO PRN ×2 (15:09→20:56)
[2020-12-23 18:09] VITALS: BP 137/80
[2020-12-23] MEDS: traZODone 50 MG TAB PO PRN (20:08)
[2020-12-24 06:51] VITALS: BP 137/82
[2020-12-24] MEDS: PANTOPRAZOLE 40MG TAB (PROTONIX) PO SCH (08:19)
[2020-12-24] MEDS: NALTREXONE 50 MG TAB PO SCH (08:19)
[2020-12-24] MEDS: DOCUSATE SODIUM 100MG CAPSULE PO SCH ×2 (08:19→20:38)
[2020-12-24] MEDS: NAPROXEN 250 MG TAB PO SCH ×2 (08:19→20:39)
[2020-12-24] MEDS: haloperidoL 5 MG TAB PO SCH (08:20)
[2020-12-24] MEDS: CETIRIZINE (ZyrTEC) 10 MG TAB PO SCH (08:20)
[2020-12-24] MEDS: THIAMINE 100 MG TAB PO SCH (08:20)
[2020-12-24] MEDS: BENZTROPINE 2 MG TAB PO SCH ×2 (08:20→20:38)
[2020-12-24] MEDS: ChlorproMAZINE 100 MG TABLET PO SCH ×3 (10:36→20:38)
--- NOTE | 2020-12-24 11:56 | MHIPNPDOC ---
[facility] Progress Note Progress Note DATE OF SERVICE: 12/24/20 The patient has been fully complying with his medications and has no new complaints. He is not as preoccupied with the voices and not feeling as afraid and stated that he feels good to go back to his group. The staff at the prison reported that he was extremely anxious, fearful and out of control and was very concerned for his safety and for others safety too. He has been maintained on chlorpromazine 200 mg 3 times a day. Prior to his admission, so we will start the same dose of chlorpromazine. He is very simplistic and somewhat childish and regressed, and clearly in need of further stabilization. HISTORY: . VITAL SIGNS: See below. NEW TEST RESULTS: . CURRENT MEDICATIONS: See below. MENTAL STATUS EXAMINATION: Patient is a 55-year old male, who is in no acute distress. Speech: Is simplistic, not productive. Language skills are fair. Thought processes including: , Relevant, but not spontaneous. Thought content: Denies any suicidal thoughts now. Abstract reasoning, and computation: , Poor. Description of associations: , Relevant. Description of abnormal or psychotic thoughts: Was very paranoid and hallucinating prior to admission, but claims that he is not worried about it now.. Judgment: poor. Insight: poor. Orientation: Oriented . Recent and remote memory: Fair. Attention span and concentration: poor. Language: . Fund of knowledge: poor. Mood: Reports feeling better. Affect: Appears pleasant and animated. DIAGNOSES: 1. . Chronic schizophrenia 2. . 3. . ASSESSMENT:Cooperating with the medicine and in control MANAGEMENT PLAN: Restart his chlorpromazine and continued supportive therapy. TIME SPENT: 15 minutes. Vital Signs Vital Signs Date Time Temp Pulse Resp B/P (MAP) Pulse Ox O2 Delivery O2 Flow Rate FiO2 12/24/20 06:51 98.2 60 20 137/82 (100) 97 Room Air Current Medications Current Medications Medications (Trade) Dose Ordered Sig/Daniel Route PRN Reason Start Time Stop Time Status Last Admin Dose Admin Acetaminophen (Tylenol Tab) 650 mg Q6HP PRN PO HEADACHE or DISCOMFORT 12/20/20 20:30 Al Hydrox/Mg Hydrox/Simethicone (Mylanta) 30 ml Q4HP PRN PO HEARTBURN/INDIGESTION 12/20/20 20:30 Benztropine Mesylate (Cogentin) 2 mg BID PO 12/20/20 21:00 12/24/20 08:20 Cetirizine HCl (ZyrTEC) 10 mg DAILY PO 12/21/20 09:00 12/24/20 08:20 Chlorpromazine HCl (Thorazine) 200 mg TID PO 12/24/20 09:00 Docusate Sodium (Colace) 100 mg BID PO 12/20/20 21:00 12/24/20 08:19 Fluticasone Propionate (Flonase 0.05% Nasal [place]) 1 spray BIDP PRN NARES CONGESTION 12/20/20 20:30 Haloperidol (Haldol) 5 mg DAILY PO 12/21/20 09:00 12/24/20 08:20 Home Med (Med Rec Complete!) ASDIRECTED XX 12/20/20 16:50 12/20/20 16:53 DC Magnesium Hydroxide (Milk Of Magnesia) 30 ml DAILYPRN PRN PO CONSTIPATION 12/20/20 20:30 Methocarbamol (Robaxin) 500 mg TID PRN PO BACK PAIN 12/20/20 20:30 Naltrexone HCl (Revia) 50 mg DAILY PO 12/21/20 09:00 12/24/20 08:19 Naproxen (Naprosyn) 500 mg BID PO 12/20/20 21:00 12/24/20 08:19 Nicotine (Nicoderm Cq 21mg) 1 patch DAILY PRN TD Nicotine withdrawal 12/20/20 20:30 Olanzapine (ZyPREXA ZYDIS) 5 mg Q4HP PRN PO AGITATION 12/20/20 20:30 12/23/20 20:56 Pantoprazole Sodium (Protonix) 40 mg DAILY PO 12/21/20 09:00 12/24/20 08:19 Thiamine HCl (Thiamine HCl) 100 mg DAILY PO 12/21/20 09:00 12/24/20 08:20 Trazodone HCl (Desyrel) 50 mg QHSP PRN PO INSOMNIA 12/20/20 20:30 12/23/20 20:08 Allergies Coded Allergies: No Known Allergies (Verified , 10/17/08) TABATHA JOAQUIN M.D. Dec 24, 2020 11:56
--- NOTE | 2020-12-24 12:50 | MHHPE ---
FORMERLY [facility], [facility] HISTORY AND PHYSICAL DATE OF ADMISSION: 12/20/2020 DATE OF EVALUATION: 12/21/2020 HISTORY OF PRESENT ILLNESS: This is one of multiple admissions for this 55-year-old white man with chronic schizophrenia. The patient was discharged from [facility], [place] 4 weeks ago. He had been there for 8 months and had been sent from [facility]. Currently he is living at [facility] ([facility] There was a pickup order done because the patient had been verbally threatening toward others and exhibiting a lot of erratic behavior. It is very difficult to get much history from the patient, but he does admit that he is hearing voices, and he says that the content of the voices tell him that "they are spreading rumors about me." He says "I am paranoid today." He says "I don't what I have done." PAST PSYCHIATRIC HISTORY: He has a history of multiple psychiatric admissions, as noted above, and long-term admissions at the [facility], [place]. There is no history of any suicidal attempts. Currently he is supposed otomicroscopy be on Haldol 5 mg daily, trazodone 50 mg every night as needed for insomnia, Cogentin 2 mg twice a day, naltrexone 50 mg daily. When the patient was in the hospital at [facility] on 08/29/2017, the patient was treated with long-acting injectable of risperidone, but I am not sure which one, and he was also on quetiapine at that point. PAST PSYCHIATRIC TREATMENT: He has a sister with unknown psychiatric disorder. MEDICAL HISTORY: There were no medical problems reported. ABUSE HISTORY: There is no history of any abuse noted in any of the charts from prior admissions. SUBSTANCE USE: He has a significant history of problems with alcohol binges when available, and in the past he had a history of an arrest for possession of methamphetamine and was on probation back in 2018. REVIEW OF SYSTEMS: VITAL SIGNS: Blood pressure 121/80, pulse 90 and respirations 18.. APPEARANCE: Patient appears to be older than stated age. He is in no apparent distress.. NEUROMUSCULAR SYSTEM: The patient's gait is normal, and there are no involuntary movements of his extremities noted. All other systems were reviewed and found to be negative. MENTAL STATUS EXAMINATION: This patient is alert. He is oriented times three. His thinking is very disorganized. There is some flight of ideas and pressured speech. He says that his mood is "not good." His affect is appropriate. He is denying any suicidal or homicidal thoughts, but he had been verbally threatening toward others at the residence where he was living prior to his admission, and he is hearing voices that are disturbing to him. Concentration is fair. Memory is fair. Insight and judgment are poor. DIAGNOSES: 1. Schizophrenia. 2. Rule out some unspecified neurocognitive disorder secondary to chronic alcohol abuse. 3. Alcohol use disorder. (incomplete)/verified/ml MTDD
[2020-12-24 16:47] VITALS: BP 146/83
[2020-12-25 06:16] VITALS: BP 145/81
[2020-12-25] MEDS: ChlorproMAZINE 100 MG TABLET PO SCH ×3 (08:38→20:20)
[2020-12-25] MEDS: haloperidoL 5 MG TAB PO SCH (08:38)
[2020-12-25] MEDS: DOCUSATE SODIUM 100MG CAPSULE PO SCH ×2 (08:38→20:20)
[2020-12-25] MEDS: BENZTROPINE 2 MG TAB PO SCH ×2 (08:38→20:20)
[2020-12-25] MEDS: CETIRIZINE (ZyrTEC) 10 MG TAB PO SCH (08:38)
[2020-12-25] MEDS: NAPROXEN 250 MG TAB PO SCH ×2 (08:39→20:20)
[2020-12-25] MEDS: NALTREXONE 50 MG TAB PO SCH (08:39)
[2020-12-25] MEDS: THIAMINE 100 MG TAB PO SCH (08:39)
[2020-12-25] MEDS: PANTOPRAZOLE 40MG TAB (PROTONIX) PO SCH (08:40)
--- NOTE | 2020-12-25 10:03 | MHIPNPDOC ---
[facility] Progress Note Progress Note DATE OF SERVICE: 12/25/20 Patient is cooperating and tolerating his medications including his chlorpromazine. He hasn't had any acting out behavior and is quite pleasant on approach and doesn't appear to be in any acute distress. He has no complaint at all and is only asking about when clinical back to his [facility]. He is eating and sleeping okay. Not showing any signs of side effect and denies any hallucinations and denies any thoughts of hurting anyone. HISTORY: . VITAL SIGNS: See below. NEW TEST RESULTS: . CURRENT MEDICATIONS: See below. MENTAL STATUS EXAMINATION: Patient is a 55-year old male, who is in no acute distress. Speech: Is simplistic but rational. Language skills are fair. Thought processes including: Relevant. Thought content: , Denies any paranoia. The fear or suicidal thoughts. Abstract reasoning, and computation: , Poor. Description of associations: Responding appropriately. Description of abnormal or psychotic thoughts: Denies any active or hallucination or paranoid fear. Judgment: fair. Insight: fair.. Orientation: Appears oriented. Recent and remote memory: fair. Attention span and concentration: poor. Language: . Fund of knowledge: . Mood: , Mildly anxious, but reports feeling okay. Affect: Blunted but appropriate. DIAGNOSES: 1. . Chronic schizophrenia 2. . 3. . ASSESSMENT:Cooperating with the treatment and maintaining good control MANAGEMENT PLAN: Continue the current treatment and return to group on. TIME SPENT: 15 minutes. Vital Signs Vital Signs Date Time Temp Pulse Resp B/P (MAP) Pulse Ox O2 Delivery O2 Flow Rate FiO2 12/25/20 06:16 97.4 72 18 145/81 (102) 98 Room Air Current Medications Current Medications Medications (Trade) Dose Ordered Sig/Daniel Route PRN Reason Start Time Stop Time Status Last Admin Dose Admin Acetaminophen (Tylenol Tab) 650 mg Q6HP PRN PO HEADACHE or DISCOMFORT 12/20/20 20:30 Al Hydrox/Mg Hydrox/Simethicone (Mylanta) 30 ml Q4HP PRN PO HEARTBURN/INDIGESTION 12/20/20 20:30 Benztropine Mesylate (Cogentin) 2 mg BID PO 12/20/20 21:00 12/25/20 08:38 Cetirizine HCl (ZyrTEC) 10 mg DAILY PO 12/21/20 09:00 12/25/20 08:38 Chlorpromazine HCl (Thorazine) 200 mg TID PO 12/24/20 09:00 12/25/20 08:38 Docusate Sodium (Colace) 100 mg BID PO 12/20/20 21:00 12/25/20 08:38 Fluticasone Propionate (Flonase 0.05% Nasal [place]) 1 spray BIDP PRN NARES CONGESTION 12/20/20 20:30 Haloperidol (Haldol) 5 mg DAILY PO 12/21/20 09:00 12/25/20 08:38 Home Med (Med Rec Complete!) ASDIRECTED XX 12/20/20 16:50 12/20/20 16:53 DC Magnesium Hydroxide (Milk Of Magnesia) 30 ml DAILYPRN PRN PO CONSTIPATION 12/20/20 20:30 Methocarbamol (Robaxin) 500 mg TID PRN PO BACK PAIN 12/20/20 20:30 Naltrexone HCl (Revia) 50 mg DAILY PO 12/21/20 09:00 12/25/20 08:39 Naproxen (Naprosyn) 500 mg BID PO 12/20/20 21:00 12/25/20 08:39 Nicotine (Nicoderm Cq 21mg) 1 patch DAILY PRN TD Nicotine withdrawal 12/20/20 20:30 Olanzapine (ZyPREXA ZYDIS) 5 mg Q4HP PRN PO AGITATION 12/20/20 20:30 12/23/20 20:56 Pantoprazole Sodium (Protonix) 40 mg DAILY PO 12/21/20 09:00 12/25/20 08:40 Thiamine HCl (Thiamine HCl) 100 mg DAILY PO 12/21/20 09:00 12/25/20 08:39 Trazodone HCl (Desyrel) 50 mg QHSP PRN PO INSOMNIA 12/20/20 20:30 12/23/20 20:08 Allergies Coded Allergies: No Known Allergies (Verified , 10/17/08) TABATHA JOAQUIN M.D. Dec 25, 2020 10:02
[2020-12-25] MEDS: ACETAMINOPHEN TAB 650MG DOSE (2X325MG) PO PRN (12:08)
[2020-12-25 15:24] VITALS: BP 122/76
[2020-12-25] MEDS: OLANZapine ORAL DISINTEGRATING TAB 5MG PO PRN (15:51)
[2020-12-25] MEDS: traZODone 50 MG TAB PO PRN (20:20)
[2020-12-26 05:51] VITALS: BP 107/60
[2020-12-26] MEDS: ChlorproMAZINE 100 MG TABLET PO SCH ×3 (08:14→21:27)
[2020-12-26] MEDS: NAPROXEN 250 MG TAB PO SCH ×2 (08:14→21:27)
[2020-12-26] MEDS: CETIRIZINE (ZyrTEC) 10 MG TAB PO SCH (08:15)
[2020-12-26] MEDS: haloperidoL 5 MG TAB PO SCH (08:15)
[2020-12-26] MEDS: NALTREXONE 50 MG TAB PO SCH (08:15)
[2020-12-26] MEDS: BENZTROPINE 2 MG TAB PO SCH ×2 (08:15→21:27)
[2020-12-26] MEDS: DOCUSATE SODIUM 100MG CAPSULE PO SCH ×2 (08:15→21:27)
[2020-12-26] MEDS: THIAMINE 100 MG TAB PO SCH (08:15)
[2020-12-26] MEDS: PANTOPRAZOLE 40MG TAB (PROTONIX) PO SCH (08:15)
[2020-12-26] MEDS: OLANZapine ORAL DISINTEGRATING TAB 5MG PO PRN (08:46)
[2020-12-26] MEDS: ACETAMINOPHEN TAB 650MG DOSE (2X325MG) PO PRN (10:24)
--- NOTE | 2020-12-26 10:34 | MHIPNPDOC ---
[facility] Progress Note Progress Note DATE OF SERVICE: 12/26/20 The patient does no new complaints and is anxiously waiting to go back to his group. He apparently made a comment about people talking about killing him, but when asked by this Zulema specifically about this issue the patient is minimizing his comment saying that he was talking about some other people in the past. He denies any paranoia fear with the people at his assisted and states that he feels fine about going back and asking if he can go today. His behavior is in good control and has no physical complaints and denies any command alejandra lucinations. HISTORY: . VITAL SIGNS: See below. NEW TEST RESULTS: . CURRENT MEDICATIONS: See below. MENTAL STATUS EXAMINATION: Patient is a 55-year old male, who is , cooperative. Speech: Is simplistic. Language skills are , poor. Thought processes including: Relevant answers. Thought content: Denies any paranoid fear. Abstract reasoning, and computation: , Poor. Description of associations: . His answers are relevant. Description of abnormal or psychotic thoughts: Denies any command hallucination. Judgment: fair. Insight: very limited. Orientation: Appears oriented. Recent and remote memory: poor. Attention span and concentration: . Language: . Fund of knowledge: poor. Mood: Reports feeling fine. Affect: Animated at times. Not agitated. DIAGNOSES: 1. . Chronic schizophrenia 2. . 3. . ASSESSMENT:Maintaining good control and appears to be at his baseline MANAGEMENT PLAN: . Continue with the current treatment. Discharge back to assisted tomorrow. TIME SPENT: 20] minutes. Vital Signs Vital Signs Date Time Temp Pulse Resp B/P (MAP) Pulse Ox O2 Delivery O2 Flow Rate FiO2 12/26/20 05:51 96.9 54 18 107/60 (76) 98 Room Air Current Medications Current Medications Medications (Trade) Dose Ordered Sig/Daniel Route PRN Reason Start Time Stop Time Status Last Admin Dose Admin Acetaminophen (Tylenol Tab) 650 mg Q6HP PRN PO HEADACHE or DISCOMFORT 12/20/20 20:30 12/26/20 10:24 Al Hydrox/Mg Hydrox/Simethicone (Mylanta) 30 ml Q4HP PRN PO HEARTBURN/INDIGESTION 12/20/20 20:30 Benztropine Mesylate (Cogentin) 2 mg BID PO 12/20/20 21:00 12/26/20 08:15 Cetirizine HCl (ZyrTEC) 10 mg DAILY PO 12/21/20 09:00 12/26/20 08:15 Chlorpromazine HCl (Thorazine) 200 mg TID PO 12/24/20 09:00 12/26/20 08:14 Docusate Sodium (Colace) 100 mg BID PO 12/20/20 21:00 12/26/20 08:15 Fluticasone Propionate (Flonase 0.05% Nasal [place]) 1 spray BIDP PRN NARES CONGESTION 12/20/20 20:30 Haloperidol (Haldol) 5 mg DAILY PO 12/21/20 09:00 12/26/20 08:15 Home Med (Med Rec Complete!) ASDIRECTED XX 12/20/20 16:50 12/20/20 16:53 DC Magnesium Hydroxide (Milk Of Magnesia) 30 ml DAILYPRN PRN PO CONSTIPATION 12/20/20 20:30 Methocarbamol (Robaxin) 500 mg TID PRN PO BACK PAIN 12/20/20 20:30 Naltrexone HCl (Revia) 50 mg DAILY PO 12/21/20 09:00 12/26/20 08:15 Naproxen (Naprosyn) 500 mg BID PO 12/20/20 21:00 12/26/20 08:14 Nicotine (Nicoderm Cq 21mg) 1 patch DAILY PRN TD Nicotine withdrawal 12/20/20 20:30 Olanzapine (ZyPREXA ZYDIS) 5 mg Q4HP PRN PO AGITATION 12/20/20 20:30 12/26/20 08:46 Pantoprazole Sodium (Protonix) 40 mg DAILY PO 12/21/20 09:00 12/26/20 08:15 Thiamine HCl (Thiamine HCl) 100 mg DAILY PO 12/21/20 09:00 12/26/20 08:15 Trazodone HCl (Desyrel) 50 mg QHSP PRN PO INSOMNIA 12/20/20 20:30 12/25/20 20:20 Allergies Coded Allergies: No Known Allergies (Verified , 10/17/08) TABATHA JOAQUIN M.D. Dec 26, 2020 10:34
[2020-12-26] MEDS: haloperidoL 5 MG TAB PO PRN (11:42)
[2020-12-26] MEDS: LORazepam 1 MG TAB PO PRN (11:43)
[2020-12-26] MEDS: methocarbamoL 500 MG TAB PO PRN (16:46)
[2020-12-26 17:43] VITALS: BP 119/56
[2020-12-26] MEDS: traZODone 50 MG TAB PO PRN (21:26)
[2020-12-27 05:49] VITALS: BP 118/79
[2020-12-27] MEDS: ACETAMINOPHEN TAB 650MG DOSE (2X325MG) PO PRN (07:10)
[2020-12-27] MEDS: THIAMINE 100 MG TAB PO SCH (08:07)
[2020-12-27] MEDS: PANTOPRAZOLE 40MG TAB (PROTONIX) PO SCH (08:07)
[2020-12-27] MEDS: BENZTROPINE 2 MG TAB PO SCH ×2 (08:07→21:49)
[2020-12-27] MEDS: DOCUSATE SODIUM 100MG CAPSULE PO SCH ×2 (08:07→21:50)
[2020-12-27] MEDS: CETIRIZINE (ZyrTEC) 10 MG TAB PO SCH (08:07)
[2020-12-27] MEDS: ChlorproMAZINE 100 MG TABLET PO SCH ×3 (08:07→21:51)
[2020-12-27] MEDS: NALTREXONE 50 MG TAB PO SCH (08:07)
[2020-12-27] MEDS: haloperidoL 5 MG TAB PO SCH (08:08)
[2020-12-27] MEDS: NAPROXEN 250 MG TAB PO SCH ×2 (08:08→21:50)
[2020-12-27] MEDS: methocarbamoL 500 MG TAB PO PRN (12:25)
[2020-12-27 16:58] VITALS: BP 126/61
[2020-12-27] MEDS: traZODone 50 MG TAB PO PRN (21:50)
[2020-12-28] MEDS: methocarbamoL 500 MG TAB PO PRN ×2 (02:03→22:49)
[2020-12-28] MEDS: LORazepam 1 MG TAB PO PRN (02:03)
[2020-12-28] MEDS: BENZTROPINE 2 MG TAB PO SCH ×2 (08:02→20:12)
[2020-12-28] MEDS: THIAMINE 100 MG TAB PO SCH (08:02)
[2020-12-28] MEDS: CETIRIZINE (ZyrTEC) 10 MG TAB PO SCH (08:02)
[2020-12-28] MEDS: PANTOPRAZOLE 40MG TAB (PROTONIX) PO SCH (08:02)
[2020-12-28] MEDS: NALTREXONE 50 MG TAB PO SCH (08:02)
[2020-12-28] MEDS: DOCUSATE SODIUM 100MG CAPSULE PO SCH ×2 (08:02→20:11)
[2020-12-28] MEDS: NAPROXEN 250 MG TAB PO SCH ×2 (08:03→20:12)
[2020-12-28] MEDS: haloperidoL 5 MG TAB PO SCH (08:03)
[2020-12-28] MEDS: ChlorproMAZINE 100 MG TABLET PO SCH ×3 (08:03→20:12)
[2020-12-28 08:04] VITALS: BP 116/69
[2020-12-28] MEDS: ACETAMINOPHEN TAB 650MG DOSE (2X325MG) PO PRN ×2 (09:47→16:41)
[2020-12-28 16:42] VITALS: BP 124/60
[2020-12-28] MEDS: traZODone 50 MG TAB PO PRN (20:11)
[2020-12-29] MEDS: ACETAMINOPHEN TAB 650MG DOSE (2X325MG) PO PRN ×2 (03:16→13:06)
[2020-12-29 06:22] VITALS: BP 94/59
[2020-12-29] MEDS: methocarbamoL 500 MG TAB PO PRN ×2 (07:45→14:32)
[2020-12-29] MEDS: OLANZapine ORAL DISINTEGRATING TAB 5MG PO PRN (07:46)
[2020-12-29] MEDS: haloperidoL 5 MG TAB PO SCH (08:54)
[2020-12-29] MEDS: NALTREXONE 50 MG TAB PO SCH (08:54)
[2020-12-29] MEDS: CETIRIZINE (ZyrTEC) 10 MG TAB PO SCH (08:54)
[2020-12-29] MEDS: BENZTROPINE 2 MG TAB PO SCH ×2 (08:54→20:24)
[2020-12-29] MEDS: DOCUSATE SODIUM 100MG CAPSULE PO SCH ×2 (08:54→20:25)
[2020-12-29] MEDS: PANTOPRAZOLE 40MG TAB (PROTONIX) PO SCH (08:55)
[2020-12-29] MEDS: NAPROXEN 250 MG TAB PO SCH ×2 (08:55→20:25)
[2020-12-29] MEDS: ChlorproMAZINE 100 MG TABLET PO SCH ×3 (08:55→20:25)
[2020-12-29] MEDS: THIAMINE 100 MG TAB PO SCH (08:55)
--- NOTE | 2020-12-29 09:20 | MHIPNPDOC ---
[facility] Progress Note Progress Note DATE OF SERVICE: 12/29/20 This is a progress note for Terrence Jett, on December 27, which is somehow lost. The patient was seen on December 27 for follow-up visits. Patient has been showing s lightly more disorganized behavior since December 26. He has been commenting about people trying to kill him, but when asked by this M.D. the patient stated that it was about an incident that happened in the past and does not believe anybody is trying to kill him. He is quite evasive, superficial and not very productive, but is in good control and denies any command hallucination. He is cooperating with his medications and has not shown any aggressive or agitated behavior and appears to be at his baseline, so he will be seen by the [facility] this morning for a meeting to decide whether he can return to the group. HISTORY: . VITAL SIGNS: See below. NEW TEST RESULTS: . CURRENT MEDICATIONS: See below. MENTAL STATUS EXAMINATION: Patient is a 55-year old male, who is in no acute distress. Speech: Is simplistic, not productive, but relevant . Language skills are , poor. Thought processes including: Spending relevant. Thought content: Superficial. He denies any problem. Abstract reasoning, and computation: poor. Description of associations: , Not productive and not spontaneous and very evasive. Description of abnormal or psychotic thoughts: Been making comments of paranoid nature. Judgment: poor. Insight: poor. Orientation: Appears oriented. Recent and remote memory: poor. Attention span and concentration: poor. Language: . Fund of knowledge: . Mood: Denies any serious depression or severe. Affect: Blunted. DIAGNOSES: 1. . Chronic schizophrenia 2. . 3. . ASSESSMENT: Been in control and appears to be at his baseline MANAGEMENT PLAN: To have a discharge meeting today. TIME SPENT: 15 minutes. Vital Signs Vital Signs Date Time Temp Pulse Resp B/P (MAP) Pulse Ox O2 Delivery O2 Flow Rate FiO2 12/29/20 06:22 97.0 89 16 94/59 (71) 97 12/27/20 05:49 Room Air Current Medications Current Medications Medications (Trade) Dose Ordered Sig/Daniel Route PRN Reason Start Time Stop Time Status Last Admin Dose Admin Acetaminophen (Tylenol Tab) 650 mg Q6HP PRN PO HEADACHE or MILD DISCOMFORT 12/20/20 20:30 12/29/20 03:16 Al Hydrox/Mg Hydrox/Simethicone (Mylanta) 30 ml Q4HP PRN PO HEARTBURN/INDIGESTION 12/20/20 20:30 Benztropine Mesylate (Cogentin) 2 mg BID PO 12/20/20 21:00 12/29/20 08:54 Cetirizine HCl (ZyrTEC) 10 mg DAILY PO 12/21/20 09:00 12/29/20 08:54 Chlorpromazine HCl (Thorazine) 200 mg TID PO 12/24/20 09:00 12/29/20 08:55 Docusate Sodium (Colace) 100 mg BID PO 12/20/20 21:00 12/29/20 08:54 Fluticasone Propionate (Flonase 0.05% Nasal [place]) 1 spray BIDP PRN NARES CONGESTION 12/20/20 20:30 Haloperidol (Haldol) 5 mg DAILY PO 12/21/20 09:00 12/29/20 08:54 Haloperidol (Haldol) 5 mg Q6HP PRN PO ANXIETY/AGITATION 12/26/20 11:30 12/26/20 11:42 Home Med (Med Rec Complete!) ASDIRECTED XX 12/20/20 16:50 12/20/20 16:53 DC Lorazepam (Ativan) 1 mg Q6HP PRN PO ANXIETY/AGITATION 12/26/20 11:30 12/28/20 02:03 Magnesium Hydroxide (Milk Of Magnesia) 30 ml DAILYPRN PRN PO CONSTIPATION 12/20/20 20:30 Methocarbamol (Robaxin) 500 mg TID PRN PO BACK PAIN 12/20/20 20:30 12/29/20 07:45 Naltrexone HCl (Revia) 50 mg DAILY PO 12/21/20 09:00 12/29/20 08:54 Naproxen (Naprosyn) 500 mg BID PO 12/20/20 21:00 12/29/20 08:55 Nicotine (Nicoderm Cq 21mg) 1 patch DAILY PRN TD Nicotine withdrawal 12/20/20 20:30 Olanzapine (ZyPREXA ZYDIS) 5 mg Q4HP PRN PO AGITATION 12/20/20 20:30 12/29/20 07:46 Pantoprazole Sodium (Protonix) 40 mg DAILY PO 12/21/20 09:00 12/29/20 08:55 Thiamine HCl (Thiamine HCl) 100 mg DAILY PO 12/21/20 09:00 12/29/20 08:55 Trazodone HCl (Desyrel) 50 mg QHSP PRN PO INSOMNIA 12/20/20 20:30 12/28/20 20:11 Allergies Coded Allergies: No Known Allergies (Verified , 10/17/08) TABATHA JOAQUIN M.D. Dec 29, 2020 09:20
[2020-12-29 17:38] VITALS: BP 140/70
[2020-12-30] MEDS: ACETAMINOPHEN TAB 650MG DOSE (2X325MG) PO PRN ×3 (06:38→22:10)
[2020-12-30 06:39] VITALS: BP 114/59
[2020-12-30] MEDS: PANTOPRAZOLE 40MG TAB (PROTONIX) PO SCH (08:34)
[2020-12-30] MEDS: ChlorproMAZINE 100 MG TABLET PO SCH ×3 (08:34→20:17)
[2020-12-30] MEDS: DOCUSATE SODIUM 100MG CAPSULE PO SCH ×2 (08:34→20:17)
[2020-12-30] MEDS: NAPROXEN 250 MG TAB PO SCH ×2 (08:35→20:19)
[2020-12-30] MEDS: THIAMINE 100 MG TAB PO SCH (08:35)
[2020-12-30] MEDS: haloperidoL 5 MG TAB PO SCH (08:35)
[2020-12-30] MEDS: NALTREXONE 50 MG TAB PO SCH (08:35)
[2020-12-30] MEDS: CETIRIZINE (ZyrTEC) 10 MG TAB PO SCH (08:35)
[2020-12-30] MEDS: BENZTROPINE 2 MG TAB PO SCH ×2 (08:35→20:17)
--- NOTE | 2020-12-30 10:07 | MHIPNPDOC ---
[facility] Progress Note Progress Note DATE OF SERVICE: 12/30/20 The patient has not shown much change in the past 2 days. He at times makes some inappropriate and bizarre comments indicating persistent thought disorder, but his behavior has been in good control. He is pleasant on approach and has not shown any angry or agitated behavior. His eating, sleeping well, and fully cooperating with medicine and is not reporting any command hallucinations and does not appear to be overly anxious or fearful. He remains somewhat regressed with her disorganized thinking, but behavior is in good control and appears to be at his baseline. He will be seen again by his snf for possible discharge today. HISTORY: . VITAL SIGNS: See below. NEW TEST RESULTS: . CURRENT MEDICATIONS: See below. MENTAL STATUS EXAMINATION: Patient is a 55-year old male, who is , pleasant on approach. Speech: Is simplistic but relevant. Language skills are , poor. Thought processes including: At times making incoherent statements. Thought content: , Not expressing any organized delusional thinking, but making bizarre statements at times. Abstract reasoning, and computation: , Poor. Description of associations: , Somewhat scattered. Description of abnormal or psychotic thoughts: Denies any command hallucination . Judgment: fair. Insight: poor]. Orientation: Appears oriented. Recent and remote memory: fair. Attention span and concentration: poor. Language: . Fund of knowledge: . Mood: Denies any serious depression. Affect: Blunted. DIAGNOSES: 1. . Chronic schizophrenia 2. . 3. . ASSESSMENT:Somewhat regressed and disorganized, but appears to be at his baseline MANAGEMENT PLAN: Continue the current medicine and hopefully discharge back to his snf . TIME SPENT: 15 minutes. Vital Signs Vital Signs Date Time Temp Pulse Resp B/P (MAP) Pulse Ox O2 Delivery O2 Flow Rate FiO2 12/30/20 06:39 97.7 82 18 114/59 (77) 96 Room Air Current Medications Current Medications Medications (Trade) Dose Ordered Sig/Daniel Route PRN Reason Start Time Stop Time Status Last Admin Dose Admin Acetaminophen (Tylenol Tab) 650 mg Q6HP PRN PO HEADACHE or MILD DISCOMFORT 12/20/20 20:30 12/30/20 06:38 Al Hydrox/Mg Hydrox/Simethicone (Mylanta) 30 ml Q4HP PRN PO HEARTBURN/INDIGESTION 12/20/20 20:30 Benztropine Mesylate (Cogentin) 2 mg BID PO 12/20/20 21:00 12/30/20 08:35 Cetirizine HCl (ZyrTEC) 10 mg DAILY PO 12/21/20 09:00 12/30/20 08:35 Chlorpromazine HCl (Thorazine) 200 mg TID PO 12/24/20 09:00 12/30/20 08:34 Docusate Sodium (Colace) 100 mg BID PO 12/20/20 21:00 12/30/20 08:34 Fluticasone Propionate (Flonase 0.05% Nasal [place]) 1 spray BIDP PRN NARES CONGESTION 12/20/20 20:30 Haloperidol (Haldol) 5 mg DAILY PO 12/21/20 09:00 12/30/20 08:35 Haloperidol (Haldol) 5 mg Q6HP PRN PO ANXIETY/AGITATION 12/26/20 11:30 12/26/20 11:42 Home Med (Med Rec Complete!) ASDIRECTED XX 12/20/20 16:50 12/20/20 16:53 DC Lorazepam (Ativan) 1 mg Q6HP PRN PO ANXIETY/AGITATION 12/26/20 11:30 12/28/20 02:03 Magnesium Hydroxide (Milk Of Magnesia) 30 ml DAILYPRN PRN PO CONSTIPATION 12/20/20 20:30 Methocarbamol (Robaxin) 500 mg TID PRN PO BACK PAIN 12/20/20 20:30 12/29/20 14:32 Naltrexone HCl (Revia) 50 mg DAILY PO 12/21/20 09:00 12/30/20 08:35 Naproxen (Naprosyn) 500 mg BID PO 12/20/20 21:00 12/30/20 08:35 Nicotine (Nicoderm Cq 21mg) 1 patch DAILY PRN TD Nicotine withdrawal 12/20/20 20:30 Olanzapine (ZyPREXA ZYDIS) 5 mg Q4HP PRN PO AGITATION 12/20/20 20:30 12/29/20 07:46 Pantoprazole Sodium (Protonix) 40 mg DAILY PO 12/21/20 09:00 12/30/20 08:34 Thiamine HCl (Thiamine HCl) 100 mg DAILY PO 12/21/20 09:00 6/21/21 08:35 Trazodone HCl (Desyrel) 50 mg QHSP PRN PO INSOMNIA 12/20/20 20:30 12/28/20 20:11 Allergies Coded Allergies: No Known Allergies (Verified , 10/17/08) TABATHA JOAQUIN M.D. Dec 30, 2020 10:07
[2020-12-30] MEDS: haloperidoL 5 MG TAB PO PRN (10:32)
[2020-12-30] MEDS: BENZOCAINE 10% 9GM TUBE (ANBESOL) TOP PRN (15:52)
[2020-12-30 16:19] VITALS: BP 148/81
[2020-12-30] MEDS: traZODone 50 MG TAB PO PRN (20:19)
[2020-12-31] MEDS: methocarbamoL 500 MG TAB PO PRN (05:10)
[2020-12-31 06:15] VITALS: BP 94/54
[2020-12-31] MEDS: haloperidoL 5 MG TAB PO SCH (08:31)
[2020-12-31] MEDS: CETIRIZINE (ZyrTEC) 10 MG TAB PO SCH (08:31)
[2020-12-31] MEDS: BENZTROPINE 2 MG TAB PO SCH (08:31)
[2020-12-31] MEDS: ChlorproMAZINE 100 MG TABLET PO SCH (08:31)
[2020-12-31] MEDS: DOCUSATE SODIUM 100MG CAPSULE PO SCH (08:31)
[2020-12-31] MEDS: PANTOPRAZOLE 40MG TAB (PROTONIX) PO SCH (08:31)
[2020-12-31] MEDS: THIAMINE 100 MG TAB PO SCH (08:31)
[2020-12-31] MEDS: NAPROXEN 250 MG TAB PO SCH (08:31)
[2020-12-31] MEDS: NALTREXONE 50 MG TAB PO SCH (08:31)
[2020-12-31] MEDS: BENZOCAINE 10% 9GM TUBE (ANBESOL) TOP PRN (08:32)
--- NOTE | 2021-01-01 11:52 | MHDSPDOC ---
[facility] Discharge Summary Discharge Summary DATE OF ADMISSION: Dec 20, 2020 at 20:26 DATE OF DISCHARGE: Dec 31, 2020 at 10:56 DISCHARGE DIAGNOSES: 1. . Chronic schizophrenia, undifferentiated 2. . REASON FOR ADMISSION: 55-year-old male with a long psychiatric history, currently residing in a jail, was brought to emergency room due to inc reasing paranoia and disorganized, threatening behavior. Patient has a history of alcohol dependence, apparently has been in sobriety and has been cooperating with his medications, but has been showing increasing paranoia and somewhat threatening behavior at the jail and was sent to the emergency room. CONSULTANTS INVOLVED: None TREATMENT AND PROGRESS ON THE UNIT : Patient was seen for supportive therapy and restarted on his medicines$decanoate injection, 100 mg every other week and continued on Thorazine 200 mg 3 times a day and Haldol 5 mg daily and naltrexone 50 mg daily. Patient is fully cooperated with the medications was also given Cogentin 2 mg twice a day for side effect. He has fully cooperated with the medicine and maintained good control without any threatening or aggressive behavior. Patient, however, is somewhat regressed childish attention seeking and frequently making nonsensical and paranoid comments, but denies any command hallucination. Denies any suicidal thoughts and has not shown any aggressive or assaultive behavior. He is eating well sleeping well. Has no physical complaints and is pleasant on approach and appears to be at her baseline, he was a sin by his jail and will be discharged back to jail HOSPITAL COURSE: As described above, patient had the unremarkable stay and maintained good control appears to be at his baseline mental status DISCHARGE ASSESSMENT: , Stable. Not in any acute distress and not a danger to himself or others MENTAL STATUS EXAMINATION ON DISCHARGE: Patient is a 55-year old male, who is , somewhat childish and regressed. Speech is simplistic. Language skills are , poor. Thought processes including: Relevant. Thought content: Denies any lethality issues. Abstract reasoning, and computation: , Poor. Description of associations: Corporal relevant. Description of abnormal or psychotic thoughts: Denies any command hallucination. Judgment: ]fair. Insight: Poor]. Orientation to oriented to place . Recent and remote memory: [, Poor]. Attention span and concentration: Poor . Language: . Fund of knowledge: . Mood: Euthymic. Affect: , Appropriate. MEDICATIONS ON DISCHARGE: - for . Continue his current medications - for . - for . PLAN/FOLLOWUP ARRANGEMENTS: Arranged by project planner . The amount of time spent in the coordination of care for this patient was approximately 35 minutes. ETOH/Disorder Med Rx ETOH/DRUG DISORDER RX: Given to pt at d/c Vital Signs/I&Os Vital Signs Date Time Temp Pulse Resp B/P (MAP) Pulse Ox O2 Delivery O2 Flow Rate FiO2 12/31/20 06:15 97.7 70 14 94/54 (67) 99 Room Air Medications Scheduled Benztropine Mesylate (Benztropine Mesylate) 2 Mg Tablet, 2 MG PO BID for . , (Reported) Cetirizine HCl (Cetirizine HCl) 10 Mg Tablet, 10 MG PO DAILY, (Reported) Chlorpromazine HCl (Chlorpromazine HCl) 200 Mg Tablet, 200 MG PO TID, (Reported) Docusate Sodium (Colace) 100 Mg Capsule, 100 MG PO BID, (Reported) Haloperidol (Haloperidol) 5 Mg Tablet, 5 MG PO DAILY, (Reported) Haloperidol Decanoate (Haloperidol Decanoate) 100 Mg/1 Ml Vial, 1 ML IM Q2WK, (Reported) Naltrexone HCl (Naltrexone HCl) 50 Mg Tablet, 50 MG PO DAILY, (Reported) Naproxen (Naproxen) 500 Mg Tablet, 500 MG PO BID, (Reported) Pantoprazole Sodium (Pantoprazole Sodium) 40 Mg Tablet.dr, 40 MG PO DAILY, (Reported) Thiamine HCl (Thiamine HCl) 100 Mg Tablet, 100 MG PO DAILY, (Reported) Scheduled PRN Fluticasone Propionate (Fluticasone Propionate) 16 Gm [place].susp, 1 SPRAY NARES BID PRN for CONGESTION, (Reported) Methocarbamol (Methocarbamol) 500 Mg Tablet, 500 MG PO TID PRN for BACK PAIN, (Reported) Allergies Coded Allergies: No Known Allergies (Verified , 10/17/08) TABATHA JOAQUIN M.D. Jan 01, 2021 11:52
== END 2020-12-31 10:56 | disposition home or self-care (01) | DRG 750 ==
LOC: M ED 12:16 → M ED INP 20:26 → M PSY 21:54
PROVIDERS: ADMIT Psychiatry & Neurology Psychiatry; ATTEND Psychiatry & Neurology Psychiatry
DX: F20.5 Residual schizophrenia (principal); Z79.899 Other long term (current) drug therapy; F17.200 Nicotine dependence, unspecified, uncomplicated

== ENCOUNTER 2021-01-07 10:00 | Outpatient (RCR) | payer MEDICAID ==
[~2021-01-07 10:00] MED LIST changes: +CETI-24 PO; +CHLO200T11 PO; +FLUTISP NARES; +NAPR-885 PO; +PANT40TA29 PO; +THIA100T22 PO
== END 2021-01-08 ==
LOC: M OUTALCOH 10:00
PROVIDERS: ATTEND Psychiatry & Neurology Psychiatry
DX: F10.20 Alcohol dependence, uncomplicated (principal); F17.200 Nicotine dependence, unspecified, uncomplicated

== ENCOUNTER 2021-02-04 10:00 | Outpatient (RCR) | payer MEDICAID | END 2021-02-08 | LOC: M OUTALCOH 10:00 | PROVIDERS: ATTEND Psychiatry & Neurology Psychiatry | DX: F10.20 Alcohol dependence, uncomplicated (principal); F17.200 Nicotine dependence, unspecified, uncomplicated ==

== ENCOUNTER 2021-02-25 16:14 | Emergency (ER) | payer MEDICAID ==
[~2021-02-25] VITALS: Ht 190.5 cm; Wt 81.8 kg
[2021-02-25 16:14] VITALS: BP 163/74
== END 2021-02-25 18:05 | disposition left against medical advice (07) ==
LOC: M ED 16:14
DX: Z53.21 Procedure and treatment not carried out due to patient leaving prior to being seen by health care provider (principal)

== ENCOUNTER → 2021-03-11 | Outpatient (RCR) | payer MEDICAID | LOC: M OUTALCOH 02-11 16:42 | PROVIDERS: ATTEND Psychiatry & Neurology Psychiatry | DX: F10.20 Alcohol dependence, uncomplicated (principal); F17.200 Nicotine dependence, unspecified, uncomplicated ==

== ENCOUNTER 2021-03-27 10:00 | Outpatient (RCR) | payer MEDICAID | END 2021-04-10 | LOC: M OUTALCOH 10:00 | PROVIDERS: ATTEND Psychiatry & Neurology Psychiatry | DX: F10.20 Alcohol dependence, uncomplicated (principal); F17.200 Nicotine dependence, unspecified, uncomplicated ==

== ENCOUNTER 2021-05-08 10:00 | Outpatient (RCR) | payer MEDICAID | END 2021-05-11 | LOC: M OUTALCOH 10:00 | PROVIDERS: ATTEND Psychiatry & Neurology Psychiatry | DX: F10.20 Alcohol dependence, uncomplicated (principal); F17.200 Nicotine dependence, unspecified, uncomplicated ==

== ENCOUNTER 2021-05-22 10:00 | Outpatient (RCR) | payer MEDICAID ==
[~2021-05-22 10:00] MED LIST changes: -HALO5TA PO; +HALO5TAB33 PO
== END 2021-06-10 ==
LOC: M OUTALCOH 10:00
PROVIDERS: ATTEND Psychiatry & Neurology Psychiatry
DX: F10.20 Alcohol dependence, uncomplicated (principal); F17.200 Nicotine dependence, unspecified, uncomplicated

== ENCOUNTER 2021-06-26 09:00 | Outpatient (RCR) | payer MEDICAID ==
[~2021-06-26 09:00] MED LIST changes: +HALO5TA PO; -HALO5TAB33 PO
== END 2021-07-11 ==
LOC: M OUTALCOH 09:00
PROVIDERS: ATTEND Psychiatry & Neurology Psychiatry
DX: F10.20 Alcohol dependence, uncomplicated (principal); F17.200 Nicotine dependence, unspecified, uncomplicated

== ENCOUNTER → 2021-07-08 | Outpatient (CLI) | payer MEDICAID ==
[~2021-07-08] MED LIST changes: -HALO5TA PO; +HALO5TAB33 PO
[2021-07-08 10:13] LABS: BASO % 0.7 % (0.0-1.0); EOS # 0.2 10^3/uL (0.0-0.5); EOS % 2.9 % (0.0-3.0); HEMATOCRIT 38.4 % (42.0-52.0); HEMOGLOBIN 13.3 g/dl (13.5-17.5); LYMPH # 0.8 10^3/uL (1.5-5.0); LYMPH % 14.3 % (24.0-44.0); MEAN CORPUSCULAR HGB CONC 34.6 g/dl (32.0-36.5); MEAN CORPUSCULAR VOLUME 86.7 fl (80.0-96.0); MONO # 0.5 10^3/uL (0.0-0.8); MONO % 8.3 % (2.0-8.0); NEUTROPHILS % 73.4 % (36.0-66.0); PLATELET COUNT, AUTOMATED 239 10^3/uL (150-450); RED BLOOD COUNT 4.43 10^6/uL (4.30-6.10); WHITE BLOOD COUNT 5.5 10^3/uL (4.0-10.0)
[2021-07-08 10:52] LABS: ALBUMIN 3.9 GM/DL (3.2-5.2); ALT/SGPT 25 U/L (12-78); BILIRUBIN,TOTAL 0.2 MG/DL (0.2-1.0); BLOOD UREA NITROGEN 18 MG/DL (7-18); CALCIUM LEVEL 8.9 MG/DL (8.5-10.1); CARBON DIOXIDE LEVEL 27 MEQ/L (21-32); CHLORIDE LEVEL 108 MEQ/L (98-107); CHOLESTEROL LEVEL 150 MG/DL (<200); CHOLESTEROL RISK RATIO 3.061 (<5); CREATININE FOR GFR 0.89 MG/DL (0.70-1.30); FOLATE > 24.0 NG/ML (>5.4); GLOMERULAR FILTRATION RATE > 60.0 (>56); GLUCOSE, FASTING 92 MG/DL (70-100); HDL CHOLESTEROL 49 MG/DL (>40); LDL CHOLESTEROL 84 MG/DL (<100); NON-HDL-C 101 MG/DL; POTASSIUM SERUM 4.7 MEQ/L (3.5-5.1); SODIUM LEVEL 140 MEQ/L (136-145); TOTAL PROTEIN 6.5 GM/DL (6.4-8.2); TRIGLYCERIDES LEVEL 83 MG/DL (<150); VITAMIN B12 LEVEL 825 PG/ML (247-911)
== END ==
LOC: M PLALAB 08:57
PROVIDERS: ATTEND Student in an Organized Health Care Education/Training Program
DX: F20.9 Schizophrenia, unspecified (principal)

== ENCOUNTER 2021-07-24 11:00 | Outpatient (RCR) | payer MEDICAID | END 2021-08-11 | LOC: M OUTALCOH 11:00 | PROVIDERS: ATTEND Psychiatry & Neurology Psychiatry | DX: F10.20 Alcohol dependence, uncomplicated (principal); F17.200 Nicotine dependence, unspecified, uncomplicated ==

== ENCOUNTER → 2021-08-22 | Outpatient (REF) | payer MEDICAID ==
[2021-08-22 12:18] LABS: APPEARANCE, URINE CLEAR (CLEAR); BACTERIA, URINE AUTO 1+ (NEGATIVE); BILIRUBIN, URINE AUTO NEGATIVE (NEGATIVE); BLOOD, URINE BLOOD NEGATIVE (NEGATIVE); COLOR, URINE STRAW (YELLOW); GLUCOSE, URINE (UA) AUTO NEGATIVE (NEGATIVE); KETONE, URINE AUTO NEGATIVE (NEGATIVE); LEUKOCYTE ESTERASE, URINE AUTO 3+ (NEGATIVE); NITRITE, URINE AUTO NEGATIVE (NEGATIVE); PROTEIN, URINE AUTO NEGATIVE (NEGATIVE); RBC, URINE AUTO 2 /HPF (0-3); SPECIFIC GRAVITY URINE AUTO 1.004 (1.002-1.035); SQUAMOUS EPITHELIAL CELL UR AU 0 /HPF (0-6); UROBILINOGEN, URINE AUTO 0.2 mg/dL (0.0-2.0); WBC, URINE AUTO 45 /HPF (0-3)
[2021-08-22 13:55] LABS: GC DNA AMPLIFICATION NEGATIVE (NEGATIVE)
== END ==
LOC: M LAB REF 11:52
PROVIDERS: ATTEND Physician Assistant
DX: N39.0 Urinary tract infection, site not specified (principal)

== ENCOUNTER 2021-09-04 10:00 | Outpatient (RCR) | payer MEDICAID | END 2021-09-08 | LOC: M OUTALCOH 10:00 | PROVIDERS: ATTEND Psychiatry & Neurology Psychiatry | DX: F10.20 Alcohol dependence, uncomplicated (principal); F17.200 Nicotine dependence, unspecified, uncomplicated ==

== ENCOUNTER 2021-09-09 15:47 | Outpatient (RCR) | payer MEDICAID | END 2021-10-09 | LOC: M OUTALCOH 15:47 | PROVIDERS: ATTEND Psychiatry & Neurology Psychiatry | DX: F10.20 Alcohol dependence, uncomplicated (principal); F17.200 Nicotine dependence, unspecified, uncomplicated ==